=== PATIENT | male | born 1965 | race Caucasian/White ===

== ENCOUNTER → 2016-09-22 | Outpatient (CLI) | payer BC ==
[~2016-09-22] MED LIST: ALBUAER2 INH; ATR25 PO; FLNIN/ NAE; INSDGI SC; IPRASOL4 INH; NVLGI/PEN SC; OMEP20CA9 PO; ONDA-63 PO; PRLSR20 PO; ROPI0.5T PO; VNTHFA/IN INH; ZNTT/150 PO
--- NOTE | 2016-09-22 11:12 | DIAGNOSTIC IMAGING REPORT ---
ULTRASOUND OF THE THYROID GLAND CLINICAL HISTORY: Thyroid nodule. COMPARISON STUDY: Chest CT dated 03/25/2012. TECHNIQUE: Real-time, grayscale, and color flow sonography of the thyroid gland is performed utilizing a high-frequency linear transducer. Images are reviewed in the transverse and longitudinal planes. FINDINGS: Right lobe: The right lobe of the thyroid gland is normal in size and homogeneous in echotexture, measuring 5.0 x 1.9 x 1.8 cm. Left lobe: The left lobe of the thyroid gland is normal in size and homogeneous in echotexture, measuring 4.5 x 1.8 x 2.0 cm. Isthmus: The thyroid isthmus is normal in appearance and measures 0.4 cm in AP diameter. IMPRESSION: Unremarkable sonographic assessment of the thyroid gland. No thyroid nodule is identified. Electronically signed by: Jude Manley M.D. 09/22/2016 11:11 AM Dictated Date/Time: 09/22/2016 11:09 AM
[2016-09-22 13:01] LABS: THYROID STIMULATING HORMONE 1.48 uIu/ml (0.300-4.500)
== END | disposition home or self-care (01) ==
LOC: C.ULTR 10:25
PROVIDERS: ATTEND Internal Medicine Endocrinology, Diabetes & Metabolism
DX: E04.1 Nontoxic single thyroid nodule (principal); M79.1 Myalgia

== ENCOUNTER → 2016-10-17 | Outpatient (CLI) | payer BC ==
--- NOTE | 2016-10-18 01:00 | PAP/PSG TECHNICIAN REPORT ---
[facility] Belt Back Operator Polysomnogram Report Study name: None Report date: 10/18/2016 Study date: 10/17/2016 Referring Physician: Eric Stevenson M.D. Name: TEO MORENO Interpreting Physician: Leigh Stevenson M.D. Date of : 1965 Belt Back Operator: JER Guan. Sex: Male Age: 50 StudyType: PSG Weight: 272 lbs Height: 50 years, Height 6' 0" : BMI: 36.89 Medications: Prilosec 20mg, Mirapex, Lyrica 150mg, Spiriva 18mcg inhalation caps, Ventolin HFA 108mcg/act, Nicotine gum, Ativan 0.5mg, Lantus 100 unit/ml, Ranitidine HCl 300mg, Ursodiol 300mg Patient History Study started on room air with ETCO2 monitoring in room #6. 50 yr old male here tonight for a possible split psg if AHI>10. He has multiple medical problems (liver disease, HTN, diabetes and lung problems). He was diagnosed with EMIL and nocturnal hypoxemia years ago, and has been on cpap and oxygen. He is intolerant to cpap and has difficulty with wearing the mask. He is currently not using cpap or oxygen. He is having EDS and problems falling asleep. Parameters Monitored NPSG: E1-M2, E2-M1, Fp1-M2, Fp2-M1, F3-M2, F4-M2, F4-M1, C3-M2, C4-M2, C4-M1, O1-M2, O2-M2, O2-M1, T3-M2, T4-M1, P3-M2, P4-M1, CHIN1, CHIN2, HR, EKG, Legs, PFLOW, SNOR, FLOW, CFLOW, Tidal Volume, THOR, ABDO, SpO2, PLTH, CPRESS, ETCO2 Wave, ETCO2, pH Sleep Architecture Sleep Stages Time at Lights Off 9:50:43 PM STAGES Time (min.) TST (%) Time at Lights On 12:31:43 AM Wake 155.5 -- Total Recording Time (TRT) 161.00 min. N1 5.5 100 Total Sleep Period (TSP) 6.0 min. N2 0.0 0 Total Sleep Time (TST) 5.5min. N3 0.0 0 Awake Time 155.5 min. REM 0.0 0 Wake after Sleep Onset 75.5 min. Sleep Efficiency (SE) 3 % Sleep Onset Latency (HE) 80.0 min. Number of Stage 1 Shifts None Awakenings 2 Stage Changes 4 Number of REM periods N/A REM 0.0 0 REM Latency NONE min. NREM 5.5 100 Body Position Analysis Supine Right Left Side Prone Vertical Total Sleep Time (min.) 14.2 5.5 0.0 5.50 0.0 0.0 Total Sleep Time (%) 0% 100% 0% 100 0% N/A% Total Sleep Time REM (min.) 0.0 0.0 0.0 None 0.0 0.0 Total Sleep Time NREM (min.) 0.0 5.5 0.0 None 0.0 0.0 Intermittent Wake (min.) 14.2 87.4 53.9 None 0.0 0.0 Total Sleep Period (%) 0% None None None None None Arousals Myoclonus (PLM) * Events Count Index Events Count Index Spontaneous 2 22 Events Awake (PLMW) 161 62.1 Respiratory 0 0.0 Events Asleep w/ Arousal (PLMA) 9 98.2 PLM 9 98 Events Asleep w/o Arousal (PLMS) 3 32.7 Snoring 0 0 Total Asleep 12 130.9 Total 11 120 Total 173 64 Respiratory Analysis * CA OA MA CH H RERA Total Count 0 0 0 0 0 0 0 Index 0.0 0.0 0.0 0 0.0 0 0.0 Mean Duration 0.0 0.0 0.0 0.00 0.0 0.0 0.0 Longest Duration 0.0 0.0 0.0 0.00 0.0 0.0 0.0 Respiratory Event Summary Total Supine ~Supine Right Left Prone REM NREM Apneas Count 0 N/A 0 0 N/A N/A N/A 0 Index 0.0 N/A 0 0.0 N/A N/A N/A 0 Hypopneas (4% Desat) Count 0 N/A 0 0 N/A N/A N/A 0 Index 0.0 N/A 0 0.0 N/A N/A N/A 0.0 Apneas & All Hypopneas Count 0 N/A 0 0 N/A N/A N/A 0 Index 0.0 N/A 0 0 N/A N/A N/A 0.0 Respiratory Events (Vamp Creaser+All Hyp+RERA) Count 0 N/A 0 0 N/A N/A N/A 0 Index 0.0 N/A 0 0.0 N/A N/A N/A 0.0 Respiratory Related Arousal Count 0 N/A 0 0 N/A N/A N/A 0 Index 0.0 N/A 0 0 N/A N/A N/A 0 Snoring Analysis Supine Right Left Prone REM NREM Total Snore duration 0.6 min Snores count N/A 13 N/A N/A N/A 13 13 Snore mean duration 2.7 Sec Snores index N/A 142 N/A N/A N/A 141.8 141.8 TST with snoring (%) 10.7% SpO2 Analysis Total REM NREM Awake <50% 0.0 min. 0.0 min. 0.0 min. 0.0 min. 51 - 60% 0.0 min. 0.0 min. 0.0 min. 0.0 min. 61 - 70% 0.0 min. 0.0 min. 0.0 min. 0.0 min. 71 - 80% 0.0 min. 0.0 min. 0.0 min. 0.0 min. 81 - 90% 0.4 min. 0.0 min. 0.0 min. 0.4 min. 91 - 100% 134.8 min. 0.0 min. 5.5 min. 129.3 min. Average 95 0 96 95 Minimum SpO2 82 N/A 94 82 Desaturation Event Index 5.6 0.0 0.0 5.8 # Desat. Events below 89% N/A N/A N/A N/A Time(%) with Saturation below 89% 0.1 0.0 0.0 0.1 Time(min.) with Saturation below 89% 0.2 0.0 0.0 0.2 Heart Rate Analysis End Tidal CO2 Analysis Min (bpm) Max (bpm) Average (bpm) TSP (mins) % of TSP Awake 64 214 80 Above 55 mmHg 0.0 0.0 NREM 71 92 80 50-55 mmHg 0.0 0.0 REM N/A N/A N/A 45-50 mmHg 0.0 0.0 Overall 71 92 80 40-45 mmHg 0.0 0.0 35-40 mmHg 0.9 16.6 30-35 mmHg 4.5 81.0 Average ETCO2 0.0 Supplemental O2 Values Minimum O2 level: None Value Start Time End Time Belt Back Operator Comments Mr. Moreno laid in the right, left and supine positions. No cardiac arrhythmia noted. His legs seemed to move the entire time he was in bed. No bruxism noted. Snoring was not noted and scored as a 0 on a scale of 1 through 5. (0=no snoring, 5=snoring loud enough to be heard through a closed door or down the rios way) He used the restroom once during the night. His total sleep time was only 5and1/2 minutes. He became frustrated and ended the study early and left the sleep lab at 12:25am. The final report will be interpreted and signed by a sleep physician. The completed physician report will then be placed in the patient medical record Therapy (cm H2O) 0 TIB (min.) 161.0 TST (min.) 5.5 Sleep Onset (min.) 80.0 REM Onset From Sleep (min.) NONE Sleep Efficiency % 3 Wakefulness (%) 97 Wakefulness (min.) 155.5 NREM 1 (%) 100 NREM 1 (min.) 5.5 NREM 2 (%) 0 NREM 2 (min.) 0.0 NREM 3 (%) 0 NREM 3 (min.) 0.0 REM (%) 0 REM (min.) 0.0 # Arousals 11 Arousal Index 120 # Snore 13 Snore Index 141.8 AHI 0.0 AHI Supine N/A AHI Non-Supine 0 NREM AHI 0.0 REM AHI N/A RDI 0.0 # Obstructive Apnea 0 # Central Apnea 0 # Mixed Apnea 0 # Hypopneas 0 RERAs 0 Total Respiratory Events 0 Time Below SpO2 89% (min.) 0.0 Mean NREM SpO2 (%) 96 Mean REM SpO2 (%) N/A Mean Sleep SpO2 (%) 96 Min NREM SpO2 (%) 94 Min REM SpO2 (%) N/A Position Supine (min.) 14.2 Position Non-supine (min.) 5.5 LM Index Sleep 130.9 LM Index NREM 130.9 LM Index REM N/A Mean Heart Rate (bpm) 80 Min Heart Rate (bpm) 71
--- NOTE | 2016-10-23 17:11 | POLYSOMNOGRAPH REPORT ---
REFERRING PERSON: Dr. Jose Stevenson. BSS SOLUTION ARCHITECT: Parul Cantu. Mr. Moreno is a 50-year-old male with multiple medical problems including liver disease, hypertension, diabetes who was diagnosed with obstructive sleep apnea with nocturnal hypoxemia, years ago. He came intolerant to CPAP and was discontinued. He is having excessive daytime sleepiness. He returns to the sleep lab to see if he can qualify for equipment, once again. Following the technical and digital specifications of the [place] [employer] (AASM) a standard diagnostic polysomnogram was performed monitoring EEG, EOG, EMG (chin and leg deviations), oxygen saturation, body position, digital video, respiratory effort and airflow. The sleep Stage and event scoring was based on the AASM Manual for the Scoring of Sleep and Associated Events 2007 edition. Apneas are defined as a drop in the peak thermal sensor excursion by >90% of baseline for at least 10 seconds. Hypopneas were scored using the 4% oxygen desaturation rule (4A-[employer]) and a decrease in the nasal pressure excursions by >30% of baseline for at least 10 seconds. Respiratory effort-related arousal (RERA's) is defined as a sequence of breaths lasting at least 10 seconds characterized by increasing respiratory effort or flattening of the nasal pressure waveform leading to an arousal from sleep when the sequence of breaths does not meet criteria for an apnea or hypopnea. Apnea Hypopnea index (AHI) is defined as the number of apneas and hypopneas occurring in an hour of sleep. Respiratory disturbance index (RDI) is defined as the number of apneas, hypopneas, and RERA's occurring in an hour of sleep. Mr. Moreno struggled on this polysomnogram. He was observed from 9:50 p.m. to 12:31 a.m. Total recording time was 161 minutes. Total sleep time was only 5.5 minutes. Only 5.5 minutes of N1 sleep was recorded on this study. There were no respiratory events during that time. There were 12 periodic limb movements during that time. Thirteen snoring events were recorded. Mean saturation was 95%. This patient became frustrated and wanted to discontinue therapy and this patient requested this study end at 2:25 a.m. He left the sleep lab shortly thereafter. IMPRESSION AND PLAN: Nondiagnostic polysomnogram. Only 5.5 minutes of total sleep time was recorded during 161 minutes of observation. This test will need to be repeated.
== END | disposition home or self-care (01) ==
LOC: C.NEUR 21:00
PROVIDERS: ATTEND Surgery
DX: G47.33 Obstructive sleep apnea (adult) (pediatric) (principal)

== ENCOUNTER → 2016-10-25 | Day surgery (SDC) | payer BC ==
[~2016-10-25] VITALS: Ht 185.4 cm; Wt 125.0 kg
[~2016-10-25] MED LIST changes: +LIDOCAINE HCL 2% 2 ML VIAL (20MG/ML) ONE; +MIDAZOLAM HCL 1 MG/ML 2ML VIAL ONE; +ONDANSETRON INJ 2 MG/ML 2 ML VIAL IV PRN; +SUCCINYLCHOLINE CHLORIDE 20 MG/ML 10 ML VIAL IV ONE
[2016-10-25 09:46] VITALS: Ht 185.4 cm; Wt 125.0 kg
--- NOTE | 2016-10-25 09:54 | Endo History and Physical ---
History & Physical Date of Service: Oct 25, 2016. Chief Complaint: Abnormal CT Referring Physician: Dr. Berg History of Present Illness Patient referred for a colonosocpy to screening for colon cancer after being found to have an abnormal CT of the abdomen. Past Medical History Diabetes, Neurological Disorder, Arthritis, Fractures, Asthma, Gastrointestinal Disorder, Anxiety, Reflux, Sleep Apnea, COPD, Liver Disease, Other, Depression Past Surgical History Hx Cardiac Surgery: No Hx Internal Defibrillator: No Hx Pacemaker: No Hx Abdominal Surgery: Yes (UMBILICAL HERNIA REPAIR, [place]) Hx Post-Op Nausea and Vomiting: No Hx Cancer Surgery: No Hx Thoracic Surgery: No Hx Orthopedic: Yes (CERVICAL NECK FUSION X 2, LEFT SHOULDER REPAIR, LEFT WRIST REPAIR) Hx Urinary Tract Surgery: No Social History Smoking Status: Current Every Day Smoker Hx Substance Use: No Hx Alcohol Use: No Allergies Coded Allergies: Penicillins (Verified Allergy, Severe, ANAPHYLAXIS, 10/25/16) reports an iv dose of penicillin in ER when he was 21 yrs old. Had to stay in hospital for 2 days. Morphine (Verified Allergy, Intermediate, Severe itching/mouth rash, ) * PT MUST BE PRETREATED WITH BENADRYL Adhesives (Verified Allergy, Unknown, rips skin, 10/25/16) Meperidine (Verified Allergy, Unknown, pruritis/rash, 10/25/16) is able to tolerate IF PRETREATED WITH BENADRYL Current Medications Reported Home Medications Medications Dose Route/Sig Max Daily Dose Days Date Category Novolog Flexpen (Insulin Aspart) 100 Units/Ml Inj 15 QD 10/25/16 Reported Lantus (Insulin Glargine) 100 Unit/Ml Inj 0 SC SUPPER 10/25/16 Reported Lantus (Insulin Glargine) 100 Unit/Ml Inj 0 SC BEFORE LUNCH 10/25/16 Reported Lantus (Insulin Glargine) 100 Unit/Ml Inj 0 SC AM PRN 10/25/16 Reported Ondansetron HCl (Ondansetron) 8 Mg Tab 8 Mg PO Q8 PRN 08/19/16 Reported Zantac (Ranitidine HCl) 150 Mg Tab 300 Mg PO QPM 05/26/16 Reported Prilosec (Omeprazole) 20 Mg Cap 20 Mg PO QPM PRN 05/26/16 Reported Ventolin (Albuterol) Inh 2 Puffs INH QID PRN 5 11/25/15 Reported Prilosec (Omeprazole) 20 Mg Cap 40 Mg PO QPM 06/11/15 Reported Vital Signs Weight (Kilograms): 125 Height (Feet): 6 Height (Inches): 1 Physical Exam General Appearance: no apparent distress Respiratory/Chest: Auscultation: deminished air movement Cardiovascular: Heart Auscultation: RRR Abdomen: Inspection & Palpation: soft, distended Assessment and Plan patient for colonsocopy today due to an abnormal CT of the colon. We have discussed the risks to include bleeding, infection, perforation, pain, and missed polyps.
[2016-10-25 10:07] VITALS: TEMP 37
--- NOTE | 2016-10-25 11:16 | GI REPORT ---
Procedure Date: 10/25/2016 10:57 AM Procedure: Colonoscopy Indications: Abnormal CT of the GI tract Medicines: Monitored Anesthesia Care Complications: No immediate complications. Estimated blood loss: Minimal. Estimated Blood Loss: Estimated blood loss was minimal. Procedure: Pre-Anesthesia Assessment: - Prior to the procedure, a History and Physical was performed, and patient medications, allergies and sensitivities were reviewed. The patient's tolerance of previous anesthesia was reviewed. - The risks and benefits of the procedure and the sedation options and risks were discussed with the patient. All questions were answered and informed consent was obtained. - Patient identification and proposed procedure were verified prior to the procedure by the physician, the nurse and the echo vascular technologist. The procedure was verified in the procedure room. - Pre-procedure physical examination revealed no contraindications to sedation. - ASA Grade Assessment: III - A patient with severe systemic disease. - After reviewing the risks and benefits, the patient was deemed in satisfactory condition to undergo the procedure. - The anesthesia plan was to use monitored anesthesia care (MAC). - Immediately prior to administration of medications, the patient was re-assessed for adequacy to receive sedatives. - The heart rate, respiratory rate, oxygen saturations, blood pressure, adequacy of pulmonary ventilation, and response to care were monitored throughout the procedure. - The physical status of the patient was re-assessed after the procedure. After I obtained informed consent, the scope was passed under direct vision. Throughout the procedure, the patient's blood pressure, pulse, and oxygen saturations were monitored continuously. The scope was introduced through the anus and advanced to the terminal ileum. The colonoscopy was performed without difficulty. The patient tolerated the procedure well. The quality of the bowel preparation was adequate to identify polyps 6 mm and larger in size. Findings: The perianal and digital rectal examinations were normal. Pertinent negatives include normal sphincter tone. The terminal ileum appeared normal. A few small-mouthed diverticula were found in the sigmoid colon. Internal hemorrhoids were found during retroflexion. The hemorrhoids were mild. The exam was otherwise without abnormality. Impression: - The examined portion of the ileum was normal. - Mild diverticulosis in the sigmoid colon. - Internal hemorrhoids. - The examination was otherwise normal. - No specimens collected. Recommendation: - Discharge patient to home (ambulatory). - Advance diet as tolerated today. - Repeat colonoscopy in 3 years because the bowel preparation was suboptimal. Marten Ricketts, D.Good Ricketts DO 10/25/2016 11:15:31 AM This report has been signed electronically. Note Initiated On: 10/25/2016 10:57 AM I attest to the content of the Intraoperative Record and orders documented therein, exceptions below
--- NOTE | 2016-10-25 11:19 | Discharge Instructions ---
Endoscopy Patient Instructions Date / Procedure(s) Performed Oct 25, 2016. Colonoscopy Allergy Information Coded Allergies: Penicillins (Verified Allergy, Severe, ANAPHYLAXIS, 10/25/16) reports an iv dose of penicillin in ER when he was 21 yrs old. Had to stay in hospital for 2 days. Morphine (Verified Allergy, Intermediate, Severe itching/mouth rash, ) * PT MUST BE PRETREATED WITH BENADRYL Adhesives (Verified Allergy, Unknown, rips skin, 10/25/16) Meperidine (Verified Allergy, Unknown, pruritis/rash, 10/25/16) is able to tolerate IF PRETREATED WITH BENADRYL Discharge Date / Findings Oct 25, 2016. Hemorrhoids Diverticulosis of the colon Medication Instructions Stopped Medication(s): INSULIN STOP MORNING DOSE Restart Stopped Medication(s): Reported Home Medications Medications Dose Route/Sig Max Daily Dose Days Date Category Novolog Flexpen (Insulin Aspart) 100 Units/Ml Inj 15 QD 10/25/16 Reported Lantus (Insulin Glargine) 100 Unit/Ml Inj 0 SC SUPPER 10/25/16 Reported Lantus (Insulin Glargine) 100 Unit/Ml Inj 0 SC BEFORE LUNCH 10/25/16 Reported Lantus (Insulin Glargine) 100 Unit/Ml Inj 0 SC AM PRN 10/25/16 Reported Ondansetron HCl (Ondansetron) 8 Mg Tab 8 Mg PO Q8 PRN 08/19/16 Reported Zantac (Ranitidine HCl) 150 Mg Tab 300 Mg PO QPM 05/26/16 Reported Prilosec (Omeprazole) 20 Mg Cap 20 Mg PO QPM PRN 05/26/16 Reported Ventolin (Albuterol) Inh 2 Puffs INH QID PRN 5 11/25/15 Reported Prilosec (Omeprazole) 20 Mg Cap 40 Mg PO QPM 06/11/15 Reported Provider Instructions Activity Restrictions - No exercising or heavy lifting for 24 hours. - Do not drink alcohol the day of the procedure. - Do not drive a car or operate machinery until the day after the procedure. - Do not make any important decisions or sign important papers in 24 hours after the procedure. Following Day: - Return to full activity which may include returning to work/school. Diet Start your diet with liquids and light foods (jello, soup, juice, toast). Then eat your usual diet if not nauseated. Treatment For Common After Affects For mild abdominal pain, bloating, or excessive gas: - Rest - Eat lightly - Lie on right side Follow-Up Information Repeat colonoscopy in 3 years due to a suboptimal bowel preparation Anesthesia Information What You Should Know You have had a procedure that required some medicine to reduce anxiety and discomfort. This treatment is called moderate sedation. After receiving the treatment, you may be sleepy, but you will be able to breathe on your own. The effects of the treatment may last for several hours. Follow these instructions along with Activity/Diet recommendations noted above: * Do NOT do anything where dizziness or clumsiness would be dangerous. * Rest quietly at home today, then you can be up and about tomorrow. * Have a responsible person stay with you the rest of today. * You may have had an I.V. today. If so, you may take the dressing off later today. Recommendations Call your doctor if: * Trouble breathing * Continuous vomiting for more than 24 hours * Temperature above 101 degrees * Severe abdominal pain or bloating * Pain not relieved by pain medicine ordered * There is increased drainage or redness from any incision * A large amount of rectal bleeding greater than 2-3 tablespoons. (If you had a polyp/s removed or have hemorrhoids, a small amount of blood - from the rectum is to be expected.) * You have any unanswered questions or concerns. IN THE EVENT OF A SERIOUS EMERGENCY, GO TO THE NEAREST EMERGENCY ROOM Your discharge instructions were prepared by provider Ben Ricketts. Patient Instructions Signature Page Dion Moreno Patient (or Guardian) Signature/Date: I have read and understand the instructions given to me by my caregivers. Caregiver/RN/Doctor Signature/Date: The above-named patient and/or guardian has received patient instructions on this date. + Original Patient Signature Page (only) stays with chart. Please make copy for patient.
[2016-10-25 11:46] VITALS: BP 131/79; PULSE 77; O2SAT 97
--- NOTE | 2016-10-25 15:31 | Anesthesiology Progress Note ---
Anesthesia Post Op Note Date & Time Oct 25, 2016 at 15:31 Vital Signs Pain Intensity: 0 Vital Signs Past 12 Hours Date Time Temp Pulse Resp B/P Pulse Ox O2 Delivery O2 Flow Rate FiO2 10/25/16 11:46 77 20 131/79 97 Room Air 10/25/16 11:31 84 20 114/70 94 Room Air 10/25/16 11:16 87 20 108/63 94 Room Air 10/25/16 10:07 37.0 76 20 124/74 98 Room Air Notes Mental Status: alert / awake / arousable Nausea / Vomiting: adequately controlled Pain: adequately controlled Airway Patency, RR, SpO2: stable & adequate BP & HR: stable & adequate Hydration State: stable & adequate Anesthetic Complications: no major complications apparent
== END | disposition home or self-care (01) ==
LOC: C.GI 09:17
PROVIDERS: ATTEND Internal Medicine Gastroenterology
DX: R93.3 Abnormal findings on diagnostic imaging of other parts of digestive tract (principal); K57.30 Diverticulosis of large intestine without perforation or abscess without bleeding; K64.8 Other hemorrhoids; E11.9 Type 2 diabetes mellitus without complications; J44.9 Chronic obstructive pulmonary disease, unspecified; Z88.0 Allergy status to penicillin; Z88.5 Allergy status to narcotic agent

== ENCOUNTER 2016-12-08 10:52 | Emergency (ER) | payer BC ==
[~2016-12-08] VITALS: Ht 182.9 cm; Wt 120.0 kg
[~2016-12-08 10:52] MED LIST changes: -ATR25 PO; -FLNIN/ NAE; -IPRASOL4 INH; -LIDOCAINE HCL 2% 2 ML VIAL (20MG/ML) ONE; -MIDAZOLAM HCL 1 MG/ML 2ML VIAL ONE; -ONDANSETRON INJ 2 MG/ML 2 ML VIAL IV PRN; -PRLSR20 PO; -ROPI0.5T PO; -SUCCINYLCHOLINE CHLORIDE 20 MG/ML 10 ML VIAL IV ONE; -VNTHFA/IN INH
[2016-12-08 10:58] VITALS: TEMP 36.4; Ht 182.9 cm; Wt 120.0 kg
[2016-12-08] MEDS ORDERED: PRLSR20 PO (11:54)
[2016-12-08] MEDS ORDERED: NVLGI/PEN SC ×2 (11:54)
[2016-12-08] MEDS ORDERED: ZNTT/150 PO (11:54)
--- NOTE | 2016-12-08 12:31 | DIAGNOSTIC IMAGING REPORT ---
RIGHT FEMUR 2 VIEWS ROUTINE CLINICAL HISTORY: Right thigh trauma. COMPARISON: CT of the abdomen and pelvis June 11, 2015. FINDINGS: No acute fracture of the right femur is identified. There is no right knee joint effusion. There is spurring of the patella at the insertion of the quadriceps. There is mild arthritis of the right hip. IMPRESSION: No acute fracture of the right femur. Electronically signed by: Angel Garrett M.D. 12/08/2016 12:30 PM Dictated Date/Time: 12/08/2016 12:28 PM
[2016-12-08 13:14] VITALS: BP 138/84; PULSE 92; O2SAT 98
--- NOTE | 2016-12-08 15:58 | EMERGENCY ROOM VISIT NOTE ---
History Report prepared by Prateek: William Velasquez Under the Supervision of: Dr. Quang Santamaria M.D. First contact with patient: 11:19 Chief Complaint: LEG PAIN,LEG INJURY Stated Complaint: RIGHT THIGH- PLEASE CHECK FOR COMPRESSION FX History of Present Illness The patient is a 50 year old male who presents to the Emergency Room with complaints of worsening right leg pain for the past two days. The patient states that he was putting in a fence post, and the post was let go by someone helping him, and it hit the patient in the right thigh. The patient states that it hit him, and he was flung into a tree three feet away, though he did not fall down. The patient states that the pain is exacerbated with walking and bending his knee. He states that he did not put ice on it afterwards. Pt denies LOC, headache, visual changes, neck pain, chest pain, breathing difficulties, nausea, vomiting, abdominal pain, back pain, numbness, weakness, open wounds, active bleeding, or other complaints. Source of History: patient Onset: two days ago Position: leg (right) Timing: worsening Modifying Factors (Worsening): other (walking and bending the knee) Review of Systems See HPI for pertinent positives & negatives. A total of 6 systems reviewed and were otherwise negative. Past Medical & Surgical Medical Problems: (1) Cervical disc disease (2) COPD (chronic obstructive pulmonary disease) (3) Diabetes mellitus, type II (4) Dyslipidemia (5) Fatty liver (6) GERD (gastroesophageal reflux disease) (7) RLS (restless legs syndrome) (8) Sarcoidosis Surgical Problems: (1) Status post cervical spinal fusion (2) Status post cholecystectomy (3) Status post endoscopic US with Bx (4) Status post liver biopsy (5) Status post repair nasal septum (6) Status post thoracic spine fusion Family History FH: diabetes mellitus MOTHER FH: heart disease MOTHER (? endocarditis) Social History Smoking Status: Current Every Day Smoker Alcohol Use: occasionally Marital Status: Housing Status: lives with family Occupation Status: disabled Current/Historical Medications Scheduled Insulin Aspart (Novolog Flexpen), 15 UNITS SC QAM Insulin Aspart (Novolog Flexpen), 18 UNITS SC DAILY Insulin Aspart (Novolog Flexpen), 22 UNITS SC QPM Insulin Glargine (Lantus), 55 UNITS SC QAM Omeprazole (Prilosec), 20 MG PO TID Ranitidine (Zantac), 150 MG PO BID Allergies Coded Allergies: Penicillins (Verified Allergy, Severe, ANAPHYLAXIS, 10/25/16) reports an iv dose of penicillin in ER when he was 21 yrs old. Had to stay in hospital for 2 days. Morphine (Verified Allergy, Intermediate, Severe itching/mouth rash, ) * PT MUST BE PRETREATED WITH BENADRYL Adhesives (Verified Allergy, Unknown, rips skin, 10/25/16) Meperidine (Verified Allergy, Unknown, pruritis/rash, 10/25/16) is able to tolerate IF PRETREATED WITH BENADRYL Physical Exam Vital Signs Date Time Temp Pulse Resp B/P Pulse Ox O2 Delivery O2 Flow Rate FiO2 12/08/16 13:14 92 20 138/84 98 12/08/16 12:18 98 14 121/78 98 Room Air 12/08/16 10:58 36.4 91 16 136/84 97 Room Air Physical Exam GENERAL: Awake, alert, well-appearing, in no distress HENT: Normocephalic, atraumatic. Oropharynx unremarkable. EYES: Normal conjunctiva. Sclera non-icteric. NECK: Supple. No nuchal rigidity. FROM. No JVD. RESPIRATORY: Clear to auscultation. CARDIAC: Regular rate, normal rhythm. Extremities warm and well perfused. Pulses equal. ABDOMEN: Soft, non-distended. No tenderness to palpation. No rebound or guarding. No masses. MUSCULOSKELETAL: Chest examination reveals no tenderness. No joint edema. LOWER EXTREMITIES: Left thigh is soft. Bruise on the anterior aspect. Calves are equal size bilaterally and non-tender. No edema. NEURO: Normal sensorium. No sensory or motor deficits noted. SKIN: No rash or jaundice noted. Medical Decision & Procedures ER Provider Diagnostic Interpretation: X-ray: Per my interpretation, radiologist review. RIGHT FEMUR 2 VIEWS ROUTINE CLINICAL HISTORY: Right thigh trauma. COMPARISON: CT of the abdomen and pelvis June 11, 2015. FINDINGS: No acute fracture of the right femur is identified. There is no right knee joint effusion. There is spurring of the patella at the insertion of the quadriceps. There is mild arthritis of the right hip. IMPRESSION: No acute fracture of the right femur. Electronically signed by: Angel Garrett M.D. 12/08/2016 12:30 PM Dictated Date/Time: 12/08/2016 12:28 PM ED Course 1119: The patient was evaluated in room C7. A complete history and physical exam was performed. 1245: I reevaluated the patient. Discussed results and discharge instructions: He verbalized understanding and agreement. The patient is ready for discharge. Medical Decision Triage Nursing notes reviewed. The patient's presentation and history were concerning for leg pain. Etiologies such as soft tissue injury, fracture, dislocation, neurovascular compromise, compartment syndrome, as well as others were entertained. Patient is doing very well. He had suffered a direct hit to the right thigh 2 days ago. He is having pain but he can ambulate. He is using a cane for stability. The patient underwent x-ray imaging as he was concerned about a fracture. There is nothing present on x-ray. His leg is soft. There is a small area of ecchymosis. No significant hematoma. Nothing to suggest compartment syndrome. No neurologic compromise. It appears that he has just suffered a significant contusion. Additional testing was deemed necessary. I discussed conservative management with the patient and he was in agreement and felt very comfortable. By the evaluation outlined above other emergent etiologies such as those listed in the differential, as well as others, were deemed relatively unlikely. The patient was informed about the findings as listed above. All questions were answered and he was pleased with the treatment. Return instructions were outlined and the patient was discharged in stable condition. The patient was referred to his PCP or orthopedic for follow-up next week for a recheck of the current condition. The chart was completed utilizing [employer] Speech voice recognition software. Grammatical errors, random word insertions, pronoun errors, and incomplete sentences are an occasional consequence of this system due to software limitations, ambient noise, and hardware issues. Any formal questions or concerns about the content, text, or information contained within the body of this dictation should be directly addressed to the physician for clarification. [place] Drug Monitoring Program Search Results: patient reviewed within database, see additional documentation Drug Monitoring Findings: The patient has multiple prescriptions done last year, however nothing recently. Impression Primary Impression: Contusion of right leg Scribe Attestation The scribe's documentation has been prepared under my direction and personally reviewed by me in its entirety. I confirm that the note above accurately reflects all work, treatment, procedures, and medical decision making performed by me. Departure Information Dispostion Home / Self-Care Referrals Neha Burgos D.O. (PCP) Forms HOME CARE DOCUMENTATION FORM, IMPORTANT VISIT INFORMATION Patient Instructions My [facility] Additional Instructions Ibuprofen(Motrin, Advil) may be used for fever or pain. Use 600mg every six hours as needed. Take with food. Avoid using more than 2400mg in a 24 hour period. Do not use 2400mg per day for more than three consecutive days without physician direction. Prolonged inappropriate use can lead to stomach upset or ulcers. (AND/OR) Acetaminophen(Tylenol) may be used for fever or pain. Use 1000mg every six hours as needed. Avoid using more than 4000mg in a 24 hour period. Warm compresses for 20 minutes at a time four times daily for 2-3 days. Use the cane as instructed. Rest and elevate your injury. Return to the ER immediately for any numbness, tingling, severe pain, extreme swelling in the extremity or as needed. Call [facility], [phone], next week to arrange follow up for your injury if symptoms persist. Follow-up with your primary care physician in 3 days for a recheck of your current condition.
[2017-03-26] MEDS ORDERED: IPRASOL4 INH (08:45)
[2017-03-26] MEDS ORDERED: VNTHFA/IN INH (08:45)
[2017-06-06] MEDS ORDERED: CLIN300C2 PO (07:34)
== END 2016-12-08 13:16 | disposition home or self-care (01) ==
LOC: C.EDB 10:54 → C.EDC 13:16
DX: S80.11XA Contusion of right lower leg, initial encounter (principal); W22.8XXA Striking against or struck by other objects, initial encounter; M50.90 Cervical disc disorder, unspecified, unspecified cervical region; J44.9 Chronic obstructive pulmonary disease, unspecified; E11.9 Type 2 diabetes mellitus without complications; E78.5 Hyperlipidemia, unspecified; K76.0 Fatty (change of) liver, not elsewhere classified; K21.9 Gastro-esophageal reflux disease without esophagitis; G25.81 Restless legs syndrome; D86.9 Sarcoidosis, unspecified; Z83.3 Family history of diabetes mellitus; Z82.49 Family history of ischemic heart disease and other diseases of the circulatory system; F17.210 Nicotine dependence, cigarettes, uncomplicated; Z79.4 Long term (current) use of insulin; Z79.899 Other long term (current) drug therapy

== ENCOUNTER → 2017-03-28 | Day surgery (SDC) | payer BC ==
[2017-03-26 08:47] VITALS: Ht 185.4 cm; Wt 125.0 kg
[~2017-03-28] VITALS: Ht 185.4 cm; Wt 125.0 kg
[~2017-03-28] MED LIST changes: -ALBUAER2 INH; +CLIN300C2 PO; +IPRASOL4 INH; +LIDOCAINE HCL 2% 2 ML VIAL (20MG/ML) ONE; +MIDAZOLAM HCL 1 MG/ML 2ML VIAL ONE; -OMEP20CA9 PO; -ONDA-63 PO; +ONDANSETRON INJ 2 MG/ML 2 ML VIAL IV PRN; +PRLSR20 PO; +PROPOFOL IV EMULSION 10 MG/ML 20 ML VIAL IV ONE; +SODIUM CHLORIDE 0.9% 500ML 500 ML IV ONE; +VNTHFA/IN INH
[2017-03-28 08:49] VITALS: TEMP 36.5
--- NOTE | 2017-03-28 08:56 | Endo History and Physical ---
History & Physical Date of Service: Mar 28, 2017. Chief Complaint: Cirrhosis of liver Referring Physician: Dr. Neha Burgos History of Present Illness Patient with a history of portal hypertension presenting for screening upper endoscopy today. He does have a history of grade 1 to grade 2 esophageal varices and is due for surveillance. Past Medical History Diabetes, Neurological Disorder, Arthritis, Fractures, Asthma, Gastrointestinal Disorder, Anxiety, Reflux, Sleep Apnea, COPD, Liver Disease, Other, Depression Past Surgical History Hx Cardiac Surgery: Yes (HEART CATH, NO STENTS) Hx Internal Defibrillator: No Hx Pacemaker: No Hx Abdominal Surgery: Yes (HERNIA REPAIR, [facility]ER[place]) Hx of Implantable Prosthesis: No Hx Post-Op Nausea and Vomiting: No Hx Cancer Surgery: No Hx Thoracic Surgery: No Hx Orthopedic: Yes (THORACIC BACK SURGERY, CERVICAL FUSIONS X3 (LIMITED LT,RT, UP)) Hx Urinary Tract Surgery: No Family History None Social History Smoking Status: Current Every Day Smoker Hx Substance Use: No Hx Alcohol Use: No Allergies Coded Allergies: Penicillins (Verified Allergy, Severe, ANAPHYLAXIS, 03/26/17) reports an iv dose of penicillin in ER when he was 21 yrs old. Had to stay in hospital for 2 days. Morphine (Verified Allergy, Intermediate, Severe itching/mouth rash, ) * PT MUST BE PRETREATED WITH BENADRYL Adhesives (Verified Allergy, Unknown, rips skin, 03/26/17) Meperidine (Verified Allergy, Unknown, pruritis/rash, 03/26/17) is able to tolerate IF PRETREATED WITH BENADRYL Current Medications Reported Home Medications Medications Dose Route/Sig Max Daily Dose Days Date Category Dose Instructions Duoneb (Ipratropium-Albuterol) 3 Ml Nebu 1 Treatment INH Q4H PRN 03/26/17 Reported Ventolin Hfa (Albuterol) 200 Puffs/85198 Mcg Aers 2-4 Puffs INH Q6H PRN 03/26/17 Reported Zantac (Ranitidine HCl) 150 Mg Tab 150 Mg PO BID 12/08/16 Reported Prilosec (Omeprazole) 20 Mg Capcr 20 Mg PO TID 12/08/16 Reported Novolog Flexpen (Insulin Aspart) 100 Units/Ml Inj 27 Units SC QPM 12/08/16 Reported Novolog Flexpen (Insulin Aspart) 100 Units/Ml Inj 20 Units SC LUNCH 12/08/16 Reported Novolog Flexpen (Insulin Aspart) 100 Units/Ml Inj 20 Units SC QAM 10/25/16 Reported BREAKFAST. Lantus (Insulin Glargine) 100 Unit/Ml Inj 57 Units SC QAM 10/25/16 Reported Vital Signs Weight (Kilograms): 125 Height (Feet): 6 Height (Inches): 1 Date Time Temp Pulse Resp B/P (MAP) Pulse Ox O2 Delivery O2 Flow Rate FiO2 03/28/17 08:49 36.5 70 20 111/74 (86) 98 Room Air Physical Exam General Appearance: no apparent distress Respiratory/Chest: Auscultation: breath sounds normal Cardiovascular: Heart Auscultation: RRR Abdomen: Inspection & Palpation: soft Assessment and Plan EGD for surveillance of esophageal varices. We have discussed the risks and benefits to include bleeding, infection, perforation pain and peritonitis
--- NOTE | 2017-03-28 09:16 | GI REPORT ---
Procedure Date: 03/28/2017 8:57 AM Procedure: Upper GI endoscopy Indications: Follow-up of esophageal varices Medicines: Monitored Anesthesia Care Complications: No immediate complications. Estimated blood loss: Minimal. Estimated Blood Loss: Estimated blood loss was minimal. Procedure: Pre-Anesthesia Assessment: - Prior to the procedure, a History and Physical was performed, and patient medications, allergies and sensitivities were reviewed. The patient's tolerance of previous anesthesia was reviewed. - The risks and benefits of the procedure and the sedation options and risks were discussed with the patient. All questions were answered and informed consent was obtained. - Patient identification and proposed procedure were verified prior to the procedure by the physician, the nurse and the cylindrical mixer. The procedure was verified in the procedure room. - Pre-procedure physical examination revealed no contraindications to sedation. - ASA Grade Assessment: III - A patient with severe systemic disease. - After reviewing the risks and benefits, the patient was deemed in satisfactory condition to undergo the procedure. - The anesthesia plan was to use monitored anesthesia care (MAC). - Immediately prior to administration of medications, the patient was re-assessed for adequacy to receive sedatives. - The heart rate, respiratory rate, oxygen saturations, blood pressure, adequacy of pulmonary ventilation, and response to care were monitored throughout the procedure. - The physical status of the patient was re-assessed after the procedure. After obtaining informed consent, the endoscope was passed under direct vision. Throughout the procedure, the patient's blood pressure, pulse, and oxygen saturations were monitored continuously. The scope was introduced through the mouth, and advanced to the third part of duodenum. The upper GI endoscopy was accomplished without difficulty. The patient tolerated the procedure well. Findings: Four columns of non-bleeding grade III varices were found in the middle third of the esophagus and in the lower third of the esophagus, 30 to 40 cm from the incisors. They were 5 mm in largest diameter. No stigmata of recent bleeding were evident and no red nasir signs were present. Moderate portal hypertensive gastropathy was found in the entire examined stomach. Biopsies were taken with a cold forceps for histology. Estimated blood loss was minimal. The examined duodenum was normal. Impression: - Non-bleeding grade III esophageal varices. - Portal hypertensive gastropathy. Biopsied. - Normal examined duodenum. Recommendation: - Discharge patient to home (ambulatory). - Advance diet as tolerated today. - Repeat the upper endoscopy in 1 year for surveillance. - Return to GI office as previously scheduled. - Consider a beta narendra with dosage titrated by the heart rate. Ben Ricketts D.O. Ben Ricketts, DO 03/28/2017 9:16:19 AM This report has been signed electronically. Note Initiated On: 03/28/2017 8:57 AM I attest to the content of the Intraoperative Record and orders documented therein, exceptions below
--- NOTE | 2017-03-28 09:18 | Discharge Instructions ---
Endoscopy Patient Instructions Date / Procedure(s) Performed Mar 28, 2017. EGD Allergy Information Coded Allergies: Penicillins (Verified Allergy, Severe, ANAPHYLAXIS, 03/26/17) reports an iv dose of penicillin in ER when he was 21 yrs old. Had to stay in hospital for 2 days. Morphine (Verified Allergy, Intermediate, Severe itching/mouth rash, ) * PT MUST BE PRETREATED WITH BENADRYL Adhesives (Verified Allergy, Unknown, rips skin, 03/26/17) Meperidine (Verified Allergy, Unknown, pruritis/rash, 03/26/17) is able to tolerate IF PRETREATED WITH BENADRYL Discharge Date / Findings Mar 28, 2017. Portal hypertensive gastropathy Grade 3 esophageal varices Medication Instructions Stopped Medication(s): Patient was told not to take any insulin today. Reported Home Medications Medications Dose Route/Sig Max Daily Dose Days Date Category Dose Instructions Duoneb (Ipratropium-Albuterol) 3 Ml Nebu 1 Treatment INH Q4H PRN 03/26/17 Reported Ventolin Hfa (Albuterol) 200 Puffs/29408 Mcg Aers 2-4 Puffs INH Q6H PRN 03/26/17 Reported Zantac (Ranitidine HCl) 150 Mg Tab 150 Mg PO BID 12/08/16 Reported Prilosec (Omeprazole) 20 Mg Capcr 20 Mg PO TID 12/08/16 Reported Novolog Flexpen (Insulin Aspart) 100 Units/Ml Inj 27 Units SC QPM 12/08/16 Reported Novolog Flexpen (Insulin Aspart) 100 Units/Ml Inj 20 Units SC LUNCH 12/08/16 Reported Novolog Flexpen (Insulin Aspart) 100 Units/Ml Inj 20 Units SC QAM 10/25/16 Reported BREAKFAST. Lantus (Insulin Glargine) 100 Unit/Ml Inj 57 Units SC QAM 10/25/16 Reported Provider Instructions Activity Restrictions - No exercising or heavy lifting for 24 hours. - Do not drink alcohol the day of the procedure. - Do not drive a car or operate machinery until the day after the procedure. - Do not make any important decisions or sign important papers in 24 hours after the procedure. Following Day: - Return to full activity which may include returning to work/school. Diet Start your diet with liquids and light foods (jello, soup, juice, toast). Then eat your usual diet if not nauseated. Treatment For Common After Affects For mild abdominal pain, bloating, or excessive gas: - Rest - Eat lightly - Lie on right side Follow-Up Information Follow-up with Dr. Neha Burgos as scheduled Dr. Berg will determine if a nonselective beta narendra should be started for your esophageal varices Anesthesia Information What You Should Know You have had a procedure that required some medicine to reduce anxiety and discomfort. This treatment is called moderate sedation. After receiving the treatment, you may be sleepy, but you will be able to breathe on your own. The effects of the treatment may last for several hours. Follow these instructions along with Activity/Diet recommendations noted above: * Do NOT do anything where dizziness or clumsiness would be dangerous. * Rest quietly at home today, then you can be up and about tomorrow. * Have a responsible person stay with you the rest of today. * You may have had an I.V. today. If so, you may take the dressing off later today. Recommendations Call your doctor if: * Trouble breathing * Continuous vomiting for more than 24 hours * Temperature above 101 degrees * Severe abdominal pain or bloating * Pain not relieved by pain medicine ordered * There is increased drainage or redness from any incision * A large amount of rectal bleeding greater than 2-3 tablespoons. (If you had a polyp/s removed or have hemorrhoids, a small amount of blood - from the rectum is to be expected.) * You have any unanswered questions or concerns. IN THE EVENT OF A SERIOUS EMERGENCY, GO TO THE NEAREST EMERGENCY ROOM Your discharge instructions were prepared by provider Ben Ricketts. Patient Instructions Signature Page Dion Moreno Patient (or Guardian) Signature/Date: I have read and understand the instructions given to me by my caregivers. Caregiver/RN/Doctor Signature/Date: The above-named patient and/or guardian has received patient instructions on this date. + Original Patient Signature Page (only) stays with chart. Please make copy for patient.
[2017-03-28 09:47] VITALS: BP 123/73; PULSE 76; O2SAT 98
--- NOTE | 2017-03-28 09:56 | Anesthesiology Progress Note ---
Anesthesia Post Op Note Date & Time Mar 28, 2017 at 09:56 Vital Signs Pain Intensity: 0 Vital Signs Past 12 Hours Date Time Temp Pulse Resp B/P (MAP) Pulse Ox O2 Delivery O2 Flow Rate FiO2 03/28/17 09:47 76 20 123/73 (90) 98 Room Air 03/28/17 09:34 76 20 114/74 (87) 97 Room Air 03/28/17 09:20 73 20 111/68 (82) 97 Room Air 03/28/17 08:49 36.5 70 20 111/74 (86) 98 Room Air Notes Mental Status: alert / awake / arousable, participated in evaluation Pt Amnestic to Procedure: Yes Nausea / Vomiting: adequately controlled Pain: adequately controlled Airway Patency, RR, SpO2: stable & adequate BP & HR: stable & adequate Hydration State: stable & adequate Anesthetic Complications: no major complications apparent
== END | disposition home or self-care (01) ==
LOC: C.GI 08:32
PROVIDERS: ATTEND Internal Medicine Gastroenterology
DX: K74.60 Unspecified cirrhosis of liver (principal); I85.00 Esophageal varices without bleeding; K31.89 Other diseases of stomach and duodenum; Z90.49 Acquired absence of other specified parts of digestive tract; F17.200 Nicotine dependence, unspecified, uncomplicated; J45.909 Unspecified asthma, uncomplicated; G47.33 Obstructive sleep apnea (adult) (pediatric); K21.9 Gastro-esophageal reflux disease without esophagitis; R16.1 Splenomegaly, not elsewhere classified; M19.90 Unspecified osteoarthritis, unspecified site; E11.9 Type 2 diabetes mellitus without complications; Z79.84 Long term (current) use of oral hypoglycemic drugs; E66.9 Obesity, unspecified

== ENCOUNTER → 2017-05-22 | Day surgery (SDC) | payer BC ==
[2017-05-16 07:37] VITALS: Ht 185.4 cm; Wt 127.7 kg
[~2017-05-22] VITALS: Ht 185.4 cm; Wt 127.7 kg
[~2017-05-22] MED LIST changes: +FENTANYL CITRATE INJ 50 MCG/1 ML 2 ML VIAL ONE; +KETAMINE HCL INJ 50 MG/ML 10 ML VIAL ONE; -MIDAZOLAM HCL 1 MG/ML 2ML VIAL ONE; -ONDANSETRON INJ 2 MG/ML 2 ML VIAL IV PRN; +ONDANSETRON INJ 2 MG/ML 2 ML VIAL ONE; -SODIUM CHLORIDE 0.9% 500ML 500 ML IV ONE
--- NOTE | 2017-05-22 10:11 | Endo History and Physical ---
History & Physical Date of Service: May 22, 2017. Chief Complaint: Varices Referring Physician: Neha Burgos History of Present Illness Elective banding of varices Past Medical History Diabetes, Neurological Disorder, Arthritis, Fractures, Asthma, Gastrointestinal Disorder, Anxiety, Reflux, Sleep Apnea, COPD, Liver Disease, Other, Depression Past Surgical History Hx Cardiac Surgery: Yes (HEART CATH, NO STENTS) Hx Internal Defibrillator: No Hx Pacemaker: No Hx Abdominal Surgery: Yes (HERNIA REPAIR, [place]) Hx Post-Op Nausea and Vomiting: No Hx Cancer Surgery: No Hx Thoracic Surgery: No Hx Orthopedic: Yes (THORACIC BACK SURGERY, CERVICAL FUSIONS X3 (LIMITED LT,RT, UP)) Hx Urinary Tract Surgery: No Family History None Social History Smoking Status: Current Every Day Smoker Hx Substance Use: No Hx Alcohol Use: No Allergies Coded Allergies: Penicillins (Verified Allergy, Severe, ANAPHYLAXIS, 05/16/17) reports an iv dose of penicillin in ER when he was 21 yrs old. Had to stay in hospital for 2 days. Morphine (Verified Allergy, Intermediate, Severe itching/mouth rash, ) * PT MUST BE PRETREATED WITH BENADRYL Adhesives (Verified Allergy, Unknown, rips skin, 05/16/17) Meperidine (Verified Allergy, Unknown, pruritis/rash, 05/16/17) is able to tolerate IF PRETREATED WITH BENADRYL Current Medications Reported Home Medications Medications Dose Route/Sig Max Daily Dose Days Date Category Dose Instructions Duoneb (Ipratropium-Albuterol) 3 Ml Nebu 1 Treatment INH Q4H PRN 03/26/17 Reported Ventolin Hfa (Albuterol) 200 Puffs/93076 Mcg Aers 2-4 Puffs INH Q6H PRN 03/26/17 Reported Zantac (Ranitidine HCl) 150 Mg Tab 150 Mg PO BID 12/08/16 Reported Prilosec (Omeprazole) 20 Mg Capcr 20 Mg PO TID 12/08/16 Reported Novolog Flexpen (Insulin Aspart) 100 Units/Ml Inj 27 Units SC QPM 12/08/16 Reported Novolog Flexpen (Insulin Aspart) 100 Units/Ml Inj 20 Units SC LUNCH 12/08/16 Reported Novolog Flexpen (Insulin Aspart) 100 Units/Ml Inj 20 Units SC QAM 10/25/16 Reported BREAKFAST. Lantus (Insulin Glargine) 100 Unit/Ml Inj 60 Units SC QAM 10/25/16 Reported Vital Signs Weight (Kilograms): 127.73 Height (Feet): 6 Height (Inches): 1 Date Time Temp Pulse Resp B/P (MAP) Pulse Ox O2 Delivery O2 Flow Rate FiO2 05/22/17 08:40 36.9 79 18 124/75 (91) 98 Room Air Physical Exam General Appearance: no apparent distress Respiratory/Chest: Auscultation: breath sounds normal Cardiovascular: Heart Auscultation: RRR Abdomen: Inspection & Palpation: soft Assessment and Plan EGD for banding of elective varices
--- NOTE | 2017-05-22 11:05 | GI REPORT ---
Procedure Date: 05/22/2017 10:24 AM Procedure: Upper GI endoscopy Indications: For therapy of esophageal varices Medicines: See the Anesthesia note for documentation of the administered medications Complications: No immediate complications. Estimated Blood Loss: Estimated blood loss: none. Procedure: Pre-Anesthesia Assessment: - ASA Grade Assessment: III - A patient with severe systemic disease. After obtaining informed consent, the endoscope was passed under direct vision. Throughout the procedure, the patient's blood pressure, pulse, and oxygen saturations were monitored continuously. The Scope was introduced through the mouth, and advanced to the second part of duodenum. The upper GI endoscopy was accomplished without difficulty. The patient tolerated the procedure well. Findings: Four columns of grade II varices were found in the lower third of the esophagus,. No stigmata of recent bleeding were evident and no red nasir signs were present. Three bands were successfully placed with incomplete eradication of varices. The GE junction was at 40 cm, and was irregular. There was moderate portal HTN gastropathy throughout the entire stomach. 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 No gastric varices were seen. The duodenum was normal. Impression: - Non-bleeding grade II esophageal varices. 3 bands placed, but varices not completely eradicated. Recommendation: - Discharge patient to home. Liquids only today, then adv diet as tolerated. Repeat procedure in 3 weeks. Mandy Berg M.D. Mandy Berg MD 05/22/2017 11:04:48 AM This report has been signed electronically. Note Initiated On: 05/22/2017 10:24 AM I attest to the content of the Intraoperative Record and orders documented therein, exceptions below
--- NOTE | 2017-05-22 11:05 | Discharge Instructions ---
Endoscopy Patient Instructions Date / Procedure(s) Performed May 22, 2017. EGD Allergy Information Coded Allergies: Penicillins (Verified Allergy, Severe, ANAPHYLAXIS, 05/16/17) reports an iv dose of penicillin in ER when he was 21 yrs old. Had to stay in hospital for 2 days. Morphine (Verified Allergy, Intermediate, Severe itching/mouth rash, ) * PT MUST BE PRETREATED WITH BENADRYL Adhesives (Verified Allergy, Unknown, rips skin, 05/16/17) Meperidine (Verified Allergy, Unknown, pruritis/rash, 05/16/17) is able to tolerate IF PRETREATED WITH BENADRYL Discharge Date / Findings May 22, 2017. esophageal varices, banded Provider Instructions Activity Restrictions - No exercising or heavy lifting for 24 hours. - Do not drink alcohol the day of the procedure. - Do not drive a car or operate machinery until the day after the procedure. - Do not make any important decisions or sign important papers in 24 hours after the procedure. Following Day: - Return to full activity which may include returning to work/school. Diet Start your diet with liquids and light foods (jello, soup, juice, toast). Remain on liquids only today. Tomorrow, eat softer textured foods, and then advance your diet as tolerated. Treatment For Common After Affects For mild abdominal pain, bloating, or excessive gas: - Rest - Eat lightly - Lie on right side Follow-Up Information Follow-up with Neha Burgos as scheduled Anesthesia Information What You Should Know You have had a procedure that required some medicine to reduce anxiety and discomfort. This treatment is called moderate sedation. After receiving the treatment, you may be sleepy, but you will be able to breathe on your own. The effects of the treatment may last for several hours. Follow these instructions along with Activity/Diet recommendations noted above: * Do NOT do anything where dizziness or clumsiness would be dangerous. * Rest quietly at home today, then you can be up and about tomorrow. * Have a responsible person stay with you the rest of today. * You may have had an I.V. today. If so, you may take the dressing off later today. Recommendations Call your doctor if: * Trouble breathing * Continuous vomiting for more than 24 hours * Temperature above 101 degrees * Severe abdominal pain or bloating * Pain not relieved by pain medicine ordered * There is increased drainage or redness from any incision * A large amount of rectal bleeding greater than 2-3 tablespoons. (If you had a polyp/s removed or have hemorrhoids, a small amount of blood - from the rectum is to be expected.) * You have any unanswered questions or concerns. IN THE EVENT OF A SERIOUS EMERGENCY, GO TO THE NEAREST EMERGENCY ROOM Your discharge instructions were prepared by provider Mandy Villa. Patient Instructions Signature Page Dion Moreno Patient (or Guardian) Signature/Date: I have read and understand the instructions given to me by my caregivers. Caregiver/RN/Doctor Signature/Date: The above-named patient and/or guardian has received patient instructions on this date. + Original Patient Signature Page (only) stays with chart. Please make copy for patient.
[2017-05-22 11:33] VITALS: BP 128/69; PULSE 75; O2SAT 99
== END | disposition home or self-care (01) ==
LOC: C.GI 08:13
PROVIDERS: ATTEND Internal Medicine Gastroenterology
DX: I85.00 Esophageal varices without bleeding (principal); E11.9 Type 2 diabetes mellitus without complications; M19.90 Unspecified osteoarthritis, unspecified site; F41.9 Anxiety disorder, unspecified; K21.9 Gastro-esophageal reflux disease without esophagitis; J44.9 Chronic obstructive pulmonary disease, unspecified; G47.33 Obstructive sleep apnea (adult) (pediatric); K76.9 Liver disease, unspecified; Z87.81 Personal history of (healed) traumatic fracture; Z90.49 Acquired absence of other specified parts of digestive tract; Z98.1 Arthrodesis status; F17.200 Nicotine dependence, unspecified, uncomplicated; Z79.4 Long term (current) use of insulin

== ENCOUNTER → 2017-06-13 | Day surgery (SDC) | payer BC ==
[2017-06-06 07:35] VITALS: Ht 185.4 cm; Wt 127.3 kg
[~2017-06-13] VITALS: Ht 185.4 cm; Wt 127.3 kg
[~2017-06-13] MED LIST changes: -KETAMINE HCL INJ 50 MG/ML 10 ML VIAL ONE; +MIDAZOLAM HCL 1 MG/ML 2ML VIAL ONE; -ONDANSETRON INJ 2 MG/ML 2 ML VIAL ONE; +SODIUM CHLORIDE 0.9% 500ML 500 ML IV ONE
--- NOTE | 2017-06-13 09:17 | Endo History and Physical ---
History & Physical Date of Service: Jun 13, 2017. Chief Complaint: Varices banding Referring Physician: Dr. Neha Burgos History of Present Illness 51 yo with clinical cirrhosis complicated by large non-bleeding varices, presenting for variceal evaluation/eradication Past Medical History Diabetes, Neurological Disorder, Arthritis, Fractures, Asthma, Gastrointestinal Disorder, Anxiety, Reflux, Sleep Apnea, COPD, Liver Disease, Other, Depression Past Surgical History Hx Cardiac Surgery: Yes (HEART CATH, NO STENTS) Hx Internal Defibrillator: No Hx Pacemaker: No Hx Abdominal Surgery: Yes (HERNIA REPAIR, [facility]) Hx of Implantable Prosthesis: No Hx Post-Op Nausea and Vomiting: No Hx Cancer Surgery: No Hx Thoracic Surgery: No Hx Orthopedic: Yes (THORACIC BACK SURGERY, CERVICAL FUSIONS X3 (LIMITED LT,RT, UP)) Hx Urinary Tract Surgery: No Family History None Social History Smoking Status: Current Every Day Smoker Hx Substance Use: No Hx Alcohol Use: No Allergies Coded Allergies: Penicillins (Verified Allergy, Severe, ANAPHYLAXIS, 06/06/17) reports an iv dose of penicillin in ER when he was 21 yrs old. Had to stay in hospital for 2 days. Morphine (Verified Allergy, Intermediate, Severe itching/mouth rash, 06/06) * PT MUST BE PRETREATED WITH BENADRYL Adhesives (Verified Allergy, Unknown, rips skin, 06/06/17) Meperidine (Verified Allergy, Unknown, pruritis/rash, 06/06/17) is able to tolerate IF PRETREATED WITH BENADRYL Current Medications Reported Home Medications Medications Dose Route/Sig Max Daily Dose Days Date Category Dose Instructions Cleocin (Clindamycin Hcl) 300 Mg Cap 300 Mg PO BID 10 06/06/17 Reported Duoneb (Ipratropium-Albuterol) 3 Ml Nebu 1 Treatment INH Q4H PRN 03/26/17 Reported Ventolin Hfa (Albuterol) 200 Puffs/76943 Mcg Aers 2-4 Puffs INH Q6H PRN 03/26/17 Reported Zantac (Ranitidine HCl) 150 Mg Tab 150 Mg PO BID 12/08/16 Reported Prilosec (Omeprazole) 20 Mg Capcr 20 Mg PO TID 12/08/16 Reported Novolog Flexpen (Insulin Aspart) 100 Units/Ml Inj 27 Units SC QPM 12/08/16 Reported Novolog Flexpen (Insulin Aspart) 100 Units/Ml Inj 20 Units SC LUNCH 12/08/16 Reported Novolog Flexpen (Insulin Aspart) 100 Units/Ml Inj 20 Units SC QAM 10/25/16 Reported BREAKFAST. Lantus (Insulin Glargine) 100 Unit/Ml Inj 60 Units SC QAM 10/25/16 Reported Vital Signs Weight (Kilograms): 127.27 Height (Feet): 6 Height (Inches): 1 Date Time Temp Pulse Resp B/P (MAP) Pulse Ox O2 Delivery O2 Flow Rate FiO2 06/13/17 08:03 36.1 74 18 122/74 (90) 98 Room Air Physical Exam General Appearance: WD/WN, no apparent distress Respiratory/Chest: Respiratory effort: no dyspnea Auscultation: breath sounds normal, CTA except as noted, no wheezing Cardiovascular: Apical Impulse: not displaced Heart Auscultation: RRR, normal S1, normal S2 Abdomen: Bowel Sounds: normal Inspection & Palpation: soft, non-distended Assessment and Plan 51 yo presenting for variceal evaluation, possible eradication
--- NOTE | 2017-06-13 09:45 | GI REPORT ---
Procedure Date: 06/13/2017 9:21 AM Procedure: Upper GI endoscopy Indications: 2nd degree variceal eradication without history bleeding Medicines: General Anesthesia Complications: No immediate complications. Estimated blood loss: None. Estimated Blood Loss: Estimated blood loss: none. Procedure: Pre-Anesthesia Assessment: - Pre-Anesthesia Assessment: - Prior to the procedure, a History and Physical was performed, and patient medications, allergies and sensitivities were reviewed. The patient's tolerance of previous anesthesia was reviewed. Please see [facility] for complete details. - The risks and benefits of the procedure and the sedation options and risks were discussed with the patient. All questions were answered and informed consent was obtained. - Patient identification and proposed procedure were verified prior to the procedure by the physician and the nurse. The procedure was verified in the pre-procedure area in the procedure room. After obtaining informed consent, the endoscope was passed carefully and meticuously under direct vision and only advanced when the lumen was clearly identified, C02 insuflation was utilized throughout the entirity of the procedure. Throughout the procedure, the patient's blood pressure, pulse, and oxygen saturations were monitored continuously. After obtaining informed consent, the endoscope was passed under direct vision. Throughout the procedure, the patient's blood pressure, pulse, and oxygen saturations were monitored continuously. The Scope was introduced through the mouth, and advanced to the second part of duodenum. The upper GI endoscopy was accomplished without difficulty. The patient tolerated the procedure well. Findings: Grade I varices were found in the lower third of the esophagus. Portal hypertensive gastropathy was found in the entire examined stomach. The examined duodenum was normal. Impression: - Grade I esophageal varices. - Portal hypertensive gastropathy. - Normal examined duodenum. - No specimens collected. Recommendation: - Discharge patient to home (with escort). - Initiate non-selective beta narendra for titrated goal pulse of 55-65 BPM - Follow up with Dr. Otis Lewis MD 06/13/2017 9:45:19 AM This report has been signed electronically. Note Initiated On: 06/13/2017 9:21 AM I attest to the content of the Intraoperative Record and orders documented therein, exceptions below
[2017-06-13 10:02] VITALS: BP 118/72; PULSE 80; O2SAT 96
--- NOTE | 2017-06-13 10:11 | Anesthesiology Progress Note ---
Anesthesia Post Op Note Date & Time Jun 13, 2017 at 10:10 Vital Signs Pain Intensity: 0 Vital Signs Past 12 Hours Date Time Temp Pulse Resp B/P (MAP) Pulse Ox O2 Delivery O2 Flow Rate FiO2 06/13/17 10:02 80 18 118/72 (87) 96 Room Air 06/13/17 09:50 80 18 116/68 (84) 96 Room Air 06/13/17 09:40 77 18 98/47 (64) 95 Room Air 06/13/17 08:03 36.1 74 18 122/74 (90) 98 Room Air Notes Mental Status: alert / awake / arousable, participated in evaluation Pt Amnestic to Procedure: Yes Nausea / Vomiting: adequately controlled Pain: adequately controlled Airway Patency, RR, SpO2: stable & adequate BP & HR: stable & adequate Hydration State: stable & adequate Anesthetic Complications: no major complications apparent
--- NOTE | 2017-06-13 10:46 | Discharge Instructions ---
Endoscopy Patient Instructions Date / Procedure(s) Performed Jun 13, 2017. EGD Allergy Information Coded Allergies: Penicillins (Verified Allergy, Severe, ANAPHYLAXIS, 06/06/17) reports an iv dose of penicillin in ER when he was 21 yrs old. Had to stay in hospital for 2 days. Morphine (Verified Allergy, Intermediate, Severe itching/mouth rash, 06/06) * PT MUST BE PRETREATED WITH BENADRYL Adhesives (Verified Allergy, Unknown, rips skin, 06/06/17) Meperidine (Verified Allergy, Unknown, pruritis/rash, 06/06/17) is able to tolerate IF PRETREATED WITH BENADRYL Discharge Date / Findings Jun 13, 2017. Impression: - Grade I esophageal varices. - Portal hypertensive gastropathy. - Normal examined duodenum. - No specimens collected. Recommendation: - Discharge patient to home (with escort). - Initiate non-selective beta narendra for titrated goal pulse of 55-65 BPM - Follow up with Dr. Berg Medication Instructions Stopped Medication(s): Patient was told to not take his am insulin. Patient's BSG was 107 at 0620 this am. Provider Instructions Activity Restrictions - No exercising or heavy lifting for 24 hours. - Do not drink alcohol the day of the procedure. - Do not drive a car or operate machinery until the day after the procedure. - Do not make any important decisions or sign important papers in 24 hours after the procedure. Following Day: - Return to full activity which may include returning to work/school. Diet Start your diet with liquids and light foods (jello, soup, juice, toast). Then eat your usual diet if not nauseated. Treatment For Common After Affects For mild abdominal pain, bloating, or excessive gas: - Rest - Eat lightly - Lie on right side Follow-Up Information Follow-up with Dr. Neha Burgos as scheduled Anesthesia Information What You Should Know You have had a procedure that required some medicine to reduce anxiety and discomfort. This treatment is called moderate sedation. After receiving the treatment, you may be sleepy, but you will be able to breathe on your own. The effects of the treatment may last for several hours. Follow these instructions along with Activity/Diet recommendations noted above: * Do NOT do anything where dizziness or clumsiness would be dangerous. * Rest quietly at home today, then you can be up and about tomorrow. * Have a responsible person stay with you the rest of today. * You may have had an I.V. today. If so, you may take the dressing off later today. Recommendations Call your doctor if: * Trouble breathing * Continuous vomiting for more than 24 hours * Temperature above 101 degrees * Severe abdominal pain or bloating * Pain not relieved by pain medicine ordered * There is increased drainage or redness from any incision * A large amount of rectal bleeding greater than 2-3 tablespoons. (If you had a polyp/s removed or have hemorrhoids, a small amount of blood - from the rectum is to be expected.) * You have any unanswered questions or concerns. IN THE EVENT OF A SERIOUS EMERGENCY, GO TO THE NEAREST EMERGENCY ROOM Your discharge instructions were prepared by provider Anthony Lewis. Patient Instructions Signature Page Dion Moreno Patient (or Guardian) Signature/Date: I have read and understand the instructions given to me by my caregivers. Caregiver/RN/Doctor Signature/Date: The above-named patient and/or guardian has received patient instructions on this date. + Original Patient Signature Page (only) stays with chart. Please make copy for patient.
== END | disposition home or self-care (01) ==
LOC: C.GI 07:36
PROVIDERS: ATTEND Internal Medicine
DX: K76.6 Portal hypertension (principal); K31.89 Other diseases of stomach and duodenum; I85.10 Secondary esophageal varices without bleeding; E11.9 Type 2 diabetes mellitus without complications; K21.9 Gastro-esophageal reflux disease without esophagitis; G47.30 Sleep apnea, unspecified; J44.9 Chronic obstructive pulmonary disease, unspecified; F41.9 Anxiety disorder, unspecified; F32.9 Major depressive disorder, single episode, unspecified; F17.200 Nicotine dependence, unspecified, uncomplicated; Z79.4 Long term (current) use of insulin; Z79.899 Other long term (current) drug therapy

== ENCOUNTER → 2017-12-24 | Outpatient (CLI) | payer BC, OTHER ==
[~2017-12-24] MED LIST changes: -FENTANYL CITRATE INJ 50 MCG/1 ML 2 ML VIAL ONE; -LIDOCAINE HCL 2% 2 ML VIAL (20MG/ML) ONE; -MIDAZOLAM HCL 1 MG/ML 2ML VIAL ONE; -PROPOFOL IV EMULSION 10 MG/ML 20 ML VIAL IV ONE; +RANI150T85 PO; -SODIUM CHLORIDE 0.9% 500ML 500 ML IV ONE; -ZNTT/150 PO
--- NOTE | 2017-12-24 12:17 | DIAGNOSTIC IMAGING REPORT ---
MODIFIED BARIUM SWALLOW CLINICAL HISTORY: DYSPHAGIA COMPARISON STUDY: Modified barium swallow November 08, 2015. Fluoroscopy time: 1.6 minutes. FINDINGS: Incidental note is made of postoperative findings within the cervical spine. No tracheal aspiration is identified with thin liquids, nectar thick liquids, pudding or crackers with paste. Swallowing mechanism was intact. IMPRESSION: 1. No tracheal aspiration. Intact swallowing mechanism. 2. Full recommendations by speech pathology to follow. Electronically signed by: Angel Garrett M.D. 12/24/2017 12:16 PM Dictated Date/Time: 12/24/2017 12:14 PM
--- NOTE | 2017-12-24 16:01 | SWALLOWING EVALUATION ---
REFERRING SPEECH PATHOLOGIST: n/a HISTORY: This 51 year-old man was referred for a VFSS at [facility] in order to address c/o solid food dysphagia. 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 The patient added to his history by repoting having "liver disease" and, separately, he said he has been to an ENT and there were no findings. He had a VFSS in October 2015 that identified the osteophyte that was revised. No aspiration during that study. Currently the patient's diet level is regular. PROCEDURE: The patient was seen in the Radiology Department of [facility] for the VFSS. Cursory examination of the oral cavity revealed adequate dentition. Movement of the articulators was WNL. The patient was seated on a stool and was viewed in both the Anterior-Posterior (A-P) and Lateral planes. Volitional phonation exercises completed in the A-P plane revealed bilateral vocal fold movement and vocal intensity within functional limits. In the lateral plane, the patient was given the following boluses: 1 tsp. thin liquid barium x 2, single swallow thin liquid barium self-presented from a cup, sequential swallows of thin liquid barium self-presented from a straw, 1 tsp. nectar-thick liquid barium, single swallow nectar-thick liquid barium self-presented from a cup, 1 tsp. barium pudding, and 1 club cracker with barium pudding. The patient was then repositioned into the A-P plane and given 1 tsp. barium pudding. RESULTS: Oral Stage: No interlabial bolus loss. Able to hold thin liquid bolus between tongue and palate. Mastication and bolus transfer were timely and complete. Collection of cracker bolus left at velum and tongue base after initial swallow. Cleared with a second swallow. Initiation of the pharyngeal swallow occurred when the bolus head was at the posterior angle of the ramus. The patient struggled with oral bolus clearance of the cracker, but no other oral-stage dysphagia. Pharyngeal Stage: No bolus between soft palate and pharyngeal wall. Laryngeal elevation, anterior hyoid excursion, epiglottic inversion, and laryngeal vestibular closure were complete. Pharyngeal stripping wave was diminished. Pharyngeal contraction was complete. Distention and duration of PES opening was complete. There was collection of contrast between tongue base and pharyngeal wall. Hypopharyngeal retention of the cracker bolus was spread between tongue base and velum and the patient had to swallow twice with increased effort in order to clear the bolus. There was no obvious cause for the bolus to stick in the pharynx. No penetration or aspiration during this study. There was mild-moderate pharyngeal dysphagia with solid foods, but no apparent stricture, obstruction, or weakness to account for it. Esophageal Stage: A pudding bolus transited the esophagus without impedance. SUMMARY/RECOMMENDATIONS: This patient presents with mild-moderate oral-pharyngeal dysphagia. The following is recommended: 1. SLIPPERY diet: choose foods that are moist, loose, slippery; avoid foods that are doughy, dry, thick, pasty; use condiments and healthy oils to make foods slippery 2. Compensatory Strategies: alternate solids and liquids during meals; avoid icy cold beverages at meals (use room temperature liquids or warmer); follow reflux precautions 3. IF the complaints persist and/or worsen, the patient could try outpatient HELIOTHERAPIST treatment for dysphagia management. Maybe tongue base strengthening could help him with bolus clearance. A summary of the results and recommendations was discussed with the patient immediately following the study. He verbalized understanding. I am unsure why the patient has such difficulty with transfer and swallow of solids. Thank you for referral of this patient. Please contact me at if any additional information is needed.
== END | disposition home or self-care (01) ==
LOC: C.RAD 10:53
PROVIDERS: ATTEND Family Medicine
DX: R13.12 Dysphagia, oropharyngeal phase (principal)

== ENCOUNTER → 2018-03-27 | Outpatient (CLI) | payer BC, OTHER ==
[~2018-03-27] MED LIST changes: +IPRA-64 INH; -IPRASOL4 INH
[2018-03-27 10:55] LABS: HEMOGLOBIN A1C 5.9 % (4.5-5.6)
== END | disposition home or self-care (01) ==
LOC: C.LAB1850 09:14
PROVIDERS: ATTEND Internal Medicine Endocrinology, Diabetes & Metabolism
DX: E11.9 Type 2 diabetes mellitus without complications (principal); Z79.4 Long term (current) use of insulin; E55.9 Vitamin D deficiency, unspecified

== ENCOUNTER 2019-09-07 08:58 | Inpatient (IN) ==
[2019-09-07 09:43] LABS: Albumin Level 2.9 gm/dl (3.4-5.0); Calcium 8.6 mg/dl (8.5-10.1); Creatinine Clr Calc Pharmacy 132.3 ml/min; Est GFR (African American) 104.9; Est GFR (Non-African American) 90.5; Magnesium 1.8 mg/dl (1.8-2.4); Potassium 3.9 mmol/L (3.5-5.1)
--- NOTE | 2019-09-07 09:44 | Emergency Department Note ---
History of Present Illness General Chief complaint: Abdominal Pain Stated complaint: ABDOMINAL PAIN, VERY TENDER TO TOUCH Time Seen by Provider: 09/07/19 09:06 History of Present Illness Maximum Pain Intensity: 10 This is a 53-year-old male that presents to the emergency department via private vehicle with complaints of "abdominal pain, very tender to touch". The patient states that he has liver disease, enlarged spleen as well as enlarged liver. He states that over the past few weeks he has had increase of abdominal size secondary to suspected ascites. He states that he follows locally with Dr. Berg of [facility]. He states that yesterday around 9 PM he had an onset of abdominal pain that is diffuse and is persistent. He also notes some redness to the right anterior abdomen. He states that his previous abdominal scars are now bulging. He rates her overall discomfort as a 10/10. No alleviating factors. He also notes about a 20 pound weight gain in the past few weeks. There is associated chills, shortness of breath and nausea. He denies any fevers, chest pain or vomiting. No recent trauma or injury. He is never had paracentesis. Home Medications Home Medications Medication Instructions Recorded Confirmed Type Xifaxan 550 mg PO BID 06/20/18 09/07/19 History omeprazole 20 mg PO DIRECTED 06/20/18 09/07/19 History sub-q insulin device, 40 unit 09/26/18 07/21/19 History famotidine 20 mg PO BID 07/21/19 09/07/19 History mirtazapine [Remeron] 15 mg PO HS 07/21/19 09/07/19 History FreeStyle Adair 14 Day Sensor #7 ea NS 09/05/19 09/05/19 Rx Glucagon Emergency Kit (human) 1 1 mg SQ Q20M PRN #1 ea NS 09/05/19 09/07/19 Rx mg solution for injection flash glucose scanning reader #1 ea 09/05/19 09/05/19 History insulin aspart U-100 100 unit/mL See Rx Instructions .ROUTE 09/05/19 09/07/19 History subcutaneous solution .COMPLEX ml mupirocin 2 % topical ointment 1 appln TOP TID PRN 09/05/19 09/07/19 History silver sulfadiazine 1 % topical 1 appln TOP DAILY PRN 09/05/19 09/07/19 History cream sub-q insulin device, 30 unit #30 ea 09/05/19 09/05/19 History triamcinolone acetonide 0.1 % 1 appln TOP BID PRN 09/05/19 09/07/19 History topical cream ondansetron 8 mg PO Q8H PRN 09/07/19 09/07/19 History tamsulosin 0.4 mg PO HS 09/07/19 09/07/19 History Allergies Allergy/AdvReac Type Severity Reaction Status Date / Time Penicillins Allergy Severe ANAPHYLAXIS Verified 09/07/19 09:36 morphine Allergy Intermediate Severe Verified 09/07/19 09:36 itching/mouth rash aripiprazole Allergy Mild "feeling Verified 09/07/19 09:36 irritable" lithium Allergy Mild Anxiety Verified 09/07/19 09:36 pregabalin Allergy Mild Anxiety Verified 09/07/19 09:36 quetiapine Allergy Mild Drowsy Verified 09/07/19 09:36 adhesive Allergy Unknown rips skin Verified 09/07/19 09:36 meperidine Allergy Unknown pruritis/ra Verified 09/07/19 09:36 adhesive remover wipes Allergy Mild "rips skin" Uncoded 09/07/19 09:36 gold Allergy Mild Blister Uncoded 09/07/19 09:36 Past Med/Surg History Medical History Anxiety Asthma inhaler/nebulizer prn Cardiac murmur as a child Chronic back pain Degenerative disc disease Diabetes mellitus, type 2 Esophageal varices hx of banding GERD (gastroesophageal reflux disease) Hearing deficit 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 steatohepatitis) stage 3 Osteoarthritis Sarcoidosis Smoker Spinal stenosis Thrombocytopenia Surgical History Amputation of great toe, right, traumatic Amputation of second toe, right, traumatic History of anesthesia reaction sometimes has difficulty waking up History of cardiac cath 2007 @ [facility], no stents History of colonoscopy History of endoscopic sinus surgery History of esophagogastroduodenoscopy (EGD) History of repair of left rotator cuff History of thoracic spinal fusion t10-t12 History of tooth extraction wisdom teeth History of umbilical hernia repair x3 Status post cervical spinal fusion x3 screws, plates in place--normal ROM C3-C7 Status post cholecystectomy (Inactive) Status post right foot surgery complete amputation of great toe and 2nd toe Family History Mother Diabetes Coronary heart disease Father Heart disease Sister Cancer bladder Other No family history of adverse response to anesthesia Social History Preferred Language: Dominican Communication Ability: Effective Production Assistant Required: No Beliefs That Will Affect Care: None Current Living Situation: Spouse Other Information That Helps Us Care for You: No Feels Safe at Home: Yes Safety Concerns: Feels Safe At This Time Smoking Status: Current some day smoker Tobacco Type: cigarettes ; Cigarettes Per Day: 1 pack a month ; Do You Dip or Chew Tobacco: No ; Second Hand Exposure: No ; Tobacco Cessation Education Requested by Patient: No Hx Alcohol Use: No Hx Substance Use: No Review of Systems A total of 10 systems reviewed and were otherwise negative Physical Exam Vital Signs Vital Signs - 24 hr 09/07/19 09:00 09/07/19 09:32 09/07/19 09:35 Temperature 37.8 C H Temperature Source Oral Pulse Rate 103 H 94 H 93 H Pulse Rate [Apical] Pulse Rate from SpO2 Sensor 94 H Pulse Rhythm Regular Pulse Rhythm [Apical] Respiratory Rate 20 20 24 Respiratory Effort / Characteristics Non-Labored Respiratory Depth Normal Respiratory Pattern Regular Blood Pressure 139/80 134/93 Blood Pressure [Right Radial Artery] Blood Pressure Mean 99 115 Blood Pressure Mean [Right Radial Artery] Blood Pressure Position Sitting Pulse Oximetry 99 98 99 Oxygen Delivery Method Room Air Room Air Sepsis Recent Fever Within 48 Hours No Sepsis New/Unexplained Change in Mental Status No Sepsis Action Taken by Nursing No Action Required 09/07/19 09:45 09/07/19 10:01 09/07/19 10:15 Temperature Temperature Source Pulse Rate 95 H 94 H 92 H Pulse Rate [Apical] Pulse Rate from SpO2 Sensor 95 H 95 H 92 H Pulse Rhythm Pulse Rhythm [Apical] Respiratory Rate 16 24 20 Respiratory Effort / Characteristics Respiratory Depth Respiratory Pattern Blood Pressure 133/85 156/77 H 148/86 H Blood Pressure [Right Radial Artery] Blood Pressure Mean 100 97 99 Blood Pressure Mean [Right Radial Artery] Blood Pressure Position Pulse Oximetry 98 100 98 Oxygen Delivery Method Sepsis Recent Fever Within 48 Hours Sepsis New/Unexplained Change in Mental Status Sepsis Action Taken by Nursing 09/07/19 10:30 09/07/19 10:45 09/07/19 11:12 Temperature Temperature Source Pulse Rate 90 Pulse Rate [Apical] 92 H 93 H Pulse Rate from SpO2 Sensor 91 H Pulse Rhythm Pulse Rhythm [Apical] Regular Regular Respiratory Rate 24 21 22 Respiratory Effort / Characteristics Spontaneous Spontaneous Respiratory Depth Respiratory Pattern Regular Regular Blood Pressure 137/105 H Blood Pressure [Right Radial Artery] 140/83 138/87 Blood Pressure Mean 113 Blood Pressure Mean [Right Radial Artery] 102 104 Blood Pressure Position Pulse Oximetry 99 99 99 Oxygen Delivery Method Room Air Room Air Sepsis Recent Fever Within 48 Hours Sepsis New/Unexplained Change in Mental Status Sepsis Action Taken by Nursing VITAL SIGNS - Vital signs and nursing notes were reviewed. Borderline febrile, tachycardic on presentation. GENERAL -53-year-old male appearing his stated age who is in no acute distress. Communicates well with provider and answers questions appropriately. SKIN -the abdomen is distended, and there is distention of abdominal scars. There is also some erythema developing overlying the right mid abdomen. No evidence of recent surgical procedure. HEAD - NC/AT. EYES - PERRL with EOMI bilaterally. Sclera anicteric. EARS - No deformities of external structures noted on gross examination bilaterally. NOSE - Midline and without cyanosis. No epistaxis or purulent drainage noted. MOUTH/OROPHARYNX - Without perioral cyanosis. LUNGS - Chest wall symmetric without accessory muscle use, intercostals retractions, or central cyanosis. Normal vesicular breath sounds CTA B/L. No wheezes, rales, or rhonchi appreciated. CARDIAC - RRR with S1/S2. No murmur, rubs, or gallops appreciated. ABDOMEN - Abdominal contour enlarged with small fluid wave. BS normoactive all four quadrants. There is evidence for moderate ascites noted, and diffuse tenderness. EXTREMITIES - No clubbing or peripheral cyanosis. There is lower extremity edema noted. NEUROLOGIC - Cranial nerves II through XII grossly intact. Sensory intact to light touch throughout. PSYCH - A&Ox3 and cooperates fully with examiner. Pt is very pleasant and interacts well with examiner. Course Administered Medications Famotidine (Pepcid) 20 mg PO BID [facility] Stop: 10/07/19 20:59 Last Admin: 09/07/19 20:52 Dose: 20 mg Documented by: [id number] Aztreonam 2,000 mg/ Dextrose 110 mls @ 100 mls/hr IV Q8H [facility]; Protocol Stop: 09/17/19 19:59 Last Infusion: 09/07/19 20:48 Dose: 0 mls/hr Documented by: [id number] Admin: 09/07/19 19:40 Dose: 100 mls/hr Documented by: [id number] Vancomycin HCl 1,750 mg/ (Sodium Chloride) 535 mls @ 200 mls/hr IV Q10H [facility] Stop: 09/17/19 21:59 Last Admin: 09/07/19 21:20 Dose: 200 mls/hr Documented by: [id number] Insulin Aspart (Novolog Flexpen) 0 units SC ACHS [facility] Stop: 10/07/19 16:29 Last Admin: 09/07/19 21:26 Dose: Not Given Documented by: [id number] Cosigned by: [id number] Admin: 09/07/19 18:06 Dose: 1 units Documented by: [id number] Cosigned by: [id number] Insulin Glargine (Lantus Solostar Pen) 0 - 12 units SC BID [facility]; Protocol Stop: 10/07/19 20:59 Last Admin: 09/07/19 21:26 Dose: Not Given Documented by: [id number] Cosigned by: [id number] Ioversol (Optiray 320 100ml) 93 ml IV ONCE PRN PRN Reason: Interaction Checking Stop: 09/11/19 10:36 Last Admin: 09/07/19 10:38 Dose: 93 ml Documented by: [id number] Mirtazapine (Remeron) 15 mg PO HS [facility] Stop: 10/07/19 20:59 Last Admin: 09/07/19 20:52 Dose: Not Given Documented by: [id number] Rifaximin (Xifaxan) 550 mg PO BID [facility] Stop: 10/07/19 20:59 Last Admin: 09/07/19 20:52 Dose: 550 mg Documented by: [id number] Tamsulosin HCl (Flomax) 0.4 mg PO HS [facility] Stop: 10/07/19 20:59 Last Admin: 09/07/19 20:52 Dose: 0.4 mg Documented by: [id number] Discontinued Medications Diphenhydramine HCl (Benadryl) 25 mg IV NOW ONE Stop: 09/07/19 18:06 Last Admin: 01/12/20 18:26 Dose: 25 mg Documented by: [id number] Hydromorphone HCl (Dilaudid) 0.5 mg IV NOW ONE Stop: 09/07/19 18:06 Last Admin: 09/07/19 18:44 Dose: 0.5 mg Documented by: [id number] Aztreonam 2,000 mg/ Dextrose 120 mls @ 100 mls/hr IV NOW STA; Protocol Stop: 09/07/19 11:37 Last Infusion: 09/07/19 12:23 Dose: 0 mls/hr Documented by: [id number] Admin: 09/07/19 11:10 Dose: 100 mls/hr Documented by: [id number] Vancomycin HCl 2,750 mg/ (Sodium Chloride) 555 mls @ 200 mls/hr IV NOW ONE Stop: 09/07/19 13:12 Last Infusion: 09/07/19 15:47 Dose: 0 mls/hr Documented by: [id number] Admin: 09/07/19 12:18 Dose: 200 mls/hr Documented by: [id number] Lidocaine/Epinephrine (Buffered Xylocaine/Epinephrine 1%) Confirm Administered Dose 20 ml .ROUTE .STK-MED ONE Stop: 09/07/19 12:32 Last Admin: 09/07/19 12:50 Dose: 20 ml Documented by: [id number] Medical Decision Making Laboratory Data Result diagrams: 09/07/19 09:19 09/07/19 09:19 Lab Results 09/07/19 09/07/19 09/07/19 Range/Units 09:19 09:19 09:19 WBC 2.53 L (4.8-10.8) K/uL RBC 4.06 L (4.7-6.1) M/uL Hgb 12.0 L (14.0-18.0) g/dL Hct 36.4 L (42-52) % MCV 89.7 (80-100) fL MCH 29.6 (25-34) pg MCHC 33.0 (32-36) g/dL RDW Std Deviation 56.9 H (36.4-46.3) fL RDW Coeff of Kelly 17.4 H (11.5-14.5) % Plt Count 39 L (130-400) K/uL MPV 9.1 (7.4-10.4) fL Immature Gran % (Auto) 0.0 % Neut % (Auto) 75.9 % Lymph % (Auto) 12.6 % Craven % (Auto) 9.9 % Eos % (Auto) 1.2 % Baso % (Auto) 0.4 % Immature Gran # (Auto) 0.00 (0.00-0.02) K/uL Neut # (Auto) 1.92 (1.4-6.5) K/uL Lymph # (Auto) 0.32 L (1.2-3.4) K/uL Craven # (Auto) 0.25 (0.11-0.59) K/uL Eos # (Auto) 0.03 (0-0.5) K/uL Baso # (Auto) 0.01 (0-0.2) K/uL Ovalocytes 1+ Echinocytes 1+ PT 13.2 H (9.0-12.0) Seconds INR 1.3 H (0.9-1.1) APTT 29.9 (21.0-31.0) Seconds PTT Ratio 1.1 Sodium 138 (136-145) mmol/L Potassium 3.9 (3.5-5.1) mmol/L Chloride 108 H (98-107) mmol/L Carbon Dioxide 25 (21-32) mmol/L Anion Gap 5.0 (3-11) BUN 9 (7-18) mg/dl Creatinine 0.96 (0.6-1.4) mg/dl Est Cr Clr Drug Dosing 132.3 ml/min Est GFR ( Amer) 104.9 Est GFR (Non-Af Amer) 90.5 BUN/Creatinine Ratio 9.0 L (10-20) Glucose 137 H (70-99) mg/dl Lactate (0.4-2.0) mmol/L Calcium 8.6 (8.5-10.1) mg/dl Magnesium 1.8 (1.8-2.4) mg/dl Total Bilirubin 2.6 H (0.2-1) mg/dl AST 40 H (15-37) U/L ALT 30 (12-78) U/L Alkaline Phosphatase 115 (45-117) U/L Total Protein 6.8 (6.4-8.2) gm/dl Albumin 2.9 L (3.4-5.0) gm/dl Globulin 3.9 (2.5-4.0) gm/dl Albumin/Globulin Ratio 0.8 L (0.9-2) Influenza Type A (PCR) (Neg) Influenza Type B (PCR) (Neg) 09/07/19 09/07/19 Range/Units 09:33 09:52 WBC (4.8-10.8) K/uL RBC (4.7-6.1) M/uL Hgb (14.0-18.0) g/dL Hct (42-52) % MCV (80-100) fL MCH (25-34) pg MCHC (32-36) g/dL RDW Std Deviation (36.4-46.3) fL RDW Coeff of Kelly (11.5-14.5) % Plt Count (130-400) K/uL MPV (7.4-10.4) fL Immature Gran % (Auto) % Neut % (Auto) % Lymph % (Auto) % Craven % (Auto) % Eos % (Auto) % Baso % (Auto) % Immature Gran # (Auto) (0.00-0.02) K/uL Neut # (Auto) (1.4-6.5) K/uL Lymph # (Auto) (1.2-3.4) K/uL Craven # (Auto) (0.11-0.59) K/uL Eos # (Auto) (0-0.5) K/uL Baso # (Auto) (0-0.2) K/uL Ovalocytes Echinocytes PT (9.0-12.0) Seconds INR (0.9-1.1) APTT (21.0-31.0) Seconds PTT Ratio Sodium (136-145) mmol/L Potassium (3.5-5.1) mmol/L Chloride (98-107) mmol/L Carbon Dioxide (21-32) mmol/L Anion Gap (3-11) BUN (7-18) mg/dl Creatinine (0.6-1.4) mg/dl Est Cr Clr Drug Dosing ml/min Est GFR ( Amer) Est GFR (Non-Af Amer) BUN/Creatinine Ratio (10-20) Glucose (70-99) mg/dl Lactate 1.3 (0.4-2.0) mmol/L Calcium (8.5-10.1) mg/dl Magnesium (1.8-2.4) mg/dl Total Bilirubin (0.2-1) mg/dl AST (15-37) U/L ALT (12-78) U/L Alkaline Phosphatase (45-117) U/L Total Protein (6.4-8.2) gm/dl Albumin (3.4-5.0) gm/dl Globulin (2.5-4.0) gm/dl Albumin/Globulin Ratio (0.9-2) Influenza Type A (PCR) Neg for Influ A (Neg) Influenza Type B (PCR) Neg for Influ B (Neg) Imaging Data Radiologist's Impression: CT abd pelvis IV con only CLINICAL HISTORY: Abdominal pain, abdominal distention, fever. COMPARISON STUDY: September 26, 2018 TECHNIQUE: The patient was scanned in a dynamic helical fashion during intravenous administration of 93 cc of Optiray 320 A dose lowering technique was utilized adhering to the principles of ALARA. CT DOSE: 2051.20 mGy.cm FINDINGS: Lower chest: There are enlarged lymph nodes within the right cardiophrenic angle and anterior to the heart. Liver: The liver has a cirrhotic morphology. The portal vein appears patent. Gallbladder: Surgically absent Spleen: Enlarged measuring 26 cm. Pancreas: Unremarkable. Adrenal glands: Unremarkable. Kidneys: There is symmetric renal cortical enhancement. The kidneys are normal in size without hydronephrosis. Bowel: There are no transition zones indicate bowel obstruction. There is no acute diverticulitis. There is mild right colonic wall thickening, finding which may be secondary to underlying hepatocellular disease. There is no evidence of acute appendicitis Peritoneum: There is a [id number] volume of ascites. There is no free intraperitoneal air. There are postsurgical changes of a prior anterior abdominal wall hernia mesh repair Vasculature: There is no evidence of abdominal aortic aneurysm. There are multiple varices consistent with portal hypertension. Adenopathy: There is persistent upper abdominal lymphadenopathy. Pelvic viscera: The bladder, and pelvic viscera are unremarkable. Skeletal structures: Postsurgical changes are present within the lumbar spine. No destructive lesions are evident. IMPRESSION: 1. Evidence of hepatic cirrhosis with secondary changes of portal hypertension with varices and splenomegaly. Since the prior study, the patient has developed mild to moderate ascites 2. Persistent upper abdominal paraesophageal and pericardial lymphadenopathy 3. No evidence of bowel obstruction. No evidence of free air 4. No evidence of acute diverticulitis. No evidence of acute appendicitis. ACT 112: Negative or not required by law. Electronically signed by: Pablo Gutiérrez M.D. 09/07/2019 11:13 AM XR chest 1V portable CLINICAL HISTORY: fever COMPARISON STUDY: 09/26/2018 FINDINGS: The heart remains mildly enlarged. There are postsurgical changes wi thin the cervical spine. There is improving mild central pulmonary vascular congestion. There is no focal pulmonary consolidation. There are no large pleural effusions.[ IMPRESSION: Cardiomegaly with improving mild central pulmonary vascular congestion. No evidence of focal pulmonary consolidation ACT 112: Negative or not required by law. Electronically signed by: Pablo Gutiérrez M.D. 09/07/2019 10:07 AM MDM Narrative Patient was seen and evaluated as above in room a 9. Review was performed of nursing notes and vital signs. After obtaining a thorough history and physical examination the above work up was performed. The patient presents to us today with abdominal pain. He clearly has ascites on exam. He appears to be in pain. He declined pain medication. Initial concern is for that of possible SBP. There is also some possible cellulitis developing on the right side of the abdomen. The sepsis order set was started given the patient's presentation and borderline fever and mild tachycardia and presentation here today. There is decreased white blood cell count of 2.53 with hemoglobin at 12. Patient's INR is 1.3. Sodium 138. Creatinine 0.96. T bili 2.6. Urinalysis reveals positive nitrites but no evidence of infection. Influenza testing negative. Chest x- ray without acute process. CT scan was obtained of the abdomen pelvis given the presentation and there is evidence of hepatic cirrhosis as well as secondary ch anges of portal hypertension with varices and splenomegaly. He has developed mild to moderate ascites since the previous CT scan which was performed September 26, 2018. I would note that the patient did recently have a CT scan performed at another facility this past . It was felt that it was warranted to obtain another one today given his abrupt onset of pain since yesterday. Patient was empirically treated with aztreonam and vancomycin for possible SBP among other infectious etiology possibilities. Paracentesis was attempted by Dr. Flores after consent was obtained. No fluid was able to be obtained. Patient will be admitted for further evaluation and management by the [facility]. I spoke with Dr. Sharma regarding the case. Please refer to further documentation regarding the patient's stay. Lactic 1.3 and blood cultures are pending. Case was discussed with the attending physician. I attest that I have personally reviewed the patient medication list. GCS: 15 Meld score 13. In the evaluation and treatment of this patient, the following differential diagnoses were considered: ASC, ID, Pneumonia, liver failure, SBP, GERD, Cholecystitis, Ascending Cholangitis, Cholydocholithiasis, Bowel Obstruction, PE, Amongst Others. Impression & Plan Abdominal pain, Ascites, Serum total bilirubin elevated, Erythema of abdominal wall Discharge Plan Visit Data *Final* Discharge Date/Time: 09/07/19 13:33 Chief Complaint: Abdominal Pain Stated Complaint: ABDOMINAL PAIN, VERY TENDER TO TOUCH ED Provider: Casey Cesar ED Midlevel Provider: Abel Latham Discharge Problem: Abdominal pain, Ascites, Serum total bilirubin elevated, Erythema of abdominal wall Patient Disposition: Admitted As Inpatient Discharge Instructions Interventions: ED Discharge Assessment Last Done: 09/07/19 13:33
[2019-09-07 09:46] LABS: Albumin Globulin Ratio 0.8 (0.9-2); Bilirubin,Total 2.6 mg/dl (0.2-1); Globulin 3.9 gm/dl (2.5-4.0); Total Protein 6.8 gm/dl (6.4-8.2)
[2019-09-07 09:49] LABS: INR 1.3 (0.9-1.1); Partial Thromboplastin Ratio 1.1; Partial Thromboplastin Time 29.9 Seconds (21.0-31.0); Prothrombin Time 13.2 Seconds (9.0-12.0)
--- NOTE | 2019-09-07 10:08 | XRay Report ---
XR chest 1V portable CLINICAL HISTORY: fever COMPARISON STUDY: 09/26/2018 FINDINGS: The heart remains mildly enlarged. There are postsurgical changes within the cervical spine . There is improving mild central pulmonary vascular congestion. There is no focal pulmonary consolid ation. There are no large pleural effusions.[ IMPRESSION: Cardiomegaly with improving mild central pulmonary vascular congestion. No evidence of fo juanita pulmonary consolidation ACT 112: Negative or not required by law. Electronically signed by: Pablo Gutiérrez M.D. 09/07/2019 10:07 AM
[2019-09-07 10:10] LABS: Influenza A virus by PCR Neg for Influ A (Neg); Influenza B virus by PCR Neg for Influ B (Neg)
[2019-09-07 10:17] LABS: Hematocrit (blood only) 36.4 % (42-52); Mean Corpuscular Hemoglobin 29.6 pg (25-34); Mean Corpuscular Volume 89.7 fL (80-100); Mean Platelet Volume 9.1 fL (7.4-10.4); Platelet Count 39 K/uL (130-400); RDW Coefficient of Variation 17.4 % (11.5-14.5); RDW Standard Deviation 56.9 fL (36.4-46.3); Red Blood Count 4.06 M/uL (4.7-6.1); White Blood Count 2.53 K/uL (4.8-10.8)
[2019-09-07 10:18] LABS: Basophils # (auto) 0.01 K/uL (0-0.2); Basophils % (auto) 0.4 %; Echinocytes 1+; Eosinophils # (auto) 0.03 K/uL (0-0.5); Eosinophils % (auto) 1.2 %; Lymphocytes # (auto) 0.32 K/uL (1.2-3.4); Lymphocytes % (auto) 12.6 %; Monocytes # (auto) 0.25 K/uL (0.11-0.59); Monocytes % (auto) 9.9 %; Neutrophils # (auto) 1.92 K/uL (1.4-6.5); Neutrophils % (auto) 75.9 %; Ovalocytes 1+
[2019-09-07] MEDS ORDERED: VANCOMYCIN CONSULT ACTIVE PRN (10:26)
[2019-09-07] MEDS ORDERED: VANCOMYCIN HCL 2,750 MG in SODIUM CHLORIDE 0.9% 500 ML IV ONE (10:26)
[2019-09-07] MEDS ORDERED: AZTREONAM 2,000 MG in DEXTROSE 5% 100 ML IV STA (10:26)
[2019-09-07] MEDS ORDERED: IOVERSOL 100ml IV PRN (10:37)
--- NOTE | 2019-09-07 11:14 | CT Scan Report ---
CT abd pelvis IV con only CLINICAL HISTORY: Abdominal pain, abdominal distention, fever. COMPARISON STUDY: September 26, 2018 TECHNIQUE: The patient was scanned in a dynamic helical fashion during intravenous administration of 93 cc of Optiray 320 A dose lowering technique was utilized adhering to the principles of ALARA. CT DOSE: 2051.20 mGy.cm FINDINGS: Lower chest: There are enlarged lymph nodes within the right cardiophrenic angle and anterior to the heart. Liver: The liver has a cirrhotic morphology. The portal vein appears patent. Gallbladder: Surgically absent Spleen: Enlarged measuring 26 cm. Pancreas: Unremarkable. Adrenal glands: Unremarkable. Kidneys: There is symmetric renal cortical enhancement. The kidneys are normal in size without hydron ephrosis. Bowel: There are no transition zones indicate bowel obstruction. There is no acute diverticulitis. Th ere is mild right colonic wall thickening, finding which may be secondary to underlying hepatocellula r disease. There is no evidence of acute appendicitis Peritoneum: There is a [id number] volume of ascites. There is no free intraperitoneal air. The re are postsurgical changes of a prior anterior abdominal wall hernia mesh repair Vasculature: There is no evidence of abdominal aortic aneurysm. There are multiple varices consistent with portal hypertension. Adenopathy: There is persistent upper abdominal lymphadenopathy. Pelvic viscera: The bladder, and pelvic viscera are unremarkable. Skeletal structures: Postsurgical changes are present within the lumbar spine. No destructive lesions are evident. IMPRESSION: 1. Evidence of hepatic cirrhosis with secondary changes of portal hypertension with varices and splen omegaly. Since the prior study, the patient has developed mild to moderate ascites 2. Persistent upper abdominal paraesophageal and pericardial lymphadenopathy 3. No evidence of bowel obstruction. No evidence of free air 4. No evidence of acute diverticulitis. No evidence of acute appendicitis. ACT 112: Negative or not required by law. Electronically signed by: Pablo Gutiérrez M.D. 09/07/2019 11:13 AM
[2019-09-07] MEDS ORDERED: LIDO/EPINEPHRINE/SOD BICARB 20 ML VIAL ONE (12:31)
--- NOTE | 2019-09-07 12:43 | History & Physical Report ---
Date of Service September 07, 2019 Assessment & Plan (1) Abdominal pain: Severe abdominal pain associated with low-grade fever. Erythema of right anterior abdomen consistent with cellulitis, no associated vesicles. Must be concerned about possibility of spontaneous bacterial peritonitis in li ght of ascites. Ultrasound-guided paracentesis was attempted by ED staff without success. Meets criteria for sepsis per current CMS criteria (tachycardia, tachypnea), although leukopenia is chronic. Hemodynamically stable. Serum lactate 1.5. Blood cultures obtained. Allergic to penicillin (reported anaphylaxis). Patient received intravenous vancomycin and aztreonam in the ED which will be continued pending culture results. 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 No encephalopathy. Management per GI. (3) GERD (gastroesophageal reflux disease): Continue H2 narendra and PPI. (4) Sarcoidosis: Quiescent. No recent utilization of glucocorticoids. (5) COPD (chronic obstructive pulmonary disease): Pulmonary status stable. (6) Diabetes mellitus, type II: Well-controlled with V-GO pump. Random blood sugar 137. Check Hgb A1C. Blood sugars may fluctuate due to acute illness. Lantus/NovoLog per protocol. (7) Leukopenia: White count 2530 with ANC of 1920. Chronic leukopenia due to underlying hepatic disease. (8) Thrombocytopenia: Platelet count 39,000. Chronic thrombocytopenia secondary to cirrhosis with portal hypertension. (9) DVT prophylaxis: No anticoagulants due to thrombocytopenia. SCDs. Ambulate. (10) Discharge planning issues: Anticipated discharge to home. Family Medicine follow-up with Dr. Neha Burgos. GI follow-up with Dr. Berg. History of Present Illness Chief Complaint: abdominal pain Primary Care Provider: Neha Burgos DO 53-year-old male followed by Dr. Neha Burgos for Family Medicine and Dr. Berg for GI. History of cirrhosis of the liver secondary to nonalcoholic steatohepatitis with associated portal hypertension, esophageal varices, and recent onset of ascites. Never a heavy drinker; no alcoholic beverages for several years. Patient reports that testing for viral hepatitis negative in the past. Developed a rash on the right side of the abdomen about 2 days ago. Last night he developed worsening abdominal pain, mostly right-sided, but somewhat diffuse. Pain is severe, worsened by movement and certain positions. Did not take any analgesics at home because of (1) difficulty with different analgesics in the past and (2) instructions not to use NSAID's or acetaminophen due to cirrhosis. Subjective fever with chills and sweats. Nausea, but no emesis. Chronic diarrhea unchanged; no melena or hematochezia. Has noticed increasing abdominal girth and worsening edema over the last 2 weeks. Allergies Allergy/AdvReac Type Severity Reaction Status Date / Time Penicillins Allergy Severe ANAPHYLAXIS Verified 09/07/19 09:36 morphine Allergy Intermediate Severe Verified 09/07/19 09:36 itching/mouth rash aripiprazole Allergy Mild "feeling Verified 09/07/19 09:36 irritable" lithium Allergy Mild Anxiety Verified 09/07/19 09:36 pregabalin Allergy Mild Anxiety Verified 09/07/19 09:36 quetiapine Allergy Mild Drowsy Verified 09/07/19 09:36 adhesive Allergy Unknown rips skin Verified 09/07/19 09:36 meperidine Allergy Unknown pruritis/ra Verified 09/07/19 09:36 sh adhesive remover wipes Allergy Mild "rips skin" Uncoded 09/07/19 09:36 gold Allergy Mild Blister Uncoded 09/07/19 09:36 Home Medications Home Medications Medication Instructions Recorded Confirmed Type Xifaxan 550 mg PO BID 06/20/18 09/07/19 History omeprazole 20 mg PO DIRECTED 06/20/18 09/07/19 History sub-q insulin device, 40 unit 09/26/18 07/21/19 History famotidine 20 mg PO BID 07/21/19 09/07/19 History mirtazapine [Remeron] 15 mg PO HS 07/21/19 09/07/19 History FreeStyle Adair 14 Day Sensor #7 ea FERNANDO 09/05/19 09/05/19 Rx Glucagon Emergency Kit (human) 1 1 mg SQ Q20M PRN #1 ea NS 09/05/19 09/07/19 Rx mg solution for injection flash glucose scanning reader #1 ea 09/05/19 09/05/19 History insulin aspart U-100 100 unit/mL See Rx Instructions .ROUTE 09/05/19 09/07/19 History subcutaneous solution .COMPLEX ml mupirocin 2 % topical ointment 1 appln TOP TID PRN 09/05/19 09/07/19 History silver sulfadiazine 1 % topical 1 appln TOP DAILY PRN 09/05/19 09/07/19 History cream sub-q insulin device, 30 unit #30 ea 09/05/19 09/05/19 History triamcinolone acetonide 0.1 % 1 appln TOP BID PRN 09/05/19 09/07/19 History topical cream ondansetron 8 mg PO Q8H PRN 09/07/19 09/07/19 History tamsulosin 0.4 mg PO HS 09/07/19 09/07/19 History Past Med/Surg History Medical History (Updated 09/07/19 @ 15:49 by Quang Sharma MD) Anxiety Asthma inhaler/nebulizer prn Cardiac murmur as a child Chronic back pain Degenerative disc disease Diabetes mellitus, type 2 Esophageal varices hx of banding GERD (gastroesophageal reflux disease) Hearing deficit 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 steatohepatitis) stage 3 Osteoarthritis Sarcoidosis Smoker Spinal stenosis Thrombocytopenia Surgical History (Updated 09/07/19 @ 15:35 by Quang Sharma MD) Amputation of great toe, right, traumatic Amputation of second toe, right, traumatic History of anesthesia reaction sometimes has difficulty waking up History of cardiac cath 2007 @ [facility], no stents History of colonoscopy History of endoscopic sinus surgery History of esophagogastroduodenoscopy (EGD) History of repair of left rotator cuff History of thoracic spinal fusion t10-t12 History of tooth extraction wisdom teeth History of umbilical hernia repair x3 Status post cervical spinal fusion x3 screws, plates in place--normal ROM C3-C7 Status post cholecystectomy (Inactive) Status post right foot surgery complete amputation of great toe and 2nd toe Family History (Updated 09/07/19 @ 15:36 by Quang Sharma MD) Mother Diabetes Coronary heart disease Father Heart disease Sister Cancer bladder Other No family history of adverse response to anesthesia Social History Preferred Language: Croatian Communication Ability: Effective 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 Beliefs That Will Affect Care: None Current Living Situation: Spouse Other Information That Helps Us Care for You: No Feels Safe at Home: Yes Safety Concerns: Feels Safe At This Time Smoking Status: Current some day smoker Tobacco Type: cigarettes ; Cigarettes Per Day: 1 pack a month ; Do You Dip or Chew Tobacco: No ; Second Hand Exposure: No ; Tobacco Cessation Education Requested by Patient: No Hx Alcohol Use: No Hx Substance Use: No Review of Systems Constitutional: as per Subjective / HPI and + weight gain Eyes: no diplopia and no worsening vision Ear, Nose, Mouth, Throat: no nasal congestion, no sinus pain/pressure and no sore throat Respiratory: + dyspnea (chronic dyspnea on exertion); no cough Cardiovascular: + edema; no chest pain and no palpitations Gastrointestinal: as per Subjective / HPI Genitourinary: no dysuria and no hematuria Musculoskeletal: + back pain, + neck pain and + joint pain Integumentary: as per Subjective / HPI Neurologic: no headache(s) diabetic neuropathy Endocrine: no polydipsia and no polyuria blood sugars well controlled with V-GO pump Hematologic / Lymphatic: + lymphadenopathy (chronic, unchanged, secondary to sarcoidosis); no easy bleeding and no easy bruising Physical Exam Constitutional: WD/WN, vitals as above no acute distress (but abdominal discomfort with movement / repositioning) Eyes: PERRL, conjunctivae normal, anicteric sclerae ENMT: external ear and nose normal, oropharynx normal Mouth: + dentition abnormality (dentition fair, partial plate) Neck: trachea midline, no thyromegaly Respiratory: normal respiratory effort, lungs clear to auscultation Cardiovascular: Rate/Rhythm: regular rate Heart Sounds: + murmur (II/ sys murmur LSB); no gallop and no cardiac rub Vessels: no JVD Extremities: normal capillary refill and + edema (2+ pretibial); no calf tenderness Gastrointestinal (Abdomen): Inspection/Auscultation: + abdomen distended and normal bowel sounds Percussion/Palpation: + abdomen tender (diffuse tender ness, greatest on right side) and abdomen soft Musculoskeletal: Head/Neck/Chest: neck supple Extremities: strength 5/5 throughout; no cyanosis and no clubbing Skin: + rash (erythematous rash right anterior abdomen, no vesicles) Neurologic: PERRL, EOMI no facial palsy no dysarthria or aphasia no asterixis Psychiatric: Orientation: alert and oriented x 3 Affect: euthymic affect Lymphatic: no cervical lymphadenopathy Results & Data Vital Signs (Past 12 Hours) Vital Signs Temp Pulse Pulse Resp BP BP Pulse Ox 09/07/19 12:22 96 H 20 171/93 H 97 09/07/19 11:12 93 H 22 138/87 99 09/07/19 10:45 90 21 137/105 H 99 09/07/19 10:30 92 H 24 140/83 99 09/07/19 10:15 92 H 20 148/86 H 98 09/07/19 10:01 94 H 24 156/77 H 100 09/07/19 09:45 95 H 16 133/85 98 09/07/19 09:35 93 H 24 99 09/07/19 09:32 94 H 20 134/93 98 09/07/19 09:00 37.8 C H 103 H 20 139/80 99 Laboratory Results Laboratory Results - last 24 hr 09/07/19 09/07/19 09/07/19 09:19 09:19 09:19 WBC 2.53 L RBC 4.06 L Hgb 12.0 L Hct 36.4 L MCV 89.7 MCH 29.6 MCHC 33.0 RDW Std Deviation 56.9 H RDW Coeff of Kelly 17.4 H Plt Count 39 L MPV 9.1 Immature Gran % (Auto) 0.0 Neut % (Auto) 75.9 Lymph % (Auto) 12.6 [place] % (Auto) 9.9 Eos % (Auto) 1.2 Baso % (Auto) 0.4 Immature Gran # (Auto) 0.00 Neut # (Auto) 1.92 Lymph # (Auto) 0.32 L [place] # (Auto) 0.25 Eos # (Auto) 0.03 Baso # (Auto) 0.01 Ovalocytes 1+ Echinocytes 1+ PT 13.2 H INR 1.3 H APTT 29.9 PTT Ratio 1.1 Sodium 138 Potassium 3.9 Chloride 108 H Carbon Dioxide 25 Anion Gap 5.0 BUN 9 Creatinine 0.96 Est Cr Clr Drug Dosing 132.3 Est GFR ( Amer) 104.9 Est GFR (Non-Af Amer) 90.5 BUN/Creatinine Ratio 9.0 L Glucose 137 H POC Glucose Lactate Calcium 8.6 Magnesium 1.8 Total Bilirubin 2.6 H AST 40 H ALT 30 Alkaline Phosphatase 115 Total Protein 6.8 Albumin 2.9 L Globulin 3.9 Albumin/Globulin Ratio 0.8 L Urine Color Urine Appearance Urine pH Ur Specific [place] Urine Protein Urine Glucose (UA) Urine Ketones Urine Blood Urine Nitrite Urine Bilirubin Urine Urobilinogen Ur Leukocyte Esterase Urine WBC (Auto) Urine RBC (Auto) U Hyaline Cast (Auto) U Epithel Cells (Auto) Urine Bacteria (Auto) Influenza Type A (PCR) Influenza Type B (PCR) 09/07/19 09/07/19 09/07/19 09:33 09:52 12:55 WBC RBC Hgb Hct MCV MCH MCHC RDW Std Deviation RDW Coeff of Kelly Plt Count MPV Immature Gran % (Auto) Neut % (Auto) Lymph % (Auto) [place] % (Auto) Eos % (Auto) Baso % (Auto) Immature Gran # (Auto) Neut # (Auto) Lymph # (Auto) [place] # (Auto) Eos # (Auto) Baso # (Auto) Ovalocytes Echinocytes PT INR APTT PTT Ratio Sodium Potassium Chloride Carbon Dioxide Anion Gap BUN Creatinine Est Cr Clr Drug Dosing Est GFR ( Amer) Est GFR (Non-Af Amer) BUN/Creatinine Ratio Glucose POC Glucose Lactate 1.3 Calcium Magnesium Total Bilirubin AST ALT Alkaline Phosphatase Total Protein Albumin Globulin Albumin/Globulin Ratio Urine Color [place] Urine Appearance Clear Urine pH 6.0 Ur Specific [place] 1.041 H Urine Protein Negative Urine Glucose (UA) Negative Urine Ketones Negative Urine Blood Negative Urine Nitrite Positive A Urine Bilirubin Negative Urine Urobilinogen Negative Ur Leukocyte Esterase Negative Urine WBC (Auto) 0 Urine RBC (Auto) 0-4 U Hyaline Cast (Auto) 0 U Epithel Cells (Auto) 0-5 Urine Bacteria (Auto) Negative Influenza Type A (PCR) Neg for Influ A Influenza Type B (PCR) Neg for Influ B 09/07/19 14:35 WBC RBC Hgb Hct MCV MCH MCHC RDW Std Deviation RDW Coeff of Kelly Plt Count MPV Immature Gran % (Auto) Neut % (Auto) Lymph % (Auto) [place] % (Auto) Eos % (Auto) Baso % (Auto) Immature Gran # (Auto) Neut # (Auto) Lymph # (Auto) [place] # (Auto) Eos # (Auto) Baso # (Auto) Ovalocytes Echinocytes PT INR APTT PTT Ratio Sodium Potassium Chloride Carbon Dioxide Anion Gap BUN Creatinine Est Cr Clr Drug Dosing Est GFR ( Amer) Est GFR (Non-Af Amer) BUN/Creatinine Ratio Glucose POC Glucose 111 H Lactate Calcium Magnesium Total Bilirubin AST ALT Alkaline Phosphatase Total Protein Albumin Globulin Albumin/Globulin Ratio Urine Color Urine Appearance Urine pH Ur Specific [place] Urine Protein Urine Glucose (UA) Urine Ketones Urine Blood Urine Nitrite Urine Bilirubin Urine Urobilinogen Ur Leukocyte Esterase Urine WBC (Auto) Urine RBC (Auto) U Hyaline Cast (Auto) U Epithel Cells (Auto) Urine Bacteria (Auto) Influenza Type A (PCR) Influenza Type B (PCR) Diagnostic Findings PORTABLE CHEST X-RAY FINDINGS: The heart remains mildly enlarged. There are postsurgical changes within the cervical spine. There is improving mild central pulmonary vascular congestion. There is no focal pulmonary consolidation. There are no large pleural effusions.[ IMPRESSION: Cardiomegaly with improving mild central pulmonary vascular congestion. No evidence of focal pulmonary consolidation ACT 112: Negative or not required by law. Electronically signed by: Pablo Gutiérrez M.D. 09/07/2019 10:[address] ABD & PELVIS FINDINGS: Lower chest: There are enlarged lymph nodes within the right cardiophrenic angle and anterior to the heart. Liver: The liver has a cirrhotic morphology. The portal vein appears patent. Gallbladder: Surgically absent Spleen: Enlarged measuring 26 cm. Pancreas: Unremarkable. Adrenal glands: Unremarkable. Kidneys: There is symmetric renal cortical enhancement. The kidneys are normal i n size without hydronephrosis. Bowel: There are no transition zones indicate bowel obstruction. There is no acute diverticulitis. There is mild right colonic wall thickening, finding which may be secondary to underlying hepatocellular disease. There is no evidence of acute appendicitis Peritoneum: There is a ohddj-vo-upiottss volume of ascites. There is no free intraperitoneal air. There are postsurgical changes of a prior anterior abdominal wall hernia mesh repair Vasculature: There is no evidence of abdominal aortic aneurysm. There are multiple varices consistent with portal hypertension. Adenopathy: There is persistent upper abdominal lymphadenopathy. Pelvic viscera: The bladder, and pelvic viscera are unremarkable. Skeletal structures: Postsurgical changes are present within the lumbar spine. No destructive lesions are evident. IMPRESSION: 1. Evidence of hepatic cirrhosis with secondary changes of portal hypertension with varices and splenomegaly. Since the prior study, the patient has developed mild to moderate ascites 2. Persistent upper abdominal paraesophageal and pericardial lymphadenopathy 3. No evidence of bowel obstruction. No evidence of free air 4. No evidence of acute diverticulitis. No evidence of acute appendicitis. ACT 112: Negative or not required by law. Electronically signed by: Pablo Gutiérrez M.D. 09/07/2019 11:13 AM ECG Additional Comments: EKG performed at [address] at 102 / min, no acute changes. Code Status & VTE Plan VTE Prophylaxis Plan VTE Prophylaxis will be ordered: Yes
[2019-09-07 13:13] LABS: Appearance Urine Clear (Clear); Bacteria Urine Automated Negative (Negative); Blood Urine Negative (Negative); Cast Urine Automated 0 /lpf (0-5); Color Urine Orange; Epithelial Cell Urine Auto 0-5 /lpf (0-5); Glucose Urine UA Negative (Negative); Ketones Urine Negative (Negative); Leukocyte Esterase Urine Negative (Negative); Nitrite Urine Positive (Negative); Protein Urine Negative (Negative); RBC Urine Automated 0-4 /hpf (0-4); Specific Gravity Urine 1.041 (1.000-1.030); Urobilinogen Urine Negative (Negative); WBC Urine Automated 0 /hpf (0-5)
[2019-09-07 13:19] LABS: Bilirubin Urine Negative (Negative); Ictotest Urine Negative (Negative)
[2019-09-07] MEDS ORDERED: ONDANSETRON 8MG OD TAB PO PRN (14:10)
--- NOTE | 2019-09-07 14:13 | Gastrointestinal Consultation ---
Date of Consultation September 07, 2019 Assessment & Plan (1) Abdominal pain: likely 2/2 cellulitis and/or possible SBP. febrile on admission. 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: decompensated with ascites and varices MELD-Na is 13 Recs: 1.agree with antibiotics to cover for cellulitis and possible SBP 2.needs diagnostic and therapeutic paracentesis this admission 3.no evidence of GI blood loss at this time 4.supportive care, rest as per primary team 5.continue rifaximin for HE PPx Thank you for allowing me to participate in the care of this patient History of Present Illness Reason for Consultation: abdominal pain, MEJIA cirrhosis History of Present Illness 53 yo male with hx multiple hernia surgeries, MEJIA cirrhosis here with abdominal pains and increased distention. He notes 2 days ago he developed significant right lower quadrant abdominal pains with chills and sweats at home, noticed a rash in his RLQ yesterday and proceeded to come to the ER. He has never had this problem before. He also notes increased swelling in his abdomen. Denies hematochezia, hematemesis, melena, n/v. He is having multiple bowel movements daily and is on rifaximin for HE ppx. 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 Cdiff testing this week for his diarrhea was negative. Currently not on any diuretics for his ascites as he says this is a relatively new development. Patient follows with Dr. Berg as an outpatient. Labs reviewed, notable for mild anemia and severe thrombocytopenia, CT shows mild-moderate ascites, portal HTN. Allergies Allergy/AdvReac Type Severity Reaction Status Date / Time Penicillins Allergy Severe ANAPHYLAXIS Verified 09/07/19 09:36 morphine Allergy Intermediate Severe Verified 09/07/19 09:36 itching/mouth rash aripiprazole Allergy Mild "feeling Verified 09/07/19 09:36 irritable" lithium Allergy Mild Anxiety Verified 09/07/19 09:36 pregabalin Allergy Mild Anxiety Verified 09/07/19 09:36 quetiapine Allergy Mild Drowsy Verified 09/07/19 09:36 adhesive Allergy Unknown rips skin Verified 09/07/19 09:36 meperidine Allergy Unknown pruritis/ra Verified 09/07/19 09:36 sh adhesive remover wipes Allergy Mild "rips skin" Uncoded 09/07/19 09:36 gold Allergy Mild Blister Uncoded 09/07/19 09:36 Home Medications Home Medications Medication Instructions Recorded Confirmed Type Xifaxan 550 mg PO BID 06/20/18 09/07/19 History omeprazole 20 mg PO DIRECTED 06/20/18 09/07/19 History sub-q insulin device, 40 unit 09/26/18 07/21/19 History famotidine 20 mg PO BID 07/21/19 09/07/19 History mirtazapine [Remeron] 15 mg PO HS 07/21/19 09/07/19 History FreeStyle Adair 14 Day Sensor #7 ea NS 09/05/19 09/05/19 Rx Glucagon Emergency Kit (human) 1 1 mg SQ Q20M PRN #1 ea NS 09/05/19 09/07/19 Rx mg solution for injection flash glucose scanning reader #1 ea 09/05/19 09/05/19 History insulin aspart U-100 100 unit/mL See Rx Instructions .ROUTE 09/05/19 09/07/19 History subcutaneous solution .COMPLEX ml mupirocin 2 % topical ointment 1 appln TOP TID PRN 09/05/19 09/07/19 History silver sulfadiazine 1 % topical 1 appln TOP DAILY PRN 09/05/19 09/07/19 History cream sub-q insulin device, 30 unit #30 ea 09/05/19 09/05/19 History triamcinolone acetonide 0.1 % 1 appln TOP BID PRN 09/05/19 09/07/19 History topical cream ondansetron 8 mg PO Q8H PRN 09/07/19 09/07/19 History tamsulosin 0.4 mg PO HS 09/07/19 09/07/19 History Patient History Medical History Anxiety Asthma inhaler/nebulizer prn Cardiac murmur as a child Chronic back pain Degenerative disc disease Diabetes mellitus, type 2 Esophageal varices hx of banding GERD (gastroesophageal reflux disease) Hearing deficit 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 steatohepatitis) stage 3 Osteoarthritis Sarcoidosis Smoker Spinal stenosis Thrombocytopenia Surgical History Amputation of great toe, right, traumatic Amputation of second toe, right, traumatic History of anesthesia reaction sometimes has difficulty waking up History of cardiac cath 2008 @ [facility], no stents History of cholecystectomy History of colonoscopy History of endoscopic sinus surgery History of esophagogastroduodenoscopy (EGD) History of repair of left rotator cuff History of thoracic spinal fusion t10-t12 History of tooth extraction wisdom teeth History of umbilical hernia repair x3 Status post cervical spinal fusion x3 screws, plates in place--normal ROM C3-C7 Status post right foot surgery complete amputation of great toe and 2nd toe Family History Mother Family history of diabetes mellitus Other No family history of adverse response to anesthesia Social History Preferred Language: Sinhala Communication Ability: Effective 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 Beliefs That Will Affect Care: None Current Living Situation: Spouse Feels Safe at Home: Yes Smoking Status: Light tobacco smoker Tobacco Type: cigarettes and smokeless tobacco ; Cigarettes Per Day: 1-4 YUMIKO DAILY ; Second Hand Exposure: No ; Hx Alcohol Use: No Hx Substance Use: No Review of Systems Constitutional: no fever, no chills and no weight loss Eyes: as per Subjective / HPI Ear, Nose, Mouth, Throat: as per Subjective / HPI Respiratory: no dyspnea and no dyspnea on exertion Cardiovascular: no chest pain and no palpitations Gastrointestinal: as per Subjective / HPI Musculoskeletal: no joint pain and no swelling Integumentary: no rash and no lesions Neurologic: no numbness and no paresthesia Psychiatric: no depression and no anxiety Endocrine: no fatigue Hematologic / Lymphatic: no easy bleeding and no easy bruising Physical Exam Constitutional: WD/WN, vitals as above Eyes: EOM intact bilaterally Neck: normal visual inspection Respiratory: normal respiratory effort, lungs clear to auscultation Cardiovascular: RRR, no murmur, no edema Gastrointestinal (Abdomen): Inspection/Auscultation: abdomen normal to inspection; abdomen not distended Percussion/Palpation: abdomen soft; abdomen nontender and no hepatosplenomegaly Musculoskeletal: Extremities: no cyanosis Gait: normal gait Skin: no rashes, warm and dry Neurologic: moves all extremities Psychiatric: A+Ox3, euthymic affect Results & Data Vital Signs (Past 12 Hours) Vital Signs Temp Pulse Pulse Resp BP BP Pulse Ox 01/12/20 13:33 93 H 22 133/83 99 09/07/19 12:22 96 H 20 171/93 H 97 09/07/19 11:12 93 H 22 138/87 99 09/07/19 10:45 90 21 137/105 H 99 09/07/19 10:30 92 H 24 140/83 99 09/07/19 10:15 92 H 20 148/86 H 98 09/07/19 10:01 94 H 24 156/77 H 100 09/07/19 09:45 95 H 16 133/85 98 09/07/19 09:35 93 H 24 99 09/07/19 09:32 94 H 20 134/93 98 09/07/19 09:00 37.8 C H 103 H 20 139/80 99 PG Care Time/CCT Total # of Minutes Spent Total Time Spent with Patient: Total time spent is greater than 50% in coordination of care (as documented) at patient's floor/unit and/or counseling patient:
--- NOTE | 2019-09-07 14:46 | Emergency Department Note ---
Entered by Su Rojo acting as a scribe for Procedures Paracentesis Time Out Performed: Yes Indication: possible spontaneous bacterial peritonitis Procedure: diagnostic paracentesis Location: RLQ Local Anesthetic: lidocaine 1% and with epi Amount of anesthesia used (mL): 8 Bedside Ultrasound Used: yes, Ascites confirmed and location marked (each inferior epigastric artery also marked) Preparation: sterile prep and drape Amount of fluid obtained (mL): 0 Patient Tolerated Procedure: no complications Additional Comments: Was unable to withdraw fluid after going to a depth that appeared to be approximately 4 cm which would have been consistent with the ultrasound. Given the dry tap will defer to the inpatient team at this time. Midline was not in amenable site as the patient does have prior mesh and likely adhesions. Left lower quadrant did not have a large pocket. The scribe's documentation has been prepared under my direction and personally reviewed by me in its entirety. I confirm that the note above accurately reflects all work, treatment, procedures, and medical decision making performed by me.
--- NOTE | 2019-09-07 15:39 | Pharmacy Report ---
Pharmacy Abx Initial Consult - Date of Service September 07, 2019 - Pharmacy Dosing Scope Date of Consult: 09/07/19 Consultation requested by: Dr. Sharma Pharmacy is consulted to initiate Vancomycin IV dosing therapy, order appropriate labs and adjust drug dose/frequency. - Subjective The patient is a 53 year old M admitted on 09/07/19 11:32. - Objective Height: 6 ft 1 in Weight: 140.614 kg Vital Signs (Past 12hrs): Vital Signs Temp Pulse Pulse Pulse Resp BP BP 09/07/19 14:11 37 C 98 H 16 124/69 09/07/19 13:33 93 H 22 133/83 09/07/19 12:22 96 H 20 171/93 H 09/07/19 11:12 93 H 22 138/87 09/07/19 10:45 90 21 137/105 H 09/07/19 10:30 92 H 24 140/83 09/07/19 10:15 92 H 20 148/86 H 09/07/19 10:01 94 H 24 156/77 H 09/07/19 09:45 95 H 16 133/85 09/07/19 09:35 93 H 24 09/07/19 09:32 94 H 20 134/93 09/07/19 09:00 37.8 C H 103 H 20 139/80 Pulse Ox 09/07/19 14:11 98 09/07/19 13:33 99 09/07/19 12:22 97 09/07/19 11:12 99 09/07/19 10:45 99 09/07/19 10:30 99 09/07/19 10:15 98 09/07/19 10:01 100 09/07/19 09:45 98 09/07/19 09:35 99 09/07/19 09:32 98 09/07/19 09:00 99 Lab Results (24hrs): Laboratory Tests (24 Hours) 09/07/19 09/07/19 09:19 09:19 WBC 2.53 L Neut # (Auto) 1.92 Creatinine 0.96 Est Cr Clr Drug Dosing 132.3 Micro Results: 09/07/19 09:52 Aerobic Blood Culture - Pending Blood Anaerobic Blood Culture - Pending 09/07/19 09:19 Aerobic Blood Culture - Pending Blood Anaerobic Blood Culture - Pending - Risk Factors for Resistance * None appreciated at this time. - Assessment & Plan Assessment 53 year old M with history of T2DM and MEJIA cirrhosis presents to the ED with worsening abdominal pain x2 days. Patient experienced fever and chills at home, as well as a rash on RLQ prior to coming to the ER. Paracentesis was attempted in the ED but no fluid was removed. Patient febrile on admission (Tmax 37.8). Hx of thrombocytopenia, WBC 2.5. Influenza screen negative. Blood cx x2 pending. Plan Vancomycin for treatment of possible spontaneous bacterial peritonitis or abdominal wall cellulitis Vancomycin IV * Estimated PK Parameters: Vd 0.7 L/kg, Hans 0.11 hr-1, t1/2 6 hr * Note that due to high BMI estimated kinetics may overestimate clearance and half-life. * Loading dose: 2750 mg (19.5 mg/kg) * Maintenance dose: 1750 mg IV (12.4 mg/kg) every 10 hours * Goal trough level : 10 to 15 mcg/mL * Trough/Random level ordered for 09/08/19 before 3rd maintenance dose to assess for drug accumulation. * A less than traditional dose and/or extended dosing interval has/have been selected due to likelihood of drug accumulation in obese patient. Pharmacy will continue to follow and will adjust dose/frequency as necessary. Thank you.
[2019-09-07] MEDS ORDERED: DiphenhydrAMINE HCL 50 MG/ML VIAL IV ONE (18:05)
[2019-09-07] MEDS ORDERED: HYDROmorphone INJ 0.5 MG/0.5 ML SYR IV ONE (18:05)
[2019-09-07] MEDS: INSULIN ASPART 100 UNITS/ML 3 ML PEN SC SCH ×2 (18:06→21:26)
[2019-09-07] MEDS: AZTREONAM 2,000 MG in DEXTROSE 5% 100 ML IV SCH (19:40)
[2019-09-07] MEDS: RIFAXIMIN 550 MG TABLET PO SCH (20:52)
[2019-09-07] MEDS: MIRTAZAPINE TAB 15 MG TAB PO SCH (20:52)
[2019-09-07] MEDS: FAMOTIDINE 20 MG TAB PO SCH (20:52)
[2019-09-07] MEDS: TAMSULOSIN HCL 0.4 MG CAP PO SCH (20:52)
[2019-09-07] MEDS: VANCOMYCIN HCL 1,750 MG in SODIUM CHLORIDE 0.9% 500 ML IV SCH (21:20)
[2019-09-07] MEDS: INSULIN GLARGINE SOLOSTAR 100 UNITS/ML 3 ML PEN SC SCH (21:26)
--- NOTE | 2019-09-07 22:01 | Electrocardiogram Report ---
Test Reason : Blood Pressure : / mmHG Vent. Rate : 102 BPM Atrial Rate : 102 BPM P-R Int : 154 ms QRS Dur : 086 ms QT Int : 368 ms P-R-T Axes : 059 -06 046 degrees QTc Int : 479 ms Sinus tachycardia Low voltage QRS Borderline ECG When compared with ECG of 29-MAR-2015 09:49, No significant change was found Confirmed by Gerry Kilgore ([id number]) on 09/07/2019 10:01:13 PM Referred By: REFERRED SELF Confirmed By:Gerry Kilgore
[2019-09-08] MEDS ORDERED: DiphenhydrAMINE HCL 50 MG/ML VIAL IV STA (01:20)
[2019-09-08] MEDS ORDERED: HYDROmorphone INJ 0.5 MG/0.5 ML SYR IV STA (01:20)
[2019-09-08] MEDS: AZTREONAM 2,000 MG in DEXTROSE 5% 100 ML IV SCH ×2 (04:59→11:47)
[2019-09-08 06:23] LABS: Hematocrit (blood only) 31.7 % (42-52); Hemoglobin 10.6 g/dL (14.0-18.0); Mean Corpuscular Hemoglobin 30.3 pg (25-34); Mean Corpuscular Hgb Conc 33.4 g/dL (32-36); Mean Corpuscular Volume 90.6 fL (80-100); RDW Coefficient of Variation 17.5 % (11.5-14.5); RDW Standard Deviation 57.7 fL (36.4-46.3); White Blood Count 2.09 K/uL (4.8-10.8)
[2019-09-08 06:25] LABS: Mean Platelet Volume 9.4 fL (7.4-10.4); Platelet Count 40 K/uL (130-400)
[2019-09-08 06:34] LABS: Estimated Average Glucose 103 mg/dl; Hemoglobin A1C 5.2 % (4.5-5.6)
[2019-09-08 06:52] LABS: ALC (manual) 0.22 K/uL (1.2-3.4); ANC (manual) 1.67 K/uL (1.4-6.5); Basophils # (manual) 0.02 K/uL (0-0.2); Basophils % (manual) 0.9 %; Eosinophils # (manual) 0.09 K/uL (0-0.5); Eosinophils % (manual) 4.3 %; Lymphocytes # (manual) 0.22 K/uL (1.2-3.4); Lymphocytes % (manual) 10.4 %; Monocytes # (manual) 0.09 K/uL (0.11-0.59); Monocytes % (manual) 4.3 %; Neutrophils # (manual) 1.67 K/uL (1.4-6.5); Neutrophils % (manual) 80.1 %
[2019-09-08 06:59] LABS: Albumin Level 2.5 gm/dl (3.4-5.0); BUN Creatinine Ratio 10.4 (10-20); Bilirubin Direct 0.8 mg/dl (0-0.2); Calcium 7.9 mg/dl (8.5-10.1); Creatinine Clr Calc Pharmacy 129.9 ml/min; Est GFR (African American) 102.3; Est GFR (Non-African American) 88.3; Potassium 3.8 mmol/L (3.5-5.1)
[2019-09-08 07:01] LABS: Albumin Globulin Ratio 0.7 (0.9-2); Bilirubin,Total 2.3 mg/dl (0.2-1); Globulin 3.4 gm/dl (2.5-4.0); Total Protein 5.9 gm/dl (6.4-8.2)
[2019-09-08] MEDS: INSULIN ASPART 100 UNITS/ML 3 ML PEN SC SCH ×4 (08:58→22:07)
[2019-09-08] MEDS: INSULIN GLARGINE SOLOSTAR 100 UNITS/ML 3 ML PEN SC SCH ×2 (08:59→22:06)
[2019-09-08] MEDS: VANCOMYCIN HCL 1,750 MG in SODIUM CHLORIDE 0.9% 500 ML IV SCH (09:00)
[2019-09-08] MEDS: FAMOTIDINE 20 MG TAB PO SCH ×2 (09:04→21:44)
[2019-09-08] MEDS: RIFAXIMIN 550 MG TABLET PO SCH ×2 (09:04→21:44)
--- NOTE | 2019-09-08 13:23 | Gastroenterology Progress Note ---
Date of Service September 08, 2019 Assessment & Plan (1) Ascites: - Need to establish cause for new-onset ascites (? infection, PVT, CHF, advanced liver disease etc). He is currently not encephalopathic; no s/s GIB - Check hepatic duplex to r/o PVT - Await BC; check UC - Trend labs including CBC, LFTs, BMP - Continue empiric ABX - Consider echocardiogram in the setting of cardiomegaly with pulmonary vascular congestion on CXR along with leg edema - Paracentesis attempted by the ER was unsuccessful; will need a paracentesis in the work-up of new-onset ascites; will review appropriate timing of this as he has possible abd wall cellulitis - Though he states abd distention and leg edema are improved, may need to consider low-dose diuretic regimen pending the above work-up - Continue Xifaxan - Low Na diet - Avoid Tylenol > 2 gm daily - Strict ETOH avoidance - F/u with (GI) Dr. 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 cellulitis vs SBP in the setting of new-onset ascites x a few weeks. Pt had a rash on his RLQ that started late lat week. Since admission he was started on ABX; he notes his abd pain, leg edema, and abd distention are much improved, though his notes his rash on his RLQ has enlarged. Pt feeling much better this AM; tolerated eggs for breakfast. Paracentesis was attempted in the ER without success. BC pending; UC not done. Unclear etiology of his new-onset ascites at this time. Pt notes he doesn't follow a low-sodium diet but is compliant with Xifaxan. No ETOH in several years; no Tylenol. Review of Systems Constitutional: no fever, no chills and no anorexia Eyes: no icterus Respiratory: no cough and no dyspnea Cardiovascular: no chest pain and no dyspnea at rest Gastrointestinal: as per Subjective / HPI Genitourinary: no difficulty urinating and no hematuria Integumentary: no jaundice Neurologic: no unsteadiness, no falls and no syncope Hematologic / Lymphatic: no easy bleeding and no easy bruising Physical Exam Constitutional: WD/WN, vitals as above Eyes: PERRL, conjunctivae normal, anicteric sclerae Respiratory: normal respiratory effort, lungs clear to auscultation Cardiovascular: Rate/Rhythm: regular rate and regular rhythm Mild bilateral lower leg edema Gastrointestinal (Abdomen): Inspection/Auscultation: normal bowel sounds and + abdominal surgical scar; caput medusae absent Percussion/Palpation: abdomen soft; abdomen nontender and no guarding RLQ/right flank with macular erythema, no increased warmth; nontender, no ulcers, papules, herpetic lesions; mild-moderate ascites present Skin: no rashes, warm and dry no jaundice Neurologic: no focal motor deficits Speech / Cognition: + abnormal speech no asterixis Results & Data Vital Signs (Past 12 Hours) Vital Signs Temp Pulse Resp BP Pulse Ox 09/08/19 11:31 36.9 C 82 19 118/70 96 09/08/19 07:40 36.6 C 84 20 116/70 96 Laboratory Results 09/08/19 09/08/19 09/08/19 Range/Units 12:15 08:11 05:40 WBC (4.8-10.8) K/uL RBC (4.7-6.1) M/uL Hgb (14.0-18.0) g/dL Hct (42-52) % MCV (80-100) fL MCH (25-34) pg MCHC (32-36) g/dL RDW Std Deviation (36.4-46.3) fL RDW Coeff of Kelly (11.5-14.5) % Plt Count (130-400) K/uL MPV (7.4-10.4) fL Neutrophils % (Manual) % Lymphocytes % (Manual) % Monocytes % (Manual) % Eosinophils % (Manual) % Basophils % (Manual) % Neutrophils # (Manual) (1.4-6.5) K/uL Total Absolute Neuts (1.4-6.5) K/uL Lymphocytes # (Manual) (1.2-3.4) K/uL Total Abs Lymphocytes (1.2-3.4) K/uL Monocytes # (Manual) (0.11-0.59) K/uL Eosinophils # (Manual) (0-0.5) K/uL Basophils # (Manual) (0-0.2) K/uL Sodium (136-145) mmol/L Potassium (3.5-5.1) mmol/L Chloride (98-107) mmol/L Carbon Dioxide (21-32) mmol/L Anion Gap (3-11) BUN (7-18) mg/dl Creatinine (0.6-1.4) mg/dl Est Cr Clr Drug Dosing ml/min Est GFR ( Amer) Est GFR (Non-Af Amer) BUN/Creatinine Ratio (10-20) Glucose (70-99) mg/dl POC Glucose 122 H 121 H (70-99) Estimat Average Glucose 103 mg/dl Hemoglobin A1c 5.2 (4.5-5.6) % Calcium (8.5-10.1) mg/dl Total Bilirubin (0.2-1) mg/dl Direct Bilirubin (0-0.2) mg/dl AST (15-37) U/L ALT (12-78) U/L Alkaline Phosphatase (45-117) U/L Total Protein (6.4-8.2) gm/dl Albumin (3.4-5.0) gm/dl Globulin (2.5-4.0) gm/dl Albumin/Globulin Ratio (0.9-2) Nasal Screen MRSA (PCR) (Negative) 09/08/19 09/08/19 09/07/19 Range/Units 05:40 05:40 Unknown WBC 2.09 L (4.8-10.8) K/uL RBC 3.50 L (4.7-6.1) M/uL Hgb 10.6 L (14.0-18.0) g/dL Hct 31.7 L (42-52) % MCV 90.6 (80-100) fL MCH 30.3 (25-34) pg MCHC 33.4 (32-36) g/dL RDW Std Deviation 57.7 H (36.4-46.3) fL RDW Coeff of Kelly 17.5 H (11.5-14.5) % Plt Count 40 L (130-400) K/uL MPV 9.4 (7.4-10.4) fL Neutrophils % (Manual) 80.1 % Lymphocytes % (Manual) 10.4 % Monocytes % (Manual) 4.3 % Eosinophils % (Manual) 4.3 % Basophils % (Manual) 0.9 % Neutrophils # (Manual) 1.67 (1.4-6.5) K/uL Total Absolute Neuts 1.67 (1.4-6.5) K/uL Lymphocytes # (Manual) 0.22 L (1.2-3.4) K/uL Total Abs Lymphocytes 0.22 L (1.2-3.4) K/uL Monocytes # (Manual) 0.09 L (0.11-0.59) K/uL Eosinophils # (Manual) 0.09 (0-0.5) K/uL Basophils # (Manual) 0.02 (0-0.2) K/uL Sodium 138 (136-145) mmol/L Potassium 3.8 (3.5-5.1) mmol/L Chloride 108 H (98-107) mmol/L Carbon Dioxide 25 (21-32) mmol/L Anion Gap 5.0 (3-11) BUN 10 (7-18) mg/dl Creatinine 0.98 (0.6-1.4) mg/dl Est Cr Clr Drug Dosing 129.9 ml/min Est GFR ( Amer) 102.3 Est GFR (Non-Af Amer) 88.3 BUN/Creatinine Ratio 10.4 (10-20) Glucose 117 H (70-99) mg/dl POC Glucose (70-99) Estimat Average Glucose mg/dl Hemoglobin A1c (4.5-5.6) % Calcium 7.9 L (8.5-10.1) mg/dl Total Bilirubin 2.3 H (0.2-1) mg/dl Direct Bilirubin 0.8 H (0-0.2) mg/dl AST 32 (15-37) U/L ALT 25 (12-78) U/L Alkaline Phosphatase 98 (45-117) U/L Total Protein 5.9 L (6.4-8.2) gm/dl Albumin 2.5 L (3.4-5.0) gm/dl Globulin 3.4 (2.5-4.0) gm/dl Albumin/Globulin Ratio 0.7 L (0.9-2) Nasal Screen MRSA (PCR) Negative (Negative) 09/07/19 09/07/19 09/07/19 Range/Units 20:28 16:59 14:35 WBC (4.8-10.8) K/uL RBC (4.7-6.1) M/uL Hgb (14.0-18.0) g/dL Hct (42-52) % MCV (80-100) fL MCH (25-34) pg MCHC (32-36) g/dL RDW Std Deviation (36.4-46.3) fL RDW Coeff of Kelly (11.5-14.5) % Plt Count (130-400) K/uL MPV (7.4-10.4) fL Neutrophils % (Manual) % Lymphocytes % (Manual) % Monocytes % (Manual) % Eosinophils % (Manual) % Basophils % (Manual) % Neutrophils # (Manual) (1.4-6.5) K/uL Total Absolute Neuts (1.4-6.5) K/uL Lymphocytes # (Manual) (1.2-3.4) K/uL Total Abs Lymphocytes (1.2-3.4) K/uL Monocytes # (Manual) (0.11-0.59) K/uL Eosinophils # (Manual) (0-0.5) K/uL Basophils # (Manual) (0-0.2) K/uL Sodium (136-145) mmol/L Potassium (3.5-5.1) mmol/L Chloride (98-107) mmol/L Carbon Dioxide (21-32) mmol/L Anion Gap (3-11) BUN (7-18) mg/dl Creatinine (0.6-1.4) mg/dl Est Cr Clr Drug Dosing ml/min Est GFR ( Amer) Est GFR (Non-Af Amer) BUN/Creatinine Ratio (10-20) Glucose (70-99) mg/dl POC Glucose 127 H 131 H 111 H (70-99) Estimat Average Glucose mg/dl Hemoglobin A1c (4.5-5.6) % Calcium (8.5-10.1) mg/dl Total Bilirubin (0.2-1) mg/dl Direct Bilirubin (0-0.2) mg/dl AST (15-37) U/L ALT (12-78) U/L Alkaline Phosphatase (45-117) U/L Total Protein (6.4-8.2) gm/dl Albumin (3.4-5.0) gm/dl Globulin (2.5-4.0) gm/dl Albumin/Globulin Ratio (0.9-2) Nasal Screen MRSA (PCR) (Negative) (1) Ascites Ascites type: other type Qualified Code(s): R18.8 - Other ascites
--- NOTE | 2019-09-08 14:12 | Hospitalist Progress Note ---
Date of Service September 08, 2019 Assessment & Plan (1) Abdominal pain: -Severe abdominal pain associated with low-grade fever (Meets criteria for sepsis per current CMS criteria (tachycardia, tachypnea), although leukopenia is chronic.) -Erythema of right anterior abdomen consistent with cellulitis, no associated vesicles. -admission CT abdomen 09/07/2019: Evidence of hepatic cirrhosis with secondary changes of portal hypertension with varices and splenomegaly. Since the prior study, the patient has developed mild to moderate ascites. Persistent upper abdominal paraesophageal and pericardial lymphadenopathy -09/07/2019 Ultrasound-guided paracentesis was attempted by ED staff without kline ccess. -patient was empirically started on vancomycin and aztreonam in the ED which was continued (patient had reported anaphylaxis to penicillins) -as of 09/08/2019, blood cultures have no growth to date -a repeat paracentesis is recommended but patient already at on 09/08/2019 as he was not non per oral on admission. further more it is hard say what the yield of the ascites fluid would be in regards to work up if there was spontaneous bacterial peritonitis. patient agreeable to for abdominal ultrasound to re- assess volume of ascites. 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 of note, patient has had normal outpatient echocardiogram in 2018 and 2017 - Continue Xifaxan - Low Na diet - Avoid Tylenol > 2 gm daily - Strict ETOH avoidance (3) GERD (gastroesophageal reflux disease): Continue H2 narendra and PPI. (4) Sarcoidosis: -Quiescent; No recent utilization of glucocorticoids. (5) COPD (chronic obstructive pulmonary disease): -Pulmonary status stable. (6) Diabetes mellitus, type II: Type 2 diabetes mellitus with intermediate manager current use of insulin -Well-controlled with V-GO pump. -Hgb A1C 5.2 -Lantus/NovoLog per protocol while inpatient (7) Leukopenia: -White count 2530 with ANC of 1920. -Chronic leukopenia (8) Thrombocytopenia: -Chronic thrombocytopenia secondary to cirrhosis with portal hypertension. (9) DVT prophylaxis: No anticoagulants due to thrombocytopenia. SCDs. Ambulate. (10) Discharge planning issues: monitor in hospital for now Subjective patient has dressing over right lower quadrant from paracentesis attempt on admission. patient on IV antibiotics. afebrile. patient eating food. patient feeling less abdominal discomfort today and abdominal skin does not have erythema. continues to be on room air. no shortness of breath. no vomiting. no headache. no dizziness. Review of Systems Review of Systems: All systems reviewed & are unremarkable except as noted in HPI & below Physical Exam Constitutional: comfortable Eyes: PERRL, conjunctivae normal, anicteric sclerae EOM intact bilaterally ENMT: external ear and nose normal, oropharynx normal Neck: trachea midline, no thyromegaly normal visual inspection Respiratory: normal respiratory effort, lungs clear to auscultation Cardiovascular: Rate/Rhythm: regular rate and regular rhythm Gastrointestinal (Abdomen): soft, nontender. fluid wave could not be appreciated on exam. patient has dressing over right lower quadrant from paracentesis attempt on admission Musculoskeletal: Head/Neck/Chest: normocephalic and head atraumatic Neurologic: PERRL, EOMI, accommodation nl, no face palsy, no dysarthria Psychiatric: A+Ox3, euthymic affect Results & Data Vital Signs (Past 12 Hours) Vital Signs Temp Pulse Resp BP Pulse Ox 09/08/19 11:31 36.9 C 82 19 118/70 96 09/08/19 07:40 36.6 C 84 20 116/70 96 (1) Abdominal pain Abdominal location: generalized Qualified Code(s): R10.84 - Generalized abdominal pain
--- NOTE | 2019-09-08 15:40 | Ultrasound Report ---
US abdomen ltd ascites CLINICAL HISTORY: Ascites COMPARISON STUDY: CT scan dated 09/07/2019 FINDINGS: A four-quadrant screening study was performed. There is low volume ascites, the majority of which is at the level of the liver. Only trace fluid is visualized within the pelvis. The spleen is enlarged.. IMPRESSION: Low volume ascites. ACT 112: Negative or not required by law. Electronically signed by: Pablo Gutiérrez M.D. 09/08/2019 3:39 PM
--- NOTE | 2019-09-08 15:42 | Ultrasound Report ---
US duplex portal hepatic veins CLINICAL HISTORY: new-onset ascites COMPARISON STUDY: No previous studies for comparison. FINDINGS: A duplex ultrasound study was performed. The portal veins are patent with normal directiona l flow. The hepatic veins are patent. The portal splenic confluence is patent. IMPRESSION: No evidence of portal or hepatic vein thrombus. Normal directional flow. ACT 112: Negative or not required by law. Electronically signed by: Pablo Gutiérrez M.D. 09/08/2019 3:40 PM
[2019-09-08] MEDS ORDERED: VANCOMYCIN TROUGH ONE (17:30)
[2019-09-08] MEDS: cephALEXin 500 MG CAP PO SCH (21:43)
[2019-09-08] MEDS: MIRTAZAPINE TAB 15 MG TAB PO SCH (21:44)
[2019-09-08] MEDS: TAMSULOSIN HCL 0.4 MG CAP PO SCH (21:44)
[2019-09-09] MEDS: cephALEXin 500 MG CAP PO SCH ×2 (07:32→13:23)
[2019-09-09] MEDS: RIFAXIMIN 550 MG TABLET PO SCH (07:32)
[2019-09-09] MEDS: FAMOTIDINE 20 MG TAB PO SCH (07:32)
[2019-09-09 07:36] LABS: Hematocrit (blood only) 31.8 % (42-52); Hemoglobin 10.6 g/dL (14.0-18.0); Mean Corpuscular Hgb Conc 33.3 g/dL (32-36); Mean Corpuscular Volume 90.1 fL (80-100); RDW Coefficient of Variation 17.3 % (11.5-14.5); RDW Standard Deviation 56.8 fL (36.4-46.3); Red Blood Count 3.53 M/uL (4.7-6.1); White Blood Count 1.59 K/uL (4.8-10.8)
[2019-09-09 07:57] LABS: Mean Platelet Volume 9.4 fL (7.4-10.4); Platelet Count 41 K/uL (130-400)
[2019-09-09 08:04] LABS: Albumin Level 2.5 gm/dl (3.4-5.0); BUN Creatinine Ratio 15.5 (10-20); Calcium 8.3 mg/dl (8.5-10.1); Creatinine Clr Calc Pharmacy 153.4 ml/min; Est GFR (African American) 117.3; Est GFR (Non-African American) 101.2; Potassium 4.1 mmol/L (3.5-5.1)
[2019-09-09] MEDS: INSULIN GLARGINE SOLOSTAR 100 UNITS/ML 3 ML PEN SC SCH (08:10)
[2019-09-09 08:17] LABS: Albumin Globulin Ratio 0.8 (0.9-2); Bilirubin,Total 1.6 mg/dl (0.2-1); Globulin 3.3 gm/dl (2.5-4.0); Total Protein 5.8 gm/dl (6.4-8.2)
[2019-09-09] MEDS: INSULIN ASPART 100 UNITS/ML 3 ML PEN SC SCH ×2 (08:38→13:22)
[2019-09-09 09:13] LABS: Eosinophils # (auto) 0.03 K/uL (0-0.5); Eosinophils % (auto) 1.9 %; Lymphocytes # (auto) 0.32 K/uL (1.2-3.4); Lymphocytes % (auto) 20.1 %; Monocytes # (auto) 0.21 K/uL (0.11-0.59); Monocytes % (auto) 13.2 %; Neutrophils # (auto) 1.03 K/uL (1.4-6.5); Neutrophils % (auto) 64.8 %; RBC Morphology Unremarkable
--- NOTE | 2019-09-09 11:09 | Gastroenterology Progress Note ---
Date of Service September 09, 2019 Assessment & Plan (1) Ascites: - Unclear cause for low-volume ascites (? infection, though small amt of ascites makes SBP less likely, CHF, advanced liver disease etc). He is currently not encephalopathic; no s/s GIB - No PVT on hepatic duplex - Await BC, UC - Trend labs including CBC, LFTs, BMP - Continue empiric ABX; improved appearance of abd wall erythema - Await echocardiogram result to r/o CHF - Paracentesis attempted by the ER was unsuccessful; with low-volume ascites would not re-attempt tap presently - Would not start low-dose diuretic regimen at this time - Continue Xifaxan - Low Na diet - Avoid Tylenol > 2 gm daily - Strict ETOH avoidance - F/u with (GI) Dr. 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 US ABD yesterday revealed low volume ascites. Hepatic duplex showing patent portal veins; negative for PVT. Today he reports abd discomfort and redness is improved with ABX. He is feeling better; no acute complaints today BC still pending. Echo done yesterday and is pending. Rohini n/v/d, melena, hematochezia, hematemesis, fever. Bowels are moving regularly; loose. Review of Systems Constitutional: no fever and no chills Eyes: no icterus Respiratory: no cough and no wheezing Cardiovascular: no chest pain and no dyspnea Gastrointestinal: as per Subjective / HPI Integumentary: as per Subjective / HPI no jaundice Physical Exam Constitutional: WD/WN, vitals as above Eyes: PERRL, conjunctivae normal, anicteric sclerae Respiratory: normal respiratory effort, lungs clear to auscultation Cardiovascular: Rate/Rhythm: regular rate and regular rhythm Gastrointestinal (Abdomen): Inspection/Auscultation: normal bowel sounds and + abdominal surgical scar; caput medusae absent Percussion/Palpation: abdomen soft; abdomen nontender and no guarding Receding erythema RLQ/right flank; no warmth, lesions Skin: no rashes, warm and dry no jaundice Neurologic: no focal motor deficits Results & Data Vital Signs (Past 12 Hours) Vital Signs Temp Pulse Resp BP Pulse Ox 09/09/19 06:58 37 C 86 19 112/72 97 09/08/19 23:25 37.1 C 83 15 122/76 96 Laboratory Results 09/09/19 09/09/19 09/09/19 Range/Units 08:03 07:04 07:04 WBC 1.59 L (4.8-10.8) K/uL RBC 3.53 L (4.7-6.1) M/uL Hgb 10.6 L (14.0-18.0) g/dL Hct 31.8 L (42-52) % MCV 90.1 (80-100) fL MCH 30.0 (25-34) pg MCHC 33.3 (32-36) g/dL RDW Std Deviation 56.8 H (36.4-46.3) fL RDW Coeff of Kelly 17.3 H (11.5-14.5) % Plt Count 41 L (130-400) K/uL MPV 9.4 (7.4-10.4) fL Immature Gran % (Auto) 0.0 % Neut % (Auto) 64.8 % Lymph % (Auto) 20.1 % [place] % (Auto) 13.2 % Eos % (Auto) 1.9 % Baso % (Auto) 0.0 % Immature Gran # (Auto) 0.00 (0.00-0.02) K/uL Neut # (Auto) 1.03 L (1.4-6.5) K/uL Lymph # (Auto) 0.32 L (1.2-3.4) K/uL [place] # (Auto) 0.21 (0.11-0.59) K/uL Eos # (Auto) 0.03 (0-0.5) K/uL Baso # (Auto) 0.00 (0-0.2) K/uL RBC Morphology Unremarkable Sodium 140 (136-145) mmol/L Potassium 4.1 (3.5-5.1) mmol/L Chloride 110 H (98-107) mmol/L Carbon Dioxide 25 (21-32) mmol/L Anion Gap 6.0 (3-11) BUN 13 (7-18) mg/dl Creatinine 0.83 (0.6-1.4) mg/dl Est Cr Clr Drug Dosing 153.4 ml/min Est GFR ( Amer) 117.3 Est GFR (Non-Af Amer) 101.2 BUN/Creatinine Ratio 15.5 (10-20) Glucose 120 H (70-99) mg/dl POC Glucose 124 H (70-99) mg/dl Calcium 8.3 L (8.5-10.1) mg/dl Total Bilirubin 1.6 H (0.2-1) mg/dl AST 32 (15-37) U/L ALT 23 (12-78) U/L Alkaline Phosphatase 94 (45-117) U/L Total Protein 5.8 L (6.4-8.2) gm/dl Albumin 2.5 L (3.4-5.0) gm/dl Globulin 3.3 (2.5-4.0) gm/dl Albumin/Globulin Ratio 0.8 L (0.9-2) Vancomycin Trough (See Comment) mcg/ml 09/08/19 09/08/19 09/08/19 Range/Units 21:08 17:43 17:33 WBC (4.8-10.8) K/uL RBC (4.7-6.1) M/uL Hgb (14.0-18.0) g/dL Hct (42-52) % MCV (80-100) fL MCH (25-34) pg MCHC (32-36) g/dL RDW Std Deviation (36.4-46.3) fL RDW Coeff of Kelly (11.5-14.5) % Plt Count (130-400) K/uL MPV (7.4-10.4) fL Immature Gran % (Auto) % Neut % (Auto) % Lymph % (Auto) % [place] % (Auto) % Eos % (Auto) % Baso % (Auto) % Immature Gran # (Auto) (0.00-0.02) K/uL Neut # (Auto) (1.4-6.5) K/uL Lymph # (Auto) (1.2-3.4) K/uL [place] # (Auto) (0.11-0.59) K/uL Eos # (Auto) (0-0.5) K/uL Baso # (Auto) (0-0.2) K/uL RBC Morphology Sodium (136-145) mmol/L Potassium (3.5-5.1) mmol/L Chloride (98-107) mmol/L Carbon Dioxide (21-32) mmol/L Anion Gap (3-11) BUN (7-18) mg/dl Creatinine (0.6-1.4) mg/dl Est Cr Clr Drug Dosing ml/min Est GFR ( Amer) Est GFR (Non-Af Amer) BUN/Creatinine Ratio (10-20) Glucose (70-99) mg/dl POC Glucose 128 H 142 H (70-99) mg/dl Calcium (8.5-10.1) mg/dl Total Bilirubin (0.2-1) mg/dl AST (15-37) U/L ALT (12-78) U/L Alkaline Phosphatase (45-117) U/L Total Protein (6.4-8.2) gm/dl Albumin (3.4-5.0) gm/dl Globulin (2.5-4.0) gm/dl Albumin/Globulin Ratio (0.9-2) Vancomycin Trough 14.6 (See Comment) mcg/ml 09/08/19 Range/Units 12:15 WBC (4.8-10.8) K/uL RBC (4.7-6.1) M/uL Hgb (14.0-18.0) g/dL Hct (42-52) % MCV (80-100) fL MCH (25-34) pg MCHC (32-36) g/dL RDW Std Deviation (36.4-46.3) fL RDW Coeff of Kelly (11.5-14.5) % Plt Count (130-400) K/uL MPV (7.4-10.4) fL Immature Gran % (Auto) % Neut % (Auto) % Lymph % (Auto) % [place] % (Auto) % Eos % (Auto) % Baso % (Auto) % Immature Gran # (Auto) (0.00-0.02) K/uL Neut # (Auto) (1.4-6.5) K/uL Lymph # (Auto) (1.2-3.4) K/uL [place] # (Auto) (0.11-0.59) K/uL Eos # (Auto) (0-0.5) K/uL Baso # (Auto) (0-0.2) K/uL RBC Morphology Sodium (136-145) mmol/L Potassium (3.5-5.1) mmol/L Chloride (98-107) mmol/L Carbon Dioxide (21-32) mmol/L Anion Gap (3-11) BUN (7-18) mg/dl Creatinine (0.6-1.4) mg/dl Est Cr Clr Drug Dosing ml/min Est GFR ( Amer) Est GFR (Non-Af Amer) BUN/Creatinine Ratio (10-20) Glucose (70-99) mg/dl POC Glucose 122 H (70-99) mg/dl Calcium (8.5-10.1) mg/dl Total Bilirubin (0.2-1) mg/dl AST (15-37) U/L ALT (12-78) U/L Alkaline Phosphatase (45-117) U/L Total Protein (6.4-8.2) gm/dl Albumin (3.4-5.0) gm/dl Globulin (2.5-4.0) gm/dl Albumin/Globulin Ratio (0.9-2) Vancomycin Trough (See Comment) mcg/ml (1) Ascites Ascites type: other type Qualified Code(s): R18.8 - Other ascites
--- NOTE | 2019-09-09 14:56 | Hospitalist Progress Note ---
Date of Service September 09, 2019 Assessment & Plan (1) Abdominal pain: Abdominal pain, fever from cellulitis (spontaneous bacterial peritonitis is rule out) -Severe abdominal pain associated with low-grade fever (Meets criteria for sepsis per current CMS criteria (tachycardia, tachypnea), although leukopenia is chronic.) -Erythema of right anterior abdomen consistent with cellulitis, no associated vesicles. -admission CT abdomen 09/07/2019: Evidence of hepatic cirrhosis with secondary changes of portal hypertension with varices and splenomegaly. Since the prior study, the patient has developed mild to moderate ascites. Persistent upper abdominal paraesophageal and pericardial lymphadenopathy -09/07/2019 Ultrasound-guided paracentesis was attempted by ED staff without success. -patient was empirically started on vancomycin and aztreonam in the ED which was continued (patient had reported anaphylaxis to penicillins) -as of 09/09/2019, blood cultures have no growth to date -Abdominal ultrasound There is low volume ascites, the majority of which is at the level of the liver. Only trace fluid is visualized within the pelvis. The spleen is enlarged US duplex portal hepatic veins: No evidence of portal or hepatic vein thrombus. Normal directional flow. -Echocardiogram: 60 to 65 % -Given these results of only small amount of ascites and normal echocardiogram, ascites is likely from liver process such as Cirrhosis. stopped IV antibiotics on 09/08/2019 as Spontaneous bacterial peritonitis (SBP) from an infected ascites is unlikely and basically rule out given lack of ascites fluid. -given some redness of the right lower abdominal skin, may be possible that patient has cellulitis rather than spontaneous bacterial peritonitis. Patient reports anaphylactic reaction to penicillin over 20 years. he reports being able to take Cephalexin in the past without allergic reactions. will give Cephalexin 500 mg QID orally for cellulitis. -07/10/2020: no fevers while on cephalexin and no drug allergic reactions discharge medication of Cephalexin 500 mg 4 times a day for 10 more days sent electronically to [facility] pharmacy [address] [place] [address] Follow up appointments 09/16/2019 10:30 AM Provider DO [facility] 10/01/2019 3:00 PM Provider Mandy Berg MD Department Gastroenterology, [facility] 11/07/2019 8:30 AM Provider DO [facility] 11/19/2019 11:00 AM Provider Mandy Berg MD Department Gastroenterology, 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 (4) Sarcoidosis: -Quiescent; No recent utilization of glucocorticoids. (5) COPD (chronic obstructive pulmonary disease): -Pulmonary status stable. (6) Diabetes mellitus, type II: Type 2 diabetes mellitus with usp current use of insulin -Well-controlled with V-GO pump. -Hgb A1C 5.2 -Lantus/NovoLog per protocol while inpatient; patient may resume home dose medications on discharge (7) Leukopenia: -White count 2530 with ANC of 1920. -Chronic leukopenia (8) Thrombocytopenia: -Chronic thrombocytopenia secondary to cirrhosis with portal hypertension. 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 abdomen erythema persists but appears less red. no nausea. no vomiting. no chest pain. no shortness of breath. no palpitations. no dizziness. no lightheadedness. discharge instructions discussed at length Review of Systems Review of Systems: All systems reviewed & are unremarkable except as noted in HPI & below Physical Exam Constitutional: comfortable Eyes: PERRL, conjunctivae normal, anicteric sclerae EOM intact bilaterally ENMT: external ear and nose normal, oropharynx normal Neck: trachea midline, no thyromegaly normal visual inspection Respiratory: normal respiratory effort, lungs clear to auscultation Cardiovascular: Rate/Rhythm: regular rate and regular rhythm Gastrointestinal (Abdomen): Percussion/Palpation: + abdomen tender (erythema from middle of abdomen to left side) Musculoskeletal: Head/Neck/Chest: normocephalic and head atraumatic Neurologic: PERRL, EOMI, accommodation nl, no face palsy, no dysarthria Psychiatric: A+Ox3, euthymic affect Results & Data Vital Signs (Past 12 Hours) Vital Signs Temp Pulse Pulse Resp BP BP Pulse Ox 09/09/19 14:49 37 C 82 86 19 112/72 124/69 97 09/09/19 06:58 37 C 86 19 112/72 97 (1) Abdominal pain Abdominal location: generalized Qualified Code(s): R10.84 - Generalized abdominal pain
--- NOTE | 2019-09-09 15:04 | Discharge Summary ---
Date of Service September 09, 2019 Admission HPI Per Admitting Provider 53-year-old male followed by Dr. Neha Burgos for Family Medicine and Dr. Berg for GI. History of cirrhosis of the liver secondary to nonalcoholic steatohepatitis with associated portal hypertension, esophageal varices, and recent onset of ascites. Never a heavy drinker; no alcoholic beverages for several years. Patient reports that testing for viral hepatitis negative in the past. Developed a rash on the right side of the abdomen about 2 days ago. Last night he developed worsening abdominal pain, mostly right-sided, but somewhat diffuse. Pain is severe, worsened by movement and certain positions. Did not take any analgesics at home because of (1) difficulty with different analgesics in the past and (2) instructions not to use NSAID's or acetaminophen due to cirrhosis. Subjective fever with chills and sweats. Nausea, but no emesis. Chronic diarrhea unchanged; no melena or hematochezia. Has noticed increasing abdominal girth and worsening edema over the last 2 weeks. Admission Exam Per Admitting Provider WD/WN, vitals as above no acute distress (but abdominal discomfort with movement / repositioning) Eyes: PERRL, conjunctivae normal, anicteric sclerae ENMT: external ear and nose normal, oropharynx normal Mouth: + dentition abnormality (dentition fair, partial plate) Neck: trachea midline, no thyromegaly Respiratory: normal respiratory effort, lungs clear to auscultation Cardiovascular: Rate/Rhythm: regular rate Heart Sounds: + murmur (II/ sys murmur LSB); no gallop and no cardiac rub Vessels: no JVD Extremities: normal capillary refill and + edema (2+ pretibial); no calf tenderness Gastrointestinal (Abdomen): Inspection/Auscultation: + abdomen distended and normal bowel sounds Percussion/Palpation: + abdomen tender (diffuse tenderness, greatest on right side) and abdomen soft Musculoskeletal: Head/Neck/Chest: neck supple Extremities: strength 5/5 throughout; no cyanosis and no clubbing Skin: + rash (erythematous rash right anterior abdomen, no vesicles) Neurologic: PERRL, EOMI no facial palsy no dysarthria or aphasia no asterixis Psychiatric: Orientation: alert and oriented x 3 Affect: euthymic affect Lymphatic: no cervical lymphadenopathy Principal Diagnosis Abdominal pain, fever from cellulitis (spontaneous bacterial peritonitis is rule out), 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, Thrombocytopenia, Type 2 diabetes mellitus with long winder tender current use of insulin Discharge Exam Constitutional comfortable Eyes PERRL, conjunctivae normal, anicteric sclerae EOM intact bilaterally ENMT external ear and nose normal, oropharynx normal Neck trachea midline, no thyromegaly normal visual inspection Respiratory normal respiratory effort, lungs clear to auscultation Cardiovascular Rate/Rhythm: regular rate and regular rhythm Gastrointestinal (Abdomen) Percussion/Palpation: + abdomen tender (erythema from middle of abdomen to left side) Musculoskeletal Head/Neck/Chest: normocephalic and head atraumatic Neurologic PERRL, EOMI, accommodation nl, no face palsy, no dysarthria Psychiatric A+Ox3, euthymic affect Discharge Data Allergies Allergy/AdvReac Type Severity Reaction Status Date / Time Penicillins Allergy Severe ANAPHYLAXIS Verified 09/07/19 09:36 morphine Allergy Intermediate Severe Verified 09/07/19 09:36 itching/mouth rash aripiprazole Allergy Mild "feeling Verified 09/07/19 09:36 irritable" lithium Allergy Mild Anxiety Verified 09/07/19 09:36 pregabalin Allergy Mild Anxiety Verified 09/07/19 09:36 quetiapine Allergy Mild Drowsy Verified 09/07/19 09:36 adhesive Allergy Unknown rips skin Verified 09/07/19 09:36 meperidine Allergy Unknown pruritis/ra Verified 09/07/19 09:36 adhesive remover wipes Allergy Mild "rips skin" Uncoded 09/07/19 09:36 gold Allergy Mild Blister Uncoded 09/07/19 09:36 Consultations 09/07/19 11:29 ED Decision to Admit Stat 09/07/19 14:10 Consult Gastroenterology Routine Ordered Studies 09/07/19 09:13 CT abd pelvis IV con only Stat 09/08/19 12:13 US duplex portal hepatic veins Urgent 09/08/19 12:30 US abdomen ltd ascites Routine Hospital Course (1) Abdominal pain: Abdominal pain, fever from cellulitis (spontaneous bacterial peritonitis is rule out) -Severe abdominal pain associated with low-grade fever (Meets criteria for sepsis per current CMS criteria (tachycardia, tachypnea), although leukopenia is chronic.) -Erythema of right anterior abdomen consistent with cellulitis, no associated vesicles. -admission CT abdomen 09/07/2019: Evidence of hepatic cirrhosis with secondary changes of portal hypertension with varices and splenomegaly. Since the prior study, the patient has developed mild to moderate ascites. Persistent upper abdominal paraesophageal and pericardial lymphadenopathy -09/07/2019 Ultrasound-guided paracentesis was attempted by ED staff without success. -patient was empirically started on vancomycin and aztreonam in the ED which was continued (patient had reported anaphylaxis to penicillins) -as of 09/09/2019, blood cultures have no growth to date -Abdominal ultrasound There is low volume ascites, the majority of which is at the level of the liver. Only trace fluid is visualized within the pelvis. The spleen is enlarged US duplex portal hepatic veins: No evidence of portal or hepatic vein thrombus. Normal directional flow. -Echocardiogram: 60 to 65 % -Given these results of only small amount of ascites and normal echocardiogram, ascites is likely from liver process such as Cirrhosis. stopped IV antibiotics on 09/08/2019 as Spontaneous bacterial peritonitis (SBP) from an infected ascites is unlikely and basically rule out given lack of ascites fluid. -given some redness of the right lower abdominal skin, may be possible that patient has cellulitis rather than spontaneous bacterial peritonitis. Patient reports anaphylactic reaction to penicillin over 20 years. he reports being able to take Cephalexin in the past without allergic reactions. will give Cephalexin 500 mg QID orally for cellulitis. -07/10/2020: no fevers while on cephalexin and no drug allergic reactions discharge medication of Cephalexin 500 mg 4 times a day for 10 more days sent electronically to [facility] pharmacy [address] [place] [address] Follow up appointments 09/16/2019 10:30 AM Provider Neha Burgos DO Department Family 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 (4) Sarcoidosis: -Quiescent; No recent utilization of glucocorticoids. (5) COPD (chronic obstructive pulmonary disease): -Pulmonary status stable. (6) Diabetes mellitus, type II: Type 2 diabetes mellitus with usp current use of insulin -Well-controlled with V-GO pump. -Hgb A1C 5.2 -Lantus/NovoLog per protocol while inpatient; patient may resume home dose medications on discharge (7) Leukopenia: -White count 2530 with ANC of 1920. -Chronic leukopenia (8) Thrombocytopenia: -Chronic thrombocytopenia secondary to cirrhosis with portal hypertension. 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, Thrombocytopenia, Type 2 diabetes mellitus with usp current use of insulin Total Time Total Time Spent Total Time Spent (In Minutes): 40 minutes Total Time Includes: Examination of the Patient, Discharge Planning, Medication Reconciliation and Communication With Other Providers Discharge Plan Discharge Items Patient Disposition: Home - Self-Care Reason For Visit: FEVER, CIRRHOSIS Discharge Diagnosis: Abdominal pain, fever from cellulitis (spontaneous bacterial peritonitis is rule out), 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, Thrombocytopenia, Type 2 diabetes mellitus with long winder tender current use of insulin Condition on Discharge: Good Activity: Per Instructions section Non-emergency contact: Primary Care Provider and Program Management Intern Call non-emergency contact if: you have any medication questions Follow-up/Referrals: Neha Burgos DO [Primary Care Provider] - Diet: Carb Consistent or DM2, Heart Healthy and Low Sodium (2gm) Addtl Attending Provider Instructions: - Low sodium diet - Avoid Tylenol of more than 2 gm daily - Strict alcohol avoidance discharge medication of Cephalexin 500 mg 4 times a day for 10 more days sent electronically to [facility] pharmacy [address] [place] [id number] Follow up appointments 09/16/2019 10:30 AM Provider Neha Burgos DO Department Family Practice [facility] 10/01/2019 3:00 PM Provider Mandy Berg MD Department Gastroenterology, [facility] 11/07/2019 8:30 AM Provider Neha Burgos DO Department Family Practice [facility] 11/19/2019 11:00 AM Provider Mandy Berg MD Department Gastroenterology, [facility] Pending Studies at Discharge: No Stand-Alone Forms: Call Back Authorization, My [facility], Smoking Cessation Medications and DC Order Prescriptions: New cephalexin 500 mg Capsule 500 mg PO QID 10 Days Qty: 40 RF: 0 Continued (DME) FreeStyle Adair 14 Day [place] Misc See Rx Instructions .ROUTE .MEDSUPPLY Qty: 1 RF: 0 mupirocin 2 % ointment 1 appln TOP TID PRN (Reason: Rash) RF: 0 Glucagon Emergency Kit (human) 1 mg recon soln 1 mg SQ Q20M PRN (Reason: hypoglycemia) Qty: 1 RF: 1 (DME) FreeStyle Adair 14 Day Sensor Kit See Rx Instructions .ROUTE .MEDSUPPLY Qty: 7 RF: 3 (DME) V-GO 30 Device See Rx Instructions .ROUTE .MEDSUPPLY Qty: 30 RF: 0 Xifaxan 550 mg Tablet 550 mg PO BID RF: 0 omeprazole 20 mg Capsule,Delayed Release(Dr/Ec) 20 mg PO DIRECTED RF: 0 Novolog U-100 Insulin aspart 100 unit/mL solution See Rx Instructions .ROUTE .COMPLEX RF: 0 (DME) sub-q insulin device, 40 unit device RF: 0 famotidine 20 mg Tablet 20 mg PO BID RF: 0 mirtazapine [Remeron] 15 mg Tablet 15 mg PO HS RF: 0 ondansetron 8 mg tablet,disintegrating 8 mg PO Q8H PRN (Reason: Nausea) RF: 0 tamsulosin 0.4 mg capsule 0.4 mg PO HS RF: 0 Discontinued silver sulfadiazine 1 % cream 1 appln TOP DAILY PRN (Reason: Rash) RF: 0 triamcinolone acetonide 0.1 % cream 1 appln TOP BID PRN (Reason: Rash) RF: 0 Discharge Orders: Discharge Order (Routine); Ordered 09/09/19 Ordered By: Last Rodriguez Admission Data Admit Date/Time: 09/07/19 11:32 Attending Provider: Last Rodriguez Admit Provider: Coppes,Quang C. Primary Care Provider: Neha Burgos Other Providers: Clinton Gaming ; Quang Sharma ; [facility]
== END 2019-09-09 15:25 | disposition home health service (06) | DRG 872 ==
LOC: ED 08:58 → SUATTDRO 11:32 → 3W 11:32

== ENCOUNTER 2020-08-15 05:51 | Inpatient (IN) ==
[2020-08-15 06:21] LABS: Hematocrit (blood only) 31.4 % (42-52); Hemoglobin 10.8 g/dL (14.0-18.0); Mean Corpuscular Hemoglobin 30.6 pg (25-34); Mean Corpuscular Hgb Conc 34.4 g/dL (32-36); RDW Coefficient of Variation 18.7 % (11.5-14.5); RDW Standard Deviation 59.9 fL (36.4-46.3); Red Blood Count 3.53 M/uL (4.7-6.1); White Blood Count 5.72 K/uL (4.8-10.8)
[2020-08-15 06:31] LABS: INR 1.4 (0.9-1.1); Partial Thromboplastin Time 29.2 Seconds (21.0-31.0)
[2020-08-15 06:45] LABS: Basophils # (auto) 0.01 K/uL (0-0.2); Basophils % (auto) 0.2 %; Eosinophils # (auto) 0.02 K/uL (0-0.5); Eosinophils % (auto) 0.3 %; Immature Granulocytes # (auto) 0.02 K/uL (0.00-0.02); Immature Granulocytes % (auto) 0.3 %; Lymphocytes # (auto) 0.29 K/uL (1.2-3.4); Lymphocytes % (auto) 5.1 %; Monocytes # (auto) 0.84 K/uL (0.11-0.59); Monocytes % (auto) 14.7 %; Neutrophils # (auto) 4.54 K/uL (1.4-6.5); Neutrophils % (auto) 79.4 %; Platelet Count 59 K/uL (130-400); Platelet Estimate Decreased (Normal)
[2020-08-15 07:01] LABS: Alanine Aminotransferase 82 U/L (12-78); Albumin Globulin Ratio 0.8 (0.9-2); Alkaline Phosphatase 235 U/L (45-117); Aspartate Aminotransferase 158 U/L (15-37); BUN Creatinine Ratio 19.8 (10-20); Blood Urea Nitrogen 33 mg/dl (7-18); Calcium 8.6 mg/dl (8.5-10.1); Carbon Dioxide 25 mmol/L (21-32); Chloride 92 mmol/L (98-107); Creatinine Clr Calc Pharmacy 73.3 ml/min; Est GFR (African American) 53.7; Est GFR (Non-African American) 46.4; Globulin 3.7 gm/dl (2.5-4.0); Glucose 176 mg/dl (70-99); Magnesium 2.2 mg/dl (1.8-2.4); Potassium 5.6 mmol/L (3.5-5.1); Sodium 126 mmol/L (136-145); Total Protein 6.7 gm/dl (6.4-8.2); Troponin I < 0.015 ng/ml (0-0.045)
[2020-08-15] MEDS ORDERED: SODIUM CHLORIDE 0.9% 1000ML 500 ML IV ONE (07:04)
--- NOTE | 2020-08-15 07:54 | CT Scan Report ---
CT head/brain wo con CLINICAL HISTORY: 54 years-old Male with AMS. Acutely altered mental status TECHNIQUE: Multiple axial CT images of the head were obtained without contrast. A dose lowering tech nique was utilized adhering to the principles of ALARA. CT DOSE: 1228.53 mGy.cm COMPARISON: Head CT 06/06/2020 FINDINGS: Motion degraded exam. The study was then repeated which was also motion degraded. No acute intracrani al hemorrhage, midline shift, intracranial mass, hydrocephalus, territorial ischemia or abnormal extr a-axial collection. The calvarium is intact. The paranasal sinuses, mastoid air cells, and middle ear cavities are clear . IMPRESSION: Motion degraded exam without acute intracranial abnormality identified. ACT 112: Negative or not required by law. The above report was generated using voice recognition software. It may contain grammatical, syntax o r spelling errors. Electronically signed by: Jerad Cardenas M.D. 08/15/2020 7:53 AM
--- NOTE | 2020-08-15 08:14 | XRay Report ---
XR chest 1V portable HISTORY: 54 years-old Male SEPSIS acute sepsis COMPARISON: Chest radiograph 06/09/2020 TECHNIQUE: Portable AP view of the chest FINDINGS: Cardiomegaly with hypoinflation and bronchovascular crowding. No pneumothorax. Equivocal pulmonary va scular congestion. No large pleural effusion. Mild bibasilar densities favoring atelectasis. Degenera tive changes of the shoulders and spine. Cervical spinal fusion hardware. Surgical clips of the left axilla. IMPRESSION: 1. Cardiomegaly with hypoinflation and equivocal pulmonary vascular congestion. 2. Mild bibasilar densities suggest atelectasis. ACT 112: Negative or not required by law. The above report was generated using voice recognition software. It may contain grammatical, syntax o r spelling errors. Electronically signed by: Jerad Cardenas M.D. 08/15/2020 8:13 AM
[2020-08-15] MEDS ORDERED: LACTULOSE 200 GM, WATER, STERILE IRRIG 700 ML, BARCODE IDENTIFIER 1 EA PR STA (08:56)
[2020-08-15] MEDS ORDERED: LACTULOSE SYRUP 30 GM/45 ML UDP PO STA (09:35)
[2020-08-15 10:34] LABS: Appearance Urine Clear (Clear); Bacteria Urine Automated Negative (Negative); Blood Urine Negative (Negative); Color Urine Dark Yellow; Epithelial Cell Urine Auto 0-5 /lpf (0-5); Glucose Urine UA Negative (Negative); Ketones Urine Negative (Negative); Leukocyte Esterase Urine Trace (Negative); Nitrite Urine Positive (Negative); Protein Urine Negative (Negative); RBC Urine Automated 0-4 /hpf (0-4); Specific Gravity Urine 1.015 (1.000-1.030); Urobilinogen Urine Negative (Negative); WBC Urine Automated 0 /hpf (0-5)
[2020-08-15 10:49] LABS: Bilirubin Urine 1+ (Negative)
[2020-08-15 11:01] LABS: Ictotest Urine Positive (Negative)
--- NOTE | 2020-08-15 13:13 | Electrocardiogram Report ---
Test Reason : Blood Pressure : / mmHG Vent. Rate : 107 BPM Atrial Rate : 107 BPM P-R Int : 164 ms QRS Dur : 094 ms QT Int : 360 ms P-R-T Axes : 048 -01 037 degrees QTc Int : 480 ms Sinus tachycardia Otherwise normal ECG When compared with ECG of 03-JUN-2020 21:26, No significant change was found Confirmed by Rodolfo Scott ([id number]) on 08/15/2020 1:12:45 PM Referred By: REFERRED SELF Confirmed By:Gene Scott
[2020-08-15] MEDS ORDERED: GLUCOSE 40% GEL 15 GM TUBE PO PRN (14:45)
[2020-08-15] MEDS ORDERED: GLUCOSE 10 TABS/TUBE PO PRN (14:45)
[2020-08-15] MEDS ORDERED: GLUCAGON FOR INJ 1 MG VIAL SQ PRN (14:45)
[2020-08-15] MEDS ORDERED: CARBOHYDRATES FOR HYPOGLYCEMIA PO PRN (14:45)
[2020-08-15] MEDS ORDERED: DEXTROSE 50% 50 ML SYRINGE IV PRN (14:45)
--- NOTE | 2020-08-15 15:19 | XRay Report ---
XR chest 1V portable HISTORY: 54 years-old Male r/o pneumonia acute shortness of breath COMPARISON: Chest radiograph of same day at 6:24 AM, chest radiograph 06/09/2000 TECHNIQUE: Portable AP view of the chest FINDINGS: Cardiac silhouette is enlarged. No pneumothorax or large pleural effusion. Pulmonary vascular congest ion mild reticular opacities. No lobar airspace consolidation. Mild left lung base opacities suggesti ve of atelectasis. Degenerative changes of the shoulders and spine. Lumbar and cervical spinal fusion hardware. Surgical clips in the left axilla. IMPRESSION: Cardiomegaly with reticular opacities suggestive of pulmonary edema versus interstitial p neumonitis. ACT 112: Negative or not required by law. The above report was generated using voice recognition software. It may contain grammatical, syntax o r spelling errors. Electronically signed by: Jerad Cardenas M.D. 08/15/2020 3:17 PM
[2020-08-15] MEDS ORDERED: AZTREONAM CONSULT ACTIVE PRN (15:20)
[2020-08-15] MEDS: LACTULOSE 200 GM, WATER, STERILE IRRIG 700 ML, BARCODE IDENTIFIER 1 EA PR SCH ×2 (15:20→20:42)
--- NOTE | 2020-08-15 15:24 | Emergency Department Note ---
History of Present Illness General Chief complaint: Fever Stated complaint: FEVER Source: family ( at the bedside), RN notes reviewed and old records reviewed Mode of arrival: EMS Limitations: altered mental status and clinical acuity History of Present Illness Provider complaint: Low-grade fever, sleepy This patient is a 54-year-old male who presents emergency department with complaints of somnolence and a low-grade fever per his . He has advanced liver disease, liver cancer and is on hospice per his . Over the course of the last several days, he has been treated with Zyprexa and methadone per the hospice nurse. He became agitated early this morning at approximately 3 AM he did receive a dose of Ativan by his . His has not been able to wake him up sufficiently this morning. She became highly concerned later this morning and called the ambulance. Apparently the patient was switched from oxycodone to methadone by hospice thinking that he would benefit from less frequent dosing. Patient was also given Zyprexa once this week for agitation but the describes twitching movements and was told to stop this medication. She states last week he was able to walk and interact. He went to the doctor's office with her. She denies any known Covid exposures and states that she is "weird about that." She states that they stay home as much as possible and keep him isolated to avoid Covid infections. Patient did have 6 L of peritoneal fluid drained by radiology [address] Berg is arranging for a Pleurx catheter to be placed for at home/hospice ascites drainage. Home Medications Medication Instructions Recorded Confirmed Type Xifaxan 550 mg PO BID 06/20/18 08/15/20 History FreeStyle Adair 14 Day Sensor #7 ea NS 09/05/19 11/04/19 Rx flash glucose scanning reader #1 ea 09/05/19 11/04/19 History insulin aspart U-100 100 unit/mL See Rx Instructions .ROUTE 09/05/19 08/15/20 History subcutaneous solution .COMPLEX ml mupirocin 2 % topical ointment 1 appln TOP TID PRN 09/05/19 08/15/20 History ondansetron 8 mg PO Q8H PRN 09/07/19 08/15/20 History V-GO 20 #90 kit NS 01/21/20 Rx cimetidine [Tagamet HB] 300 mg PO HS 03/24/20 08/15/20 History spironolactone [Aldactone] 200 mg PO QAM 03/24/20 08/15/20 History ciprofloxacin HCl 500 mg PO DAILY 08/15/20 08/15/20 History furosemide See Rx Instructions .ROUTE .COMPLEX 08/15/20 08/15/20 History gabapentin 300 mg PO BID 08/15/20 08/15/20 History lorazepam 0.5 mg PO TID PRN 08/15/20 08/15/20 History methadone 5 mg PO DAILY 08/15/20 08/15/20 History nystatin 1 applic TOPICAL DAILY PRN 08/15/20 08/15/20 History omeprazole 40 mg PO BID 08/15/20 08/15/20 History oxycodone 5 mg PO Q6H PRN 08/15/20 08/15/20 History prochlorperazine maleate 10 mg PO Q6H PRN 08/15/20 08/15/20 History silver sulfadiazine 1 applic TOPICAL DAILY PRN 08/15/20 08/15/20 History triamcinolone acetonide 1 applic TOPICAL DAILY PRN 08/15/20 08/15/20 History vitamin E 400 unit PO DAILY 08/15/20 08/15/20 History Allergies Allergy/AdvReac Type Severity Reaction Status Date / Time Penicillins Allergy Severe ANAPHYLAXIS Verified 08/15/20 06:11 morphine Allergy Intermediate Severe Verified 08/15/20 06:11 itching/mouth rash adhesive Allergy Mild rips Verified 08/15/20 06:11 skin/bruise skin aripiprazole Allergy Mild "feeling Verified 08/15/20 06:11 irritable" lithium Allergy Mild Anxiety Verified 08/15/20 06:11 meperidine Allergy Mild pruritis/ra Verified 08/15/20 06:11 sh pregabalin Allergy Mild Anxiety Verified 08/15/20 06:11 quetiapine Allergy Mild Drowsy Verified 08/15/20 06:11 Gold Salts AdvReac Mild Blister Verified 08/15/20 06:11 Past Med/Surg History Medical History (Updated 08/16/20 @ 13:03 by Kristen Vasquez MD) Anxiety Asthma inhaler/nebulizer prn Cardiac murmur as a child Chronic back pain Degenerative disc disease Diabetes mellitus, type 2 Diabetic peripheral neuropathy Esophageal varices hx of banding GERD (gastroesophageal reflux disease) Hearing deficit Hepatocellular carcinoma 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 steatohepatitis) stage 3 Loss of protective sensation of skin of foot Osteoarthritis Prolonged QT interval Sarcoidosis Smoker Spinal stenosis Thrombocytopenia Surgical History History of anesthesia reaction sometimes has difficulty waking up---last EGD took him an hour to wake up History of cardiac cath 2008 @ [facility], no stents History of colonoscopy History of endoscopic sinus surgery History of esophagogastroduodenoscopy (EGD) History of repair of left rotator cuff History of thoracic spinal fusion t10-t12 History of tooth extraction wisdom teeth History of umbilical hernia repair x3 Status post cervical spinal fusion x3 screws, plates in place--normal ROM C3-C7 Status post cholecystectomy Status post right foot surgery complete amputation of great toe and 2nd toe Family History Mother Diabetes Coronary heart disease Father Heart disease Sister Cancer bladder Other No family history of adverse response to anesthesia Social History Smoking Status: Former smoker Cigarettes Per Day: 2; Second Hand Exposure: No; Do You Dip or Chew Tobacco: Yes; Hx Alcohol Use: No Hx Substance Use: No Preferred Language: Palestinian Communication Ability: Impaired [employer] Required: No Beliefs That Will Affect Care: None marital status: Current Living Situation: Spouse Feels Safe at Home: Yes Review of Systems Unobtainable due to cognitive status (Marked encephalopathy) Physical Exam Vital Signs Vital Signs - 24 hr 08/15/20 05:42 08/15/20 05:56 08/15/20 05:59 Temperature 37 C Temperature Source Rectal Pulse Rate 116 H 106 H Pulse Rate [Left Finger] Pulse Rate from SpO2 Sensor 109 H 108 H Respiratory Rate 24 17 15 Respiratory Effort / Characteristics Spontaneous Blood Pressure 127/72 127/72 Blood Pressure [Right Arm] Blood Pressure Mean 90 75 Blood Pressure Mean [Right Arm] Blood Pressure Position Lying Pulse Oximetry 97 96 95 Oxygen Delivery Method Room Air Room Air Sepsis Recent Fever Within 48 Hours Yes Sepsis New/Unexplained Change in Mental Status Yes Sepsis Action Taken by Nursing Physician Notified 08/15/20 06:00 08/15/20 06:15 08/15/20 06:29 Temperature Temperature Source Pulse Rate 109 H 109 H Pulse Rate [Left Finger] Pulse Rate from SpO2 Sensor 109 H 109 H Respiratory Rate 19 25 H 24 Respiratory Effort / Characteristics Spontaneous Blood Pressure Blood Pressure [Right Arm] Blood Pressure Mean Blood Pressure Mean [Right Arm] Blood Pressure Position Pulse Oximetry 95 97 97 Oxygen Delivery Method Room Air Sepsis Recent Fever Within 48 Hours Sepsis New/Unexplained Change in Mental Status Sepsis Action Taken by Nursing 08/15/20 06:30 08/15/20 07:42 08/15/20 07:47 Temperature 36.8 C Temperature Source Rectal Pulse Rate 110 H Pulse Rate [Left Finger] 106 H Pulse Rate from SpO2 Sensor 111 H Respiratory Rate 20 18 Respiratory Effort / Characteristics Spontaneous Blood Pressure Blood Pressure [Right Arm] 129/70 Blood Pressure Mean Blood Pressure Mean [Right Arm] 89 Blood Pressure Position Pulse Oximetry 97 97 Oxygen Delivery Method Room Air Room Air Sepsis Recent Fever Within 48 Hours Sepsis New/Unexplained Change in Mental Status Sepsis Action Taken by Nursing 08/15/20 08:51 08/15/20 10:19 Temperature Temperature Source Pulse Rate Pulse Rate [Left Finger] 123 H 112 H Pulse Rate from SpO2 Sensor Respiratory Rate 18 32 H Respiratory Effort / Characteristics Blood Pressure Blood Pressure [Right Arm] 106/55 L 124/73 Blood Pressure Mean Blood Pressure Mean [Right Arm] 72 90 Blood Pressure Position Pulse Oximetry 97 96 Oxygen Delivery Method Room Air Room Air Sepsis Recent Fever Within 48 Hours Sepsis New/Unexplained Change in Mental Status Sepsis Action Taken by Nursing Vital signs reviewed. General: Chronically ill-appearing 54-year-old male, somnolent, groans to his name otherwise nonverbal. HEENT: Minimal scleral icterus, PERRLA, neck supple. Dry mucous membranes Cardiovascular: Regular rate and rhythm, no extra sounds. Pulmonary: Clear to auscultation bilaterally, normal work of breathing. Abdomen: Soft, marked abdominal distention/ascites, nontender, positive bowel sounds. Small bandage from recent paracentesis on the right dependent side of the abdomen Musculoskeletal: Atraumatic, 1-2+ peripheral edema. Partially amputated right great toe. Neurologic: Patient somnolent, groans to name. Unable to follow commands. Does respond to painful stimuli. Skin: Warm, dry, no rash jaundiced appearing Course Administered Medications Lactulose 200 gm/ Sterile Water 700 ml/ BARCODE IDENTIFIER 1 ea 0 gm LA Q8 GENA Stop: 09/14/20 15:29 Last Admin: 08/16/20 07:05 Dose: Not Given Documented by: [id number] Admin: 08/15/20 20:42 Dose: Not Given Documented by: [id number] Admin: 08/15/20 15:20 Dose: Not Given Documented by: [id number] Gabapentin (Gabapentin 300 Mg Cap) 300 mg PO BID GENA Stop: 09/15/20 08:59 Last Admin: 08/16/20 09:24 Dose: 300 mg Documented by: [id number] Daptomycin 600 mg/ Syringe 12 mls @ 6 mls/min IV Q24H GENA; Protocol Stop: 08/17/20 15:59 Last Admin: 08/15/20 15:58 Dose: 6 mls/min Documented by: [id number] Cefepime HCl 2,000 mg/ Syringe 20 mls @ 5 mls/min IV Q8H GENA; Protocol Stop: 08/25/20 19:59 Last Admin: 08/16/20 11:18 Dose: 5 mls/min Documented by: [id number] Admin: 08/16/20 04:10 Dose: 5 mls/min Documented by: [id number] Admin: 08/15/20 20:56 Dose: 5 mls/min Documented by: [id number] Acetaminophen (Ofirmev) 65 mls @ 200 mls/hr IV Q8H PRN; Protocol PRN Reason: pain/fever Stop: 08/18/20 19:44 Last Infusion: 08/15/20 23:16 Dose: 0 mls/hr Documented by: [id number] Admin: 08/15/20 22:00 Dose: 200 mls/hr Documented by: [id number] Insulin Aspart (Insulin Aspart 100 Units/Ml 3 Ml Pen) 0 units SC Q6 GENA; Protocol Stop: 09/15/20 07:59 Last Admin: 08/16/20 11:40 Dose: 9 units Documented by: [id number] Cosigned by: [id number] Admin: 08/16/20 08:25 Dose: 5 units Documented by: [id number] Cosigned by: [id number] Insulin Glargine (Insulin Glargine Solostar 100 Units/Ml 3 Ml Pen) 20 units SC HS [facility] Stop: 09/14/20 19:59 Last Admin: 08/15/20 21:09 Dose: 20 units Documented by: [id number] Cosigned by: [id number] Lactulose (Lactulose Syrup 30 Gm/45 Ml Udp) 30 gm PO TID GENA Stop: 09/15/20 08:59 Last Admin: 08/16/20 13:31 Dose: 30 gm Documented by: [id number] Admin: 08/16/20 08:29 Dose: 30 gm Documented by: [id number] Miscellaneous (Unit Dose Compound) 1 ea LA Q8 GENA Stop: 09/14/20 21:59 Last Admin: 08/16/20 13:32 Dose: Not Given Documented by: [id number] Admin: 08/16/20 07:06 Dose: Not Given Documented by: [id number] Admin: 08/15/20 23:16 Dose: Not Given Documented by: [id number] Oxycodone HCl (Oxycodone Hcl Ir 5 Mg Tab (Immediate Release)) 5 mg PO Q6H PRN PRN Reason: Pain Stop: 08/30/20 08:35 Last Admin: 08/16/20 13:38 Dose: 5 mg Documented by: [id number] Pantoprazole Sodium (Pantoprazole 40 Mg Tab) 40 mg PO BID GENA Stop: 09/15/20 08:59 Last Admin: 08/16/20 08:25 Dose: 40 mg Documented by: [id number] Rifaximin (Rifaximin 550 Mg Tablet) 550 mg PO BID GENA Stop: 09/15/20 08:59 Last Admin: 08/16/20 08:25 Dose: 550 mg Documented by: [id number] Discontinued Medications Lactulose 200 gm/ Sterile Water 700 ml/ BARCODE IDENTIFIER 1 ea 0 gm LA Q8H STA Stop: 08/15/20 08:57 Last Admin: 08/15/20 09:39 Dose: 200 gm Documented by: [id number] Sodium Chloride (Nss 1000ml) 500 mls @ 999 mls/hr IV .Q31M ONE Stop: 08/15/20 07:34 Last Infusion: 08/15/20 08:05 Dose: 0 mls/hr Documented by: [id number] Admin: 08/15/20 07:40 Dose: 999 mls/hr Documented by: [id number] Pantoprazole Sodium 40 mg/ (Syringe) 10 mls @ 5 mls/min IV BID GENA Stop: 09/14/20 15:29 Last Admin: 08/15/20 20:57 Dose: 5 mls/min Documented by: [id number] Admin: 08/15/20 15:55 Dose: 5 mls/min Documented by: [id number] Metronidazole (Flagyl) 500 mg in 100 mls @ 100 mls/hr IV Q6H GENA; Protocol Stop: 08/25/20 15:59 Last Infusion: 08/16/20 10:34 Dose: 0 mls/hr Documented by: [id number] Admin: 08/16/20 09:24 Dose: 100 mls/hr Documented by: [id number] Infusion: 08/16/20 05:33 Dose: 0 mls/hr Documented by: [id number] Admin: 08/16/20 04:10 Dose: 100 mls/hr Documented by: [id number] Infusion: 08/16/20 01:26 Dose: 0 mls/hr Documented by: [id number] Admin: 08/15/20 23:24 Dose: 100 mls/hr Documented by: [id number] Infusion: 08/15/20 17:13 Dose: 0 mls/hr Documented by: [id number] Admin: 08/15/20 16:00 Dose: 100 mls/hr Documented by: [id number] Aztreonam 2,000 mg/ Dextrose 110 mls @ 110 mls/hr IV Q8H GENA; Protocol Stop: 08/25/20 16:59 Last Infusion: 08/15/20 18:24 Dose: 0 mls/hr Documented by: [id number] Admin: 08/15/20 17:13 Dose: 110 mls/hr Documented by: [id number] Albumin Human (Albumin 25%) 12.5 gm in 50 mls @ 50 mls/hr IV Q1H GENA Stop: 08/15/20 21:59 Last Infusion: 08/16/20 01:27 Dose: 0 mls/hr Documented by: [id number] Admin: 08/15/20 21:47 Dose: 50 mls/hr Documented by: [id number] Infusion: 08/15/20 21:47 Dose: 50 mls/hr Documented by: [id number] Admin: 08/15/20 20:55 Dose: 50 mls/hr Documented by: [id number] Lactulose (Lactulose Syrup 30 Gm/45 Ml Udp) 60 gm PO NOW STA Stop: 08/15/20 09:36 Last Admin: 08/15/20 10:19 Dose: 60 gm Documented by: [id number] Miscellaneous (Remove Insulin Pump) 1 ea N/A ONE ONE Stop: 08/15/20 20:01 Last Admin: 08/15/20 20:42 Dose: 1 ea Documented by: [id number] Medical Decision Making Differential Diagnosis Encephalopathy, infection, hypoglycemia, electrolyte abnormalities, overdose, toxicologic, cardiac sources, intracerebral event, neurologic, trauma, as well as other pathologies. Medical Records Attestation: I reviewed the patient's medical records. Home Medications Current Medication List: was personally reviewed by me Laboratory Data Attestation: I reviewed the patient's lab results. Result diagrams: 08/16/20 06:38 08/16/20 06:38 Lab Results 08/15/20 08/15/20 08/15/20 Range/Units 06:12 06:12 06:12 WBC 5.72 (4.8-10.8) K/uL RBC 3.53 L (4.7-6.1) M/uL Hgb 10.8 L (14.0-18.0) g/dL Hct 31.4 L (42-52) % MCV 89.0 (80-100) fL MCH 30.6 (25-34) pg MCHC 34.4 (32-36) g/dL RDW Std Deviation 59.9 H (36.4-46.3) fL RDW Coeff of Kelly 18.7 H (11.5-14.5) % Plt Count 59 L (130-400) K/uL MPV 10.0 (7.4-10.4) fL Immature Gran % (Auto) 0.3 % Neut % (Auto) 79.4 % Lymph % (Auto) 5.1 % Mcnairy % (Auto) 14.7 % Eos % (Auto) 0.3 % Baso % (Auto) 0.2 % Neut # (Auto) 4.54 (1.4-6.5) K/uL Lymph # (Auto) 0.29 L (1.2-3.4) K/uL Mcnairy # (Auto) 0.84 H (0.11-0.59) K/uL Eos # (Auto) 0.02 (0-0.5) K/uL Baso # (Auto) 0.01 (0-0.2) K/uL Immature Gran # (Auto) 0.02 (0.00-0.02) K/uL Platelet Estimate Decreased L (Normal) PT 15.0 H (9.0-12.0) Seconds INR 1.4 H (0.9-1.1) APTT 29.2 (21.0-31.0) Seconds PTT Ratio 1.0 Sodium 126 L (136-145) mmol/L Potassium 5.6 H (3.5-5.1) mmol/L Chloride 92 L (98-107) mmol/L Carbon Dioxide 25 (21-32) mmol/L Anion Gap 9.0 (3-11) BUN 33 H (7-18) mg/dl Creatinine 1.66 H (0.6-1.4) mg/dl Est Cr Clr Drug Dosing 73.3 ml/min Est GFR ( Amer) 53.7 Est GFR (Non-Af Amer) 46.4 BUN/Creatinine Ratio 19.8 (10-20) Glucose 176 H (70-99) mg/dl Lactate (0.4-2.0) mmol/L Calcium 8.6 (8.5-10.1) mg/dl Magnesium 2.2 (1.8-2.4) mg/dl Total Bilirubin 5.0 H (0.2-1) mg/dl AST 158 H (15-37) U/L ALT 82 H (12-78) U/L Alkaline Phosphatase 235 H (45-117) U/L Ammonia (11-32) umol/L Troponin I < 0.015 (0-0.045) ng/ml Total Protein 6.7 (6.4-8.2) gm/dl Albumin 3.0 L (3.4-5.0) gm/dl Globulin 3.7 (2.5-4.0) gm/dl Albumin/Globulin Ratio 0.8 L (0.9-2) Procalcitonin (0-0.5) ng/ml Urine Color Urine Appearance (Clear) Urine pH (4.5-7.5) Ur Specific [place] (1.000-1.030) Urine Protein (Negative) Urine Glucose (UA) (Negative) Urine Ketones (Negative) Urine Blood (Negative) Urine Nitrite (Negative) Urine Bilirubin (Negative) Urine Urobilinogen (Negative) Ur Leukocyte Esterase (Negative) Urine WBC (Auto) (0-5) /hpf Urine RBC (Auto) (0-4) /hpf U Hyaline Cast (Auto) (0-5) /lpf U Epithel Cells (Auto) (0-5) /lpf Urine Bacteria (Auto) (Negative) COVID-19 Eval Order SARS-CoV-2, RNA, NAAT (NEGATIVE) 08/15/20 08/15/20 08/15/20 Range/Units 06:12 06:12 06:50 WBC (4.8-10.8) K/uL RBC (4.7-6.1) M/uL Hgb (14.0-18.0) g/dL Hct (42-52) % MCV (80-100) fL MCH (25-34) pg MCHC (32-36) g/dL RDW Std Deviation (36.4-46.3) fL RDW Coeff of Kelly (11.5-14.5) % Plt Count (130-400) K/uL MPV (7.4-10.4) fL Immature Gran % (Auto) % Neut % (Auto) % Lymph % (Auto) % [place]nairy % (Auto) % Eos % (Auto) % Baso % (Auto) % Neut # (Auto) (1.4-6.5) K/uL Lymph # (Auto) (1.2-3.4) K/uL Mcnairy # (Auto) (0.11-0.59) K/uL Eos # (Auto) (0-0.5) K/uL Baso # (Auto) (0-0.2) K/uL Immature Gran # (Auto) (0.00-0.02) K/uL Platelet Estimate (Normal) PT (9.0-12.0) Seconds INR (0.9-1.1) APTT (21.0-31.0) Seconds PTT Ratio Sodium (136-145) mmol/L Potassium (3.5-5.1) mmol/L Chloride (98-107) mmol/L Carbon Dioxide (21-32) mmol/L Anion Gap (3-11) BUN (7-18) mg/dl Creatinine (0.6-1.4) mg/dl Est Cr Clr Drug Dosing ml/min Est GFR ( Amer) Est GFR (Non-Af Amer) BUN/Creatinine Ratio (10-20) Glucose (70-99) mg/dl Lactate 3.0 H* (0.4-2.0) mmol/L Calcium (8.5-10.1) mg/dl Magnesium (1.8-2.4) mg/dl Total Bilirubin (0.2-1) mg/dl AST (15-37) U/L ALT (12-78) U/L Alkaline Phosphatase (45-117) U/L Ammonia (11-32) umol/L Troponin I (0-0.045) ng/ml Total Protein (6.4-8.2) gm/dl Albumin (3.4-5.0) gm/dl Globulin (2.5-4.0) gm/dl Albumin/Globulin Ratio (0.9-2) Procalcitonin 0.71 H (0-0.5) ng/ml Urine Color Urine Appearance (Clear) Urine pH (4.5-7.5) Ur Specific [place] (1.000-1.030) Urine Protein (Negative) Urine Glucose (UA) (Negative) Urine Ketones (Negative) Urine Blood (Negative) Urine Nitrite (Negative) Urine Bilirubin (Negative) Urine Urobilinogen (Negative) Ur Leukocyte Esterase (Negative) Urine WBC (Auto) (0-5) /hpf Urine RBC (Auto) (0-4) /hpf U Hyaline Cast (Auto) (0-5) /lpf U Epithel Cells (Auto) (0-5) /lpf Urine Bacteria (Auto) (Negative) COVID-19 Eval Order [facility] SARS-CoV-2, RNA, NAAT (NEGATIVE) 08/15/20 08/15/20 08/15/20 Range/Units 06:50 07:24 08:10 WBC (4.8-10.8) K/uL RBC (4.7-6.1) M/uL Hgb (14.0-18.0) g/dL Hct (42-52) % MCV (80-100) fL MCH (25-34) pg MCHC (32-36) g/dL RDW Std Deviation (36.4-46.3) fL RDW Coeff of Kelly (11.5-14.5) % Plt Count (130-400) K/uL MPV (7.4-10.4) fL Immature Gran % (Auto) % Neut % (Auto) % Lymph % (Auto) % [place]nairy % (Auto) % Eos % (Auto) % Baso % (Auto) % Neut # (Auto) (1.4-6.5) K/uL Lymph # (Auto) (1.2-3.4) K/uL [place] # (Auto) (0.11-0.59) K/uL Eos # (Auto) (0-0.5) K/uL Baso # (Auto) (0-0.2) K/uL Immature Gran # (Auto) (0.00-0.02) K/uL Platelet Estimate (Normal) PT (9.0-12.0) Seconds INR (0.9-1.1) APTT (21.0-31.0) Seconds PTT Ratio Sodium (136-145) mmol/L Potassium (3.5-5.1) mmol/L Chloride (98-107) mmol/L Carbon Dioxide (21-32) mmol/L Anion Gap (3-11) BUN (7-18) mg/dl Creatinine (0.6-1.4) mg/dl Est Cr Clr Drug Dosing ml/min Est GFR ( Amer) Est GFR (Non-Af Amer) BUN/Creatinine Ratio (10-20) Glucose (70-99) mg/dl Lactate 3.6 H* (0.4-2.0) mmol/L Calcium (8.5-10.1) mg/dl Magnesium (1.8-2.4) mg/dl Total Bilirubin (0.2-1) mg/dl AST (15-37) U/L ALT (12-78) U/L Alkaline Phosphatase (45-117) U/L Ammonia 147.0 H (11-32) umol/L Troponin I (0-0.045) ng/ml Total Protein (6.4-8.2) gm/dl Albumin (3.4-5.0) gm/dl Globulin (2.5-4.0) gm/dl Albumin/Globulin Ratio (0.9-2) Procalcitonin (0-0.5) ng/ml Urine Color Urine Appearance (Clear) Urine pH (4.5-7.5) Ur Specific [place] (1.000-1.030) Urine Protein (Negative) Urine Glucose (UA) (Negative) Urine Ketones (Negative) Urine Blood (Negative) Urine Nitrite (Negative) Urine Bilirubin (Negative) Urine Urobilinogen (Negative) Ur Leukocyte Esterase (Negative) Urine WBC (Auto) (0-5) /hpf Urine RBC (Auto) (0-4) /hpf U Hyaline Cast (Auto) (0-5) /lpf U Epithel Cells (Auto) (0-5) /lpf Urine Bacteria (Auto) (Negative) COVID-19 Eval Order SARS-CoV-2, RNA, NAAT NEGATIVE (NEGATIVE) 08/15/20 Range/Units 10:00 WBC (4.8-10.8) K/uL RBC (4.7-6.1) M/uL Hgb (14.0-18.0) g/dL Hct (42-52) % MCV (80-100) fL MCH (25-34) pg MCHC (32-36) g/dL RDW Std Deviation (36.4-46.3) fL RDW Coeff of Kelly (11.5-14.5) % Plt Count (130-400) K/uL MPV (7.4-10.4) fL Immature Gran % (Auto) % Neut % (Auto) % Lymph % (Auto) % [place] % (Auto) % Eos % (Auto) % Baso % (Auto) % Neut # (Auto) (1.4-6.5) K/uL Lymph # (Auto) (1.2-3.4) K/uL [place] # (Auto) (0.11-0.59) K/uL Eos # (Auto) (0-0.5) K/uL Baso # (Auto) (0-0.2) K/uL Immature Gran # (Auto) (0.00-0.02) K/uL Platelet Estimate (Normal) PT (9.0-12.0) Seconds INR (0.9-1.1) APTT (21.0-31.0) Seconds PTT Ratio Sodium (136-145) mmol/L Potassium (3.5-5.1) mmol/L Chloride (98-107) mmol/L Carbon Dioxide (21-32) mmol/L Anion Gap (3-11) BUN (7-18) mg/dl Creatinine (0.6-1.4) mg/dl Est Cr Clr Drug Dosing ml/min Est GFR ( Amer) Est GFR (Non-Af Amer) BUN/Creatinine Ratio (10-20) Glucose (70-99) mg/dl Lactate (0.4-2.0) mmol/L Calcium (8.5-10.1) mg/dl Magnesium (1.8-2.4) mg/dl Total Bilirubin (0.2-1) mg/dl AST (15-37) U/L ALT (12-78) U/L Alkaline Phosphatase (45-117) U/L Ammonia (11-32) umol/L Troponin I (0-0.045) ng/ml Total Protein (6.4-8.2) gm/dl Albumin (3.4-5.0) gm/dl Globulin (2.5-4.0) gm/dl Albumin/Globulin Ratio (0.9-2) Procalcitonin (0-0.5) ng/ml Urine Color Dark Yellow Urine Appearance Clear (Clear) Urine pH 5.0 (4.5-7.5) Ur Specific [place] 1.015 (1.000-1.030) Urine Protein Negative (Negative) Urine Glucose (UA) Negative (Negative) Urine Ketones Negative (Negative) Urine Blood Negative (Negative) Urine Nitrite Positive A (Negative) Urine Bilirubin 1+ H (Negative) Urine Urobilinogen Negative (Negative) Ur Leukocyte Esterase Trace H (Negative) Urine WBC (Auto) 0 (0-5) /hpf Urine RBC (Auto) 0-4 (0-4) /hpf U Hyaline Cast (Auto) 1-5 (0-5) /lpf U Epithel Cells (Auto) 0-5 (0-5) /lpf Urine Bacteria (Auto) Negative (Negative) COVID-19 Eval Order SARS-CoV-2, RNA, NAAT (NEGATIVE) Imaging Data Radiologist's Impression: XR chest 1V portable HISTORY: 54 years-old Male SEPSIS acute sepsis COMPARISON: Chest radiograph 06/09/2020 TECHNIQUE: Portable AP view of the chest FINDINGS: Cardiomegaly with hypoinflation and bronchovascular crowding. No pneumothorax. Equivocal pulmonary vascular congestion. No large pleural effusion. Mild bibasilar densities favoring atelectasis. Degenerative changes of the shoulders and spine. Cervical spinal fusion hardware. Surgical clips of the left axilla. IMPRESSION: 1. Cardiomegaly with hypoinflation and equivocal pulmonary vascular congestion. 2. Mild bibasilar densities suggest atelectasis. ACT 112: Negative or not required by law. The above report was generated using voice recognition software. It may contain grammatical, syntax or spelling errors. Electronically signed by: Jerad Cardenas M.D. 08/15/2020 8:13 AM Dictated: 08/15/20810Transcribed: 08/15/20810 CT head/brain wo con CLINICAL HISTORY: 54 years-old Male with AMS. Acutely altered mental status TECHNIQUE: Multiple axial CT images of the head were obtained without contrast. A dose lowering technique was utilized adhering to the principles of ALARA. CT DOSE: 1228.53 mGy.cm COMPARISON: Head CT 06/06/2020 FINDINGS: Motion degraded exam. The study was then repeated which was also motion de graded. No acute intracranial hemorrhage, midline shift, intracranial mass, hydrocephalus, territorial ischemia or abnormal extra-axial collection. The calvarium is intact. The paranasal sinuses, mastoid air cells, and middle ear cavities are clear. IMPRESSION: Motion degraded exam without acute intracranial abnormality identified. ACT 112: Negative or not required by law. The above report was generated using voice recognition software. It may contain grammatical, syntax or spelling errors. Electronically signed by: Jerad Cardenas M.D. 08/15/2020 7:53 AM Dictated: 08/15/20745Transcribed: 08/15/20745 ECG Data Attestation: I personally reviewed and interpreted this ECG as follows: Indication: + altered mental status Rate (beats per minute): 107 Rhythm: + sinus tachycardia ECG Intervals/blocks: + Prolonged QT ECG [place]: + Normal ECG ST segments: + Nonspecific ST abnormalities ECG Findings: no PACs and no PVCs Blood Pressure Blood Pressure Findings: Normal blood pressure Blood Pressure Disposition: did not require urgent referral MDM Narrative This patient was evaluated and appeared to be altered, somnolent but barely arousable. IV access was obtained and laboratory work was drawn. An order for cardiac monitoring was placed and the patient is noted to be in a sinus tachycardia at 106 bpm. The patient is chronically ill-appearing and jaundiced. He does appeared to be encephalopathic. A small bolus of normal saline solution was initiated because of the tachycardia. Patient's laboratory work reveals an ammonia of 147. WBC is within normal limits. Lactate is three-point with a creatinine of 1.66. INR is 1.4. Head CT was performed and reveals no evidence of acute intracranial abnormality. Chest x-ray is consistent with mild fluid overload and cardiomegaly with hypoinflation. I did speak with the patient's heel seat laster, Dr. Berg. He states the patient normally has some quality of life, is interactive and able to ambulate. Initially a lactulose enema was ordered given the patient's altered mentation. Patient did not do well with the enema according to nursing staff. A small NG tube was attempted however the patient did not tolerate this procedure well. Eventually the patient was able to tolerate 60 g of p.o. lactulose by mouth. The case was discussed with the hospitalist service who will evaluate the patient for admission and further management. 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
[2020-08-15 15:42] LABS: Allen Test Pos (Pos); Base Excess ABG -0.2 mEq/L (-9-1.8); HCO3 ABG 22 mmol/L (19-24); Oxygen Saturation ABG 97.8 % (90-95); PCO2 ABG 28 mmHg (35-46); PO2 ABG 92 mmHg (80-95)
[2020-08-15 15:44] LABS: pH ABG 7.51 (7.35-7.45)
[2020-08-15] MEDS: PANTOprazole 40 MG in SYRINGE 0 ML IV SCH ×2 (15:55→20:57)
[2020-08-15] MEDS: DAPTOmycin 600 MG in SYRINGE 0 ML IV SCH (15:58)
[2020-08-15] MEDS: metroNIDAZOLE 500 MG/100 ML BAG IV SCH ×2 (16:00→23:24)
[2020-08-15 16:50] LABS: BUN Creatinine Ratio 21.1 (10-20); Calcium 8.6 mg/dl (8.5-10.1); Creatinine Clr Calc Pharmacy 75.6 ml/min; Est GFR (African American) 55.8; Est GFR (Non-African American) 48.1; Potassium 4.9 mmol/L (3.5-5.1)
[2020-08-15] MEDS ORDERED: AZTREONAM 2,000 MG in DEXTROSE 5% 100 ML IV SCH (17:00)
--- NOTE | 2020-08-15 18:59 | History & Physical Report ---
Date of Service August 15, 2020 Assessment & Plan (1) Encephalopathy: 54-year-old male with history of liver cirrhosis, thrombocytopenia, esophageal varices, ascites Hepatocellular carcinoma, diabetes type 2, on insulin pump, hypertension, asthma, obstructive sleep apnea, chronic pain syndrome, depression Presenting with altered mental status which started earlier this morning. Multifactorial encephalopathy, secondary to: CT head negative for acute process ABG: No respiratory acidosis Polypharmacy We will stop methadone and Zyprexa Hold off on usual oxycodone, baclofen, gabapentin, Ativan Hepatic encephalopathy Ammonia level 146 Lactulose enema ordered Goal is 2-5 bowel movements per day Resume rifaximin when mental status improves Possible SBP On daily ciprofloxacin for SBP prophylaxis Will need thoracentesis For now, will start daptomycin, aztreonam, Flagyl Lactic acid improving Liver cirrhosis with recurrent ascites, thrombocytopenia, esophageal varices Will likely need paracentesis Discussed with call center assistant Dr. Berg, recommend placement of Pleurx catheter General surgery consulted LFTs elevated, monitor Monitor platelet level Protonix IV twice daily Acute renal failure, hyponatremia, in the setting of liver cirrhosis Possible underlying hepatorenal syndrome Hold diuretics for now We will consult nephrology service Diabetes type 2 On insulin pump Pharmacy glycemic control consulted Hypertension Blood pressure on the lower side Monitor Asthma Respiratory status stable Chest x-ray showing possible pulmonary edema Covid Rios ID test negative Obstructive sleep apnea Will verify with regarding BiPAP ABG no respiratory acidosis DVT prophylaxis Anticoagulation contraindicated secondary to thrombocytopenia, history of esophageal varices SCDs contraindicated secondary to bilateral lower extremity edema CODE STATUS DNR per patient's Disposition Patient lives with his at home, hospice services started last Sunday Dissipate discharge to home with continued hospice services upon discharge Plan of care discussed with patient's Megan in detail and at length All questions were answered She is understanding, agreeable, comfortable with plan of care Admission and Anticipated Discharge Date Admission Date: August 15, 2020 History of Present Illness 54-year-old male with history of liver cirrhosis, thrombocytopenia, esophageal varices, ascites, Recently diagnosed hepatocellular carcinoma, diabetes type 2 on insulin pump, hypertension, asthma, obstructive sleep apnea, chronic pain syndrome, depression Presenting with altered mental status at home starting early this morning. History obtained from patient's Megan, was present at the bedside. Patient was admitted to [facility] last May 2020 for possible SBP. He was then diagnosed to have hepatocellular carcinoma and later on had a trial of chemotherapy but did not tolerate secondary to side effects. Hospice care services started last Sunday as per . Patient had paracentesis done last draining 6 L of fluid. Overall, patient was doing fine recently-tolerating diet well, ambulatory, does have generalized pain which is chronic. Last Sunday, hospice care service recommended patient to be started on Zyprexa and methadone for further pain control. He apparently was noted to be very lethargic after receiving the first dose of Zyprexa and methadone. Yesterday the patient was doing fine during the daytime, but after receiving methadone and Zyprexa at night he started to become lethargic again. Earlier this morning the patient was restless and was given Ativan. Since then patient was noted to be lethargic and was then brought to the ER for evaluation. CT head: No acute process Ammonia level 146 Bilirubin and AST/ALT elevated Hospitalist consulted for admission. On exam the patient was seen sleeping, very lethargic but not in distress. Patient was saturating well on room air. He is arousable with verbal and tactile stimuli, opens his eyes, answers to his name but otherwise confused, drifts back to sleep. No signs of acute respiratory distress, or pain. No other signs or symptoms per patient's . Primary Care Provider: Neha Burgos DO Allergies Allergy/AdvReac Type Severity Reaction Status Date / Time Penicillins Allergy Severe ANAPHYLAXIS Verified 08/15/20 06:11 morphine Allergy Intermediate Severe Verified 08/15/20 06:11 itching/mouth rash adhesive Allergy Mild rips Verified 08/15/20 06:11 skin/bruise skin aripiprazole Allergy Mild "feeling Verified 08/15/20 06:11 irritable" lithium Allergy Mild Anxiety Verified 08/15/20 06:11 meperidine Allergy Mild pruritis/ra Verified 08/15/20 06:11 sh pregabalin Allergy Mild Anxiety Verified 08/15/20 06:11 quetiapine Allergy Mild Drowsy Verified 08/15/20 06:11 Gold Salts AdvReac Mild Blister Verified 08/15/20 06:11 Home Medications Medication Instructions Recorded Confirmed Type Xifaxan 550 mg PO BID 06/20/18 08/15/20 History [employer] [place] 14 Day Sensor #7 ea NS 09/05/19 11/04/19 Rx flash glucose scanning reader #1 ea 09/05/19 11/04/19 History insulin aspart U-100 100 unit/mL See Rx Instructions .ROUTE 09/05/19 08/15/20 History subcutaneous solution .COMPLEX ml mupirocin 2 % topical ointment 1 appln TOP TID PRN 09/05/19 08/15/20 History ondansetron 8 mg PO Q8H PRN 09/07/19 08/15/20 History V-GO 20 #90 kit NS 01/21/20 Rx cimetidine [Tagamet HB] 300 mg PO HS 03/24/20 08/15/20 History spironolactone [Aldactone] 200 mg PO QAM 03/24/20 08/15/20 History ciprofloxacin HCl 500 mg PO DAILY 08/15/20 08/15/20 History furosemide See Rx Instructions .ROUTE .COMPLEX 08/15/20 08/15/20 History gabapentin 300 mg PO BID 08/15/20 08/15/20 History lorazepam 0.5 mg PO TID PRN 08/15/20 08/15/20 History methadone 5 mg PO DAILY 08/15/20 08/15/20 History nystatin 1 applic TOPICAL DAILY PRN 08/15/20 08/15/20 History omeprazole 40 mg PO BID 08/15/20 08/15/20 History oxycodone 5 mg PO Q6H PRN 08/15/20 08/15/20 History prochlorperazine maleate 10 mg PO Q6H PRN 08/15/20 08/15/20 History silver sulfadiazine 1 applic TOPICAL DAILY PRN 08/15/20 08/15/20 History triamcinolone acetonide 1 applic TOPICAL DAILY PRN 08/15/20 08/15/20 History vitamin E 400 unit PO DAILY 08/15/20 08/15/20 History Past Med/Surg History Medical History (Updated 08/15/20 @ 18:55 by Sulaiman Trevizo MD) Anxiety Asthma inhaler/nebulizer prn Cardiac murmur as a child Chronic back pain Degenerative disc disease Diabetes mellitus, type 2 Diabetic peripheral neuropathy Esophageal varices hx of banding GERD (gastroesophageal reflux disease) Hearing deficit 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 steatohepatitis) stage 3 Loss of protective sensation of skin of foot Osteoarthritis Prolonged QT interval Sarcoidosis Smoker Spinal stenosis Thrombocytopenia Surgical History History of anesthesia reaction sometimes has difficulty waking up---last EGD took him an hour to wake up History of cardiac cath 2007 @ [facility], no stents History of colonoscopy History of endoscopic sinus surgery History of esophagogastroduodenoscopy (EGD) History of repair of left rotator cuff History of thoracic spinal fusion t10-t12 History of tooth extraction wisdom teeth History of umbilical hernia repair x3 Status post cervical spinal fusion x3 screws, plates in place--normal ROM C3-C7 Status post cholecystectomy Status post right foot surgery complete amputation of great toe and 2nd toe Family History Mother Diabetes Coronary heart disease Father Heart disease Sister Cancer bladder Other No family history of adverse response to anesthesia Social History Smoking Status: Former smoker Cigarettes Per Day: 2; Second Hand Exposure: No; Do You Dip or Chew Tobacco: Yes; Hx Alcohol Use: No Hx Substance Use: No Preferred Language: Guamanian Communication Ability: Effective Process Worker Required: No Beliefs That Will Affect Care: None marital status: Current Living Situation: Spouse Feels Safe at Home: Yes Assistive Devices: Cane Review of Systems Review of Systems: All systems reviewed & are unremarkable except as noted in Subjective and Unobtainable due to cognitive status Physical Exam Physical Exam: General- oriented x 1, not in distress, breathing with no effort or accessory muscle use Head- atraumatic Eyes- PERRL, EOMI, positive icterus ENT-dry oral mucosa Neck- supple, no JVD, no adenopathy, no thyromegaly; carotids +2/2, no bruits appreciated Lungs- clear to auscultation bilaterally, no rales/wheezes Heart- normal rate, regular rhythm; no murmur, no gallop, no rub appreciated Abdomen- normal bowel sounds, mildly distended, soft, nontender, no masses or hepatosplenomegaly Extremities-mild pretibial edema, no calf tenderness; peripheral pulses intact Neuro-lethargic; no other gross focal neurologic deficits Skin- warm & dry Results & Data Results & Data ([facility]) Vital Signs (Past 12 Hours) Vital Signs Temp Pulse Pulse Resp BP Pulse Ox Pulse Ox 08/15/20 16:05 37.1 C 110 H 24 134/76 97 08/15/20 16:00 112 H 08/15/20 15:00 37.5 C 110 H 16 112/70 100 08/15/20 14:45 97 08/15/20 13:27 113 H 20 127/86 97 08/15/20 11:50 109 H 16 153/87 H 94 08/15/20 10:19 112 H 32 H 124/73 96 08/15/20 08:51 123 H 18 106/55 L 97 08/15/20 07:47 36.8 C 08/15/20 07:42 106 H 18 129/70 97 Laboratory Results Laboratory Results - last 24 hr 08/15/20 08/15/20 08/15/20 06:12 06:12 06:12 WBC 5.72 RBC 3.53 L Hgb 10.8 L Hct 31.4 L MCV 89.0 MCH 30.6 MCHC 34.4 RDW Std Deviation 59.9 H RDW Coeff of Kelly 18.7 H Plt Count 59 L MPV 10.0 Immature Gran % (Auto) 0.3 Neut % (Auto) 79.4 Lymph % (Auto) 5.1 [place] % (Auto) 14.7 Eos % (Auto) 0.3 Baso % (Auto) 0.2 Neut # (Auto) 4.54 Lymph # (Auto) 0.29 L [place] # (Auto) 0.84 H Eos # (Auto) 0.02 Baso # (Auto) 0.01 Immature Gran # (Auto) 0.02 Platelet Estimate Decreased L PT 15.0 H INR 1.4 H APTT 29.2 PTT Ratio 1.0 ABG pH ABG pCO2 ABG pO2 ABG HCO3 ABG O2 Saturation ABG Base Excess Jeff Test Barometric Pressure Oxygen Given Sodium 126 L Potassium 5.6 H Chloride 92 L Carbon Dioxide 25 Anion Gap 9.0 BUN 33 H Creatinine 1.66 H Est Cr Clr Drug Dosing 73.3 Est GFR ( Amer) 53.7 Est GFR (Non-Af Amer) 46.4 BUN/Creatinine Ratio 19.8 Glucose 176 H POC Glucose Lactate Calcium 8.6 Magnesium 2.2 Total Bilirubin 5.0 H AST 158 H ALT 82 H Alkaline Phosphatase 235 H Ammonia Troponin I < 0.015 Total Protein 6.7 Albumin 3.0 L Globulin 3.7 Albumin/Globulin Ratio 0.8 L Procalcitonin Urine Color Urine Appearance Urine pH Ur Specific [place] Urine Protein Urine Glucose (UA) Urine Ketones Urine Blood Urine Nitrite Urine Bilirubin Urine Urobilinogen Ur Leukocyte Esterase Urine WBC (Auto) Urine RBC (Auto) U Hyaline Cast (Auto) U Epithel Cells (Auto) Urine Bacteria (Auto) COVID-19 Eval Order SARS-CoV-2, RNA, NAAT 08/15/20 08/15/20 08/15/20 06:12 06:12 06:50 WBC RBC Hgb Hct MCV MCH MCHC RDW Std Deviation RDW Coeff of Kelly Plt Count MPV Immature Gran % (Auto) Neut % (Auto) Lymph % (Auto) [place] % (Auto) Eos % (Auto) Baso % (Auto) Neut # (Auto) Lymph # (Auto) [place] # (Auto) Eos # (Auto) Baso # (Auto) Immature Gran # (Auto) Platelet Estimate PT INR APTT PTT Ratio ABG pH ABG pCO2 ABG pO2 ABG HCO3 ABG O2 Saturation ABG Base Excess Jeff Test Barometric Pressure Oxygen Given Sodium Potassium Chloride Carbon Dioxide Anion Gap BUN Creatinine Est Cr Clr Drug Dosing Est GFR ( Amer) Est GFR (Non-Af Amer) BUN/Creatinine Ratio Glucose POC Glucose Lactate 3.0 H* Calcium Magnesium Total Bilirubin AST ALT Alkaline Phosphatase Ammonia Troponin I Total Protein Albumin Globulin Albumin/Globulin Ratio Procalcitonin 0.71 H Urine Color Urine Appearance Urine pH Ur Specific [place] Urine Protein Urine Glucose (UA) Urine Ketones Urine Blood Urine Nitrite Urine Bilirubin Urine Urobilinogen Ur Leukocyte Esterase Urine WBC (Auto) Urine RBC (Auto) U Hyaline Cast (Auto) U Epithel Cells (Auto) Urine Bacteria (Auto) COVID-19 Eval [facility] SARS-CoV-2, RNA, NAAT 08/15/20 08/15/20 08/15/20 06:50 07:24 08:10 WBC RBC Hgb Hct MCV MCH MCHC RDW Std Deviation RDW Coeff of Kelly Plt Count MPV Immature Gran % (Auto) Neut % (Auto) Lymph % (Auto) [place] % (Auto) Eos % (Auto) Baso % (Auto) Neut # (Auto) Lymph # (Auto) [place] # (Auto) Eos # (Auto) Baso # (Auto) Immature Gran # (Auto) Platelet Estimate PT INR APTT PTT Ratio ABG pH ABG pCO2 ABG pO2 ABG HCO3 ABG O2 Saturation ABG Base Excess Jeff Test Barometric Pressure Oxygen Given Sodium Potassium Chloride Carbon Dioxide Anion Gap BUN Creatinine Est Cr Clr Drug Dosing Est GFR ( Amer) Est GFR (Non-Af Amer) BUN/Creatinine Ratio Glucose POC Glucose Lactate 3.6 H* Calcium Magnesium Total Bilirubin AST ALT Alkaline Phosphatase Ammonia 147.0 H Troponin I Total Protein Albumin Globulin Albumin/Globulin Ratio Procalcitonin Urine Color Urine Appearance Urine pH Ur Specific [place] Urine Protein Urine Glucose (UA) Urine Ketones Urine Blood Urine Nitrite Urine Bilirubin Urine Urobilinogen Ur Leukocyte Esterase Urine WBC (Auto) Urine RBC (Auto) U Hyaline Cast (Auto) U Epithel Cells (Auto) Urine Bacteria (Auto) COVID-19 Eval Order SARS-CoV-2, RNA, NAAT NEGATIVE 08/15/20 08/15/20 08/15/20 10:00 14:33 15:16 WBC RBC Hgb Hct MCV MCH MCHC RDW Std Deviation RDW Coeff of Kelly Plt Count MPV Immature Gran % (Auto) Neut % (Auto) Lymph % (Auto) [place] % (Auto) Eos % (Auto) Baso % (Auto) Neut # (Auto) Lymph # (Auto) [place] # (Auto) Eos # (Auto) Baso # (Auto) Immature Gran # (Auto) Platelet Estimate PT INR APTT PTT Ratio ABG pH ABG pCO2 ABG pO2 ABG HCO3 ABG O2 Saturation ABG Base Excess Jeff Test Barometric Pressure Oxygen Given Sodium 129 L Potassium 4.9 Chloride 96 L Carbon Dioxide 26 Anion Gap 7.0 BUN 34 H Creatinine 1.61 H Est Cr Clr Drug Dosing 75.6 Est GFR ( Amer) 55.8 Est GFR (Non-Af Amer) 48.1 BUN/Creatinine Ratio 21.1 H Glucose 181 H POC Glucose 196 H Lactate Calcium 8.6 Magnesium Total Bilirubin AST ALT Alkaline Phosphatase Ammonia Troponin I Total Protein Albumin Globulin Albumin/Globulin Ratio Procalcitonin Urine Color Dark Yellow Urine Appearance Clear Urine pH 5.0 Ur Specific [place] 1.015 Urine Protein Negative Urine Glucose (UA) Negative Urine Ketones Negative Urine Blood Negative Urine Nitrite Positive A Urine Bilirubin 1+ H Urine Urobilinogen Negative Ur Leukocyte Esterase Trace H Urine WBC (Auto) 0 Urine RBC (Auto) 0-4 U Hyaline Cast (Auto) 1-5 U Epithel Cells (Auto) 0-5 Urine Bacteria (Auto) Negative COVID-19 Eval Order SARS-CoV-2, RNA, NAAT 08/15/20 08/15/20 15:16 15:16 WBC RBC Hgb Hct MCV MCH MCHC RDW Std Deviation RDW Coeff of Kelly Plt Count MPV Immature Gran % (Auto) Neut % (Auto) Lymph % (Auto) [place] % (Auto) Eos % (Auto) Baso % (Auto) Neut # (Auto) Lymph # (Auto) [place] # (Auto) Eos # (Auto) Baso # (Auto) Immature Gran # (Auto) Platelet Estimate PT INR APTT PTT Ratio ABG pH 7.51 H* ABG pCO2 28 L ABG pO2 92 ABG HCO3 22 ABG O2 Saturation 97.8 H ABG Base Excess -0.2 Jeff Test Pos Barometric Pressure 733.1 Oxygen Given Room Air Sodium Potassium Chloride Carbon Dioxide Anion Gap BUN Creatinine Est Cr Clr Drug Dosing Est GFR ( Amer) Est GFR (Non-Af Amer) BUN/Creatinine Ratio Glucose POC Glucose Lactate 2.4 H* Calcium Magnesium Total Bilirubin AST ALT Alkaline Phosphatase Ammonia Troponin I Total Protein Albumin Globulin Albumin/Globulin Ratio Procalcitonin Urine Color Urine Appearance Urine pH Ur Specific [place] Urine Protein Urine Glucose (UA) Urine Ketones Urine Blood Urine Nitrite Urine Bilirubin Urine Urobilinogen Ur Leukocyte Esterase Urine WBC (Auto) Urine RBC (Auto) U Hyaline Cast (Auto) U Epithel Cells (Auto) Urine Bacteria (Auto) COVID-19 Eval Order SARS-CoV-2, RNA, NAAT Code Status & VTE Plan Code Status DNR per patient's VTE Prophylaxis Plan VTE Prophylaxis will be ordered: Yes
[2020-08-15] MEDS ORDERED: PHARMACY GLYCEMIC MGMT CONSULT PRN (19:04)
[2020-08-15] MEDS ORDERED: CEFEPIME CONSULT ACTIVE PRN (19:13)
--- NOTE | 2020-08-15 19:37 | Pharmacy Report ---
Pharmacy Glycemic Short Note 2 - Date of Service August 15, 2020 - Glycemic Short BSG Results (Last 24 hours): 08/15/20 08/15/20 08/15/20 06:12 14:33 15:16 Glucose 176 H 181 H POC Glucose 196 H OUTPATIENT ANTIDIABETIC REGIMEN: * V-Go insulin pump * Basal = 20 units/day * Bolus = 8-14 units with meals * A1c <6% per history * However, this result is likely somewhat unreliable secondary to cirrhosis, hepatocelluar carcinoma, and thrombocytopenia ASSESSMENT: * 54yo T2DM male known to pharmacy from previous admission in May with glycemic consult * Pt is maintained on insulin pump as an outpatient with adequate control per BSGs last admission while on his insulin pump * Pt is obtunded - tried to call patient's room but he was not able to speak. has left for the evening. Discussed case with RN. Pt's insulin pump is out of insulin. Additionally, based on patient's state he will not be able to manipulate/dose his pump. Will remove his insulin pump and start SQ basal bolus per pharmacy consult * Will start with dosing c/w outpatient dosing. Pt is NPO but his outpatient regimen is weighted towards prandial insulin so continuing his basal dose while NPO shouldn't result in hypo. * Will titrate based on BSG trends. PLAN FOR INPATIENT GLYCEMIC CONTROL: * Hold outpatient V-Go pump * Basal insulin * Lantus 20 units SQ Q24hrs given at HS * Bolus insulin * NovoLog per scale ACHS or Q6hrs while NPO * Goal Range: Low 110 mg/dL - High 140 mg/dL * Correction Factor: 15 mg/dL/unit * Nutritional / Prandial insulin per carb ratio of 1 unit per 6 grams CHO consumed
[2020-08-15] MEDS ORDERED: ACETAMINOPHEN 65 ML IV PRN (19:45)
[2020-08-15] MEDS ORDERED: [UNRECOGNIZED DRUG - REMARK] ONE (20:00)
[2020-08-15] MEDS: ALBUMIN 25% 12.5 GM/50 ML VIAL IV SCH ×2 (20:55→21:47)
[2020-08-15] MEDS: CEFEPIME 2,000 MG in SYRINGE 0 ML IV SCH (20:56)
[2020-08-15] MEDS ORDERED: INSULIN ASPART 100 UNITS/ML 3 ML PEN SC SCH (21:00)
[2020-08-15] MEDS: INSULIN GLARGINE SOLOSTAR 100 UNITS/ML 3 ML PEN SC SCH (21:09)
[2020-08-15] MEDS: UNIT DOSE COMPOUND PR SCH (23:16)
[2020-08-16] MEDS: metroNIDAZOLE 500 MG/100 ML BAG IV SCH ×3 (04:10→17:36)
[2020-08-16] MEDS: CEFEPIME 2,000 MG in SYRINGE 0 ML IV SCH ×3 (04:10→20:58)
[2020-08-16 06:59] LABS: Hematocrit (blood only) 29.2 % (42-52); Hemoglobin 9.8 g/dL (14.0-18.0); Mean Corpuscular Hemoglobin 30.3 pg (25-34); Mean Corpuscular Hgb Conc 33.6 g/dL (32-36); Mean Corpuscular Volume 90.4 fL (80-100); RDW Coefficient of Variation 19.3 % (11.5-14.5); RDW Standard Deviation 62.8 fL (36.4-46.3); Red Blood Count 3.23 M/uL (4.7-6.1); White Blood Count 5.25 K/uL (4.8-10.8)
[2020-08-16 07:01] LABS: Mean Platelet Volume 8.8 fL (7.4-10.4); Platelet Count 50 K/uL (130-400)
[2020-08-16] MEDS: LACTULOSE 200 GM, WATER, STERILE IRRIG 700 ML, BARCODE IDENTIFIER 1 EA PR SCH (07:05)
[2020-08-16] MEDS: UNIT DOSE COMPOUND PR SCH ×3 (07:06→21:04)
[2020-08-16 07:07] LABS: INR 1.7 (0.9-1.1); Prothrombin Time 17.1 Seconds (9.0-12.0)
[2020-08-16 07:18] LABS: Eosinophils # (auto) 0.04 K/uL (0-0.5); Eosinophils % (auto) 0.8 %; Immature Granulocytes # (auto) 0.04 K/uL (0.00-0.02); Immature Granulocytes % (auto) 0.8 %; Lymphocytes # (auto) 0.57 K/uL (1.2-3.4); Lymphocytes % (auto) 10.9 %; Monocytes # (auto) 0.89 K/uL (0.11-0.59); Neutrophils # (auto) 3.71 K/uL (1.4-6.5); Neutrophils % (auto) 70.5 %
[2020-08-16 07:31] LABS: Albumin Level 2.6 gm/dl (3.4-5.0); BUN Creatinine Ratio 24.5 (10-20); Bilirubin Direct 2.7 mg/dl (0-0.2); Bilirubin,Total 5.1 mg/dl (0.2-1); Calcium 8.7 mg/dl (8.5-10.1); Creatinine Clr Calc Pharmacy 75.4 ml/min; Est GFR (Non-African American) 49.2; Potassium 4.6 mmol/L (3.5-5.1)
[2020-08-16] MEDS: rifAXIMin 550 MG TABLET PO SCH ×2 (08:25→21:00)
[2020-08-16] MEDS: INSULIN ASPART 100 UNITS/ML 3 ML PEN SC SCH ×4 (08:25→21:03)
[2020-08-16] MEDS: PANTOprazole 40 MG TAB PO SCH ×2 (08:25→21:01)
[2020-08-16] MEDS: LACTULOSE SYRUP 30 GM/45 ML UDP PO SCH ×3 (08:29→21:01)
[2020-08-16] MEDS ORDERED: oxyCODONE HCL IR 5 MG TAB (IMMEDIATE RELEASE) PO PRN (08:36)
--- NOTE | 2020-08-16 08:37 | Gastrointestinal Consultation ---
Date of Consultation August 16, 2020 Assessment & Plan (1) Encephalopathy: This is a 54 y/o male with underlying cirrhosis with ascites, varices, HE, SBP, now with HCC, admitted with encephalopathy, along with CHRISTOPH, now bacteremia with + blood cultures, MELD 26 (was 19). - Etiology of encephalopathy may have been in the setting of recent meds for pain, but also underlying liver disease, HCC, as well as what appears to be bacteremia. - He appears improved with regard to his cognition and more back to baseline today - Continue lactulose BID-TID; aim for 3-4 loose BMs daily - Rifaximin should be restarted when feasible - Will arrange paracentesis today as pt feels his abd is more distended - Please send fluid for cell count and culture - Appreciate nephrology eval and mgmt of CHRISTOPH, hyponatremia; for now diuretics are being held and albumin was given overnight; would restart diuretics when feasible - Will defer mgmt of bacteremia to primary team - On DC would continue SPB prophylaxis with Cipro as renal fxn allows - Maintain low Na diet - No ETOH - Daily weights - Follow-up as an outpt with GI, heme/onc. It appears PleurX catheter (for peritoneal drainage) being arranged for the pt Thank you for allowing us to participate in the care of this patient. Please call with any acute changes, questions or concerns. Please see addendum below with additional recommendation from my supervising physician. Supervising Physician Co-Signing Physician Notes I saw and evaluated the patient. We are consulted for evaluation of hepatic encephalopathy which appears to be gone after the patient was started on methadone and Zyprexa. The patient notes that he is starting to feel much improved after the medications were removed yesterday. He does note having abdominal fullness and wonders if he may have a paracentesis. Physical examination Scleral icterus noted, mild abdominal distention noted Impression: Patient with a history of cirrhosis now with ascites and recent admission for hepatic encephalopathy likely related to use of methadone and Zyprexa. Would recommend against using these medications for this patient in the future. With regard to his ascites we would recommend a therapeutic parace ntesis between 5 and 6 L and use of albumin to help prevent hepatorenal syndrome. Recommendations Discontinue use of methadone and Zyprexa Paracentesis per internal medicine service Please call with any questions or concerns, GI to sign off History of Present Illness Reason for Consultation: hepatic encephalopathy Requesting Physician: Dr. Trevizo Attending Physician: Sulaiman Trevizo MD History of Present Illness This is a 54 y/o male with PMhx T2DM on insulin pump, HTN, asthma, depression, NAFLD cirrhosis with ascites, HE, G2 varices, h/o SBP, recently dx'd with stage IV HCC with invasion into portal vein (seen by IR, not candidate for embolization, seen by onc and had one rx of Opdivo), recently started on methadone and Zyprexa for pain control, and admitted yesterday with encephalopathy, lethargy. On arrival CT head with no acute process, CXR with cardiomegaly with reticular opacities suggestive of pulmonary edema versus interstitial pneumonitis. Labs notable for CHRISTOPH, Na 126, k 5.6, elevated Tbili, transaminases, INR trending up slightly to 1.7, HGB 10.8, plt 50k, BC = alpha strep not S.pne/enterococcus, ammonia 146. Overnight pt has had improvement in his mental status and is now AAO x 3. He's had some improvement in his labs with creatinine slightly improved to 1.58, Na 132 and K has normalized. Currently afebrile. He states he's had some increased abd distention/girth since his last tap on 08/10 (6 L removed). Diuretics are being held with his CHRISTOPH. Lactulose is being given and he had some loose brown BMs overnight. He's on daptomycin, cefepime, Flagyl; and he got 2 bags of albumin overnight. Currently denies abd pain, fever, melena, hematochezia, hematemesis, CP, SOB. MELD is 26. EGD in March showed G2 varices s/p banding and apparent eradication; recommended repeat in 6 mos. Cscopy In April showed rectal varices, portal colopathy Allergies Allergy/AdvReac Type Severity Reaction Status Date / Time Penicillins Allergy Severe ANAPHYLAXIS Verified 08/15/20 06:11 morphine Allergy Intermediate Severe Verified 08/15/20 06:11 itching/mouth rash adhesive Allergy Mild rips Verified 08/15/20 06:11 skin/bruise skin aripiprazole Allergy Mild "feeling Verified 08/15/20 06:11 irritable" lithium Allergy Mild Anxiety Verified 08/15/20 06:11 meperidine Allergy Mild pruritis/ra Verified 08/15/20 06:11 sh pregabalin Allergy Mild Anxiety Verified 08/15/20 06:11 quetiapine Allergy Mild Drowsy Verified 08/15/20 06:11 Gold Salts AdvReac Mild Blister Verified 08/15/20 06:11 Home Medications Medication Instructions Recorded Confirmed Type Xifaxan 550 mg PO BID 06/20/18 08/15/20 History FreeStyle Adair 14 Day Sensor #7 ea NS 09/05/19 11/04/19 Rx flash glucose scanning reader #1 ea 09/05/19 11/04/19 History insulin aspart U-100 100 unit/mL See Rx Instructions .ROUTE 09/05/19 08/15/20 History subcutaneous solution .COMPLEX ml mupirocin 2 % topical ointment 1 appln TOP TID PRN 09/05/19 08/15/20 History ondansetron 8 mg PO Q8H PRN 09/07/19 08/15/20 History V-GO 20 #90 kit NS 01/21/20 Rx cimetidine [Tagamet HB] 300 mg PO HS 03/24/20 08/15/20 History spironolactone [Aldactone] 200 mg PO QAM 03/24/20 08/15/20 History ciprofloxacin HCl 500 mg PO DAILY 08/15/20 08/15/20 History furosemide See Rx Instructions .ROUTE .COMPLEX 08/15/20 08/15/20 History gabapentin 300 mg PO BID 08/15/20 08/15/20 History lorazepam 0.5 mg PO TID PRN 08/15/20 08/15/20 History methadone 5 mg PO DAILY 08/15/20 08/15/20 History nystatin 1 applic TOPICAL DAILY PRN 08/15/20 08/15/20 History omeprazole 40 mg PO BID 08/15/20 08/15/20 History oxycodone 5 mg PO Q6H PRN 08/15/20 08/15/20 History prochlorperazine maleate 10 mg PO Q6H PRN 08/15/20 08/15/20 History silver sulfadiazine 1 applic TOPICAL DAILY PRN 08/15/20 08/15/20 History triamcinolone acetonide 1 applic TOPICAL DAILY PRN 08/15/20 08/15/20 History vitamin E 400 unit PO DAILY 08/15/20 08/15/20 History Patient History Medical History (Updated 08/16/20 @ 13:03 by Kristen Vasquez MD) Anxiety Asthma inhaler/nebulizer prn Cardiac murmur as a child Chronic back pain Degenerative disc disease Diabetes mellitus, type 2 Diabetic peripheral neuropathy Esophageal varices hx of banding GERD (gastroesophageal reflux disease) Hearing deficit Hepatocellular carcinoma 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 steatohepatitis) stage 3 Loss of protective sensation of skin of foot Osteoarthritis Prolonged QT interval Sarcoidosis Smoker Spinal stenosis Thrombocytopenia Surgical History History of anesthesia reaction sometimes has difficulty waking up---last EGD took him an hour to wake up History of cardiac cath 2007 @ [facility], no stents History of colonoscopy History of endoscopic sinus surgery History of esophagogastroduodenoscopy (EGD) History of repair of left rotator cuff History of thoracic spinal fusion t10-t12 History of tooth extraction wisdom teeth History of umbilical hernia repair x3 Status post cervical spinal fusion x3 screws, plates in place--normal ROM C3-C7 Status post cholecystectomy Status post right foot surgery complete amputation of great toe and 2nd toe Family History Mother Diabetes Coronary heart disease Father Heart disease Sister Cancer bladder Other No family history of adverse response to anesthesia Social History Smoking Status: Former smoker Cigarettes Per Day: 2; Second Hand Exposure: No; Do You Dip or Chew Tobacco: Yes; Hx Alcohol Use: No Hx Substance Use: No Preferred Language: Romanian Communication Ability: Impaired Acupuncturist Required: No Beliefs That Will Affect Care: None marital status: Current Living Situation: Spouse Feels Safe at Home: Yes Review of Systems Constitutional: no fever and no chills Respiratory: no cough and no dyspnea Cardiovascular: no chest pain and no edema Gastrointestinal: as per Subjective / HPI Integumentary: no lesions and no yellowing of the skin Neurologic: AAO x 3 Psychiatric: as per Subjective / HPI Physical Exam Constitutional: WD/WN, vitals as above no acute distress Eyes: PERRL, conjunctivae normal, anicteric sclerae Respiratory: normal respiratory effort, lungs clear to auscultation Cardiovascular: RRR, no murmur, no edema Gastrointestinal (Abdomen): Inspection/Auscultation: normal bowel sounds Percussion/Palpation: abdomen soft; abdomen nontender and abdomen not rigid mild-moderate ascites, nontense Skin: no rashes, warm and dry Neurologic: no asterixis Psychiatric: A+Ox3, euthymic affect Results & Data ([facility]) Vital Signs (Past 12 Hours) Vital Signs Temp Pulse Resp BP Pulse Ox 08/16/20 06:53 37.6 C H 108 H 16 115/70 94 08/16/20 05:34 37.8 C H 110 H 18 121/72 94 08/15/20 23:28 39.3 C H 116 H 18 111/66 94 Laboratory Results 08/16/20 08/16/20 08/16/20 Range/Units 11:04 08:10 06:38 WBC (4.8-10.8) K/uL RBC (4.7-6.1) M/uL Hgb (14.0-18.0) g/dL Hct (42-52) % MCV (80-100) fL MCH (25-34) pg MCHC (32-36) g/dL RDW Std Deviation (36.4-46.3) fL RDW Coeff of Kelly (11.5-14.5) % Plt Count (130-400) K/uL MPV (7.4-10.4) fL Immature Gran % (Auto) % Neut % (Auto) % Lymph % (Auto) % [place] % (Auto) % Eos % (Auto) % Baso % (Auto) % Neut # (Auto) (1.4-6.5) K/uL Lymph # (Auto) (1.2-3.4) K/uL [place] # (Auto) (0.11-0.59) K/uL Eos # (Auto) (0-0.5) K/uL Baso # (Auto) (0-0.2) K/uL Immature Gran # (Auto) (0.00-0.02) K/uL PT (9.0-12.0) Seconds INR (0.9-1.1) ABG pH (7.35-7.45) ABG pCO2 (35-46) mmHg ABG pO2 (80-95) mmHg ABG HCO3 (19-24) mmol/L ABG O2 Saturation (90-95) % ABG Base Excess (-9-1.8) mEq/L Jeff Test (Pos) Barometric Pressure mm/Hg Oxygen Given Sodium 132 L (136-145) mmol/L Potassium 4.6 (3.5-5.1) mmol/L Chloride 99 (98-107) mmol/L Carbon Dioxide 24 (21-32) mmol/L Anion Gap 9.0 (3-11) BUN 39 H (7-18) mg/dl Creatinine 1.58 H (0.6-1.4) mg/dl Est Cr Clr Drug Dosing 75.4 ml/min Est GFR ( Amer) 57.0 Est GFR (Non-Af Amer) 49.2 BUN/Creatinine Ratio 24.5 H (10-20) Glucose 152 H (70-99) mg/dl POC Glucose 189 H 158 H (70-99) mg/dl Lactate (0.4-2.0) mmol/L Calcium 8.7 (8.5-10.1) mg/dl Total Bilirubin 5.1 H (0.2-1) mg/dl Direct Bilirubin 2.7 H (0-0.2) mg/dl AST 123 H (15-37) U/L ALT 68 (12-78) U/L Alkaline Phosphatase 185 H (45-117) U/L Total Protein 6.0 L (6.4-8.2) gm/dl Albumin 2.6 L (3.4-5.0) gm/dl 08/16/20 08/16/20 08/15/20 Range/Units 06:38 06:38 20:37 WBC 5.25 (4.8-10.8) K/uL RBC 3.23 L (4.7-6.1) M/uL Hgb 9.8 L (14.0-18.0) g/dL Hct 29.2 L (42-52) % MCV 90.4 (80-100) fL MCH 30.3 (25-34) pg MCHC 33.6 (32-36) g/dL RDW Std Deviation 62.8 H (36.4-46.3) fL RDW Coeff of Kelly 19.3 H (11.5-14.5) % Plt Count 50 L (130-400) K/uL MPV 8.8 (7.4-10.4) fL Immature Gran % (Auto) 0.8 % Neut % (Auto) 70.5 % Lymph % (Auto) 10.9 % [place] % (Auto) 17.0 % Eos % (Auto) 0.8 % Baso % (Auto) 0.0 % Neut # (Auto) 3.71 (1.4-6.5) K/uL Lymph # (Auto) 0.57 L (1.2-3.4) K/uL [place] # (Auto) 0.89 H (0.11-0.59) K/uL Eos # (Auto) 0.04 (0-0.5) K/uL Baso # (Auto) 0.00 (0-0.2) K/uL Immature Gran # (Auto) 0.04 H (0.00-0.02) K/uL PT 17.1 H (9.0-12.0) Seconds INR 1.7 H (0.9-1.1) ABG pH (7.35-7.45) ABG pCO2 (35-46) mmHg ABG pO2 (80-95) mmHg ABG HCO3 (19-24) mmol/L ABG O2 Saturation (90-95) % ABG Base Excess (-9-1.8) mEq/L Jeff Test (Pos) Barometric Pressure mm/Hg Oxygen Given Sodium (136-145) mmol/L Potassium (3.5-5.1) mmol/L Chloride (98-107) mmol/L Carbon Dioxide (21-32) mmol/L Anion Gap (3-11) BUN (7-18) mg/dl Creatinine (0.6-1.4) mg/dl Est Cr Clr Drug Dosing ml/min Est GFR ( Amer) Est GFR (Non-Af Amer) BUN/Creatinine Ratio (10-20) Glucose (70-99) mg/dl POC Glucose 165 H (70-99) mg/dl Lactate (0.4-2.0) mmol/L Calcium (8.5-10.1) mg/dl Total Bilirubin (0.2-1) mg/dl Direct Bilirubin (0-0.2) mg/dl AST (15-37) U/L ALT (12-78) U/L Alkaline Phosphatase (45-117) U/L Total Protein (6.4-8.2) gm/dl Albumin (3.4-5.0) gm/dl 08/15/20 08/15/20 08/15/20 Range/Units 15:16 15:16 15:16 WBC (4.8-10.8) K/uL RBC (4.7-6.1) M/uL Hgb (14.0-18.0) g/dL Hct (42-52) % MCV (80-100) fL MCH (25-34) pg MCHC (32-36) g/dL RDW Std Deviation (36.4-46.3) fL RDW Coeff of Kelly (11.5-14.5) % Plt Count (130-400) K/uL MPV (7.4-10.4) fL Immature Gran % (Auto) % Neut % (Auto) % Lymph % (Auto) % [place] % (Auto) % Eos % (Auto) % Baso % (Auto) % Neut # (Auto) (1.4-6.5) K/uL Lymph # (Auto) (1.2-3.4) K/uL [place] # (Auto) (0.11-0.59) K/uL Eos # (Auto) (0-0.5) K/uL Baso # (Auto) (0-0.2) K/uL Immature Gran # (Auto) (0.00-0.02) K/uL PT (9.0-12.0) Seconds INR (0.9-1.1) ABG pH 7.51 H* (7.35-7.45) ABG pCO2 28 L (35-46) mmHg ABG pO2 92 (80-95) mmHg ABG HCO3 22 (19-24) mmol/L ABG O2 Saturation 97.8 H (90-95) % ABG Base Excess -0.2 (-9-1.8) mEq/L Jeff Test Pos (Pos) Barometric Pressure 733.1 mm/Hg Oxygen Given Room Air Sodium 129 L (136-145) mmol/L Potassium 4.9 (3.5-5.1) mmol/L Chloride 96 L (98-107) mmol/L Carbon Dioxide 26 (21-32) mmol/L Anion Gap 7.0 (3-11) BUN 34 H (7-18) mg/dl Creatinine 1.61 H (0.6-1.4) mg/dl Est Cr Clr Drug Dosing 75.6 ml/min Est GFR ( Amer) 55.8 Est GFR (Non-Af Amer) 48.1 BUN/Creatinine Ratio 21.1 H (10-20) Glucose 181 H (70-99) mg/dl POC Glucose (70-99) mg/dl Lactate 2.4 H* (0.4-2.0) mmol/L Calcium 8.6 (8.5-10.1) mg/dl Total Bilirubin (0.2-1) mg/dl Direct Bilirubin (0-0.2) mg/dl AST (15-37) U/L ALT (12-78) U/L Alkaline Phosphatase (45-117) U/L Total Protein (6.4-8.2) gm/dl Albumin (3.4-5.0) gm/dl 12/20 Range/Units 14:33 WBC (4.8-10.8) K/uL RBC (4.7-6.1) M/uL Hgb (14.0-18.0) g/dL Hct (42-52) % MCV (80-100) fL MCH (25-34) pg MCHC (32-36) g/dL RDW Std Deviation (36.4-46.3) fL RDW Coeff of Kelly (11.5-14.5) % Plt Count (130-400) K/uL MPV (7.4-10.4) fL Immature Gran % (Auto) % Neut % (Auto) % Lymph % (Auto) % [place] % (Auto) % Eos % (Auto) % Baso % (Auto) % Neut # (Auto) (1.4-6.5) K/uL Lymph # (Auto) (1.2-3.4) K/uL [place] # (Auto) (0.11-0.59) K/uL Eos # (Auto) (0-0.5) K/uL Baso # (Auto) (0-0.2) K/uL Immature Gran # (Auto) (0.00-0.02) K/uL PT (9.0-12.0) Seconds INR (0.9-1.1) ABG pH (7.35-7.45) ABG pCO2 (35-46) mmHg ABG pO2 (80-95) mmHg ABG HCO3 (19-24) mmol/L ABG O2 Saturation (90-95) % ABG Base Excess (-9-1.8) mEq/L Jeff Test (Pos) Barometric Pressure mm/Hg Oxygen Given Sodium (136-145) mmol/L Potassium (3.5-5.1) mmol/L Chloride (98-107) mmol/L Carbon Dioxide (21-32) mmol/L Anion Gap (3-11) BUN (7-18) mg/dl Creatinine (0.6-1.4) mg/dl Est Cr Clr Drug Dosing ml/min Est GFR ( Amer) Est GFR (Non-Af Amer) BUN/Creatinine Ratio (10-20) Glucose (70-99) mg/dl POC Glucose 196 H (70-99) mg/dl Lactate (0.4-2.0) mmol/L Calcium (8.5-10.1) mg/dl Total Bilirubin (0.2-1) mg/dl Direct Bilirubin (0-0.2) mg/dl AST (15-37) U/L ALT (12-78) U/L Alkaline Phosphatase (45-117) U/L Total Protein (6.4-8.2) gm/dl Albumin (3.4-5.0) gm/dl Diagnostic Findings CXR: IMPRESSION: Cardiomegaly with reticular opacities suggestive of pulmonary edema versus interstitial pneumonitis. CT head: IMPRESSION: Motion degraded exam without acute intracranial abnormality identified.
[2020-08-16] MEDS: GABAPENTIN 300 MG CAP PO SCH ×2 (09:24→21:01)
--- NOTE | 2020-08-16 09:34 | Nephrology Consultation ---
Date of Consultation August 16, 2020 Assessment & Plan (1) CHRISTOPH (acute kidney injury): progressive renal failure since May; creatinine 1.3 in June, 1.6 in July as OP. at 1.6 basically since admission; not oliguric and non inflamed urine sediment; DDx includes prerenal versus ATN in the setting of sepsis versus emerging CKD in the setting of obligate diuretics. GN or insterst itial nephritis always possible but lower on differential here. Could consider obstruction but if voiding appropriately (and he appears to be) this is less likely. not a dialysis candidate should need arise but not at a place w/ renal function where [employer] DOCK [employer]PER[employer] needs to be discussed -daily bmp -hold diuretics as tolerated -use albumin if for fluid resuscitation but for now would observe not resuscitate given CXR findings, VS, comorbidities unless clinical needs dictate resuscitation D/W Dr Trevizo. Present on Admission?: Yes (2) Bacteremia due to other bacteria: cont broad spectrum abtx and f/u pending cxs Present on Admission?: Yes (3) Hepatocellular carcinoma: hopice pt; paracentesis dependent Present on Admission?: Yes (4) Encephalopathy: likely multifactorial from sepsis, pain meds, HE >given CXR findings, could consider C19 testing Present on Admission?: Yes (5) Chronic hyponatremia: suspect from volume depletion in the setting of sepsis, altered MS/ presume decreased po w/ more lethargy/pain meds/ aggressive OP diuretics; however possible vol OL on CXR though he is not hypoxic. 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; doubt this explains his encephalopathy, since changes are relatively mild and gradual; correcting at acceptable rate>goal for today is 132, so on target -hold diuretics for today unless worsening respiratory status > in which case would give IV lasix 10-20 mg IV -no further albumin -given improvement do not believe he needs further work up such as serum osms, urine osms, rd urine sodium; however if sodium downtrends significantly would need these Present on Admission?: Yes History of Present Illness Reason for Consultation: CHRISTOPH, hyponatremia Attending Physician: Sulaiman Trevizo MD History of Present Illness 54 y/o M whom I'm asked to see for CHRISTOPH and hyponatremia after he was admitted last evening w/ metabolic encephalopathy due likely to liver disease versus medications. DUE TO COVID MITIGATION EFFORTS, I AM NOT SEEING PATIENTS IN PERSON TODAY; THIS IS CHART REVIEW ONLY AND WILL BE D/W HOSPITALIST ONCE COMPLETE. PMH includes liver cirrhosis c/b thrombocytopenia, esophageal varices, para centesis-dependent ascites and recent dx of hepatocellular CA. He is a hospice patient as of 08/09 after he did not tolerate CTX for liver CA. PMH also remarkable for DM2 on insulin pump, HTN, asthma, depression, chronic pain. He had had a 6L paracentesis on 08/12; he was on 08/13 or 08/14 started on zyprexa and methadone by hospice for better pain control and had decreased MS after first dose of these, w/ another diminished MS after further dosing w/ these meds yesterday. Admission work up remarkable for elevated ammonia at 146, unremarkable head CT; very lethargic and minimally interactive pt on RA per admission H&P. His presenting serum sodium was 126, up to 132 this am; presenting sCreat 1.7 and down to 1.6 this am. His blood cultures have come back 11/28 positive for alpha Strep not enterococcus or pneumoniae. He is on daptomycin, cefepime, flagyl currently; he had 2 bags of albumin overnight. His renal function has been worsenign since May when HCC diagnosed. His creatinien in June was consistently 1.3; up to 1.6 on several checks as OP in June, with sodium gradually trending down from normal values in early June to 126 on 08/13. Allergies Allergy/AdvReac Type Severity Reaction Status Date / Time Penicillins Allergy Severe ANAPHYLAXIS Verified 08/15/20 06:11 morphine Allergy Intermediate Severe Verified 08/15/20 06:11 itching/mouth rash adhesive Allergy Mild rips Verified 08/15/20 06:11 skin/bruise skin aripiprazole Allergy Mild "feeling Verified 08/15/20 06:11 irritable" lithium Allergy Mild Anxiety Verified 08/15/20 06:11 meperidine Allergy Mild pruritis/ra Verified 08/15/20 06:11 sh pregabalin Allergy Mild Anxiety Verified 08/15/20 06:11 quetiapine Allergy Mild Drowsy Verified 08/15/20 06:11 Gold Salts AdvReac Mild Blister Verified 08/15/20 06:11 Home Medications Medication Instructions Recorded Confirmed Type Xifaxan 550 mg PO BID 06/20/18 08/15/20 History FreeStyle Adair 14 Day Sensor #7 ea NS 09/05/19 11/04/19 Rx flash glucose scanning reader #1 ea 09/05/19 11/04/19 History insulin aspart U-100 100 unit/mL See Rx Instructions .ROUTE 09/05/19 08/15/20 History subcutaneous solution .COMPLEX ml mupirocin 2 % topical ointment 1 appln TOP TID PRN 09/05/19 08/15/20 History ondansetron 8 mg PO Q8H PRN 09/07/19 08/15/20 History V-GO 20 #90 kit NS 01/21/20 Rx cimetidine [Tagamet HB] 300 mg PO HS 03/24/20 08/15/20 History spironolactone [Aldactone] 200 mg PO QAM 03/24/20 08/15/20 History ciprofloxacin HCl 500 mg PO DAILY 08/15/20 08/15/20 History furosemide See Rx Instructions .ROUTE .COMPLEX 08/15/20 08/15/20 History gabapentin 300 mg PO BID 08/15/20 08/15/20 History lorazepam 0.5 mg PO TID PRN 08/15/20 08/15/20 History methadone 5 mg PO DAILY 08/15/20 08/15/20 History nystatin 1 applic TOPICAL DAILY PRN 08/15/20 08/15/20 History omeprazole 40 mg PO BID 08/15/20 08/15/20 History oxycodone 5 mg PO Q6H PRN 08/15/20 08/15/20 History prochlorperazine maleate 10 mg PO Q6H PRN 08/15/20 08/15/20 History silver sulfadiazine 1 applic TOPICAL DAILY PRN 08/15/20 08/15/20 History triamcinolone acetonide 1 applic TOPICAL DAILY PRN 08/15/20 08/15/20 History vitamin E 400 unit PO DAILY 08/15/20 08/15/20 History Patient History Medical History (Updated 08/16/20 @ 13:03 by Kristen Vasquez MD) Anxiety Asthma inhaler/nebulizer prn Cardiac murmur as a child Chronic back pain Degenerative disc disease Diabetes mellitus, type 2 Diabetic peripheral neuropathy Esophageal varices hx of banding GERD (gastroesophageal reflux disease) Hearing deficit Hepatocellular carcinoma 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 steatohepatitis) stage 3 Loss of protective sensation of skin of foot Osteoarthritis Prolonged QT interval Sarcoidosis Smoker Spinal stenosis Thrombocytopenia Surgical History History of anesthesia reaction sometimes has difficulty waking up---last EGD took him an hour to wake up History of cardiac cath 2007 @ [facility], no stents History of colonoscopy History of endoscopic sinus surgery History of esophagogastroduodenoscopy (EGD) History of repair of left rotator cuff History of thoracic spinal fusion t10-t12 History of tooth extraction wisdom teeth History of umbilical hernia repair x3 Status post cervical spinal fusion x3 screws, plates in place--normal ROM C3-C7 Status post cholecystectomy Status post right foot surgery complete amputation of great toe and 2nd toe Family History Mother Diabetes Coronary heart disease Father Heart disease Sister Cancer bladder Other No family history of adverse response to anesthesia Social History Smoking Status: Former smoker Cigarettes Per Day: 2; Second Hand Exposure: No; Do You Dip or Chew Tobacco: Yes; Hx Alcohol Use: No Hx Substance Use: No Preferred Language: Azeri Communication Ability: Effective Manager Event Required: No Beliefs That Will Affect Care: None marital status: Current Living Situation: Spouse Feels Safe at Home: Yes Review of Systems Review of Systems: Other (chart review) Physical Exam Physical Exam: PE deferred d/t chart review Results & Data ([facility]) Vital Signs (Past 12 Hours) Vital Signs Temp Pulse Resp BP Pulse Ox 08/16/20 06:53 37.6 C H 108 H 16 115/70 94 08/16/20 05:34 37.8 C H 110 H 18 121/72 94 08/15/20 23:28 39.3 C H 116 H 18 111/66 94 Laboratory Results 08/16/20 06:38 08/16/20 06:38 blood cxs 4/4 as above urine 1015 +nitrites, 1+ bili, trace LE; no bacteria Diagnostic Findings cxr IMPRESSION: Cardiomegaly with reticular opacities suggestive of pulmonary edema versus interstitial pneumonitis. Head CT no acute IC process though +motion artefact CT abd/pelvis w/ con May 2020 Lung bases: The heart is normal in size and without pericardial effusion. The lung bases are clear. A small hiatal hernia is noted. There are esophageal varices. Liver: The contrast-enhanced liver is structures in morphology and markedly heterogeneous in attenuation. There is nodularity of the hepatic surface contour as well as hypertrophy of the left lobe and caudate. There is no intrahepatic biliary ductal dilatation. The hepatic veins and portal veins are patent. There are numerous omental collaterals as well as upper abdominal varices. Caput medusae are noted in the ventral abdominal wall. Gallbladder: Surgically absent noting clips in the gallbladder fossa. Spleen: The spleen is markedly enlarged measuring 26.1 cm in length. Pancreas: Moderately atrophic and grossly unremarkable. Adrenal glands: Unremarkable. Kidneys: The contrast enhanced kidneys demonstrate cortical atrophy and are without hydronephrosis. The kidneys enhance symmetrically. Abdominal vasculature: The abdominal aorta is normal in course and caliber. Bowel: Wall thickening is suggested throughout the colon. No bowel obstruction is identified. The appendix is normal as imaged. Peritoneum: There is a moderate volume of abdominopelvic ascites. No i ntraperitoneal free air is seen. There is evidence of previous ventral hernia repair. Numerous nodules are seen throughout the peritoneum and at the base of the mediastinum. A nodule in the right cardiophrenic region on image #39 measures 2.5 cm. Nodularity along the anterior heart border on image #55 measures up to 3.7 cm. Numerous subcentimeter nodules are present in the upper mesentery. A freight representative 1.4 cm nodule is seen centrally on image #195. Lymphadenopathy: Numerous mesenteric lymph nodes versus nodules are discussed above. There is no pelvic sidewall or inguinal adenopathy.. Pelvic viscera: The prostate gland is diminutive and heterogeneous. The bladder wall appears thickened and trabeculated suggesting chronic outlet obstruction. Skeletal structures: The skeletal structures are osteopenic. Mild lumbosacral spondylosis is observed. There has been laminectomy and posterior fusion at T11- T12. No lytic or blastic lesions are seen. IMPRESSION: 1. There is diffuse colonic wall thickening. Correlate clinically for evidence of a nonspecific colitis. 2. The liver is cirrhotic in morphology and markedly heterogeneous in attenuation. This significantly degrades assessment for underlying hepatic mass lesion. Correlation with serum AFP levels is recommended. 3. There is marked splenomegaly, a moderate volume of abdominopelvic ascites, esophageal varices, caput medusae, as well as omental collaterals/varices. These findings indicate portal hypertension. 4. There is diffuse mesenteric nodularity versus lymphadenopathy. Metastatic disease or a lymphoproliferative disorder is not excluded. 5. Additional findings as above.
--- NOTE | 2020-08-16 12:58 | Surgery Consultation ---
Date of Consultation August 16, 2020 Assessment & Plan (1) Encephalopathy: (2) Ascites: 54-year-old male with history of liver cirrhosis, thrombocytopenia, esophageal varices, ascites, Recently diagnosed hepatocellular carcinoma, diabetes type 2 on insulin pump, hypertension, asthma, obstructive sleep apnea, chronic pain syndrome, depression Presenting with altered mental status at home starting early this morning. plan, base on significant comorbidities ,platelet 50,000, INR 1.7, recommend to transfer to higher level care for consult interventional radiologist to place drainage ascites catheter, D/W hospitalist,sign off today, please call with questions, thanks, Present on Admission?: Yes History of Present Illness Attending Physician: Sulaiman Trevizo MD CC: pt is lethargic History of Present Illness 54-year-old male with history of liver cirrhosis, thrombocytopenia, esophageal varices, ascites, Recently diagnosed hepatocellular carcinoma, diabetes type 2 on insulin pump, hypertension, asthma, obstructive sleep apnea, chronic pain syndrome, depression Presenting with altered mental status at home starting early this morning. History obtained from patient's Megan, was present at the bedside. Patient was admitted to [facility] last May 2020 for possible SBP. He was then diagnosed to have hepatocellular carcinoma and later on had a trial of chemotherapy but did not tolerate secondary to side effects. Hospice care services started last Sunday as per . Patient had paracentesis done last draining 6 L of fluid. Overall, patient was doing fine recently-tolerating diet well, ambulatory, does have generalized pain which is chronic. Last Sunday, hospice care service recommended patient to be started on Zyprexa and methadone for further pain control. He apparently was noted to be very lethargic after receiving the first dose of Zyprexa and methadone. Yesterday the patient was doing fine during the daytime, but after receiving methadone and Zyprexa at night he started to become lethargic again. Earlier this morning the patient was restless and was given Ativan. Since then patient was noted to be lethargic and was then brought to the ER for evaluation. I ( Kristen Vasquez MD ) got a call for consult possible catheter placement for drainage ascites, I reviewed pt's H/P, labs, with pt, pt denies abdominal pain, last remove ascites on 08/12/2020, CT head: No acute process Ammonia level 146 Bilirubin and AST/ALT elevated Hospitalist consulted for admission. On exam the patient was seen sleeping, very lethargic but not in distress. Patient was saturating well on room air. He is arousable with verbal and tactile stimuli, opens his eyes, answers to his name but otherwise confused, drifts back to sleep. No signs of acute respiratory distress, or pain. No other signs or symptoms per patient's . Primary Care Provider: Neha Burgos DO Allergies Allergy/AdvReac Type Severity Reaction Status Date / Time Penicillins Allergy Severe ANAPHYLAXIS Verified 08/15/20 06:11 morphine Allergy Intermediate Severe Verified 08/15/20 06:11 itching/mouth rash adhesive Allergy Mild rips Verified 08/15/20 06:11 skin/bruise skin aripiprazole Allergy Mild "feeling Verified 08/15/20 06:11 irritable" lithium Allergy Mild Anxiety Verified 08/15/20 06:11 meperidine Allergy Mild pruritis/ra Verified 08/15/20 06:11 sh pregabalin Allergy Mild Anxiety Verified 08/15/20 06:11 quetiapine Allergy Mild Drowsy Verified 08/15/20 06:11 Gold Salts AdvReac Mild Blister Verified 08/15/20 06:11 Home Medications Medication Instructions Recorded Confirmed Type Xifaxan 550 mg PO BID 06/20/18 08/15/20 History FreeStyle Adair 14 Day Sensor #7 ea NS 09/05/19 11/04/19 Rx flash glucose scanning reader #1 ea 09/05/19 11/04/19 History insulin aspart U-100 100 unit/mL See Rx Instructions .ROUTE 09/05/19 08/15/20 History subcutaneous solution .COMPLEX ml mupirocin 2 % topical ointment 1 appln TOP TID PRN 09/05/19 08/15/20 History ondansetron 8 mg PO Q8H PRN 09/07/19 08/15/20 History V-GO 20 #90 kit NS 01/21/20 Rx cimetidine [Tagamet HB] 300 mg PO HS 03/24/20 08/15/20 History spironolactone [Aldactone] 200 mg PO QAM 03/24/20 08/15/20 History ciprofloxacin HCl 500 mg PO DAILY 08/15/20 08/15/20 History furosemide See Rx Instructions .ROUTE .COMPLEX 08/15/20 08/15/20 History gabapentin 300 mg PO BID 08/15/20 08/15/20 History lorazepam 0.5 mg PO TID PRN 08/15/20 08/15/20 History methadone 5 mg PO DAILY 08/15/20 08/15/20 History nystatin 1 applic TOPICAL DAILY PRN 08/15/20 08/15/20 History omeprazole 40 mg PO BID 08/15/20 08/15/20 History oxycodone 5 mg PO Q6H PRN 08/15/20 08/15/20 History prochlorperazine maleate 10 mg PO Q6H PRN 08/15/20 08/15/20 History silver sulfadiazine 1 applic TOPICAL DAILY PRN 08/15/20 08/15/20 History triamcinolone acetonide 1 applic TOPICAL DAILY PRN 08/15/20 08/15/20 History vitamin E 400 unit PO DAILY 08/15/20 08/15/20 History Past Med/Surg History Medical History (Updated 08/15/20 @ 18:55 by Sulaiman Trevizo MD) Anxiety Asthma inhaler/nebulizer prn Cardiac murmur as a child Chronic back pain Degenerative disc disease Diabetes mellitus, type 2 Diabetic peripheral neuropathy Esophageal varices hx of banding GERD (gastroesophageal reflux disease) Hearing deficit 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 steatohepatitis) stage 3 Loss of protective sensation of skin of foot Osteoarthritis Prolonged QT interval Sarcoidosis Smoker Spinal stenosis Thrombocytopenia Surgical History History of anesthesia reaction sometimes has difficulty waking up---last EGD took him an hour to wake up History of cardiac cath 2008 @ [facility], no stents History of colonoscopy History of endoscopic sinus surgery History of esophagogastroduodenoscopy (EGD) History of repair of left rotator cuff History of thoracic spinal fusion t10-t12 History of tooth extraction wisdom teeth History of umbilical hernia repair x3 Status post cervical spinal fusion x3 screws, plates in place--normal ROM C3-C7 Status post cholecystectomy Status post right foot surgery complete amputation of great toe and 2nd toe Family History Mother Diabetes Coronary heart disease Father Heart disease Sister Cancer bladder Other No family history of adverse response to anesthesia Social History Smoking Status: Former smoker Cigarettes Per Day: 2; Second Hand Exposure: No; Do You Dip or Chew Tobacco: Yes; Hx Alcohol Use: No Hx Substance Use: No Preferred Language: Mosotho Communication Ability: Effective Talent Consultant Required: No Beliefs That Will Affect Care: None marital status: Current Living Situation: Spouse Feels Safe at Home: Yes Assistive Devices: Cane Review of Systems Review of Systems: All systems reviewed & are unremarkable except as noted in Subjective and Unobtainable due to cognitive status Allergies Allergy/AdvReac Type Severity Reaction Status Date / Time Penicillins Allergy Severe ANAPHYLAXIS Verified 08/15/20 06:11 morphine Allergy Intermediate Severe Verified 08/15/20 06:11 itching/mouth rash adhesive Allergy Mild rips Verified 08/15/20 06:11 skin/bruise skin aripiprazole Allergy Mild "feeling Verified 08/15/20 06:11 irritable" lithium Allergy Mild Anxiety Verified 08/15/20 06:11 meperidine Allergy Mild pruritis/ra Verified 08/15/20 06:11 sh pregabalin Allergy Mild Anxiety Verified 08/15/20 06:11 quetiapine Allergy Mild Drowsy Verified 08/15/20 06:11 Gold Salts AdvReac Mild Blister Verified 08/15/20 06:11 Home Medications Medication Instructions Recorded Confirmed Type Xifaxan 550 mg PO BID 06/20/18 08/15/20 History FreeStyle Adair 14 Day Sensor #7 ea NS 09/05/19 11/04/19 Rx flash glucose scanning reader #1 ea 09/05/19 11/04/19 History insulin aspart U-100 100 unit/mL See Rx Instructions .ROUTE 09/05/19 08/15/20 History subcutaneous solution .COMPLEX ml mupirocin 2 % topical ointment 1 appln TOP TID PRN 09/05/19 08/15/20 History ondansetron 8 mg PO Q8H PRN 09/07/19 08/15/20 History V-GO 20 #90 kit NS 01/21/20 Rx cimetidine [Tagamet HB] 300 mg PO HS 03/24/20 08/15/20 History spironolactone [Aldactone] 200 mg PO QAM 03/24/20 08/15/20 History ciprofloxacin HCl 500 mg PO DAILY 08/15/20 08/15/20 History furosemide See Rx Instructions .ROUTE .COMPLEX 08/15/20 08/15/20 History gabapentin 300 mg PO BID 08/15/20 08/15/20 History lorazepam 0.5 mg PO TID PRN 08/15/20 08/15/20 History methadone 5 mg PO DAILY 08/15/20 08/15/20 History nystatin 1 applic TOPICAL DAILY PRN 08/15/20 08/15/20 History omeprazole 40 mg PO BID 08/15/20 08/15/20 History oxycodone 5 mg PO Q6H PRN 08/15/20 08/15/20 History prochlorperazine maleate 10 mg PO Q6H PRN 08/15/20 08/15/20 History silver sulfadiazine 1 applic TOPICAL DAILY PRN 08/15/20 08/15/20 History triamcinolone acetonide 1 applic TOPICAL DAILY PRN 08/15/20 08/15/20 History vitamin E 400 unit PO DAILY 08/15/20 08/15/20 History Patient History Medical History (Updated 08/16/20 @ 13:03 by Kristen Vasquez MD) Anxiety Asthma inhaler/nebulizer prn Cardiac murmur as a child Chronic back pain Degenerative disc disease Diabetes mellitus, type 2 Diabetic peripheral neuropathy Esophageal varices hx of banding GERD (gastroesophageal reflux disease) Hearing deficit Hepatocellular carcinoma 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 steatohepatitis) stage 3 Loss of protective sensation of skin of foot Osteoarthritis Prolonged QT interval Sarcoidosis Smoker Spinal stenosis Thrombocytopenia Surgical History History of anesthesia reaction sometimes has difficulty waking up---last EGD took him an hour to wake up History of cardiac cath 2007 @ [facility], no stents History of colonoscopy History of endoscopic sinus surgery History of esophagogastroduodenoscopy (EGD) History of repair of left rotator cuff History of thoracic spinal fusion t10-t12 History of tooth extraction wisdom teeth History of umbilical hernia repair x3 Status post cervical spinal fusion x3 screws, plates in place--normal ROM C3-C7 Status post cholecystectomy Status post right foot surgery complete amputation of great toe and 2nd toe Family History Mother Diabetes Coronary heart disease Father Heart disease Sister Cancer bladder Other No family history of adverse response to anesthesia Social History Smoking Status: Former smoker Cigarettes Per Day: 2; Second Hand Exposure: No; Do You Dip or Chew Tobacco: Yes; Hx Alcohol Use: No Hx Substance Use: No Preferred Language: Mosotho Communication Ability: Impaired Talent Consultant Required: No Beliefs That Will Affect Care: None marital status: Current Living Situation: Spouse Feels Safe at Home: Yes Physical Exam Constitutional: WD/WN, vitals as above well developed and + ill appearing Eyes: PERRL, conjunctivae normal, anicteric sclerae ENMT: external ear and nose normal, oropharynx normal Neck: trachea midline, no thyromegaly Respiratory: normal respiratory effort, lungs clear to auscultation normal respiratory effort Cardiovascular: RRR, no murmur, no edema Gastrointestinal (Abdomen): normal bowel sounds, soft, nontender, no hepatosplenomegaly Percussion/Palpation: abdomen soft distend with ascites +, no tenderness, BS + Musculoskeletal: no cyanosis or clubbing, extremities motor strength 5/5 Skin: no rashes, warm and dry Neurologic: awake Psychiatric: Orientation: oriented x 3 Results & Data ([facility]) Vital Signs (Past 12 Hours) Vital Signs Temp Pulse Resp BP Pulse Ox 08/16/20 11:24 36.8 C 102 H 14 116/72 97 08/16/20 06:53 37.6 C H 108 H 16 115/70 94 08/16/20 05:34 37.8 C H 110 H 18 121/72 94 Laboratory Results Abnormal lab results 08/15/20 08/15/20 08/15/20 Range/Units 14:33 15:16 15:16 RBC (4.7-6.1) M/uL Hgb (14.0-18.0) g/dL Hct (42-52) % RDW Std Deviation (36.4-46.3) fL RDW Coeff of Kelly (11.5-14.5) % Plt Count (130-400) K/uL Lymph # (Auto) (1.2-3.4) K/uL [place] # (Auto) (0.11-0.59) K/uL Immature Gran # (Auto) (0.00-0.02) K/uL PT (9.0-12.0) Seconds INR (0.9-1.1) ABG pH 7.51 H* (7.35-7.45) ABG pCO2 28 L (35-46) mmHg ABG O2 Saturation 97.8 H (90-95) % Sodium 129 L (136-145) mmol/L Chloride 96 L (98-107) mmol/L BUN 34 H (7-18) mg/dl Creatinine 1.61 H (0.6-1.4) mg/dl BUN/Creatinine Ratio 21.1 H (10-20) Glucose 181 H (70-99) mg/dl POC Glucose 196 H (70-99) mg/dl Lactate (0.4-2.0) mmol/L Total Bilirubin (0.2-1) mg/dl Direct Bilirubin (0-0.2) mg/dl AST (15-37) U/L Alkaline Phosphatase (45-117) U/L Total Protein (6.4-8.2) gm/dl Albumin (3.4-5.0) gm/dl 08/15/20 08/15/20 08/16/20 Range/Units 15:16 20:37 06:38 RBC 3.23 L (4.7-6.1) M/uL Hgb 9.8 L (14.0-18.0) g/dL Hct 29.2 L (42-52) % RDW Std Deviation 62.8 H (36.4-46.3) fL RDW Coeff of Kelly 19.3 H (11.5-14.5) % Plt Count 50 L (130-400) K/uL Lymph # (Auto) 0.57 L (1.2-3.4) K/uL [place] # (Auto) 0.89 H (0.11-0.59) K/uL Immature Gran # (Auto) 0.04 H (0.00-0.02) K/uL PT (9.0-12.0) Seconds INR (0.9-1.1) ABG pH (7.35-7.45) ABG pCO2 (35-46) mmHg ABG O2 Saturation (90-95) % Sodium (136-145) mmol/L Chloride (98-107) mmol/L BUN (7-18) mg/dl Creatinine (0.6-1.4) mg/dl BUN/Creatinine Ratio (10-20) Glucose (70-99) mg/dl POC Glucose 165 H (70-99) mg/dl Lactate 2.4 H* (0.4-2.0) mmol/L Total Bilirubin (0.2-1) mg/dl Direct Bilirubin (0-0.2) mg/dl AST (15-37) U/L Alkaline Phosphatase (45-117) U/L Total Protein (6.4-8.2) gm/dl Albumin (3.4-5.0) gm/dl 08/16/20 08/16/20 08/16/20 Range/Units 06:38 06:38 08:10 RBC (4.7-6.1) M/uL Hgb (14.0-18.0) g/dL Hct (42-52) % RDW Std Deviation (36.4-46.3) fL RDW Coeff of Kelly (11.5-14.5) % Plt Count (130-400) K/uL Lymph # (Auto) (1.2-3.4) K/uL [place] # (Auto) (0.11-0.59) K/uL Immature Gran # (Auto) (0.00-0.02) K/uL PT 17.1 H (9.0-12.0) Seconds INR 1.7 H (0.9-1.1) ABG pH (7.35-7.45) ABG pCO2 (35-46) mmHg ABG O2 Saturation (90-95) % Sodium 132 L (136-145) mmol/L Chloride (98-107) mmol/L BUN 39 H (7-18) mg/dl Creatinine 1.58 H (0.6-1.4) mg/dl BUN/Creatinine Ratio 24.5 H (10-20) Glucose 152 H (70-99) mg/dl POC Glucose 158 H (70-99) mg/dl Lactate (0.4-2.0) mmol/L Total Bilirubin 5.1 H (0.2-1) mg/dl Direct Bilirubin 2.7 H (0-0.2) mg/dl AST 123 H (15-37) U/L Alkaline Phosphatase 185 H (45-117) U/L Total Protein 6.0 L (6.4-8.2) gm/dl Albumin 2.6 L (3.4-5.0) gm/dl 08/16/20 Range/Units 11:04 RBC (4.7-6.1) M/uL Hgb (14.0-18.0) g/dL Hct (42-52) % RDW Std Deviation (36.4-46.3) fL RDW Coeff of Kelly (11.5-14.5) % Plt Count (130-400) K/uL Lymph # (Auto) (1.2-3.4) K/uL [place] # (Auto) (0.11-0.59) K/uL Immature Gran # (Auto) (0.00-0.02) K/uL PT (9.0-12.0) Seconds INR (0.9-1.1) ABG pH (7.35-7.45) ABG pCO2 (35-46) mmHg ABG O2 Saturation (90-95) % Sodium (136-145) mmol/L Chloride (98-107) mmol/L BUN (7-18) mg/dl Creatinine (0.6-1.4) mg/dl BUN/Creatinine Ratio (10-20) Glucose (70-99) mg/dl POC Glucose 189 H (70-99) mg/dl Lactate (0.4-2.0) mmol/L Total Bilirubin (0.2-1) mg/dl Direct Bilirubin (0-0.2) mg/dl AST (15-37) U/L Alkaline Phosphatase (45-117) U/L Total Protein (6.4-8.2) gm/dl Albumin (3.4-5.0) gm/dl Diagnostic Findings ULTRASOUND GUIDED DIAGNOSTIC AND THERAPEUTIC PARACENTESIS CLINICAL HISTORY: ascites COMPARISON STUDY: Ultrasound guided paracentesis June 04, 2020. PROCEDURE: The risks, benefits, and alternatives to the procedure were discussed with the patient including the risk of bleeding, infection and injury to adjacent structures. The patient agreed to the procedure and informed written consent was obtained. Following real-time ultrasound localization, the skin of the right lower quadrant was prepped and draped. Following local anesthesia with Xylocaine, the sheath paracentesis needle was inserted and approximately 6 liters of straw-colored fluid was removed by vacuum suction. The patient tolerated the procedure well and no immediate complications were evident. IMPRESSION: Ultrasound-guided paracentesis with removal of 6 liters of ascites. 1 L of ascites was sent to the laboratory for analysis as ordered.
[2020-08-16] MEDS ORDERED: LORazepam 0.5 MG TAB PO PRN (14:36)
--- NOTE | 2020-08-16 14:57 | Ultrasound Report ---
ULTRASOUND GUIDED DIAGNOSTIC AND THERAPEUTIC PARACENTESIS CLINICAL HISTORY: ascites COMPARISON STUDY: Ultrasound guided paracentesis August 12, 2020. PROCEDURE: The risks, benefits, and alternatives to the procedure were discussed with the patient inc luding the risk of bleeding, infection and injury to adjacent structures. The patient agreed to the procedure and informed written consent was obtained. Following real-time ultrasound localization, the skin of the left lower quadrant was prepped and draped. Following local anesthesia with Xylocaine, t he sheath paracentesis needle was inserted and approximately 4 liters of straw-colored fluid was [place] savi by vacuum suction. The patient tolerated the procedure well and no immediate complications were evident. IMPRESSION: Ultrasound-guided paracentesis with removal of 4 liters of ascites. 1 L of ascites was s ent to the laboratory for analysis as ordered. ACT 112: Negative or not required by law. Electronically signed by: Angel Garrett M.D. 08/16/2020 2:55 PM
[2020-08-16 15:26] LABS: Total Protein Peritoneal Fluid 0.5 g/dl
[2020-08-16] MEDS: DAPTOmycin 600 MG in SYRINGE 0 ML IV SCH (16:30)
[2020-08-16 16:40] LABS: Appearance Peritoneal Fluid HAZY; Basophils, Fluid 0 %; Color Peritoneal Fluid PALE YELLOW; Eosinophils, Fluid 0 %; Lymphocytes, Fluid 59 %; Mono,Macrophage,Mesothelial 28 %; Neutrophils, Fluid 13 %; RBC Peritoneal Fluid (A) 3000 /uL; WBC Peritoneal Fluid (A) 259 /ul (0-300)
[2020-08-16] MEDS ORDERED: Nursing to Pharmacy Communication SCH (16:45)
--- NOTE | 2020-08-16 17:07 | Hospitalist Progress Note ---
Date of Service August 16, 2020 Assessment & Plan (1) Encephalopathy: 54-year-old male with history of liver cirrhosis, thrombocytopenia, esophageal varices, ascites Hepatocellular carcinoma, diabetes type 2, on insulin pump, hypertension, asthma, obstructive sleep apnea, chronic pain syndrome, depression Presenting with altered mental status which started earlier this morning. Multifactorial encephalopathy, secondary to: CT head negative for acute process ABG: No respiratory acidosis Appears to be have resolved today Management of etiologies noted below Polypharmacy stop methadone and Zyprexa Resume usual oxycodone, gabapentin and Ativan Hold off on baclofen today Hepatic encephalopathy Ammonia level 146 Lactulose enema ordered Multiple bowel movements yesterday, and several this morning Usual p.o. lactulose, rifaximin resumed Possible SBP On daily ciprofloxacin for SBP prophylaxis Status post paracentesis today draining 4 L, WBC 259 Currently on daptomycin, aztreonam, Flagyl Lactic acid improving Possible alpha strep bacteremia With a fever of 39.3 last night Blood cultures 08/14/2020: Positive for alpha strep bacteremia x2 bottles Repeat blood culture 08/15/2020: Pending Echocardiogram ordered: Pending ID consulted Awaiting recommendations Liver cirrhosis with recurrent ascites, thrombocytopenia, esophageal varices Status post paracentesis draining 4 L Discussed with weight recorder, will give albumin 25% 12.5 g once today Discussed with parts department supervisor Dr. Berg, recommend placement of Pleurx catheter General surgery consulted: Recommending Pleurx catheter to be placed by interventional radiologist as an outpatient INR 1.7, no bleeding, monitor LFTs elevated, monitor-elevated but appears to be stable Monitor platelet level-50 K today, no signs of bleeding Protonix IV twice daily Acute renal failure, hyponatremia, in the setting of liver cirrhosis Possible underlying hepatorenal syndrome Nephrology service consulted INR remains at 1.5 Hold off on Lasix and Aldactone today Diabetes type 2 On insulin pump Pharmacy glycemic control consulted Hypertension Blood pressure on the lower side Monitor Asthma Respiratory status stable Chest x-ray showing possible pulmonary edema Covid Rios ID test negative Obstructive sleep apnea ABG no respiratory acidosis Not use BiPAP at home per DVT prophylaxis Anticoagulation contraindicated secondary to thrombocytopenia, history of esophageal varices SCDs contraindicated secondary to bilateral lower extremity edema CODE STATUS DNR per patient's Disposition Patient lives with his at home, hospice services started last Sunday Anticipate discharge to home with continued hospice services upon discharge Plan of care discussed with patient and patient's Meagn in detail and at length All questions were answered They are understanding, agreeable, comfortable with plan of care Patient very tearful, expressing desire to go home today Explained that work-up and treatment are not yet completed at this point And that I would like him to have proper treatment including antibiotics for his underlying infection, so that he will remain comfortable and will be treated properly at home, preventing any readmission Discussed with patient extensively at length Also discussed with patient's over the phone Patient and understand, agreeable, comfortable with the plan of Admission and Anticipated Discharge Date Admission Date: August 15, 2020 Subjective Follow-up for follow-up for encephalopathy, etc. Seen resting in bedside chair, oriented x3, awake and alert, answers all questions appropriately States he feels fine overall Denies fevers or chills, abdominal pain, nausea vomiting, headache, dizziness, chest pain, shortness of breath, problems with urination or bowel movement Tolerated diet well Had at least 3-4 loose bowel movements today No other symptoms Review of Systems Review of Systems: All systems reviewed & are unremarkable except as noted in Subjective Physical Exam Physical Exam: General- oriented x 3, not in distress, speaks in sentences with no effort or accessory muscle use Eyes- anicteric Neck- no JVD Lungs- clear breath sounds bilaterally, no rales/wheezes Heart- normal rate, regular rhythm; no murmurs Abdomen- normal bowel sounds, mildly distended, soft, nontender Extremities- no pretibial edema, no calf tenderness Neuro- alert, oriented x 3; no gross focal neurologic deficits Skin- warm & dry Results & Data Results & Data ([facility]) Vital Signs (Past 12 Hours) Vital Signs Temp Pulse Resp BP Pulse Ox 08/16/20 15:56 36.6 C 101 H 19 111/71 99 08/16/20 14:49 102 H 16 120/75 99 08/16/20 11:24 36.8 C 102 H 14 116/72 97 08/16/20 06:53 37.6 C H 108 H 16 115/70 94 08/16/20 05:34 37.8 C H 110 H 18 121/72 94 Laboratory Results Laboratory Results - last 24 hr 08/15/20 08/16/20 08/16/20 20:37 06:38 06:38 WBC 5.25 RBC 3.23 L Hgb 9.8 L Hct 29.2 L MCV 90.4 MCH 30.3 MCHC 33.6 RDW Std Deviation 62.8 H RDW Coeff of Kelly 19.3 H Plt Count 50 L MPV 8.8 Immature Gran % (Auto) 0.8 Neut % (Auto) 70.5 Lymph % (Auto) 10.9 [place] % (Auto) 17.0 Eos % (Auto) 0.8 Baso % (Auto) 0.0 Neut # (Auto) 3.71 Lymph # (Auto) 0.57 L [place] # (Auto) 0.89 H Eos # (Auto) 0.04 Baso # (Auto) 0.00 Immature Gran # (Auto) 0.04 H PT 17.1 H INR 1.7 H Sodium Potassium Chloride Carbon Dioxide Anion Gap BUN Creatinine Est Cr Clr Drug Dosing Est GFR ( Amer) Est GFR (Non-Af Amer) BUN/Creatinine Ratio Glucose POC Glucose 165 H Calcium Total Bilirubin Direct Bilirubin AST ALT Alkaline Phosphatase Total Protein Albumin Fluid Neutrophils % Fluid Lymphocytes % Fluid Eosinophils % Fluid Basophils % Fluid Meso/Macro/[place] % Peritoneal Color Peritoneal Appearance Peritoneal WBC Peritoneal RBC Peritoneal Other Cells Peritoneal Tot Protein 08/16/20 08/16/20 08/16/20 06:38 08:10 11:04 WBC RBC Hgb Hct MCV MCH MCHC RDW Std Deviation RDW Coeff of Kelly Plt Count MPV Immature Gran % (Auto) Neut % (Auto) Lymph % (Auto) [place] % (Auto) Eos % (Auto) Baso % (Auto) Neut # (Auto) Lymph # (Auto) [place] # (Auto) Eos # (Auto) Baso # (Auto) Immature Gran # (Auto) PT INR Sodium 132 L Potassium 4.6 Chloride 99 Carbon Dioxide 24 Anion Gap 9.0 BUN 39 H Creatinine 1.58 H Est Cr Clr Drug Dosing 75.4 Est GFR ( Amer) 57.0 Est GFR (Non-Af Amer) 49.2 BUN/Creatinine Ratio 24.5 H Glucose 152 H POC Glucose 158 H 189 H Calcium 8.7 Total Bilirubin 5.1 H Direct Bilirubin 2.7 H AST 123 H ALT 68 Alkaline Phosphatase 185 H Total Protein 6.0 L Albumin 2.6 L Fluid Neutrophils % Fluid Lymphocytes % Fluid Eosinophils % Fluid Basophils % Fluid [place]/Macro/[place] % Peritoneal Color Peritoneal Appearance Peritoneal WBC Peritoneal RBC Peritoneal Other Cells Peritoneal Tot Protein 12/21/20 12/21/20 16:39 Unknown WBC RBC Hgb Hct MCV MCH MCHC RDW Std Deviation RDW Coeff of Kelly Plt Count MPV Immature Gran % (Auto) Neut % (Auto) Lymph % (Auto) [place] % (Auto) Eos % (Auto) Baso % (Auto) Neut # (Auto) Lymph # (Auto) [place] # (Auto) Eos # (Auto) Baso # (Auto) Immature Gran # (Auto) PT INR Sodium Potassium Chloride Carbon Dioxide Anion Gap BUN Creatinine Est Cr Clr Drug Dosing Est GFR ( Amer) Est GFR (Non-Af Amer) BUN/Creatinine Ratio Glucose POC Glucose 182 H Calcium Total Bilirubin Direct Bilirubin AST ALT Alkaline Phosphatase Total Protein Albumin Fluid Neutrophils % 13 Fluid Lymphocytes % 59 Fluid Eosinophils % 0 Fluid Basophils % 0 Fluid Meso/Macro/[place] % 28 Peritoneal Color PALE YELLOW Peritoneal Appearance HAZY Peritoneal WBC 259 Peritoneal RBC 3000 Peritoneal Other Cells 0.0 Peritoneal Tot Protein 0.5
[2020-08-16] MEDS ORDERED: ALBUMIN 25% 12.5 GM/50 ML VIAL IV ONE (18:00)
[2020-08-16] MEDS ORDERED: INSULIN ASPART 100 UNITS/ML 3 ML PEN SC SCH (19:45)
[2020-08-16] MEDS: INSULIN GLARGINE SOLOSTAR 100 UNITS/ML 3 ML PEN SC SCH (21:02)
[2020-08-17] MEDS: metroNIDAZOLE 500 MG/100 ML BAG IV SCH ×2 (01:41→08:54)
[2020-08-17] MEDS: CEFEPIME 2,000 MG in SYRINGE 0 ML IV SCH (04:57)
[2020-08-17] MEDS: UNIT DOSE COMPOUND PR SCH ×2 (04:58→14:36)
[2020-08-17 06:59] LABS: Hematocrit (blood only) 29.7 % (42-52); Mean Corpuscular Hemoglobin 30.2 pg (25-34); Mean Corpuscular Hgb Conc 33.7 g/dL (32-36); Mean Corpuscular Volume 89.7 fL (80-100); RDW Coefficient of Variation 18.7 % (11.5-14.5); RDW Standard Deviation 61.2 fL (36.4-46.3); Red Blood Count 3.31 M/uL (4.7-6.1); White Blood Count 3.31 K/uL (4.8-10.8)
[2020-08-17 07:07] LABS: Mean Platelet Volume 8.5 fL (7.4-10.4); Platelet Count 45 K/uL (130-400)
[2020-08-17 07:18] LABS: INR 1.6 (0.9-1.1)
[2020-08-17 07:26] LABS: Basophils # (auto) 0.01 K/uL (0-0.2); Basophils % (auto) 0.3 %; Echinocytes 1+; Eosinophils # (auto) 0.07 K/uL (0-0.5); Eosinophils % (auto) 2.1 %; Immature Granulocytes # (auto) 0.05 K/uL (0.00-0.02); Immature Granulocytes % (auto) 1.5 %; Lymphocytes # (auto) 0.59 K/uL (1.2-3.4); Lymphocytes % (auto) 17.8 %; Monocytes # (auto) 0.51 K/uL (0.11-0.59); Monocytes % (auto) 15.4 %; Neutrophils # (auto) 2.08 K/uL (1.4-6.5); Neutrophils % (auto) 62.9 %
[2020-08-17 07:34] LABS: Albumin Level 2.7 gm/dl (3.4-5.0); BUN Creatinine Ratio 29.8 (10-20); Bilirubin Direct 2.4 mg/dl (0-0.2); Calcium 8.6 mg/dl (8.5-10.1); Creatinine Clr Calc Pharmacy 90.8 ml/min; Est GFR (African American) 72.2; Est GFR (Non-African American) 62.3; Potassium 4.2 mmol/L (3.5-5.1)
[2020-08-17 07:44] LABS: Bilirubin,Total 4.3 mg/dl (0.2-1); Total Protein 6.2 gm/dl (6.4-8.2)
[2020-08-17] MEDS: INSULIN ASPART 100 UNITS/ML 3 ML PEN SC SCH ×2 (07:56→12:19)
[2020-08-17] MEDS: LACTULOSE SYRUP 30 GM/45 ML UDP PO SCH ×2 (08:53→14:36)
[2020-08-17] MEDS: GABAPENTIN 300 MG CAP PO SCH (08:54)
[2020-08-17] MEDS: rifAXIMin 550 MG TABLET PO SCH (08:54)
[2020-08-17] MEDS: PANTOprazole 40 MG TAB PO SCH (08:54)
[2020-08-17] MEDS ORDERED: cefTRIAXone SODIUM 2,000 MG in DEXTROSE 5% 50 ML IV SCH (13:00)
--- NOTE | 2020-08-17 13:49 | Hospitalist Progress Note ---
Date of Service August 17, 2020 Assessment & Plan (1) Encephalopathy: 54-year-old male with history of liver cirrhosis, thrombocytopenia, esophageal varices, ascites Hepatocellular carcinoma, diabetes type 2, on insulin pump, hypertension, asthma, obstructive sleep apnea, chronic pain syndrome, depression Presenting with altered mental status which started earlier this morning. Multifactorial encephalopathy, secondary to: CT head negative for acute process ABG: No respiratory acidosis Resolved Management of etiologies noted below Polypharmacy stopped methadone and Zyprexa Resume usual oxycodone, gabapentin and Ativan Hepatic encephalopathy Ammonia level 146 Lactulose enema ordered Multiple bowel movements since admission continue Usual p.o. lactulose, rifaximin Alpha strep bacteremia With a fever of 39.3 last night Blood cultures 08/15/2020: Positive for alpha strep bacteremia x2 bottles Repeat blood culture 08/16/2020: Pending Transthoracic echocardiogram ordered: no mention of vegetation [facility] ID consulted: recommend IV Ceftriaxone x 2 more weeks from 08/16/20 Blood culture from 08/16/2020 is positive, may need further work-up for source of infection Weekly CBCs and CMP while on IV antibiotics per PCP Possible SBP On daily ciprofloxacin for SBP prophylaxis Status post paracentesis draining 4 L, WBC 259 given daptomycin + Flagyl fever resolved Lactic acid improving will be discharged on Ceftriaxone 2g IV x 2 weeks Liver cirrhosis with recurrent ascites, thrombocytopenia, esophageal varices Status post paracentesis draining 4 L Discussed with protective signal operator, given albumin 25% 12.5 g after transfusion Discussed with pipe out worker Dr. Berg, recommend placement of Pleurx catheter General surgery consulted: Recommending Pleurx catheter to be placed by interventional radiologist as an outpatient INR 1.7, no bleeding LFTs elevated, monitor-elevated but appears to be stable Monitor platelet level- 45K today, no signs of bleeding Protonix IV twice daily given Acute renal failure, hyponatremia, in the setting of liver cirrhosis Possible underlying hepatorenal syndrome Nephrology service consulted INR remains at 1.6 held Lasix and Aldactone while admitted resume on discharge Diabetes type 2 On insulin pump Pharmacy glycemic control consulted Hypertension Blood pressure improved Asthma Respiratory status stable Chest x-ray showing possible pulmonary edema Covid Rios ID test negative Obstructive sleep apnea ABG no respiratory acidosis Not use BiPAP at home per DVT prophylaxis Anticoagulation contraindicated secondary to thrombocytopenia, history of esophageal varices SCDs contraindicated secondary to bilateral lower extremity edema CODE STATUS DNR per patient's Disposition Patient lives with his at home, hospice services started last Sunday Anticipate discharge to home with continued hospice services upon discharge Plan of care discussed with patient and patient's Megan in detail and at length All questions were answered They are understanding, agreeable, comfortable with plan of care Admission and Anticipated Discharge Date Admission Date: August 15, 2020 Subjective Follow-up for encephalopathy, etc. Seen in ambulating the hallways, comfortable Did not seen resting in bed, comfortable, no distress, in good spirits, oriented x3, awake and alert States he feels much better today overall No abdominal pain, nausea vomiting, positive loose BMs this morning Denies fevers or chills, headache, dizziness, palpitations, chest pain No bleeding, no leg pain No other symptoms States that he is ready and patient is repeating being discharged to go home today and be with his family Review of Systems Review of Systems: All systems reviewed & are unremarkable except as noted in Subjective Physical Exam Physical Exam: General- oriented x 3, not in distress, speaks in sentences with no effort or accessory muscle use Eyes- (+) icterus Neck- no JVD Lungs- clear breath sounds bilaterally, no rales/wheezes Heart- normal rate, regular rhythm; no murmurs Abdomen- normal bowel sounds, nondistended, soft, nontender Extremities- trace pretibial edema, no calf tenderness Neuro- alert, oriented x 3; no gross focal neurologic deficits Skin- warm & dry Results & Data Results & Data ([facility]) Vital Signs (Past 12 Hours) Vital Signs Temp Pulse Pulse Resp BP Pulse Ox 08/17/20 12:36 37.0 C 98 H 20 124/63 95 08/17/20 08:32 36.8 C 96 H 18 129/72 99 08/17/20 07:00 89 08/17/20 03:21 36.6 C 96 H 18 134/79 99 Laboratory Results Laboratory Results - last 24 hr 08/16/20 08/16/20 08/16/20 16:39 20:18 Unknown WBC RBC Hgb Hct MCV MCH MCHC RDW Std Deviation RDW Coeff of Kelly Plt Count MPV Immature Gran % (Auto) Neut % (Auto) Lymph % (Auto) [place] % (Auto) Eos % (Auto) Baso % (Auto) Neut # (Auto) Lymph # (Auto) [place] # (Auto) Eos # (Auto) Baso # (Auto) Immature Gran # (Auto) Echinocytes PT INR Sodium Potassium Chloride Carbon Dioxide Anion Gap BUN Creatinine Est Cr Clr Drug Dosing Est GFR ( Amer) Est GFR (Non-Af Amer) BUN/Creatinine Ratio Glucose POC Glucose 182 H 205 H Calcium Total Bilirubin Direct Bilirubin AST ALT Alkaline Phosphatase Total Protein Albumin Fluid Neutrophils % 13 Fluid Lymphocytes % 59 Fluid Eosinophils % 0 Fluid Basophils % 0 Fluid Meso/Macro/[place] % 28 Peritoneal Color PALE YELLOW Peritoneal Appearance HAZY Peritoneal WBC 259 Peritoneal RBC 3000 Peritoneal Other Cells 0.0 Peritoneal Tot Protein 0.5 08/17/20 08/17/20 08/17/20 06:28 06:28 06:28 WBC 3.31 L RBC 3.31 L Hgb 10.0 L Hct 29.7 L MCV 89.7 MCH 30.2 MCHC 33.7 RDW Std Deviation 61.2 H RDW Coeff of Kelly 18.7 H Plt Count 45 L MPV 8.5 Immature Gran % (Auto) 1.5 Neut % (Auto) 62.9 Lymph % (Auto) 17.8 [place] % (Auto) 15.4 Eos % (Auto) 2.1 Baso % (Auto) 0.3 Neut # (Auto) 2.08 Lymph # (Auto) 0.59 L [place] # (Auto) 0.51 Eos # (Auto) 0.07 Baso # (Auto) 0.01 Immature Gran # (Auto) 0.05 H Echinocytes 1+ PT 16.0 H INR 1.6 H Sodium 130 L Potassium 4.2 Chloride 97 L Carbon Dioxide 25 Anion Gap 8.0 BUN 39 H Creatinine 1.30 Est Cr Clr Drug Dosing 90.8 Est GFR ( Amer) 72.2 Est GFR (Non-Af Amer) 62.3 BUN/Creatinine Ratio 29.8 H Glucose 129 H POC Glucose Calcium 8.6 Total Bilirubin 4.3 H Direct Bilirubin 2.4 H AST 121 H ALT 64 Alkaline Phosphatase 183 H Total Protein 6.2 L Albumin 2.7 L Fluid Neutrophils % Fluid Lymphocytes % Fluid Eosinophils % Fluid Basophils % Fluid Meso/Macro/[place] % Peritoneal Color Peritoneal Appearance Peritoneal WBC Peritoneal RBC Peritoneal Other Cells Peritoneal Tot Protein 08/17/20 08/17/20 07:54 11:37 WBC RBC Hgb Hct MCV MCH MCHC RDW Std Deviation RDW Coeff of Kelly Plt Count MPV Immature Gran % (Auto) Neut % (Auto) Lymph % (Auto) [place] % (Auto) Eos % (Auto) Baso % (Auto) Neut # (Auto) Lymph # (Auto) [place] # (Auto) Eos # (Auto) Baso # (Auto) Immature Gran # (Auto) Echinocytes PT INR Sodium Potassium Chloride Carbon Dioxide Anion Gap BUN Creatinine Est Cr Clr Drug Dosing Est GFR ( Amer) Est GFR (Non-Af Amer) BUN/Creatinine Ratio Glucose POC Glucose 224 H 210 H Calcium Total Bilirubin Direct Bilirubin AST ALT Alkaline Phosphatase Total Protein Albumin Fluid Neutrophils % Fluid Lymphocytes % Fluid Eosinophils % Fluid Basophils % Fluid Meso/Macro/[place] % Peritoneal Color Peritoneal Appearance Peritoneal WBC Peritoneal RBC Peritoneal Other Cells Peritoneal Tot Protein
[2020-08-17] MEDS ORDERED: FUROSEMIDE 40 MG TAB PO ONE (13:55)
[2020-08-17] MEDS ORDERED: SPIRONOLACTONE 100 MG TAB PO SCH (14:30)
--- NOTE | 2020-08-17 14:43 | Nephrology Consultation ---
Date of Consultation August 17, 2020 Assessment & Plan (1) CHRISTOPH (acute kidney injury): progressive renal failure since May; creatinine 1.3 in June, 1.6 in July as OP. at 1.6 basically since admission; not oliguric and non inflamed urine sediment; Likley prerenal as his function have improved with albumin. -Unlikley GN or insterstitial nephritis always possible but lower on d ifferential here. -not a dialysis candidate should need arise as DNR/DNI, -daily bmp -hold diuretics as tolerated, this can be resumed at discharged. -use albumin if for fluid resuscitation carefully but for now would observe not resuscitate given CXR findings, VS, comorbidities unless clinical needs dictate resuscitation (2) Bacteremia due to other bacteria: cont broad spectrum abtx and f/u pending cxs ID on board. renally dose Abx (3) Hepatocellular carcinoma: hopice pt; paracentesis dependent (4) Encephalopathy: likely multifactorial from sepsis, pain meds, HE -Resolved with fluid and abx, (5) Chronic hyponatremia: Most likley from volume depletion in the setting of sepsis, altered MS/ presume decreased po w/ more lethargy/pain meds/ aggressive OP diuretics; - corerction on target 130 today -hold diuretics for today unless worsening respiratory status , can be started on discharge. -Would avoid further albumin. -given improvement do not believe he needs further work up such as serum osms, urine osms, rd urine sodium; however if sodium downtrends significantly would need these History of Present Illness Reason for Consultation: Acute kidney injury, hyponatremia Attending Physician: Sulaiman Trevizo MD History of Present Illness 54 y/o M whom I'm asked to see for CHRISTOPH and hyponatremia after he was admitted last evening w/ metabolic encephalopathy due likely to liver disease versus medications. PMH includes liver cirrhosis c/b thrombocytopenia, esophageal varices, paracentesis-dependent ascites and recent dx of hepatocellular CA. He is a hospice patient as of 08/09 after he did not tolerate CTX for liver CA. PMH als o remarkable for DM2 on insulin pump, HTN, asthma, depression, chronic pain. He had had a 6L paracentesis on 08/12; he was on 08/13 or 08/14 started on zyprexa and methadone by hospice for better pain control and had decreased MS after first dose of these, w/ another diminished MS after further dosing w/ these meds Admission work up remarkable for elevated ammonia at 146, unremarkable head CT; very lethargic and minimally interactive pt on RA per admission H&P. His presenting serum sodium was 126, up to 132 this am; presenting sCreat 1.7 and down to 1.6 this am. His blood cultures have come back 11/28 positive for alpha Strep not enterococcus or pneumoniae. He is on daptomycin, cefepime, flagyl currently; he had 2 bags of albumin overnight. His renal function has been worsening since May when HCC diagnosed. His creatinine in June was consistently 1.3; up to 1.6 on several checks as OP in June, with sodium gradually trending down from normal values in early June to 126 on 08/13. On review today, he was alert and oriented, serum creatinine improved to 1.3, sodium 130. He has been mobilizing around with a walker, did not complain any shortness of breath, no nausea , vomiting or abdominal pain. Allergies Allergy/AdvReac Type Severity Reaction Status Date / Time Penicillins Allergy Severe ANAPHYLAXIS Verified 08/15/20 06:11 morphine Allergy Intermediate Severe Verified 08/15/20 06:11 itching/mouth rash adhesive Allergy Mild rips Verified 08/15/20 06:11 skin/bruise skin aripiprazole Allergy Mild "feeling Verified 08/15/20 06:11 irritable" lithium Allergy Mild Anxiety Verified 08/15/20 06:11 meperidine Allergy Mild pruritis/ra Verified 08/15/20 06:11 sh pregabalin Allergy Mild Anxiety Verified 08/15/20 06:11 quetiapine Allergy Mild Drowsy Verified 08/15/20 06:11 Gold Salts AdvReac Mild Blister Verified 08/15/20 06:11 Home Medications Medication Instructions Recorded Confirmed Type Xifaxan 550 mg PO BID 06/20/18 08/15/20 History FreeStyle Adair 14 Day Sensor #7 ea NS 09/05/19 11/04/19 Rx flash glucose scanning reader #1 ea 09/05/19 11/04/19 History insulin aspart U-100 100 unit/mL See Rx Instructions .ROUTE 09/05/19 08/15/20 History subcutaneous solution .COMPLEX ml mupirocin 2 % topical ointment 1 appln TOP TID PRN 09/05/19 08/15/20 History ondansetron 8 mg PO Q8H PRN 09/07/19 08/15/20 History V-GO 20 #90 kit NS 01/21/20 Rx cimetidine [Tagamet HB] 300 mg PO HS 03/24/20 08/15/20 History spironolactone [Aldactone] 200 mg PO QAM 03/24/20 08/15/20 History furosemide See Rx Instructions .ROUTE .COMPLEX 08/15/20 08/15/20 History gabapentin 300 mg PO BID 08/15/20 08/15/20 History lorazepam 0.5 mg PO TID PRN 08/15/20 08/15/20 History nystatin 1 applic TOPICAL DAILY PRN 08/15/20 08/15/20 History omeprazole 40 mg PO BID 08/15/20 08/15/20 History oxycodone 5 mg PO Q6H PRN 08/15/20 08/15/20 History prochlorperazine maleate 10 mg PO Q6H PRN 08/15/20 08/15/20 History silver sulfadiazine 1 applic TOPICAL DAILY PRN 08/15/20 08/15/20 History triamcinolone acetonide 1 applic TOPICAL DAILY PRN 08/15/20 08/15/20 History vitamin E 400 unit PO DAILY 08/15/20 08/15/20 History ceftriaxone 2 g IV DAILY #13 ea 08/17/20 Rx Patient History Medical History (Updated 08/16/20 @ 13:03 by Kristen Vasquez MD) Anxiety Asthma inhaler/nebulizer prn Cardiac murmur as a child Chronic back pain Degenerative disc disease Diabetes mellitus, type 2 Diabetic peripheral neuropathy Esophageal varices hx of banding GERD (gastroesophageal reflux disease) Hearing deficit Hepatocellular carcinoma 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 steatohepatitis) stage 3 Loss of protective sensation of skin of foot Osteoarthritis Prolonged QT interval Sarcoidosis Smoker Spinal stenosis Thrombocytopenia Surgical History History of anesthesia reaction sometimes has difficulty waking up---last EGD took him an hour to wake up History of cardiac cath 2007 @ [facility], no stents History of colonoscopy History of endoscopic sinus surgery History of esophagogastroduodenoscopy (EGD) History of repair of left rotator cuff History of thoracic spinal fusion t10-t12 History of tooth extraction wisdom teeth History of umbilical hernia repair x3 Status post cervical spinal fusion x3 screws, plates in place--normal ROM C3-C7 Status post cholecystectomy Status post right foot surgery complete amputation of great toe and 2nd toe Family History Mother Diabetes Coronary heart disease Father Heart disease Sister Cancer bladder Other No family history of adverse response to anesthesia Social History Smoking Status: Former smoker Cigarettes Per Day: 2; Second Hand Exposure: No; Do You Dip or Chew Tobacco: Yes; Hx Alcohol Use: No Hx Substance Use: No Preferred Language: Belgian Communication Ability: Impaired Nuisance Wildlife Control Operator Required: No Beliefs That Will Affect Care: None marital status: Current Living Situation: Spouse Feels Safe at Home: Yes Assistive Devices: Walker Review of Systems Review of Systems: All systems reviewed & are unremarkable except as noted in HPI & below Physical Exam Physical Exam: General- oriented x 3, not in distress Eyes- (+) icterus Neck- no JVD Lungs- clear breath sounds bilaterally, no rales/wheezes Heart- normal rate, regular rhythm; no murmurs Abdomen- normal bowel sounds, distended, soft, nontender Extremities- Pretibial edema, no calf tenderness Neuro- alert, oriented x 3; no gross focal neurologic deficits Results & Data ([facility]) Vital Signs (Past 12 Hours) Vital Signs Temp Pulse Pulse Resp BP Pulse Ox 08/17/20 12:36 37.0 C 98 H 20 124/63 95 08/17/20 08:32 36.8 C 96 H 18 129/72 99 08/17/20 07:00 89 08/17/20 03:21 36.6 C 96 H 18 134/79 99 Laboratory Results 08/17/20 06:28 08/17/20 06:28
--- NOTE | 2020-08-17 14:58 | Nephrology Consultation ---
Date of Consultation August 17, 2020 History of Present Illness Attending Physician: Sulaiman Trevizo MD Allergies Allergy/AdvReac Type Severity Reaction Status Date / Time Penicillins Allergy Severe ANAPHYLAXIS Verified 08/15/20 06:11 morphine Allergy Intermediate Severe Verified 08/15/20 06:11 itching/mouth rash adhesive Allergy Mild rips Verified 08/15/20 06:11 skin/bruise skin aripiprazole Allergy Mild "feeling Verified 08/15/20 06:11 irritable" lithium Allergy Mild Anxiety Verified 08/15/20 06:11 meperidine Allergy Mild pruritis/ra Verified 08/15/20 06:11 sh pregabalin Allergy Mild Anxiety Verified 08/15/20 06:11 quetiapine Allergy Mild Drowsy Verified 08/15/20 06:11 Gold Salts AdvReac Mild Blister Verified 08/15/20 06:11 Home Medications Medication Instructions Recorded Confirmed Type Xifaxan 550 mg PO BID 06/20/18 08/15/20 History FreeStyle Adair 14 Day Sensor #7 ea NS 09/05/19 11/04/19 Rx flash glucose scanning reader #1 ea 09/05/19 11/04/19 History insulin aspart U-100 100 unit/mL See Rx Instructions .ROUTE 09/05/19 08/15/20 History subcutaneous solution .COMPLEX ml mupirocin 2 % topical ointment 1 appln TOP TID PRN 09/05/19 08/15/20 History ondansetron 8 mg PO Q8H PRN 09/07/19 08/15/20 History V-GO 20 #90 kit NS 01/21/20 Rx cimetidine [Tagamet HB] 300 mg PO HS 03/24/20 08/15/20 History spironolactone [Aldactone] 200 mg PO QAM 03/24/20 08/15/20 History furosemide See Rx Instructions .ROUTE .COMPLEX 08/15/20 08/15/20 History gabapentin 300 mg PO BID 08/15/20 08/15/20 History lorazepam 0.5 mg PO TID PRN 08/15/20 08/15/20 History nystatin 1 applic TOPICAL DAILY PRN 08/15/20 08/15/20 History omeprazole 40 mg PO BID 08/15/20 08/15/20 History oxycodone 5 mg PO Q6H PRN 08/15/20 08/15/20 History prochlorperazine maleate 10 mg PO Q6H PRN 08/15/20 08/15/20 History silver sulfadiazine 1 applic TOPICAL DAILY PRN 08/15/20 08/15/20 History triamcinolone acetonide 1 applic TOPICAL DAILY PRN 08/15/20 08/15/20 History vitamin E 400 unit PO DAILY 08/15/20 08/15/20 History ceftriaxone 2 g IV DAILY #13 ea 08/17/20 Rx Patient History Medical History (Updated 08/16/20 @ 13:03 by Kristen Vasquez MD) Anxiety Asthma inhaler/nebulizer prn Cardiac murmur as a child Chronic back pain Degenerative disc disease Diabetes mellitus, type 2 Diabetic peripheral neuropathy Esophageal varices hx of banding GERD (gastroesophageal reflux disease) Hearing deficit Hepatocellular carcinoma 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 steatohepatitis) stage 3 Loss of protective sensation of skin of foot Osteoarthritis Prolonged QT interval Sarcoidosis Smoker Spinal stenosis Thrombocytopenia Surgical History History of anesthesia reaction sometimes has difficulty waking up---last EGD took him an hour to wake up History of cardiac cath 2007 @ [facility], no stents History of colonoscopy History of endoscopic sinus surgery History of esophagogastroduodenoscopy (EGD) History of repair of left rotator cuff History of thoracic spinal fusion t10-t12 History of tooth extraction wisdom teeth History of umbilical hernia repair x3 Status post cervical spinal fusion x3 screws, plates in place--normal ROM C3-C7 Status post cholecystectomy Status post right foot surgery complete amputation of great toe and 2nd toe Family History Mother Diabetes Coronary heart disease Father Heart disease Sister Cancer bladder Other No family history of adverse response to anesthesia Social History Smoking Status: Former smoker Cigarettes Per Day: 2; Second Hand Exposure: No; Do You Dip or Chew Tobacco: Yes; Hx Alcohol Use: No Hx Substance Use: No Preferred Language: Syriac Communication Ability: Impaired Land Resource Specialist Required: No Beliefs That Will Affect Care: None marital status: Current Living Situation: Spouse Feels Safe at Home: Yes Assistive Devices: Walker Results & Data ([facility]) Vital Signs (Past 12 Hours) Vital Signs Temp Pulse Pulse Resp BP BP Pulse Ox 08/17/20 14:52 37.0 C 98 H 20 124/63 103/65 95 08/17/20 12:36 37.0 C 98 H 20 124/63 95 08/17/20 08:32 36.8 C 96 H 18 129/72 99 08/17/20 07:00 89 08/17/20 03:21 36.6 C 96 H 18 134/79 99
--- NOTE | 2020-08-17 18:27 | Discharge Summary ---
Date of Service August 17, 2020 Admission HPI Per Admitting Provider 54-year-old male with history of liver cirrhosis, thrombocytopenia, esophageal varices, ascites, Recently diagnosed hepatocellular carcinoma, diabetes type 2 on insulin pump, hypertension, asthma, obstructive sleep apnea, chronic pain syndrome, depression Presenting with altered mental status at home starting early this morning. History obtained from patient's Megan, was present at the bedside. Patient was admitted to [facility] last May 2020 for possible SBP. He was then diagnosed to have hepatocellular carcinoma and later on had a trial of chemotherapy but did not tolerate secondary to side effects. Hospice care services started last Sunday as per . Patient had paracentesis done last draining 6 L of fluid. Overall, patient was doing fine recently-tolerating diet well, ambulatory, does have generalized pain which is chronic. Last Sunday, hospice care service recommended patient to be started on Zyprexa and methadone for further pain control. He apparently was noted to be very lethargic after receiving the first dose of Zyprexa and methadone. Yesterday the patient was doing fine during the daytime, but after receiving methadone and Zyprexa at night he started to become lethargic again. Earlier this morning the patient was restless and was given Ativan. Since then patient was noted to be lethargic and was then brought to the ER for evaluation. CT head: No acute process Ammonia level 146 Bilirubin and AST/ALT elevated Hospitalist consulted for admission. On exam the patient was seen sleeping, very lethargic but not in distress. Patient was saturating well on room air. He is arousable with verbal and tactile stimuli, opens his eyes, answers to his name but otherwise confused, drifts back to sleep. No signs of acute respiratory distress, or pain. No other signs or symptoms per patient's . Admission Exam Per Admitting Provider General- oriented x 1, not in distress, breathing with no effort or accessory muscle use Head- atraumatic Eyes- PERRL, EOMI, positive icterus ENT-dry oral mucosa Neck- supple, no JVD, no adenopathy, no thyromegaly; carotids +2/2, no bruits appreciated Lungs- clear to auscultation bilaterally, no rales/wheezes Heart- normal rate, regular rhythm; no murmur, no gallop, no rub appreciated Abdomen- normal bowel sounds, mildly distended, soft, nontender, no masses or hepatosplenomegaly Extremities-mild pretibial edema, no calf tenderness; peripheral pulses intact Neuro-lethargic; no other gross focal neurologic deficits Skin- warm & dry Principal Diagnosis Toxic encephalopathy, multifactorial secondary to polypharmacy, hepatic encephalopathy, bacteremia, possible SBP Discharge Exam General- oriented x 3, not in distress, speaks in sentences with no effort or accessory muscle use Eyes- (+) icterus Neck- no JVD Lungs- clear breath sounds bilaterally, no rales/wheezes Heart- normal rate, regular rhythm; no murmurs Abdomen- normal bowel sounds, nondistended, soft, nontender Extremities- trace pretibial edema, no calf tenderness Neuro- alert, oriented x 3; no gross focal neurologic deficits Skin- warm & dry Discharge Data Allergies Allergy/AdvReac Type Severity Reaction Status Date / Time Penicillins Allergy Severe ANAPHYLAXIS Verified 08/15/20 06:11 morphine Allergy Intermediate Severe Verified 08/15/20 06:11 itching/mouth rash adhesive Allergy Mild rips Verified 08/15/20 06:11 skin/bruise skin aripiprazole Allergy Mild "feeling Verified 08/15/20 06:11 irritable" lithium Allergy Mild Anxiety Verified 08/15/20 06:11 meperidine Allergy Mild pruritis/ra Verified 08/15/20 06:11 sh pregabalin Allergy Mild Anxiety Verified 08/15/20 06:11 quetiapine Allergy Mild Drowsy Verified 08/15/20 06:11 Gold Salts AdvReac Mild Blister Verified 08/15/20 06:11 Consultations 08/15/20 10:06 ED Decision to Admit Stat 08/15/20 14:45 Consult Gastroenterology Routine Consult General Surgery Routine Consult Nephrology Routine 08/16/20 08:25 Consult Infectious Diseases Routine 08/16/20 11:56 Consult General Surgery Routine Ordered Studies 08/15/20 07:03 CT head/brain wo con Stat Motion degraded exam. The study was then repeated which was also motion degraded. No acute intracranial hemorrhage, midline shift, intracranial mass, hydrocephalus, territorial ischemia or abnormal extra-axial collection. The calvarium is intact. The paranasal sinuses, mastoid air cells, and middle ear cavities are clear. IMPRESSION: Motion degraded exam without acute intracranial abnormality identified. 08/16/20 14:00 US paracentesis abd w/image Routine PROCEDURE: The risks, benefits, and alternatives to the procedure were discussed with the patient including the risk of bleeding, infection and injury to adj acent structures. The patient agreed to the procedure and informed written consent was obtained. Following real-time ultrasound localization, the skin of the left lower quadrant was prepped and draped. Following local anesthesia with Xylocaine, the sheath paracentesis needle was inserted and approximately 4 liters of straw-colored fluid was removed by vacuum suction. The patient tolerated the procedure well and no immediate complications were evident. IMPRESSION: Ultrasound-guided paracentesis with removal of 4 liters of ascites. 1 L of ascites was sent to the laboratory for analysis as ordered. Hospital Course (1) Encephalopathy: 54-year-old male with history of liver cirrhosis, thrombocytopenia, esophageal varices, ascites Hepatocellular carcinoma, diabetes type 2, on insulin pump, hypertension, asthma, obstructive sleep apnea, chronic pain syndrome, depression Presenting with altered mental status which started earlier this morning. Multifactorial encephalopathy, secondary to: CT head negative for acute process ABG: No respiratory acidosis Resolved Management of etiologies noted below Polypharmacy stopped methadone and Zyprexa Resume usual oxycodone, gabapentin and Ativan Hepatic encephalopathy Ammonia level 146 Lactulose enema ordered Multiple bowel movements since admission continue Usual p.o. lactulose, rifaximin Alpha strep bacteremia With a fever of 39.3 last night Blood cultures 08/15/2020: Positive for alpha strep bacteremia x2 bottles Repeat blood culture 08/16/2020: Pending Transthoracic echocardiogram ordered: no mention of vegetation [facility] ID consulted: recommend IV Ceftriaxone x 2 more weeks from 08/16/20 Blood culture from 08/16/2020 is positive, may need further work-up for source of infection Weekly CBCs and CMP while on IV antibiotics per PCP Possible SBP On daily ciprofloxacin for SBP prophylaxis Status post paracentesis draining 4 L, WBC 259 given daptomycin + Flagyl fever resolved Lactic acid improving will be discharged on Ceftriaxone 2g IV x 2 weeks Liver cirrhosis with recurrent ascites, thrombocytopenia, esophageal varices Status post paracentesis draining 4 L Discussed with rink rat, given albumin 25% 12.5 g after transfusion Discussed with household refrigeration mechanic Dr. Berg, recommend placement of Pleurx catheter General surgery consulted: Recommending Pleurx catheter to be placed by [facility] radiologist as an outpatient INR 1.7, no bleeding LFTs elevated, monitor-elevated but appears to be stable Monitor platelet level- 45K today, no signs of bleeding Protonix IV twice daily given Acute renal failure, hyponatremia, in the setting of liver cirrhosis Possible underlying hepatorenal syndrome Nephrology service consulted INR remains at 1.6 held Lasix and Aldactone while admitted resume on discharge Diabetes type 2 On insulin pump Pharmacy glycemic control consulted Hypertension Blood pressure improved Asthma Respiratory status stable Chest x-ray showing possible pulmonary edema Covid Rios ID test negative Obstructive sleep apnea ABG no respiratory acidosis Not use BiPAP at home per DVT prophylaxis Anticoagulation contraindicated secondary to thrombocytopenia, history of esophageal varices SCDs contraindicated secondary to bilateral lower extremity edema CODE STATUS DNR per patient's Disposition Patient lives with his at home, hospice services started last Sunday Anticipate discharge to home with continued hospice services upon discharge Plan of care discussed with patient and patient's Megan in detail and at length All questions were answered They are understanding, agreeable, comfortable with plan of care Total Time Total Time Spent Total Time Spent (In Minutes): 60 minutes Discharge Plan Discharge Items Patient Disposition: Home - Home Health Services Reason For Visit: ENCEPHALOPATHY Discharge Diagnosis: Toxic encephalopathy, likely multifactorial secondary to methadone and Zyprexa, bloodstream infection, Hepatic encephalopathy Activity: Resume your previous activity Activity Comment: Resume gradually as tolerated Lifting: Gradually increase as tolerated Non-emergency contact: Primary Care Provider and Med Surg Nurse Call non-emergency contact if: you have any medication questions, your symptoms worsen, your pain is not controlled, your pain is worsening, your pain is unusual for you, your pain is concerning for you and you have a fever Follow-up/Referrals: Lázaro Gonzalez DO [Outside Practitioners] - 08/23/20 12:00 pm Diet: Carb Consistent or DM2 and Low Sodium (2gm) Addtl Attending Provider Instructions: Your new medication is ceftriaxone 2 g IV daily for 13 more days. This is an antibiotic to treat your bloodstream infection. Home health services will be arranged at home to assist with antibiotic administration. You will need blood work including CBC and CMP weekly while on antibiotic treatment Please continue to take adequate fluids and take a probiotic/yogurt daily for at least 1 month. Stop methadone and Zyprexa. Stop Ciprofloxacin for now. Resume after Ceftriaxone course has been completed i n 13 days. Follow-up with primary care physician in 1 week as outlined above. Follow-up with interventional radiologist for Pleurx placement as scheduled. Follow-up with household refrigeration mechanic as scheduled. Please call primary care physician/gastrologist or return to the ER immediately if with worsening of symptoms, Including abdominal distention, leg swelling, shortness of breath, fevers or chills, nausea vomiting, weakness, change in mental status. Pending Studies at Discharge: Yes Studies:: Repeat blood work including CBC and CMP every week per primary care physician. Stand-Alone Forms: My [facility] [employer], Smoking Cessation Medications and DC Order Prescriptions: New ceftriaxone 2 gram recon soln 2 g IV DAILY Qty: 13 RF: 0 Continued (DME) V-GO 20 Device See Rx Instructions .ROUTE .MEDSUPPLY Qty: 90 RF: 3 (DME) FreeStyle Adair 14 Day [place] Misc See Rx Instructions .ROUTE .MEDSUPPLY Qty: 1 RF: 0 mupirocin 2 % ointment 1 appln TOP TID PRN (Reason: Rash) RF: 0 (DME) FreeStyle Adair 14 Day Sensor Kit See Rx Instructions .ROUTE .MEDSUPPLY Qty: 7 RF: 3 Xifaxan 550 mg Tablet 550 mg PO BID RF: 0 Novolog U-100 Insulin aspart 100 unit/mL solution See Rx Instructions .ROUTE .COMPLEX RF: 0 cimetidine [Tagamet HB] 200 mg Tablet 300 mg PO HS RF: 0 spironolactone [Aldactone] 50 mg Tablet 200 mg PO QAM RF: 0 silver sulfadiazine 1 % Cream 1 applic TOPICAL DAILY PRN (Reason: NEEDED) RF: 0 prochlorperazine maleate 10 mg tablet 10 mg PO Q6H PRN (Reason: Nausea) RF: 0 omeprazole 40 mg Capsule,Delayed Release(Dr/Ec) 40 mg PO BID RF: 0 triamcinolone acetonide 0.1 % Cream 1 applic TOPICAL DAILY PRN (Reason: Skin Irritation) RF: 0 lorazepam 0.5 mg Tablet 0.5 mg PO TID PRN (Reason: RESTLESSNESS) RF: 0 nystatin 100,000 unit/gram Cream 1 applic TOPICAL DAILY PRN (Reason: NEEDED) RF: 0 gabapentin 300 mg Capsule 300 mg PO BID RF: 0 vitamin E 400 unit Capsule 400 unit PO DAILY RF: 0 oxycodone 5 mg Tablet 5 mg PO Q6H PRN (Reason: Pain) RF: 0 furosemide 40 mg tablet See Rx Instructions .ROUTE .COMPLEX RF: 0 ondansetron 8 mg tablet,disintegrating 8 mg PO Q8H PRN (Reason: Nausea) RF: 0 Discontinued ciprofloxacin HCl 500 mg tablet 500 mg PO DAILY RF: 0 methadone 5 mg Tablet 5 mg PO DAILY RF: 0 Discharge Orders: Discharge Order (Routine); Ordered 08/17/20 Ordered By: Sulaiman Newsome/Other Patient Handouts: Ceftriaxone injection Admission Data Admit Date/Time: 08/15/20 11:28 Attending Provider: Sulaiman Trevizo Admit Provider: Sulaiman Trevizo Primary Care Provider: Neha Burgos Other Providers: Sulaiman Trevizo ; Clinton Gaming ; Leonel Weldon ; Shirlene Medel ; [facility] ; Shon Dangelo ; Antoinette Rosenberg ; Osvaldo Worthington I. ; Rei Rosales II ; Shakira Espinosa ; Delfino Osuna Other Interventions: Discharge Summary Assessment (RN) Last Done: 08/17/20 14:52
== END 2020-08-17 15:54 | disposition home health service (06) | DRG 371 ==
LOC: ED 05:51 → 2S 11:28

== ENCOUNTER 2020-09-11 09:46 | Inpatient (IN) ==
--- NOTE | 2020-09-11 10:13 | Emergency Department Note ---
Impression & Plan Acute hyponatremia ED Provider Note Provider: Nilay Magdaleno MD DATE OF SERVICE:09/11/2020 CHIEF COMPLAINT: Lab abnormalities HISTORY OF PRESENT ILLNESS: Patient is a 54-year-old gentleman unfortunate past medical history of hepatic cellular carcinoma stage IV with history of liver dysfunction, diabetes, COPD, thrombocytopenia, hepatic encephalopathy in the past with admission in July here at the hospital presenting today referred from outpatient setting secondary to abnormal lab work. Patient states he was informed by his doctor today that he had a low sodium of 117 and was called to present to the emergency room. Patient states he had blood work drawn yesterday. Patient denies feeling weak, dizzy, confused, or having significant nausea or vomiting. Patient states he little bit of abdominal discomfort but is quite manageable and not abnormal for him. Denies any fever. States he still draining some fluid from a Pleurx catheter on the right every day and his breathing is stable. States he is due for paracentesis over the coming week. Denies decreased intake or decreased urination. Patient denies a known history of severe hyponatremia. States has been taking his medications at home. REVIEW OF SYSTEMS: A total of 10 review of systems was obtained and negative except as stated above in the HPI. PAST MEDICAL HISTORY: As noted above MEDICATIONS: Reviewed home medication list SOCIAL HISTORY: Lives at home with PHYSICAL EXAM: GENERAL: alert and oriented in no acute distress on stretcher but appears fatigued and chronically ill Head: normocephalic and atraumatic EYES: No injection or discharge. NECK: Trachea midline. Supple. LUNGS: Airway patent. No retractions. Breath sounds clear anteriorly with a right Pleurx catheter in place. HEART: Regular rate and rhythm. No chest wall tenderness ABDOMEN: Moderately distended but not tender or peritoneal abdomen noted. SKIN: Acyanotic, warm, dry, without rashes EXTREMITIES: 2-3+ lower extremity edema bilaterally NEUROLOGICAL: No focal deficits. No aphasia. No facial droop or slurred speech. EK bpm normal sinus rhythm. No PVC or PAC. No acute ST segment elevation or depression. QTC 450. CONTINUOUS CARDIAC MONITORING: was ordered and showed a heart rate of 90 bpm in normal sinus rhythm Patient's laboratory studies and imaging reviewed. Differential includes Infection, dehydration, metabolic abnormality, hypo/hyperglycemia, electrolyte disturbance, anemia, hypoxia, cardiac sources, intracerebral event, toxicologic, neurologic, as well as other pathologies. IMPRESSION/MEDICAL DECISION MAKING: Patient presents due to critically low sodium in the outpatient setting. Review ed recent admission last month here as well as blood work. Patient had low sodium of 124 discharge at the end of July. Patient referred here for further care but denies significant symptoms on my initial exam. Does appear somewhat chronically ill and fatigued related to his liver and oncological process. Does not have any peritonitis or fevers and I doubt sepsis or systemic infection. Repeat laboratory studies were completed. EKG completed here without significant abnormality. Troponin is not elevated and doubt this is ACS/AK. Repeat labs do show significant sodium of 118 with mild hyperkalemia 5.5. Looks like a bit of an CHRISTOPH with creatinine 1.79 a BUN of 65 today. LFTs mildly elevated but not far from previous. Ammonia is not elevated. Thrombocytopenia appears stable. Slightly worsened anemia. Leukopenia stable. Urine without signs of infection and serum and urine awesome's as well as urine sodium were added. Given a small bolus of lactated Ringer's here and question of some element of hypovolemia is present related to his liver dysfunction hypoalbuminemia. Discussed with the patient. He voiced some disappointment with recommendation for further care in the hospital given his acute hyponatremia but was in agreement after discussion of risks and benefits. H ospitalist contacted. DIAGNOSIS: Hyponatremia DISPOSITION: Hospitalist will evaluate Patient was agreeable with this plan. Past Med/Surg History Medical History (Updated 09/11/20 @ 11:26 by Nilay Magdaleno M.D.) Anxiety Asthma inhaler/nebulizer prn Cardiac murmur as a child Chronic back pain Degenerative disc disease Diabetes mellitus, type 2 Diabetic peripheral neuropathy Esophageal varices hx of banding GERD (gastroesophageal reflux disease) Hearing deficit Hepatocellular carcinoma 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 steatohepatitis) stage 3 Loss of protective sensation of skin of foot Osteoarthritis Prolonged QT interval Sarcoidosis Smoker Spinal stenosis Thrombocytopenia Surgical History History of anesthesia reaction sometimes has difficulty waking up---last EGD took him an hour to wake up History of cardiac cath 2007 @ [facility], no stents History of colonoscopy History of endoscopic sinus surgery History of esophagogastroduodenoscopy (EGD) History of repair of left rotator cuff History of thoracic spinal fusion t10-t12 History of tooth extraction wisdom teeth History of umbilical hernia repair x3 Status post cervical spinal fusion x3 screws, plates in place--normal ROM C3-C7 Status post cholecystectomy Status post right foot surgery complete amputation of great toe and 2nd toe Family History Mother Diabetes Coronary heart disease Father Heart disease Sister Cancer bladder Other No family history of adverse response to anesthesia Social History Smoking Status: Light tobacco smoker Cigarettes Per Day: 2; Second Hand Exposure: No; Hx Alcohol Use: No Hx Substance Use: No Preferred Language: Hebrew Communication Ability: Effective Supervisor Stripping Required: No Beliefs That Will Affect Care: None marital status: Current Living Situation: Spouse Other Information That Helps Us Care for You: No Feels Safe at Home: Yes Assistive Devices: Glasses Allergies Allergies Allergy/AdvReac Type Severity Reaction Status Date / Time Penicillins Allergy Severe ANAPHYLAXIS Verified 09/11/20 11:18 morphine Allergy Intermediate Severe Verified 09/11/20 11:18 itching/mouth rash adhesive Allergy Mild rips Verified 09/11/20 11:18 skin/bruise skin aripiprazole Allergy Mild "feeling Verified 09/11/20 11:18 irritable" lithium Allergy Mild Anxiety Verified 09/11/20 11:18 meperidine Allergy Mild pruritis/ra Verified 09/11/20 11:18 sh pregabalin Allergy Mild Anxiety Verified 09/11/20 11:18 quetiapine Allergy Mild Drowsy Verified 09/11/20 11:18 Gold Salts AdvReac Mild Blister Verified 09/11/20 11:18 Home Meds Home Medications Medication Instructions Recorded Confirmed Xifaxan 550 mg PO BID 06/20/18 09/11/20 flash glucose scanning reader #1 ea 09/05/19 08/26/20 insulin aspart U-100 100 unit/mL See Rx Instructions .ROUTE 09/05/19 09/11/20 subcutaneous solution .COMPLEX ml ondansetron 8 mg PO Q8H PRN 09/07/19 09/11/20 spironolactone [Aldactone] 150 mg PO QAM 03/24/20 09/11/20 gabapentin 300 mg PO TID 08/15/20 09/11/20 lorazepam 0.5 mg PO TID PRN 08/15/20 09/11/20 nystatin 1 applic TOPICAL DAILY PRN 08/15/20 09/11/20 omeprazole 40 mg PO BID 08/15/20 09/11/20 oxycodone 10 mg PO Q6H PRN 08/15/20 09/11/20 prochlorperazine maleate 10 mg PO Q6H PRN 08/15/20 09/11/20 silver sulfadiazine 1 applic TOPICAL DAILY PRN 08/15/20 09/11/20 triamcinolone acetonide 1 applic TOPICAL DAILY PRN 08/15/20 09/11/20 carisoprodol [Soma] 350 mg PO QID PRN 09/11/20 09/11/20 cimetidine 300 mg PO DAILY 09/11/20 09/11/20 ciprofloxacin HCl 500 mg PO DAILY 09/11/20 09/11/20 furosemide 40 mg PO HS 09/11/20 09/11/20 furosemide 80 mg PO DAILY 09/11/20 09/11/20 mirtazapine 30 mg PO HS 09/11/20 09/11/20 trazodone 50 mg PO HS 09/11/20 09/11/20 Previous Rx's Medication Instructions Recorded V-GO 20 #90 kit NS 01/21/20 FreeStyle Adair 14 Day Sensor #7 ea NS 09/01/20 Results & Data (ED) Vital Signs Vital Signs - 24 hr 09/11/20 09:55 09/11/20 09:58 09/11/20 10:46 Temperature 36.6 C Temperature Source Oral Pulse Rate 95 H 96 H 101 H Pulse Rate from SpO2 Sensor 96 H 101 H Respiratory Rate 18 18 15 Blood Pressure 125/70 125/70 119/71 Blood Pressure Mean 88 79 89 Pulse Oximetry 100 100 100 Oxygen Delivery Method Room Air Sepsis Recent Fever Within 48 Hours No Sepsis New/Unexplained Change in Mental Status No Sepsis Action Taken by Nursing No Action Required 09/11/20 10:47 09/11/20 11:00 09/11/20 11:30 Temperature Temperature Source Pulse Rate 95 H 93 H Pulse Rate from SpO2 Sensor 95 H 93 H Respiratory Rate 17 18 Blood Pressure 111/74 129/64 Blood Pressure Mean 92 72 Pulse Oximetry 97 100 100 Oxygen Delivery Method Room Air Sepsis Recent Fever Within 48 Hours Sepsis New/Unexplained Change in Mental Status Sepsis Action Taken by Nursing Laboratory Data Result diagrams: 09/11/20 10:24 09/11/20 10:24 Lab Results 09/11/20 09/11/20 09/11/20 Range/Units 10:24 10:24 10:24 WBC 4.48 L (4.8-10.8) K/uL RBC 2.99 L (4.7-6.1) M/uL Hgb 9.3 L (14.0-18.0) g/dL Hct 26.3 L (42-52) % MCV 88.0 (80-100) fL MCH 31.1 (25-34) pg MCHC 35.4 (32-36) g/dL RDW Std Deviation 63.4 H (36.4-46.3) fL RDW Coeff of Kelly 19.6 H (11.5-14.5) % Plt Count 54 L (130-400) K/uL MPV 8.6 (7.4-10.4) fL Immature Gran % (Auto) 1.1 % Neut % (Auto) 73.9 % Lymph % (Auto) 19.2 % Warren % (Auto) 2.9 % Eos % (Auto) 2.7 % Baso % (Auto) 0.2 % Neut # (Auto) 3.31 (1.4-6.5) K/uL Lymph # (Auto) 0.86 L (1.2-3.4) K/uL Warren # (Auto) 0.13 (0.11-0.59) K/uL Eos # (Auto) 0.12 (0-0.5) K/uL Baso # (Auto) 0.01 (0-0.2) K/uL Immature Gran # (Auto) 0.05 H (0.00-0.02) K/uL PT 12.7 H (9.0-12.0) Seconds INR 1.2 H (0.9-1.1) Sodium 118 L* (136-145) mmol/L Potassium 5.5 H (3.5-5.1) mmol/L Chloride 88 L (98-107) mmol/L Carbon Dioxide 22 (21-32) mmol/L Anion Gap 8.0 (3-11) BUN 65 H (7-18) mg/dl Creatinine 1.79 H (0.6-1.4) mg/dl Est Cr Clr Drug Dosing 70.7 ml/min Est GFR ( Amer) 49.0 Est GFR (Non-Af Amer) 42.3 BUN/Creatinine Ratio 36.0 H (10-20) Glucose 143 H (70-99) mg/dl Osmolality (280-300) mOsm/kg Calcium 8.4 L (8.5-10.1) mg/dl Magnesium 2.3 (1.8-2.4) mg/dl Total Bilirubin 3.9 H (0.2-1) mg/dl AST 144 H (15-37) U/L ALT 83 H (12-78) U/L Alkaline Phosphatase 354 H (45-117) U/L Ammonia (11-32) umol/L Troponin I < 0.015 (0-0.045) ng/ml Total Protein 6.3 L (6.4-8.2) gm/dl Albumin 2.8 L (3.4-5.0) gm/dl Globulin 3.5 (2.5-4.0) gm/dl Albumin/Globulin Ratio 0.8 L (0.9-2) TSH 1.980 (0.300-4.500) uIu/ml Urine Color Urine Appearance (Clear) Urine pH (4.5-7.5) Ur Specific Emerson (1.000-1.030) Urine Protein (Negative) Urine Glucose (UA) (Negative) Urine Ketones (Negative) Urine Blood (Negative) Urine Nitrite (Negative) Urine Bilirubin (Negative) Urine Urobilinogen (Negative) Ur Leukocyte Esterase (Negative) Urine Osmolality (500-800) mOsm/kg Ur Random Sodium mmol/L COVID-19 Eval Order SARS-CoV-2, RNA, NAAT (NEGATIVE) 09/11/20 09/11/20 09/11/20 Range/Units 10:24 10:24 10:44 WBC (4.8-10.8) K/uL RBC (4.7-6.1) M/uL Hgb (14.0-18.0) g/dL Hct (42-52) % MCV (80-100) fL MCH (25-34) pg MCHC (32-36) g/dL RDW Std Deviation (36.4-46.3) fL RDW Coeff of Kelly (11.5-14.5) % Plt Count (130-400) K/uL MPV (7.4-10.4) fL Immature Gran % (Auto) % Neut % (Auto) % Lymph % (Auto) % Warren % (Auto) % Eos % (Auto) % Baso % (Auto) % Neut # (Auto) (1.4-6.5) K/uL Lymph # (Auto) (1.2-3.4) K/uL Warren # (Auto) (0.11-0.59) K/uL Eos # (Auto) (0-0.5) K/uL Baso # (Auto) (0-0.2) K/uL Immature Gran # (Auto) (0.00-0.02) K/uL PT (9.0-12.0) Seconds INR (0.9-1.1) Sodium (136-145) mmol/L Potassium (3.5-5.1) mmol/L Chloride (98-107) mmol/L Carbon Dioxide (21-32) mmol/L Anion Gap (3-11) BUN (7-18) mg/dl Creatinine (0.6-1.4) mg/dl Est Cr Clr Drug Dosing ml/min Est GFR ( Amer) Est GFR (Non-Af Amer) BUN/Creatinine Ratio (10-20) Glucose (70-99) mg/dl Osmolality 271 L (280-300) mOsm/kg Calcium (8.5-10.1) mg/dl Magnesium (1.8-2.4) mg/dl Total Bilirubin (0.2-1) mg/dl AST (15-37) U/L ALT (12-78) U/L Alkaline Phosphatase (45-117) U/L Ammonia 40.0 H (11-32) umol/L Troponin I (0-0.045) ng/ml Total Protein (6.4-8.2) gm/dl Albumin (3.4-5.0) gm/dl Globulin (2.5-4.0) gm/dl Albumin/Globulin Ratio (0.9-2) TSH (0.300-4.500) uIu/ml Urine Color Yellow Urine Appearance Clear (Clear) Urine pH 5.0 (4.5-7.5) Ur Specific Emerson 1.016 (1.000-1.030) Urine Protein Negative (Negative) Urine Glucose (UA) Negative (Negative) Urine Ketones Negative (Negative) Urine Blood Negative (Negative) Urine Nitrite Negative (Negative) Urine Bilirubin Negative (Negative) Urine Urobilinogen Negative (Negative) Ur Leukocyte Esterase Negative (Negative) Urine Osmolality (500-800) mOsm/kg Ur Random Sodium mmol/L COVID-19 Eval Order SARS-CoV-2, RNA, NAAT (NEGATIVE) 09/11/20 09/11/20 09/11/20 Range/Units 10:44 10:44 11:31 WBC (4.8-10.8) K/uL RBC (4.7-6.1) M/uL Hgb (14.0-18.0) g/dL Hct (42-52) % MCV (80-100) fL MCH (25-34) pg MCHC (32-36) g/dL RDW Std Deviation (36.4-46.3) fL RDW Coeff of Kelly (11.5-14.5) % Plt Count (130-400) K/uL MPV (7.4-10.4) fL Immature Gran % (Auto) % Neut % (Auto) % Lymph % (Auto) % Warren % (Auto) % Eos % (Auto) % Baso % (Auto) % Neut # (Auto) (1.4-6.5) K/uL Lymph # (Auto) (1.2-3.4) K/uL Warren # (Auto) (0.11-0.59) K/uL Eos # (Auto) (0-0.5) K/uL Baso # (Auto) (0-0.2) K/uL Immature Gran # (Auto) (0.00-0.02) K/uL PT (9.0-12.0) Seconds INR (0.9-1.1) Sodium (136-145) mmol/L Potassium (3.5-5.1) mmol/L Chloride (98-107) mmol/L Carbon Dioxide (21-32) mmol/L Anion Gap (3-11) BUN (7-18) mg/dl Creatinine (0.6-1.4) mg/dl Est Cr Clr Drug Dosing ml/min Est GFR ( Amer) Est GFR (Non-Af Amer) BUN/Creatinine Ratio (10-20) Glucose (70-99) mg/dl Osmolality (280-300) mOsm/kg Calcium (8.5-10.1) mg/dl Magnesium (1.8-2.4) mg/dl Total Bilirubin (0.2-1) mg/dl AST (15-37) U/L ALT (12-78) U/L Alkaline Phosphatase (45-117) U/L Ammonia (11-32) umol/L Troponin I (0-0.045) ng/ml Total Protein (6.4-8.2) gm/dl Albumin (3.4-5.0) gm/dl Globulin (2.5-4.0) gm/dl Albumin/Globulin Ratio (0.9-2) TSH (0.300-4.500) uIu/ml Urine Color Urine Appearance (Clear) Urine pH (4.5-7.5) Ur Specific Emerson (1.000-1.030) Urine Protein (Negative) Urine Glucose (UA) (Negative) Urine Ketones (Negative) Urine Blood (Negative) Urine Nitrite (Negative) Urine Bilirubin (Negative) Urine Urobilinogen (Negative) Ur Leukocyte Esterase (Negative) Urine Osmolality 331 L (500-800) mOsm/kg Ur Random Sodium 9 mmol/L COVID-19 Eval Order Covid19 [facility] SARS-CoV-2, RNA, NAAT (NEGATIVE) 09/11/20 Range/Units 11:31 WBC (4.8-10.8) K/uL RBC (4.7-6.1) M/uL Hgb (14.0-18.0) g/dL Hct (42-52) % MCV (80-100) fL MCH (25-34) pg MCHC (32-36) g/dL RDW Std Deviation (36.4-46.3) fL RDW Coeff of Kelly (11.5-14.5) % Plt Count (130-400) K/uL MPV (7.4-10.4) fL Immature Gran % (Auto) % Neut % (Auto) % Lymph % (Auto) % Warren % (Auto) % Eos % (Auto) % Baso % (Auto) % Neut # (Auto) (1.4-6.5) K/uL Lymph # (Auto) (1.2-3.4) K/uL Warren # (Auto) (0.11-0.59) K/uL Eos # (Auto) (0-0.5) K/uL Baso # (Auto) (0-0.2) K/uL Immature Gran # (Auto) (0.00-0.02) K/uL PT (9.0-12.0) Seconds INR (0.9-1.1) Sodium (136-145) mmol/L Potassium (3.5-5.1) mmol/L Chloride (98-107) mmol/L Carbon Dioxide (21-32) mmol/L Anion Gap (3-11) BUN (7-18) mg/dl Creatinine (0.6-1.4) mg/dl Est Cr Clr Drug Dosing ml/min Est GFR ( Amer) Est GFR (Non-Af Amer) BUN/Creatinine Ratio (10-20) Glucose (70-99) mg/dl Osmolality (280-300) mOsm/kg Calcium (8.5-10.1) mg/dl Magnesium (1.8-2.4) mg/dl Total Bilirubin (0.2-1) mg/dl AST (15-37) U/L ALT (12-78) U/L Alkaline Phosphatase (45-117) U/L Ammonia (11-32) umol/L Troponin I (0-0.045) ng/ml Total Protein (6.4-8.2) gm/dl Albumin (3.4-5.0) gm/dl Globulin (2.5-4.0) gm/dl Albumin/Globulin Ratio (0.9-2) TSH (0.300-4.500) uIu/ml Urine Color Urine Appearance (Clear) Urine pH (4.5-7.5) Ur Specific Emerson (1.000-1.030) Urine Protein (Negative) Urine Glucose (UA) (Negative) Urine Ketones (Negative) Urine Blood (Negative) Urine Nitrite (Negative) Urine Bilirubin (Negative) Urine Urobilinogen (Negative) Ur Leukocyte Esterase (Negative) Urine Osmolality (500-800) mOsm/kg Ur Random Sodium mmol/L COVID-19 Eval Order SARS-CoV-2, RNA, NAAT NEGATIVE (NEGATIVE) Administered Medications Discontinued Medications Lactated Ringer's (Lr) 250 mls @ 999 mls/hr IV .Q16M ONE Stop: 09/11/20 11:33 Last Infusion: 09/11/20 11:59 Dose: 0 mls/hr Documented by: [id number] Admin: 09/11/20 11:37 Dose: 999 mls/hr Documented by: [id number] Discharge Plan Visit Data Chief Complaint: Abnormal Labs/Diagnostic Testing Stated Complaint: SODIUM LEVELS ARE LOW ED Provider: Nilay Magdaleno Discharge Problem: Acute hyponatremia Patient Disposition: Admitted As Inpatient Discharge Instructions Interventions: ED Discharge Assessment Last Done: 09/11/20 12:26
--- NOTE | 2020-09-11 10:17 | XRay Report ---
XR chest 1V portable CLINICAL HISTORY: weakness COMPARISON STUDY: Chest radiograph August 15, 2020. FINDINGS: Lung volumes are normal. Lungs are clear. There is no pneumothorax or pleural effusion. Car diac size is stable. Mediastinal contours are normal. There is no evidence for pulmonary edema. Incid ental note is made of postoperative findings within the lower cervical spine. There are left axillary surgical clips. IMPRESSION: No acute cardiopulmonary findings. ACT 112: Negative or not required by law. Electronically signed by: Angel Garrett M.D. 09/11/2020 10:16 AM
[2020-09-11 10:33] LABS: Hematocrit (blood only) 26.3 % (42-52); Hemoglobin 9.3 g/dL (14.0-18.0); Mean Corpuscular Hemoglobin 31.1 pg (25-34); Mean Corpuscular Hgb Conc 35.4 g/dL (32-36); RDW Coefficient of Variation 19.6 % (11.5-14.5); RDW Standard Deviation 63.4 fL (36.4-46.3); Red Blood Count 2.99 M/uL (4.7-6.1); White Blood Count 4.48 K/uL (4.8-10.8)
[2020-09-11 10:38] LABS: Mean Platelet Volume 8.6 fL (7.4-10.4); Platelet Count 54 K/uL (130-400)
[2020-09-11 10:42] LABS: INR 1.2 (0.9-1.1); Prothrombin Time 12.7 Seconds (9.0-12.0)
[2020-09-11 10:49] LABS: Basophils # (auto) 0.01 K/uL (0-0.2); Basophils % (auto) 0.2 %; Eosinophils # (auto) 0.12 K/uL (0-0.5); Eosinophils % (auto) 2.7 %; Immature Granulocytes # (auto) 0.05 K/uL (0.00-0.02); Immature Granulocytes % (auto) 1.1 %; Lymphocytes # (auto) 0.86 K/uL (1.2-3.4); Lymphocytes % (auto) 19.2 %; Monocytes # (auto) 0.13 K/uL (0.11-0.59); Monocytes % (auto) 2.9 %; Neutrophils # (auto) 3.31 K/uL (1.4-6.5); Neutrophils % (auto) 73.9 %
[2020-09-11 10:54] LABS: Appearance Urine Clear (Clear); Bilirubin Urine Negative (Negative); Blood Urine Negative (Negative); Color Urine Yellow; Glucose Urine UA Negative (Negative); Ketones Urine Negative (Negative); Leukocyte Esterase Urine Negative (Negative); Nitrite Urine Negative (Negative); Protein Urine Negative (Negative); Specific Gravity Urine 1.016 (1.000-1.030); Urobilinogen Urine Negative (Negative)
[2020-09-11 11:11] LABS: Alanine Aminotransferase 83 U/L (12-78); Albumin Globulin Ratio 0.8 (0.9-2); Albumin Level 2.8 gm/dl (3.4-5.0); Alkaline Phosphatase 354 U/L (45-117); Aspartate Aminotransferase 144 U/L (15-37); Bilirubin,Total 3.9 mg/dl (0.2-1); Blood Urea Nitrogen 65 mg/dl (7-18); Calcium 8.4 mg/dl (8.5-10.1); Carbon Dioxide 22 mmol/L (21-32); Chloride 88 mmol/L (98-107); Creatinine Clr Calc Pharmacy 70.7 ml/min; Est GFR (Non-African American) 42.3; Globulin 3.5 gm/dl (2.5-4.0); Glucose 143 mg/dl (70-99); Magnesium 2.3 mg/dl (1.8-2.4); Potassium 5.5 mmol/L (3.5-5.1); Sodium 118 mmol/L (136-145); Total Protein 6.3 gm/dl (6.4-8.2); Troponin I < 0.015 ng/ml (0-0.045)
[2020-09-11] MEDS ORDERED: LACTATED RINGER'S 250 ML IV ONE (11:18)
[2020-09-11] MEDS ORDERED: ACETAMINOPHEN 325 MG TAB PO PRN (13:24)
[2020-09-11] MEDS ORDERED: INSULIN ASPART PER UNIT SC SCH (13:30)
[2020-09-11] MEDS ORDERED: oxyCODONE HCL IR 5 MG TAB (IMMEDIATE RELEASE) PO PRN (13:48)
[2020-09-11] MEDS ORDERED: INSULIN ASPART 100 UNITS/ML VIAL SC PRN (14:00)
[2020-09-11] MEDS ORDERED: CARBOHYDRATES FOR HYPOGLYCEMIA PO PRN (14:00)
[2020-09-11] MEDS ORDERED: DEXTROSE 50% 50 ML SYRINGE IV PRN (14:00)
[2020-09-11] MEDS ORDERED: GLUCOSE 40% GEL 15 GM TUBE PO PRN (14:00)
[2020-09-11] MEDS ORDERED: GLUCAGON FOR INJ 1 MG VIAL SQ PRN (14:00)
[2020-09-11] MEDS ORDERED: GLUCOSE 10 TABS/TUBE PO PRN (14:00)
[2020-09-11] MEDS: GABAPENTIN 300 MG CAP PO SCH ×2 (14:11→20:44)
[2020-09-11 15:37] LABS: BUN Creatinine Ratio 37.5 (10-20); Calcium 8.2 mg/dl (8.5-10.1); Creatinine Clr Calc Pharmacy 72.3 ml/min; Est GFR (African American) 50.4; Est GFR (Non-African American) 43.5; Potassium 5.6 mmol/L (3.5-5.1)
[2020-09-11] MEDS ORDERED: FUROSEMIDE 40 MG in SYRINGE 0 ML IV ONE (16:41)
[2020-09-11] MEDS ORDERED: CARISOPRODOL 350 MG TABLET PO PRN (16:47)
[2020-09-11] MEDS ORDERED: SODIUM POLYSTYRENE SULFONATE 15G/60ML SUSP PO ONE (16:50)
[2020-09-11] MEDS ORDERED: FUROSEMIDE 40 MG/4 ML VIAL IV ONE (17:00)
--- NOTE | 2020-09-11 17:05 | History & Physical Report ---
Date of Service September 11, 2020 Assessment & Plan (1) Acute hyponatremia: -Admit to [facility] with telemetry -Patient referred to ED by outpatient GI doctor for evaluation of hyponatremia -Na+ 118 -Acute on chronic hyponatremia in the setting of RYDER cirrhosis with ascites, likely hypervolemic hyponatremia -Nephrology consult -Lasix 40 mg IV x1, 1500 cc FR -Serial BMP -Hold home diuretics for now (2) Hyperkalemia: -K+ 5.5 -Kayexalate x1 -Hold spironolactone -No acute EKG changes (3) Ascites: -Has peritoneal Pleurx catheter in place -GI consult for possible large-volume paracentesis (4) Hepatocellular carcinoma: (5) 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): -On hospice -Ascites management as above (6) Thrombocytopenia: -Platelets 54K, at baseline -No signs of bleeding (7) Diabetes mellitus, type II: -On insulin pump, patient to manage --Hgb A1c 5.9 04/2020 (8) DVT prophylaxis: -SCDs due to thrombocytopenia Admission and Anticipated Discharge Date Admission Date: September 11, 2020 History of Present Illness Chief Complaint: Referred for hyponatremia Primary Care Provider: Neha Burgos DO 54-year-old male with PMH DM type II on insulin pump, hepatocellular carcinoma, liver cirrhosis secondary to RYDER, esophageal varices, sarcoidosis, and other problems listed below who presents the ED by referral outpatient GI physician for evaluation of hyponatremia. Patient with history of recurrent ascites, had peritoneal Pleurx catheter placed on 09/07. Patient has been draining 1 L of fluid per day. Yesterday, patient received instructions to increase drainage to 2 L/day. Patient is scheduled for large-volume paracentesis next week. He had preprocedure labs today that showed hyponatremia. Patient was sent to the ED for further evaluation. In the ED, sodium level is on be 118. Patient offers no further complaints. Denies chest pain shortness of breath. No abdominal pain, nausea, vomiting, diarrhea. Denies fevers and chills. No lightheadednes s, dizziness, diaphoresis, syncopal events. Denies urinary symptoms. Patient received 1 L LR in the ED. Allergies Allergy/AdvReac Type Severity Reaction Status Date / Time Penicillins Allergy Severe ANAPHYLAXIS Verified 09/11/20 11:18 morphine Allergy Intermediate Severe Verified 09/11/20 11:18 itching/mouth rash adhesive Allergy Mild rips Verified 09/11/20 11:18 skin/bruise skin aripiprazole Allergy Mild "feeling Verified 09/11/20 11:18 irritable" lithium Allergy Mild Anxiety Verified 09/11/20 11:18 meperidine Allergy Mild pruritis/ra Verified 09/11/20 11:18 sh pregabalin Allergy Mild Anxiety Verified 09/11/20 11:18 quetiapine Allergy Mild Drowsy Verified 09/11/20 11:18 Gold Salts AdvReac Mild Blister Verified 09/11/20 11:18 Home Medications Medication Instructions Recorded Confirmed Type Xifaxan 550 mg PO BID 06/20/18 09/11/20 History flash glucose scanning reader #1 ea 09/05/19 08/26/20 History insulin aspart U-100 100 unit/mL See Rx Instructions .ROUTE 09/05/19 09/11/20 History subcutaneous solution .COMPLEX ml ondansetron 8 mg PO Q8H PRN 09/07/19 09/11/20 History V-GO 20 #90 kit NS 01/21/20 08/26/20 Rx spironolactone [Aldactone] 150 mg PO QAM 03/24/20 09/11/20 History gabapentin 300 mg PO TID 08/15/20 09/11/20 History lorazepam 0.5 mg PO TID PRN 08/15/20 09/11/20 History nystatin 1 applic TOPICAL DAILY PRN 08/15/20 09/11/20 History omeprazole 40 mg PO BID 08/15/20 09/11/20 History oxycodone 10 mg PO Q6H PRN 08/15/20 09/11/20 History prochlorperazine maleate 10 mg PO Q6H PRN 08/15/20 09/11/20 History silver sulfadiazine 1 applic TOPICAL DAILY PRN 08/15/20 09/11/20 History triamcinolone acetonide 1 applic TOPICAL DAILY PRN 08/15/20 09/11/20 History FreeStyle Adair 14 Day Sensor #7 ea NS 09/01/20 Rx carisoprodol [Soma] 350 mg PO QID PRN 09/11/20 09/11/20 History cimetidine 300 mg PO DAILY 09/11/20 09/11/20 History ciprofloxacin HCl 500 mg PO DAILY 09/11/20 09/11/20 History furosemide 40 mg PO HS 09/11/20 09/11/20 History furosemide 80 mg PO DAILY 09/11/20 09/11/20 History lactulose 30 ml PO DAILY 09/11/20 09/11/20 History mirtazapine 30 mg PO HS 09/11/20 09/11/20 History trazodone 50 mg PO HS 09/11/20 09/11/20 History Past Med/Surg History Medical History (Updated 09/11/20 @ 17:12 by HOSSEIN Rucker) Anxiety Asthma inhaler/nebulizer prn Cardiac murmur as a child Chronic back pain Degenerative disc disease Diabetes mellitus, type 2 Diabetic peripheral neuropathy Esophageal varices hx of banding GERD (gastroesophageal reflux disease) Hearing deficit Hepatocellular carcinoma 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) stage 3 Osteoarthritis Prolonged QT interval Sarcoidosis Smoker Spinal stenosis Thrombocytopenia Surgical History History of anesthesia reaction sometimes has difficulty waking up---last EGD took him an hour to wake up History of cardiac cath 2007 @ [facility], no stents History of colonoscopy History of endoscopic sinus surgery History of esophagogastroduodenoscopy (EGD) History of repair of left rotator cuff History of thoracic spinal fusion t10-t12 History of tooth extraction wisdom teeth History of umbilical hernia repair x3 Status post cervical spinal fusion x3 screws, plates in place--normal ROM C3-C7 Status post cholecystectomy Status post right foot surgery complete amputation of great toe and 2nd toe Family History Mother Diabetes Coronary heart disease Father Heart disease Sister Cancer bladder Other No family history of adverse response to anesthesia Social History Smoking Status: Light tobacco smoker Cigarettes Per Day: 2; Second Hand Exposure: No; Hx Alcohol Use: No Hx Substance Use: No Preferred Language: Slovak Communication Ability: Effective Film Mounter Required: No Beliefs That Will Affect Care: None marital status: Current Living Situation: Spouse Other Information That Helps Us Care for You: No Feels Safe at Home: Yes Assistive Devices: Glasses Review of Systems Review of Systems: ROS per HPI, all other systems reviewed and negative Physical Exam Physical Exam: Please refer to Dr. Mccarthy's addendum for physical exam. Results & Data Results & Data ([facility]) Vital Signs (Past 12 Hours) Vital Signs Temp Pulse Pulse Pulse Resp BP BP 09/11/20 15:28 36.6 C 91 H 18 09/11/20 15:00 92 H 09/11/20 13:42 36.3 C L 90 16 109/69 09/11/20 12:00 92 H 15 114/58 L 09/11/20 11:30 93 H 18 129/64 09/11/20 11:00 95 H 17 111/74 09/11/20 10:47 09/11/20 10:46 101 H 15 119/71 09/11/20 09:58 96 H 18 125/70 09/11/20 09:55 36.6 C 95 H 18 125/70 BP Pulse Ox 09/11/20 15:28 105/66 100 09/11/20 15:00 09/11/20 13:42 100 09/11/20 12:00 100 09/11/20 11:30 100 09/11/20 11:00 100 09/11/20 10:47 97 09/11/20 10:46 100 09/11/20 09:58 100 09/11/20 09:55 100 Laboratory Results Short CBC 09/11/20 Range/Units 10:24 WBC 4.48 L (4.8-10.8) K/uL Hgb 9.3 L (14.0-18.0) g/dL Hct 26.3 L (42-52) % Plt Count 54 L (130-400) K/uL BMP 09/11/20 09/11/20 10:24 14:44 Sodium 118 L* 119 L* Potassium 5.5 H 5.6 H Chloride 88 L 88 L Carbon Dioxide 22 23 BUN 65 H 66 H Creatinine 1.79 H 1.75 H Glucose 143 H 122 H Calcium 8.4 L 8.2 L Cardiac Enzymes 09/11/20 Range/Units 10:24 Troponin I < 0.015 (0-0.045) ng/ml Liver Function 09/11/20 Range/Units 10:24 Total Bilirubin 3.9 H (0.2-1) mg/dl AST 144 H (15-37) U/L ALT 83 H (12-78) U/L Alkaline Phosphatase 354 H (45-117) U/L Albumin 2.8 L (3.4-5.0) gm/dl Urine 09/11/20 Range/Units 10:44 Urine Color Yellow Urine Appearance Clear (Clear) Urine pH 5.0 (4.5-7.5) Ur Specific [place] 1.016 (1.000-1.030) Urine Protein Negative (Negative) Urine Glucose (UA) Negative (Negative) Diagnostic Findings CXR IMPRESSION: No acute cardiopulmonary findings. Code Status & VTE Plan Code Status Patient is a DNR as per Dr. Mccarthy's discussion with him. VTE Prophylaxis Plan VTE Prophylaxis will be ordered: Yes Supervising Physician Co-Signing Physician Notes Patient is a 54-year-old male with history of Ryder cirrhosis, HCC, esophageal varices, sarcoidosis, diabetes mellitus, chronic hyponatremia and other medical problems presents with history of abnormal outpatient blood work which showed significant hyponatremia. Patient admits to gaining about 12 pounds in the last 3 days. Patient admits to taking his diuretics regularly at home. Patient was placed on Pleurx catheter for recurrent ascites recently. Please review HPI for complete details of presentation. His sodium levels was noted to be 118, platelet count 54,000, potassium 5.5. EKG was normal. Renal function is at near baseline. Discussed with functional tester typewriters on-call. Patient was previously on hospice service and currently he is planning to get reenrolled. Follows with [facility] oncology as outpatient. He is aware of very poor prognosis. Physical Exam: Vitals signs as noted above General Appearance:Morbidly Obese, no apparent distress, Chronic ill appearing Head: normocephalic, Atraumatic Eyes: normal inspection, EOMI Neck: supple, Trachea midline Respiratory/Chest: Normal breath sounds, CTA, No accessory muscle use Cardiovascular: S1, S2, + murmur Abdomen/GI:Soft, distended, non tender, Bowel sounds present Extremities/Musculoskelatal:normal inspection, 3+ B/L LE edema Neurologic/Psych:AAOX3, grossly no focal neurological deficits Skin: normal color, warm Acute on chronic hyponatremia In setting of hypervolemia Hypoosmolar Hyperkalemia Urine Sodium 9 Given IV Lasix Continue fluid restriction Appreciate nephrology input Monitor sodium levels closely Monitor renal function as well Monitor EKG I personally reviewed the record. Patient is interviewed and examined at bedside. Patient's care is coordinated with Ellen Brice EXECUTIVE ASSISTANT TO PRESIDENT. Please refer to the documentation above for details of patient's presentation and for discussion of other issues.
[2020-09-11] MEDS: NovoLOG INSULIN PUMP SCH ×2 (17:46→20:44)
[2020-09-11] MEDS: traZODone HCL 50 MG TAB PO SCH (20:40)
[2020-09-11] MEDS: MIRTAZAPINE TAB 15 MG TAB PO SCH (20:41)
[2020-09-11] MEDS: PANTOprazole 40 MG TAB PO SCH (20:42)
[2020-09-11] MEDS: rifAXIMin 550 MG TABLET PO SCH (20:44)
[2020-09-11 21:16] LABS: BUN Creatinine Ratio 35.8 (10-20); Creatinine Clr Calc Pharmacy 68.4 ml/min; Est GFR (African American) 47.1; Est GFR (Non-African American) 40.7; Potassium 5.1 mmol/L (3.5-5.1)
[2020-09-11] MEDS: oxyCODONE HCL IR 5 MG TAB (IMMEDIATE RELEASE) PO PRN (21:18)
--- NOTE | 2020-09-11 22:37 | Electrocardiogram Report ---
Test Reason : Blood Pressure : / mmHG Vent. Rate : 094 BPM Atrial Rate : 094 BPM P-R Int : 174 ms QRS Dur : 102 ms QT Int : 360 ms P-R-T Axes : 046 -02 032 degrees QTc Int : 450 ms Normal sinus rhythm Normal ECG When compared with ECG of 15-AUG-2020 06:43, No significant change was found Confirmed by Gerry Kilgroe ([id number]) on 09/11/2020 10:37:15 PM Referred By: Confirmed By:Geryr Kilgore
[2020-09-12] MEDS: ALBUMIN 25% 12.5 GM/50 ML VIAL IV SCH ×2 (01:05→02:05)
[2020-09-12 07:05] LABS: Mean Corpuscular Hemoglobin 30.8 pg (25-34); Mean Corpuscular Hgb Conc 34.6 g/dL (32-36); RDW Coefficient of Variation 19.8 % (11.5-14.5); RDW Standard Deviation 64.9 fL (36.4-46.3); Red Blood Count 2.92 M/uL (4.7-6.1); White Blood Count 3.36 K/uL (4.8-10.8)
[2020-09-12 07:06] LABS: Platelet Count 55 K/uL (130-400)
[2020-09-12 07:32] LABS: Albumin Level 2.9 gm/dl (3.4-5.0); BUN Creatinine Ratio 39.6 (10-20); Calcium 8.5 mg/dl (8.5-10.1); Creatinine Clr Calc Pharmacy 74.5 ml/min; Est GFR (Non-African American) 45.7; Potassium 5.2 mmol/L (3.5-5.1)
[2020-09-12 07:46] LABS: Albumin Globulin Ratio 0.9 (0.9-2); Bilirubin,Total 4.5 mg/dl (0.2-1); Globulin 3.2 gm/dl (2.5-4.0); Total Protein 6.1 gm/dl (6.4-8.2)
[2020-09-12] MEDS: LACTULOSE SYRUP 20 GM/30 ML UDC PO SCH (08:15)
[2020-09-12] MEDS: FUROSEMIDE 80 MG TAB PO SCH (08:16)
[2020-09-12] MEDS: FAMOTIDINE 20 MG TAB PO SCH (08:16)
[2020-09-12] MEDS: GABAPENTIN 300 MG CAP PO SCH ×3 (08:16→21:00)
[2020-09-12] MEDS: rifAXIMin 550 MG TABLET PO SCH ×2 (08:16→21:03)
--- NOTE | 2020-09-12 09:14 | Nephrology Consultation ---
Date of Consultation September 12, 2020 Assessment & Plan (1) Hyponatremia: Acute on chronic, Secondary to Ryder cirrhosis and ascites, hypervolemic hyponatremia Agree with volume expansion with albumin, for at least 3 days. To be used carefully he can become fluid overloaded. -He is presently on 80 mg oral Lasix, rate of rise of sodium is within a safe index, decrease it to 120 mg with 80 in the morning and 40 evening tomorrow. -Continue to withhold spironolactone at the moment, can be started at a lower dose once the potassium is within normal limits. 1.5 L of fluid restriction, -Grams sodium diet (2) Acute kidney failure: Prerenal azotemia secondary to Ryder cirrhosis. Responded well to volume resuscitation. This will fluctuate with her volume status and diuretic use. (3) Hyperkalemia: As above (4) Ascites: Secondary to Ryder cirrhosis. GI on board. Follow peritoneal fluid results for SBP History of Present Illness Reason for Consultation: Acute on chronic hyponatremia Attending Physician: Al Mccarthy MD History of Present Illness 54-year-old by nephrology for hyponatremia Past medical history of type 2 diabetes on insulin pump hepatocellular carcinoma liver cirrhosis secondary to Ryder ascites requiring paracentesis, esophageal varices, sarcoidosis, asthma thrombocytopenia. She was recently discharged in late July when she had presented with metabolic encephalopathy likely liver disease, sepsis, hyponatremia and CHRISTOPH. His functions improved with albumin, diuretic was withheld which was restarted after discharge. She has been on 120 mg of Lasix and 50 mg of spironolactone. He has Pleurx catheter in situ and was draining a liter of ascitic fluid every day and was instructed to increase this to 2 L with a GI physician. Labs on that occasion had shown hyponatremia sodium of 119. She was sent ER for further evaluation, serum creatinine 1.8.,(baseline around 1.4) In the ER he was comfortable no shortness of breath no abdominal pain nausea vomiting fevers or chills. She was given a liter of Ringer lactate in the ER, 40 mg IV Lasix started on albumin, spironolactone was stopped as her potassium was 5.4. Review today he was well in herself with no complaints, no shortness of breath, no abdominal pain, has been passing urine, 1250 mL over last 24 hours, sodium had improved to 121, serum creatinine ,improved to 1.68,) Allergies Allergy/AdvReac Type Severity Reaction Status Date / Time Penicillins Allergy Severe ANAPHYLAXIS Verified 09/11/20 11:18 morphine Allergy Intermediate Severe Verified 09/11/20 11:18 itching/mouth rash adhesive Allergy Mild rips Verified 09/11/20 11:18 skin/bruise skin aripiprazole Allergy Mild "feeling Verified 09/11/20 11:18 irritable" lithium Allergy Mild Anxiety Verified 09/11/20 11:18 meperidine Allergy Mild pruritis/ra Verified 09/11/20 11:18 sh pregabalin Allergy Mild Anxiety Verified 09/11/20 11:18 quetiapine Allergy Mild Drowsy Verified 09/11/20 11:18 Gold Salts AdvReac Mild Blister Verified 09/11/20 11:18 Home Medications Medication Instructions Recorded Confirmed Type Xifaxan 550 mg PO BID 06/20/18 09/11/20 History flash glucose scanning reader #1 ea 09/05/19 08/26/20 History insulin aspart U-100 100 unit/mL See Rx Instructions .ROUTE 09/05/19 09/11/20 History subcutaneous solution .COMPLEX ml ondansetron 8 mg PO Q8H PRN 09/07/19 09/11/20 History V-GO 20 #90 kit NS 01/21/20 08/26/20 Rx spironolactone [Aldactone] 150 mg PO QAM 03/24/20 09/11/20 History gabapentin 300 mg PO TID 08/15/20 09/11/20 History lorazepam 0.5 mg PO TID PRN 08/15/20 09/11/20 History nystatin 1 applic TOPICAL DAILY PRN 08/15/20 09/11/20 History omeprazole 40 mg PO BID 08/15/20 09/11/20 History oxycodone 10 mg PO Q6H PRN 08/15/20 09/11/20 History prochlorperazine maleate 10 mg PO Q6H PRN 08/15/20 09/11/20 History silver sulfadiazine 1 applic TOPICAL DAILY PRN 08/15/20 09/11/20 History triamcinolone acetonide 1 applic TOPICAL DAILY PRN 08/15/20 09/11/20 History FreeStyle Adair 14 Day Sensor #7 ea NS 09/01/20 Rx carisoprodol [Soma] 350 mg PO QID PRN 09/11/20 09/11/20 History cimetidine 300 mg PO DAILY 09/11/20 09/11/20 History ciprofloxacin HCl 500 mg PO DAILY 09/11/20 09/11/20 History furosemide 40 mg PO HS 09/11/20 09/11/20 History furosemide 80 mg PO DAILY 09/11/20 09/11/20 History lactulose 30 ml PO DAILY 09/11/20 09/11/20 History mirtazapine 30 mg PO HS 09/11/20 09/11/20 History trazodone 50 mg PO HS 09/11/20 09/11/20 History Patient History Medical History (Updated 09/12/20 @ 10:12 by Clinton Gaming MD) Anxiety Asthma inhaler/nebulizer prn Cardiac murmur as a child Chronic back pain Degenerative disc disease Diabetes mellitus, type 2 Diabetic peripheral neuropathy Esophageal varices hx of banding GERD (gastroesophageal reflux disease) Hearing deficit Hepatocellular carcinoma Hyponatremia 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) stage 3 Osteoarthritis Prolonged QT interval Sarcoidosis Smoker Spinal stenosis Thrombocytopenia Surgical History History of anesthesia reaction sometimes has difficulty waking up---last EGD took him an hour to wake up History of cardiac cath 2007 @ [facility], no stents History of colonoscopy History of endoscopic sinus surgery History of esophagogastroduodenoscopy (EGD) History of repair of left rotator cuff History of thoracic spinal fusion t10-t12 History of tooth extraction wisdom teeth History of umbilical hernia repair x3 Status post cervical spinal fusion x3 screws, plates in place--normal ROM C3-C7 Status post cholecystectomy Status post right foot surgery complete amputation of great toe and 2nd toe Family History Mother Diabetes Coronary heart disease Father Heart disease Sister Cancer bladder Other No family history of adverse response to anesthesia Social History Smoking Status: Light tobacco smoker Cigarettes Per Day: 2; Second Hand Exposure: No; Hx Alcohol Use: No Hx Substance Use: No Preferred Language: Turkmen Communication Ability: Effective Manager Technical Required: No Beliefs That Will Affect Care: None marital status: Current Living Situation: Spouse Other Information That Helps Us Care for You: No Feels Safe at Home: Yes Assistive Devices: Glasses Review of Systems Review of Systems: All systems reviewed & are unremarkable except as noted in HPI & below Physical Exam Physical Exam: General- oriented x 3, not in distress Eyes- (+) icterus Neck- no JVD Lungs- clear breath sounds bilaterally, no rales/wheezes Heart- normal rate, regular rhythm; no murmurs Abdomen- normal bowel sounds, distended, soft, nontender Extremities- Pretibial edema, no calf tenderness Neuro- alert, oriented x 3; no gross focal neurologic deficits Results & Data ([facility]) Vital Signs (Past 12 Hours) Vital Signs Temp Pulse Pulse Resp BP Pulse Ox 09/12/20 07:24 100 H 09/12/20 07:22 36.4 C L 98 H 18 108/66 100 09/12/20 04:00 36.7 C 94 H 18 104/61 97 09/12/20 02:04 36.7 C 98 H 20 100/64 97 09/11/20 22:00 36.8 C 102 H 18 101/62 97 Laboratory Results 09/12/20 06:15 09/12/20 06:15
[2020-09-12] MEDS: NovoLOG INSULIN PUMP SCH ×4 (09:38→21:02)
--- NOTE | 2020-09-12 09:57 | Gastrointestinal Consultation ---
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 steatohepatitis): (2) Ascites: decompensated cirrhosis and severe hyponatremia Recs: --continue fluid restriction and slow correction of hyponatremia, slowly improving (121 today) --drain ascites fluid as needed --continue rifaximin and lactulose for HE ppx --outpatient treatment of his HCC as per his oncology team --no overt GI bleeding at this time Thank you for allowing me to participate in the care of this patient History of Present Illness Attending Physician: Al Mccarthy MD 54 y/o male with PMhx T2DM on insulin pump, HTN, asthma, depression, NAFLD cirrhosis with ascites, HE, G2 varices, h/o SBP, recently dx'd with stage IV HCC with invasion into portal vein (seen by IR, not candidate for embolization, seen by onc and had one rx of Opdivo), admitted for hyponatremia. Also noted to have worsening ascites as well, denies any hematochezia, melena or abdominal pains at this time. No confusion. Noted to have severe hyponatremia on admission with Na 118. EGD in March showed G2 varices s/p banding and apparent eradication; recommended repeat in 6 mos. Cscopy In April showed rectal varices, portal colopathy Labs reviewed. VSS. Allergies Allergy/AdvReac Type Severity Reaction Status Date / Time Penicillins Allergy Severe ANAPHYLAXIS Verified 09/11/20 11:18 morphine Allergy Intermediate Severe Verified 09/11/20 11:18 itching/mouth rash adhesive Allergy Mild rips Verified 09/11/20 11:18 skin/bruise skin aripiprazole Allergy Mild "feeling Verified 09/11/20 11:18 irritable" lithium Allergy Mild Anxiety Verified 09/11/20 11:18 meperidine Allergy Mild pruritis/ra Verified 09/11/20 11:18 sh pregabalin Allergy Mild Anxiety Verified 09/11/20 11:18 quetiapine Allergy Mild Drowsy Verified 09/11/20 11:18 Gold Salts AdvReac Mild Blister Verified 09/11/20 11:18 Home Medications Medication Instructions Recorded Confirmed Type Xifaxan 550 mg PO BID 06/20/18 09/11/20 History flash glucose scanning reader #1 ea 09/05/19 08/26/20 History insulin aspart U-100 100 unit/mL See Rx Instructions .ROUTE 09/05/19 09/11/20 History subcutaneous solution .COMPLEX ml ondansetron 8 mg PO Q8H PRN 09/07/19 09/11/20 History V-GO 20 #90 kit NS 01/21/20 08/26/20 Rx spironolactone [Aldactone] 150 mg PO QAM 03/24/20 09/11/20 History gabapentin 300 mg PO TID 08/15/20 09/11/20 History lorazepam 0.5 mg PO TID PRN 08/15/20 09/11/20 History nystatin 1 applic TOPICAL DAILY PRN 08/15/20 09/11/20 History omeprazole 40 mg PO BID 08/15/20 09/11/20 History oxycodone 10 mg PO Q6H PRN 08/15/20 09/11/20 History prochlorperazine maleate 10 mg PO Q6H PRN 08/15/20 09/11/20 History silver sulfadiazine 1 applic TOPICAL DAILY PRN 08/15/20 09/11/20 History triamcinolone acetonide 1 applic TOPICAL DAILY PRN 08/15/20 09/11/20 History FreeStyle Adair 14 Day Sensor #7 ea NS 09/01/20 Rx carisoprodol [Soma] 350 mg PO QID PRN 09/11/20 09/11/20 History cimetidine 300 mg PO DAILY 09/11/20 09/11/20 History ciprofloxacin HCl 500 mg PO DAILY 09/11/20 09/11/20 History furosemide 40 mg PO HS 09/11/20 09/11/20 History furosemide 80 mg PO DAILY 09/11/20 09/11/20 History lactulose 30 ml PO DAILY 09/11/20 09/11/20 History mirtazapine 30 mg PO HS 09/11/20 09/11/20 History trazodone 50 mg PO HS 09/11/20 09/11/20 History Patient History Medical History (Updated 09/12/20 @ 10:12 by Clinton Gaming MD) Anxiety Asthma inhaler/nebulizer prn Cardiac murmur as a child Chronic back pain Degenerative disc disease Diabetes mellitus, type 2 Diabetic peripheral neuropathy Esophageal varices hx of banding GERD (gastroesophageal reflux disease) Hearing deficit Hepatocellular carcinoma Hyponatremia 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 steatohepatitis) stage 3 Osteoarthritis Prolonged QT interval Sarcoidosis Smoker Spinal stenosis Thrombocytopenia Surgical History History of anesthesia reaction sometimes has difficulty waking up---last EGD took him an hour to wake up History of cardiac cath 2007 @ [facility], no stents History of colonoscopy History of endoscopic sinus surgery History of esophagogastroduodenoscopy (EGD) History of repair of left rotator cuff History of thoracic spinal fusion t10-t12 History of tooth extraction wisdom teeth History of umbilical hernia repair x3 Status post cervical spinal fusion x3 screws, plates in place--normal ROM C3-C7 Status post cholecystectomy Status post right foot surgery complete amputation of great toe and 2nd toe Family History Mother Diabetes Coronary heart disease Father Heart disease Sister Cancer bladder Other No family history of adverse response to anesthesia Social History Smoking Status: Light tobacco smoker Cigarettes Per Day: 2; Second Hand Exposure: No; Hx Alcohol Use: No Hx Substance Use: No Preferred Language: Romansh Communication Ability: Effective Property Economist Required: No Beliefs That Will Affect Care: None marital status: Current Living Situation: Spouse Other Information That Helps Us Care for You: No Feels Safe at Home: Yes Assistive Devices: Glasses Review of Systems Constitutional: no fever, no chills and no weight loss Eyes: as per Subjective / HPI Ear, Nose, Mouth, Throat: as per Subjective / HPI Respiratory: no dyspnea and no dyspnea on exertion Cardiovascular: no chest pain and no palpitations Gastrointestinal: as per Subjective / HPI Musculoskeletal: no joint pain and no swelling Integumentary: no rash and no lesions Neurologic: no numbness and no paresthesia Psychiatric: no depression and no anxiety Endocrine: no fatigue Hematologic / Lymphatic: no easy bleeding and no easy bruising Physical Exam Constitutional: WD/WN, vitals as above Eyes: EOM intact bilaterally Neck: normal visual inspection Respiratory: normal respiratory effort, lungs clear to auscultation Cardiovascular: RRR, no murmur, no edema Gastrointestinal (Abdomen): Inspection/Auscultation: abdomen normal to inspection; abdomen not distended Percussion/Palpation: abdomen soft; abdomen nontender and no hepatosplenomegaly Musculoskeletal: Extremities: no cyanosis Gait: normal gait Skin: no rashes, warm and dry Neurologic: moves all extremities Psychiatric: A+Ox3, euthymic affect Results & Data ([facility]) Vital Signs (Past 12 Hours) Vital Signs Temp Pulse Pulse Resp BP Pulse Ox 09/12/20 07:24 100 H 09/12/20 07:22 36.4 C L 98 H 18 108/66 100 09/12/20 04:00 36.7 C 94 H 18 104/61 97 09/12/20 02:04 36.7 C 98 H 20 100/64 97 09/11/20 22:00 36.8 C 102 H 18 101/62 97 PG Care Time/CCT Total # of Minutes Spent Total Time Spent with Patient: Total time spent is greater than 50% in coordination of care (as documented) at patient's floor/unit and/or counseling patient: Coding Level of Care Code 82738 Inpt Consult Level 4 Diagnoses 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
[2020-09-12] MEDS: PANTOprazole 40 MG TAB PO SCH ×2 (10:23→21:02)
[2020-09-12] MEDS: CIPROFLOXACIN 500 MG TAB PO SCH (10:23)
[2020-09-12 11:01] LABS: BUN Creatinine Ratio 37.1 (10-20); Calcium 8.4 mg/dl (8.5-10.1); Creatinine Clr Calc Pharmacy 73.7 ml/min; Est GFR (African American) 52.2
[2020-09-12] MEDS: oxyCODONE HCL IR 5 MG TAB (IMMEDIATE RELEASE) PO PRN (12:19)
--- NOTE | 2020-09-12 15:32 | Hospitalist Progress Note ---
Date of Service September 12, 2020 Assessment & Plan (1) Acute hyponatremia: Acute on chronic hyponatremia Hypervolemic hyponatremia in setting of MEJIA Cirrhosis Received IV Lasix, albumin Continue fluid restriction Continue p.o. Lasix Appreciate nephrology input Monitor sodium levels closely Sodium: 118>121 (2) Hyperkalemia: Potassium: 5.6>5.0 Received Kayexalate, lasix Hold spironolactone Low potassium diet Monitor Electrolytes (3) Ascites: Has peritoneal Pleurx catheter in place Drains 2 liters per day as per GI Give Albumin as needed Needs follow up with GI Appreciate GI Input Continue rifaximin, lactulose Continue fluid restriction (4) Hepatocellular carcinoma: (5) 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 steatohepatitis): -On hospice previously -Currently planning to re-enroll with hospice -Ascites management as above -Follows with Oncology as outpatient (6) Thrombocytopenia: Secondary to cirrhosis Monitor platelet levels Currently no acute bleeding issues (7) Diabetes mellitus, type II: On insulin pump, patient to manage Hgb A1c 5.9 04/2020 (8) DVT prophylaxis: SCDs Re: Thrombocytopenia Admission and Anticipated Discharge Date Admission Date: September 11, 2020 Subjective Patient is seen and examined at bedside Prefers to be discharged home Offers no complaints Drained 2 liters of ascitic fluid today Denies chest pain, dyspnea, dizziness, nausea, abd pain Sodium levels improved to 121 today Review of Systems Review of Systems: All systems reviewed & are unremarkable except as noted in HPI & below Physical Exam Physical Exam: Physical Exam: Vitals signs as noted above General Appearance:Morbidly Obese, no apparent distress, Chronic ill appearing Head: normocephalic, Atraumatic Eyes: normal inspection, EOMI Neck: supple, Trachea midline Respiratory/Chest: Normal breath sounds, CTA, No accessory muscle use Cardiovascular: S1, S2, + murmur Abdomen/GI:Soft, distended, non tender, Bowel sounds present Extremities/Musculoskelatal:normal inspection, 3+ B/L LE edema Neurologic/Psych:AAOX3, grossly no focal neurological deficits Skin: normal color, warm Results & Data Results & Data ([facility]) Vital Signs (Past 12 Hours) Vital Signs Temp Pulse Pulse Resp BP Pulse Ox 09/12/20 15:13 36.5 C 92 H 20 100/62 99 09/12/20 11:07 36.9 C 95 H 18 109/70 99 09/12/20 07:24 100 H 09/12/20 07:22 36.4 C L 98 H 18 108/66 100 09/12/20 04:00 36.7 C 94 H 18 104/61 97 Laboratory Results Short CBC 09/12/20 Range/Units 06:15 WBC 3.36 L (4.8-10.8) K/uL Hgb 9.0 L (14.0-18.0) g/dL Hct 26.0 L (42-52) % Plt Count 55 L (130-400) K/uL BMP 09/11/20 09/11/20 09/12/20 14:44 20:43 06:15 Sodium 119 L* 121 L 121 L Potassium 5.6 H 5.1 5.2 H Chloride 88 L 89 L 90 L Carbon Dioxide 23 23 22 BUN 66 H 66 H 67 H Creatinine 1.75 H 1.85 H 1.68 H Glucose 122 H 167 H 111 H Calcium 8.2 L 8.0 L 8.5 09/12/20 10:36 Sodium 121 L Potassium 5.0 Chloride 91 L Carbon Dioxide 21 BUN 63 H Creatinine 1.70 H Glucose 132 H Calcium 8.4 L Liver Function 09/12/20 Range/Units 06:15 Total Bilirubin 4.5 H (0.2-1) mg/dl AST 136 H (15-37) U/L ALT 76 (12-78) U/L Alkaline Phosphatase 325 H (45-117) U/L Albumin 2.9 L (3.4-5.0) gm/dl
[2020-09-12 19:45] LABS: BUN Creatinine Ratio 35.7 (10-20); Calcium 8.3 mg/dl (8.5-10.1); Creatinine Clr Calc Pharmacy 69.2 ml/min; Est GFR (African American) 48.4; Est GFR (Non-African American) 41.8; Potassium 5.1 mmol/L (3.5-5.1)
[2020-09-12] MEDS: traZODone HCL 50 MG TAB PO SCH (21:00)
[2020-09-12] MEDS: MIRTAZAPINE TAB 15 MG TAB PO SCH (21:01)
[2020-09-13 07:48] LABS: Hematocrit (blood only) 24.9 % (42-52); Hemoglobin 8.6 g/dL (14.0-18.0); Mean Corpuscular Hemoglobin 30.9 pg (25-34); Mean Corpuscular Hgb Conc 34.5 g/dL (32-36); Mean Corpuscular Volume 89.6 fL (80-100); RDW Coefficient of Variation 19.7 % (11.5-14.5); RDW Standard Deviation 64.8 fL (36.4-46.3); Red Blood Count 2.78 M/uL (4.7-6.1); White Blood Count 2.52 K/uL (4.8-10.8)
[2020-09-13 08:02] LABS: Mean Platelet Volume 9.1 fL (7.4-10.4); Platelet Count 54 K/uL (130-400)
[2020-09-13 08:18] LABS: BUN Creatinine Ratio 38.7 (10-20); Calcium 8.6 mg/dl (8.5-10.1); Creatinine Clr Calc Pharmacy 72.7 ml/min; Est GFR (African American) 52.2; Magnesium 2.5 mg/dl (1.8-2.4); Potassium 4.9 mmol/L (3.5-5.1)
[2020-09-13] MEDS: PANTOprazole 40 MG TAB PO SCH (08:18)
[2020-09-13] MEDS: GABAPENTIN 300 MG CAP PO SCH ×2 (08:18→13:51)
[2020-09-13] MEDS: FAMOTIDINE 20 MG TAB PO SCH (08:18)
[2020-09-13] MEDS: CIPROFLOXACIN 500 MG TAB PO SCH (08:18)
[2020-09-13] MEDS: FUROSEMIDE 80 MG TAB PO SCH (08:18)
[2020-09-13] MEDS: rifAXIMin 550 MG TABLET PO SCH (08:18)
[2020-09-13] MEDS: LACTULOSE SYRUP 20 GM/30 ML UDC PO SCH (08:18)
[2020-09-13] MEDS: NovoLOG INSULIN PUMP SCH ×2 (08:22→12:15)
--- NOTE | 2020-09-13 09:17 | Gastroenterology Progress Note ---
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 Will try to honor his wishes for discharge as soon as paracentesis/albumin is complete. Present on Admission?: Yes (2) Hyponatremia: Continue slow correction managed by hospitalist. Paracentesis and albumin should also help the hyponatremia. Fluid restriction. Low salt diet. Present on Admission?: Yes (3) Ascites: Large volume paracentesis via pleurex. cath by nursing. 25 G albumin prior and if able to remove more than 5L of fluid then 25G of albumin after as well. Present on Admission?: Yes (4) Hepatocellular carcinoma: No further chem planned per Dr. Berg's recent OP note. Present on Admission?: Yes Admission and Anticipated Discharge Date Admission Date: September 11, 2020 Supervising Physician Co-Signing Physician Notes I performed a history and physical examination of the patient today, including specifically on physical exam - soft abdomen. I have discussed the patient's management with the advanced practitioner. Please refer to the nurse practitioner's note for the documented findings and plan of care. Subjective Mr. Dahl is a 54 yr old male with DM2, NAFLD cirrhosis with ascites, HE, G2 varices, HCC with invasion into the portal vein. Per Dr. Berg's note on 09/10/20, did not tolerate Opdivio, no further chemo planned. Currently enrolled in hospice. Admitted with ascites and hyponatremia. Has pleurex cath in place to drain ascites. Na on arrival 118 on Sep 11, today 123. Pt requesting discharge today. He is awake, alert, oriented, denies SOB or abd pain. Still with large ascites and bilat lower leg 2+ edema. Review of Systems Review of Systems: ROS: Gen: General weakness for months, today at baseline. No fevers, no weight loss Eyes: No eye redness, or pain, no recent vision changes Resp: Denies SOB or cough today Cardio: No palpitations/irregular beats, no chest pain GI: Large ascites. Has pleurex. Denies any abdominal pain. No nausea/vomiting : Denies pain on urination Skin: No jaundice, itching or new rashes Ext: + bilat lower leg edema Physical Exam Constitutional: WD/WN, vitals as above + ill appearing (chronically), + morbidly obese, cooperative and + edematous (bilat lower legs, 2+ pitting edema) Eyes: PERRL, conjunctivae normal, anicteric sclerae ENMT: external ear and nose normal, oropharynx normal Neck: trachea midline, no thyromegaly Respiratory: normal respiratory effort, lungs clear to auscultation Cardiovascular: Rate/Rhythm: regular rate Heart Sounds: no murmur Extremities: + edema (2+ bilat lower legs) Gastrointestinal (Abdomen): Inspection/Auscultation: + abdomen distended (l arge ascites, moderately firm, non tender) Musculoskeletal: no cyanosis or clubbing, extremities motor strength 5/5 Skin: no rashes, warm and dry Neurologic: PERRL, EOMI, accommodation nl, no face palsy, no dysarthria Psychiatric: A+Ox3, euthymic affect Lymphatic: no cervical or axillary lymphadenopathy Results & Data ([facility]) Vital Signs (Past 12 Hours) Vital Signs Temp Pulse Pulse Pulse Resp BP BP 09/13/20 07:43 36.7 C 87 20 110/69 09/13/20 06:58 95 H 09/13/20 03:57 37.0 C 99 H 18 93/48 L 09/12/20 23:00 36.6 C 97 H 18 126/67 Pulse Ox 09/13/20 07:43 99 09/13/20 06:58 09/13/20 03:57 93 09/12/20 23:00 97 Laboratory Results WBC 2, Hb 8.6, Hct 24, Plts 54, Na 123, K 4.9, BUN 66, Cr 1.7. Diagnostic Findings CXR (-) 09/11/20.
[2020-09-13] MEDS ORDERED: ALBUMIN 25% 12.5 GM/50 ML VIAL IV SCH (09:45)
[2020-09-13] MEDS: ALBUMIN 25% 12.5 GM/50 ML VIAL IV SCH ×4 (10:39→14:37)
--- NOTE | 2020-09-13 10:51 | Progress Notes ---
DATE: 09/13/2020 SUBJECTIVE: Overnight, no new issues. He continues to be massively edematous as well as ascites. OBJECTIVE: VITAL SIGNS: Blood pressure is 110/69, pulse rate 87, temperature 36.7, 99% on room air. HEENT: Mucous membrane moist. NECK: Supple. CHEST: Bilateral decreased breath sounds, occasional crackles. CARDIOVASCULAR: S1, S2 regular. ABDOMEN: Soft. Ascites 3+. EXTREMITIES: Shows 4+ edema bilaterally. LABORATORY TESTS: From this morning was reviewed in detail. Sodium is 123 today. BUN 66, creatinine 1.7, potassium is 4.9, magnesium 2.5. ASSESSMENT AND PLAN: A 54-year-old male with advanced liver cirrhosis, admitted with hyponatremia. Hyponatremia: This is hypervolemic hyponatremia secondary to advanced cirrhosis. He still has massive degree of hypervolemia. RECOMMENDATIONS: 1. Increase Lasix to 80 mg twice daily. 2. Continue to hold spironolactone. 3. Even at the time of discharge. Do not restart spironolactone until we see that the sodium and potassium remains somewhat stable as an outpatient. 4. The patient is desperate to go home. He can have abdominal paracentesis today. However, I would not discharge the patient today given the current situation.
--- NOTE | 2020-09-13 14:11 | Hospitalist Progress Note ---
Date of Service September 13, 2020 Assessment & Plan (1) Acute hyponatremia: Acute on chronic hyponatremia Hypervolemic hyponatremia in setting of MEJIA Cirrhosis Received IV Lasix, albumin Continue fluid restriction Continue p.o. Lasix Appreciate nephrology input Monitor sodium levels closely Sodium: 118>121>123 Continue Lasix 80 mg twice daily upon discharge as well (2) Hyperkalemia: Potassium: 5.6>5.0 Received Kayexalate, lasix Held spironolactone during hospitalization Low potassium diet Monitor Electrolytes Plan to discontinue Aldactone upon discharge as well (3) Ascites: Has peritoneal Pleurx catheter in place Drains 2 liters per day as per GI Give Albumin as needed Needs follow up with GI Appreciate GI Input Continue rifaximin, lactulose Continue fluid restriction Plan for large-volume paracentesis today We will give albumin prior to and after paracentesis. (4) Hepatocellular carcinoma: (5) 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 steatohepatitis): -On hospice previously -Currently planning to re-enroll with hospice -Ascites management as above -Follows with Oncology as outpatient (6) Thrombocytopenia: Secondary to cirrhosis Monitor platelet levels Currently no acute bleeding issues (7) Diabetes mellitus, type II: On insulin pump, patient to manage Hgb A1c 5.9 04/2020 (8) DVT prophylaxis: SCDs Re: Thrombocytopenia Admission and Anticipated Discharge Date Admission Date: September 11, 2020 Subjective Patient is seen and examined at bedside Offers no complaints Wager to get discharged Discussed with gastroenterology, nephrology today Plan for large-volume paracentesis today Denies chest pain, dyspnea, dizziness, nausea, abd pain Sodium levels improved to 123 today Review of Systems Review of Systems: All systems reviewed & are unremarkable except as noted in HPI & below Physical Exam Physical Exam: Physical Exam: Vitals signs as noted above General Appearance:Morbidly Obese, no apparent distress, Chronic ill appearing Head: normocephalic, Atraumatic Eyes: normal inspection, EOMI Neck: supple, Trachea midline Respiratory/Chest: Normal breath sounds, CTA, No accessory muscle use Cardiovascular: S1, S2, + murmur Abdomen/GI:Soft, distended, non tender, Bowel sounds present Extremities/Musculoskelatal:normal inspection, 3+ B/L LE edema Neurologic/Psych:AAOX3, grossly no focal neurological deficits Skin: normal color, warm Results & Data Results & Data ([facility]) Vital Signs (Past 12 Hours) Vital Signs Temp Pulse Pulse Resp BP BP Pulse Ox 09/13/20 13:26 94 H 18 92/53 L 99 09/13/20 11:36 36.9 C 65 18 110/68 91 09/13/20 10:37 69 103/63 09/13/20 07:43 36.7 C 87 20 110/69 99 09/13/20 06:58 95 H 09/13/20 03:57 37.0 C 99 H 18 93/48 L 93 Laboratory Results Short CBC 09/13/20 Range/Units 06:55 WBC 2.52 L (4.8-10.8) K/uL Hgb 8.6 L (14.0-18.0) g/dL Hct 24.9 L (42-52) % Plt Count 54 L (130-400) K/uL BMP 09/12/20 09/13/20 19:05 06:55 Sodium 122 L 123 L Potassium 5.1 4.9 Chloride 91 L 92 L Carbon Dioxide 23 21 BUN 65 H 66 H Creatinine 1.81 H 1.70 H Glucose 122 H 137 H Calcium 8.3 L 8.6
--- NOTE | 2020-09-13 15:22 | Discharge Summary ---
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 Patient with history of recurrent ascites, had peritoneal Pleurx catheter placed on 09/07. Patient has been draining 1 L of fluid per day. Yesterday, patient received instructions to increase drainage to 2 L/day. Patient is scheduled for large-volume paracentesis next week. He had preprocedure labs today that showed hyponatremia. Patient was sent to the ED for further evaluation. In the ED, sodium level is on be 118. Patient offers no further complaints. Denies chest pain shortness of breath. No abdominal pain, nausea, vomiting, diarrhea. Denies fevers and chills. No lightheadedness, dizziness, diaphoresis, syncopal events. Denies urinary symptoms. Patient received 1 L LR in the ED. Admission Exam Per Admitting Provider Physical Exam: Vitals signs as noted above General Appearance:Morbidly Obese, no apparent distress, Chronic ill appearing Head: normocephalic, Atraumatic Eyes: normal inspection, EOMI Neck: supple, Trachea midline Respiratory/Chest: Normal breath sounds, CTA, No accessory muscle use Cardiovascular: S1, S2, + murmur Abdomen/GI:Soft, distended, non tender, Bowel sounds present Extremities/Musculoskelatal:normal inspection, 3+ B/L LE edema Neurologic/Psych:AAOX3, grossly no focal neurological deficits Skin: normal color, warm Principal Diagnosis Acute on chronic hyponatremia Hyperkalemia Recurrent Ascites Thrombocytopenia Pancytopenia Discharge Data Allergies Allergy/AdvReac Type Severity Reaction Status Date / Time Penicillins Allergy Severe ANAPHYLAXIS Verified 09/11/20 11:18 morphine Allergy Intermediate Severe Verified 09/11/20 11:18 itching/mouth rash adhesive Allergy Mild rips Verified 09/11/20 11:18 skin/bruise skin aripiprazole Allergy Mild "feeling Verified 09/11/20 11:18 irritable" lithium Allergy Mild Anxiety Verified 09/11/20 11:18 meperidine Allergy Mild pruritis/ra Verified 09/11/20 11:18 sh pregabalin Allergy Mild Anxiety Verified 09/11/20 11:18 quetiapine Allergy Mild Drowsy Verified 09/11/20 11:18 Gold Salts AdvReac Mild Blister Verified 09/11/20 11:18 Consultations 09/11/20 11:31 ED Decision to Admit Stat 09/11/20 13:24 Consult Gastroenterology Routine Consult Nephrology Routine Procedures Performed CXR: No acute cardiopulmonary findings. Hospital Course (1) Acute hyponatremia: Acute on chronic hyponatremia Hypervolemic hyponatremia in setting of MEJIA Cirrhosis Received IV Lasix, albumin Continue fluid restriction Continue p.o. Lasix Appreciate nephrology input Monitor sodium levels closely Sodium: 118>121>123 Continue Lasix 80 mg twice daily upon discharge as well Patient left AGAINST MEDICAL ADVICE despite explaining the risks and complications. (2) Hyperkalemia: Potassium: 5.6>5.0 Received Kayexalate, lasix Held spironolactone during hospitalization Low potassium diet Monitor Electrolytes Plan to discontinue Aldactone upon discharge as well (3) Ascites: Has peritoneal Pleurx catheter in place Drains 2 liters per day as per GI Give Albumin as needed Needs follow up with GI Appreciate GI Input Continue rifaximin, lactulose Continue fluid restriction Plan for large-volume paracentesis today We will give albumin prior to and after paracentesis. (4) Hepatocellular carcinoma: (5) 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 steatohepatitis): -On hospice previously -Currently planning to re-enroll with hospice -Ascites management as above -Follows with Oncology as outpatient (6) Thrombocytopenia: Secondary to cirrhosis Pancytopenia Monitor platelet levels Currently no acute bleeding issues (7) Diabetes mellitus, type II: On insulin pump, patient to manage Hgb A1c 5.9 04/2020 (8) DVT prophylaxis: SCDs Re: Thrombocytopenia DISPOSITION: Patient left AGAINST MEDICAL ADVICE despite explaining the risks and complications. Total Time Total Time Spent Total Time Spent (In Minutes): 45 minutes Total Time Includes: Examination of the Patient, Discharge Planning, Medication Reconciliation, Communication With Other Providers and Other Discharge Plan Discharge Items Patient Disposition: Against Medical Advice Reason For Visit: HYPONATREMIA Activity: Per Instructions section Exercise/Sports: Gradually increase as tolerated Non-emergency contact: Primary Care Provider, Real Estate Paralegal and Food Sampler Follow-up/Referrals: Neha Burgos DO [Primary Care Provider] - Fluids: 1500ml (6 cups) Ambulatory Orders: Basic Metabolic Panel (Routine) Timeframe: 2 Days Location: Determined by Patient Ordered By: Al Bennett Biomedical Engineering Technician Provider Instructions: Follow up with your Primary Care physician in 1 week Follow up with your Food Sampler and Real Estate Paralegal in 2 weeks as advised Get blood test--basic metabolic panel 2 days and follow-up with your help desk support specialist with results. Increase Lasix to 80 mg twice a day as recommended by your help desk support specialist Stop taking spironolactone for now until further recommendations by help desk support specialist. Seek immediate medical attention if your symptoms reoccur or worsen Pending Studies at Discharge: No Stand-Alone Forms: [employer], Smoking Cessation Skilled Items Patient informed of condition?: Yes DNR: Yes Discharge Level of Care: Other Communicable Disease: No Discharge Prognosis: Other Medications and DC Order Prescriptions: Continued (DME) V-GO 20 Device See Rx Instructions .ROUTE .MEDSUPPLY Qty: 90 RF: 3 (DME) FreeStyle Adair 14 Day Sensor Kit See Rx Instructions .ROUTE .MEDSUPPLY Qty: 7 RF: 3 (DME) FreeStyle Adair 14 Day [place] Misc See Rx Instructions .ROUTE .MEDSUPPLY Qty: 1 RF: 0 Xifaxan 550 mg Tablet 550 mg PO BID RF: 0 Novolog U-100 Insulin aspart 100 unit/mL solution See Rx Instructions .ROUTE .COMPLEX RF: 0 silver sulfadiazine 1 % Cream 1 applic TOPICAL DAILY PRN (Reason: NEEDED) RF: 0 prochlorperazine maleate 10 mg tablet 10 mg PO Q6H PRN (Reason: Nausea) RF: 0 omeprazole 40 mg Capsule,Delayed Release(Dr/Ec) 40 mg PO BID RF: 0 triamcinolone acetonide 0.1 % Cream 1 applic TOPICAL DAILY PRN (Reason: Skin Irritation) RF: 0 lorazepam 0.5 mg Tablet 0.5 mg PO TID PRN (Reason: RESTLESSNESS) RF: 0 nystatin 100,000 unit/gram Cream 1 applic TOPICAL DAILY PRN (Reason: NEEDED) RF: 0 gabapentin 300 mg Capsule 300 mg PO TID RF: 0 oxycodone 5 mg Tablet 10 mg PO Q6H PRN (Reason: Pain) RF: 0 ondansetron 8 mg tablet,disintegrating 8 mg PO Q8H PRN (Reason: Nausea) RF: 0 carisoprodol [Soma] 350 mg tablet 350 mg PO QID PRN (Reason: Muscle Spasm) RF: 0 trazodone 50 mg tablet 50 mg PO HS RF: 0 cimetidine 300 mg tablet 300 mg PO DAILY RF: 0 ciprofloxacin HCl 500 mg tablet 500 mg PO DAILY RF: 0 mirtazapine 30 mg tablet 30 mg PO HS RF: 0 lactulose 10 gram/15 mL solution 30 ml PO DAILY RF: 0 Changed furosemide 40 mg tablet 80 mg PO BID Qty: 60 RF: 0 Discontinued spironolactone [Aldactone] 50 mg Tablet 150 mg PO QAM RF: 0 furosemide 40 mg tablet 40 mg PO HS RF: 0 Discharge Orders: Left Against Medical Advice (Routine); Ordered 09/13/20 Ordered By: Al Mccarthy Admission Data Admit Date/Time: 09/11/20 11:48 Attending Provider: Al Mccarthy Admit Provider: Al Mccarthy Primary Care Provider: Neha Burgos Other Providers: Al Mccarthy ; Clinton Gaming ; Moon Earl ; [facility] Other Interventions: Discharge Summary Assessment (RN) Last Done: 09/13/20 15:26
[2020-09-13] MEDS ORDERED: FUROSEMIDE 80 MG TAB PO SCH (17:00)
== END 2020-09-13 16:01 | disposition left against medical advice (07) | DRG 641 ==
LOC: ED 09:46 → 2N 11:48

== ENCOUNTER 2020-09-30 19:25 | Inpatient (IN) ==
[2020-09-30] MEDS ORDERED: CEFEPIME 2,000 MG in SYRINGE 0 ML IV STA (20:02)
[2020-09-30] MEDS ORDERED: metroNIDAZOLE 500 MG/100 ML BAG IV STA (20:03)
--- NOTE | 2020-09-30 20:06 | Emergency Department Note ---
History of Present Illness General Chief complaint: Confusion Stated complaint: CONFUSION, SHAKINESS Time Seen by Provider: 09/30/20 19:37 Source: patient, family (I talked to his on the phone) and other (I talked to Dr. Berg.) Mode of arrival: ambulatory Limitations: no limitations History of Present Illness This patient has a history of end-stage liver disease/cirrhosis and comes in after having shakiness and increasing confusion. He did have albumin yesterday with 6 bottles and his trevor off about 6 L. She said he was more tired today and more confused and so she gave him lactulose x3 and he started getting a joshua le better. He vomited 3 times this morning without any blood or melena. He does tend to have low sodium and kidney problems as well. He has a Pleurx catheter that they used to pull off the fluid but is been leaking around it and Dr. Berg was worried about a possible infection. He has no chest pain or shortness of breath no fever chills no exposure to Covid. Home Medications Medication Instructions Recorded Confirmed Type Xifaxan 550 mg PO BID 06/20/18 09/30/20 History flash glucose scanning reader #1 ea 09/05/19 08/26/20 History insulin aspart U-100 100 unit/mL See Rx Instructions .ROUTE 09/05/19 09/30/20 H istory subcutaneous solution .COMPLEX ml ondansetron 8 mg PO Q8H PRN 09/07/19 09/30/20 History V-GO 20 #90 kit NS 01/21/20 08/26/20 Rx gabapentin 300 mg PO TID 08/15/20 09/30/20 History lorazepam 0.5 mg PO TID PRN 08/15/20 09/30/20 History nystatin 1 applic TOPICAL DAILY PRN 08/15/20 09/30/20 History omeprazole 40 mg PO BID 08/15/20 09/30/20 History prochlorperazine maleate 10 mg PO Q6H PRN 08/15/20 09/30/20 History silver sulfadiazine 1 applic TOPICAL DAILY PRN 08/15/20 09/30/20 History triamcinolone acetonide 1 applic TOPICAL DAILY PRN 08/15/20 09/30/20 History FreeStyle Adair 14 Day Sensor #7 ea NS 09/01/20 Rx carisoprodol [Soma] 350 mg PO QID PRN 09/11/20 09/30/20 History cimetidine 300 mg PO DAILY 09/11/20 09/30/20 History ciprofloxacin HCl 500 mg PO DAILY 09/11/20 09/30/20 History lactulose 30 ml PO DAILY 09/11/20 09/30/20 History mirtazapine 30 mg PO HS 09/11/20 09/30/20 History trazodone 50 mg PO HS 09/11/20 09/30/20 History furosemide 80 mg PO BID #60 tab 09/13/20 09/30/20 Rx oxycodone 10 mg PO Q6H PRN 09/30/20 09/30/20 History Allergies Allergy/AdvReac Type Severity Reaction Status Date / Time Penicillins Allergy Severe ANAPHYLAXIS Verified 09/29/20 08:19 morphine Allergy Intermediate Severe Verified 09/29/20 08:19 itching/mouth rash adhesive Allergy Mild rips Verified 09/29/20 08:19 skin/bruise skin aripiprazole Allergy Mild "feeling Verified 09/29/20 08:19 irritable" lithium Allergy Mild Anxiety Verified 09/29/20 08:19 meperidine Allergy Mild pruritis/ra Verified 09/29/20 08:19 sh pregabalin Allergy Mild Anxiety Verified 09/29/20 08:19 quetiapine Allergy Mild Drowsy Verified 09/29/20 08:19 Gold Salts AdvReac Mild Blister Verified 09/29/20 08:19 Past Med/Surg History Medical History Anxiety Asthma inhaler/nebulizer prn Cardiac murmur as a child Chronic back pain Degenerative disc disease Diabetes mellitus, type 2 Diabetic peripheral neuropathy Esophageal varices hx of banding GERD (gastroesophageal reflux disease) Hearing deficit Hepatocellular carcinoma Hyponatremia 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 steatohepatitis) stage 3 Osteoarthritis Prolonged QT interval Sarcoidosis Smoker Spinal stenosis Thrombocytopenia Surgical History History of anesthesia reaction sometimes has difficulty waking up---last EGD took him an hour to wake up History of cardiac cath 2007 @ [facility], no stents History of colonoscopy History of endoscopic sinus surgery History of esophagogastroduodenoscopy (EGD) History of repair of left rotator cuff History of thoracic spinal fusion t10-t12 History of tooth extraction wisdom teeth History of umbilical hernia repair x3 Status post cervical spinal fusion x3 screws, plates in place--normal ROM C3-C7 Status post cholecystectomy Status post right foot surgery complete amputation of great toe and 2nd toe Family History Mother Diabetes Coronary heart disease Father Heart disease Sister Cancer bladder Other No family history of adverse response to anesthesia Social History Smoking Status: Light tobacco smoker Cigarettes Per Day: 2; Second Hand Exposure: No; Hx Alcohol Use: No Hx Substance Use: No Preferred Language: Tajik Communication Ability: Effective Medication Tech Required: No Beliefs That Will Affect Care: None marital status: Current Living Situation: Spouse Feels Safe at Home: Yes Assistive Devices: Glasses Review of Systems A total of 10 systems reviewed and were otherwise negative Physical Exam Vital Signs Vital Signs - 24 hr 09/30/20 19:27 09/30/20 20:13 09/30/20 20:30 Temperature 36.2 C L Temperature Source Temporal Artery Scan Pulse Rate 124 H 96 H Pulse Rate [Right Finger] Pulse Rate from SpO2 Sensor 96 H Pulse Rhythm [Right Finger] Pulse Strength [Right Finger] Respiratory Rate 20 16 Respiratory Effort / Characteristics SOB on Exertion Respiratory Depth Normal Respiratory Pattern Blood Pressure 108/54 L 94/56 L Blood Pressure [Left Arm] Blood Pressure Mean 72 68 Blood Pressure Mean [Left Arm] Blood Pressure Position [Left Arm] Pulse Oximetry 94 100 Oxygen Delivery Method Room Air Room Air Room Air Sepsis Recent Fever Within 48 Hours No Sepsis New/Unexplained Change in Mental Status N/A Sepsis Action Taken by Nursing No Action Required 09/30/20 20:31 09/30/20 21:16 09/30/20 21:30 Temperature Temperature Source Pulse Rate 95 H 93 H Pulse Rate [Right Finger] 96 H Pulse Rate from SpO2 Sensor 95 H 93 H Pulse Rhythm [Right Finger] Regular Pulse Strength [Right Finger] Normal Respiratory Rate 20 21 16 Respiratory Effort / Characteristics Non-Labored Spontaneous Respiratory Depth Normal Respiratory Pattern Regular Blood Pressure 102/58 L 98/59 L Blood Pressure [Left Arm] 94/56 L Blood Pressure Mean 72 72 Blood Pressure Mean [Left Arm] 68 Blood Pressure Position [Left Arm] Lying Pulse Oximetry 100 100 100 Oxygen Delivery Method Room Air Room Air Room Air Sepsis Recent Fever Within 48 Hours Sepsis New/Unexplained Change in Mental Status Sepsis Action Taken by Nursing 09/30/20 22:00 09/30/20 22:30 Temperature Temperature Source Pulse Rate 93 H 94 H Pulse Rate [Right Finger] Pulse Rate from SpO2 Sensor 93 H 95 H Pulse Rhythm [Right Finger] Pulse Strength [Right Finger] Respiratory Rate 17 17 Respiratory Effort / Characteristics Respiratory Depth Respiratory Pattern Blood Pressure 97/57 L 104/56 L Blood Pressure [Left Arm] Blood Pressure Mean 70 72 Blood Pressure Mean [Left Arm] Blood Pressure Position [Left Arm] Pulse Oximetry 100 100 Oxygen Delivery Method Room Air Room Air Sepsis Recent Fever Within 48 Hours Sepsis New/Unexplained Change in Mental Status Sepsis Action Taken by Nursing General: Well developed well nourished chronically ill-appearing middle-age male who is mild shaky but in no acute distress, breathing comfortably on room air. Normal speech HEENT: Normal cephalic atraumatic. Pupils are equal round and reactive to light. Extraocular movements are intact. Oropharynx is pink with moist mucous membranes. No swelling of the mouth lips or tongue. Neck: Supple with a midline trachea. No meningeal signs or stiffness, no JVD or bruits. No Stridor. Chest: Clear to auscultation bilaterally. No wheezes or rhonchi. No increased work of breathing. Heart: Regular rate and rhythm without murmurs or gallops. Abdomen: Soft but distended without rebound guarding or rigidity. He does have a catheter in the right abdomen which is leaking around the catheter site Extremities: No cyanosis clubbing or edema. No calf tenderness or assymetry Spine/Back. Non tender to palpation. No CVA tenderness Skin: Good turgor without rashes. Neurologic exam: Cranial nerves two through 12 are intact. Motor and sensation are intact and symmetrical throughout. Course Administered Medications Discontinued Medications Cefepime HCl (Cefepime 2,000 Mg/20 Ml Vial) Confirm Administered Dose 2,000 mg .ROUTE .STK-MED ONE Stop: 09/30/20 20:35 Last Admin: 09/30/20 20:40 Dose: 2,000 mg Documented by: [id number] Cefepime HCl 2,000 mg/ Syringe 20 mls @ 5 mls/min IV NOW STA Stop: 09/30/20 20:05 Last Admin: 09/30/20 21:37 Dose: Not Given Documented by: [id number] Metronidazole (Flagyl) 500 mg in 100 mls @ 100 mls/hr IV NOW STA Stop: 09/30/20 21:02 Last Admin: 09/30/20 20:40 Dose: 100 mls/hr Documented by: [id number] Sodium Chloride (Nss 1000ml) 500 mls @ 999 mls/hr IV .Q31M ONE Stop: 09/30/20 21:45 Last Admin: 09/30/20 21:45 Dose: 999 mls/hr Documented by: [id number] Medical Decision Making Laboratory Data Result diagrams: 09/30/20 20:24 09/30/20 20:24 Lab Results 09/30/20 09/30/20 09/30/20 Range/Units 20:24 20:24 20:24 WBC 3.56 L (4.8-10.8) K/uL RBC 2.87 L (4.7-6.1) M/uL Hgb 8.8 L (14.0-18.0) g/dL Hct 25.2 L (42-52) % MCV 87.8 (80-100) fL MCH 30.7 (25-34) pg MCHC 34.9 (32-36) g/dL RDW Std Deviation 62.5 H (36.4-46.3) fL RDW Coeff of Kelly 19.2 H (11.5-14.5) % Plt Count 49 L (130-400) K/uL MPV 8.4 (7.4-10.4) fL Immature Gran % (Auto) 1.4 % Neut % (Auto) 79.0 % Lymph % (Auto) 8.4 % [place] % (Auto) 8.7 % Eos % (Auto) 2.2 % Baso % (Auto) 0.3 % Neut # (Auto) 2.81 (1.4-6.5) K/uL Lymph # (Auto) 0.30 L (1.2-3.4) K/uL [place] # (Auto) 0.31 (0.11-0.59) K/uL Eos # (Auto) 0.08 (0-0.5) K/uL Baso # (Auto) 0.01 (0-0.2) K/uL Immature Gran # (Auto) 0.05 H (0.00-0.02) K/uL Echinocytes 1+ PT 12.7 H (9.0-12.0) Seconds INR 1.3 H (0.9-1.1) APTT 29.0 (21.0-31.0) Seconds PTT Ratio 1.1 Sodium 125 L (136-145) mmol/L Potassium 5.4 H (3.5-5.1) mmol/L Chloride 98 (98-107) mmol/L Carbon Dioxide 15 L (21-32) mmol/L Anion Gap 12.0 H (3-11) BUN 81 H (7-18) mg/dl Creatinine 2.39 H (0.6-1.4) mg/dl Est Cr Clr Drug Dosing Not Reportable Est GFR ( Amer) 34.6 Est GFR (Non-Af Amer) 29.8 BUN/Creatinine Ratio 33.9 H (10-20) Glucose 203 H (70-99) mg/dl Lactate (0.4-2.0) mmol/L Calcium 9.1 (8.5-10.1) mg/dl Magnesium 2.4 (1.8-2.4) mg/dl Total Bilirubin 3.9 H (0.2-1) mg/dl AST 146 H (15-37) U/L ALT 70 (12-78) U/L Alkaline Phosphatase 317 H (45-117) U/L Ammonia (11-32) umol/L Total Protein 6.2 L (6.4-8.2) gm/dl Albumin 3.0 L (3.4-5.0) gm/dl Globulin 3.2 (2.5-4.0) gm/dl Albumin/Globulin Ratio 0.9 (0.9-2) COVID-19 Eval Order SARS-CoV-2, RNA, NAAT (NEGATIVE) 09/30/20 09/30/20 09/30/20 Range/Units 20:24 20:24 21:20 WBC (4.8-10.8) K/uL RBC (4.7-6.1) M/uL Hgb (14.0-18.0) g/dL Hct (42-52) % MCV (80-100) fL MCH (25-34) pg MCHC (32-36) g/dL RDW Std Deviation (36.4-46.3) fL RDW Coeff of Kelly (11.5-14.5) % Plt Count (130-400) K/uL MPV (7.4-10.4) fL Immature Gran % (Auto) % Neut % (Auto) % Lymph % (Auto) % [place] % (Auto) % Eos % (Auto) % Baso % (Auto) % Neut # (Auto) (1.4-6.5) K/uL Lymph # (Auto) (1.2-3.4) K/uL [place] # (Auto) (0.11-0.59) K/uL Eos # (Auto) (0-0.5) K/uL Baso # (Auto) (0-0.2) K/uL Immature Gran # (Auto) (0.00-0.02) K/uL Echinocytes PT (9.0-12.0) Seconds INR (0.9-1.1) APTT (21.0-31.0) Seconds PTT Ratio Sodium (136-145) mmol/L Potassium (3.5-5.1) mmol/L Chloride (98-107) mmol/L Carbon Dioxide (21-32) mmol/L Anion Gap (3-11) BUN (7-18) mg/dl Creatinine (0.6-1.4) mg/dl Est Cr Clr Drug Dosing Est GFR ( Amer) Est GFR (Non-Af Amer) BUN/Creatinine Ratio (10-20) Glucose (70-99) mg/dl Lactate 2.7 H* (0.4-2.0) mmol/L Calcium (8.5-10.1) mg/dl Magnesium (1.8-2.4) mg/dl Total Bilirubin (0.2-1) mg/dl AST (15-37) U/L ALT (12-78) U/L Alkaline Phosphatase (45-117) U/L Ammonia 87.3 H (11-32) umol/L Total Protein (6.4-8.2) gm/dl Albumin (3.4-5.0) gm/dl Globulin (2.5-4.0) gm/dl Albumin/Globulin Ratio (0.9-2) COVID-19 Eval [email or web address] SARS-CoV-2, RNA, NAAT (NEGATIVE) 09/30/20 09/30/20 Range/Units 21:20 22:21 WBC (4.8-10.8) K/uL RBC (4.7-6.1) M/uL Hgb (14.0-18.0) g/dL Hct (42-52) % MCV (80-100) fL MCH (25-34) pg MCHC (32-36) g/dL RDW Std Deviation (36.4-46.3) fL RDW Coeff of Kelly (11.5-14.5) % Plt Count (130-400) K/uL MPV (7.4-10.4) fL Immature Gran % (Auto) % Neut % (Auto) % Lymph % (Auto) % [place] % (Auto) % Eos % (Auto) % Baso % (Auto) % Neut # (Auto) (1.4-6.5) K/uL Lymph # (Auto) (1.2-3.4) K/uL [place] # (Auto) (0.11-0.59) K/uL Eos # (Auto) (0-0.5) K/uL Baso # (Auto) (0-0.2) K/uL Immature Gran # (Auto) (0.00-0.02) K/uL Echinocytes PT (9.0-12.0) Seconds INR (0.9-1.1) APTT (21.0-31.0) Seconds PTT Ratio Sodium (136-145) mmol/L Potassium (3.5-5.1) mmol/L Chloride (98-107) mmol/L Carbon Dioxide (21-32) mmol/L Anion Gap (3-11) BUN (7-18) mg/dl Creatinine (0.6-1.4) mg/dl Est Cr Clr Drug Dosing Est GFR ( Amer) Est GFR (Non-Af Amer) BUN/Creatinine Ratio (10-20) Glucose (70-99) mg/dl Lactate 1.7 (0.4-2.0) mmol/L Calcium (8.5-10.1) mg/dl Magnesium (1.8-2.4) mg/dl Total Bilirubin (0.2-1) mg/dl AST (15-37) U/L ALT (12-78) U/L Alkaline Phosphatase (45-117) U/L Ammonia (11-32) umol/L Total Protein (6.4-8.2) gm/dl Albumin (3.4-5.0) gm/dl Globulin (2.5-4.0) gm/dl Albumin/Globulin Ratio (0.9-2) COVID-19 Eval Order SARS-CoV-2, RNA, NAAT NEGATIVE (NEGATIVE) Imaging Data My Impression: Chest x-rayno acute infiltrate, failure, pneumothorax. Radiologist's Impression: XR chest 1V portable HISTORY: SEPSIS COMPARISON: Chest 09/11/2020. FINDINGS: No pneumothorax or no pleural effusions. There are low lung volumes. There are surgical clips within the left axilla. No focal lung consolidations to suggest pneumonia. No evidence for pulmonary edema. The cardiac silhouette remains borderline enlarged. Cervical and thoracolumbar spinal fusion hardware is again noted. IMPRESSION: No significant change compared to the prior study. No acute process. ECG Data Attestation: I personally reviewed and interpreted this ECG as follows: Indication: + weakness Rate (beats per minute): 97 ECG Intervals/blocks: + Normal QRS, + Normal QT and + Normal ME ECG [place]: + Normal ECG ST segments: + Normal ST segments ECG Findings: no PACs and no PVCs Comparison ECG Date: from (09/11/20) Change: no significant change MDM Narrative This patient comes in with weakness and shakiness he does have end-stage liver disease and is followed by Dr. Berg. He apparently had 6 L of albumin yesterday and his drained it off at home he tends to get weak after that but he is more weak and shaky she gave him 3 dose of lactulose and thinks he is gotten a little bit better. He said no fever chills or fall or trauma. I talked to Dr. Berg at length. The patient has severe progressive disease and does not want to stay in the hospital he is approaching hospice care and the confirms this he is a DNR. Dr. Berg wanted me to give him antibiotics as well as get blood work and peritoneal fluid. We did draw peritoneal fluid off the catheter and sent it to the lab. He has no significant white count. His ammonia was moderately elevated and there could be hepatic encephalopathy component. His potassium is mildly high at 5.4 he is no EKG changes. He does have renal sufficiency insufficiency as well which is slightly worse than before. He has chronic anemia with hemoglobin 8.8. He did receive IV cefepime and IV Flagyl as recommended by her ED pharmacist. His EKG does not suggest acute ischemic changes or ectopy. he will be admitted for IV antibiotics and further treatment and evaluation. I did talk to his at length on the telephone and she agrees with the plan. Continuous cardiac monitoring: Order was placed in the EMR for continuous cardiac monitoring. The patient was noted to be in normal sinus rhythm with a rate of 95. Impression & Plan Weakness, 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 steatohepatitis), Ascites, Encephalopathy, hepatic Discharge Plan Visit Data Chief Complaint: Confusion Stated Complaint: CONFUSION, SHAKINESS ED Provider: Casey Cesar Discharge Problem: Weakness, 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 steatohepatitis), Ascites, Encephalopathy, hepatic Patient Disposition: Admitted As Inpatient Discharge Instructions Interventions: ED Discharge Assessment Last Done: 09/30/20 23:50 Discharge Problem: Ascites Qualifiers: Ascites type: other type Qualified Code(s): R18.8 - Other ascites
--- NOTE | 2020-09-30 20:25 | XRay Report ---
XR chest 1V portable HISTORY: SEPSIS COMPARISON: Chest 09/11/2020. FINDINGS: No pneumothorax or no pleural effusions. There are low lung volumes. There are surgical cli ps within the left axilla. No focal lung consolidations to suggest pneumonia. No evidence for pulmona ry edema. The cardiac silhouette remains borderline enlarged. Cervical and thoracolumbar spinal fusio n hardware is again noted. IMPRESSION: No significant change compared to the prior study. No acute process. ACT 112: Negative or not required by law. Electronically signed by: José Miguel Funk M.D. 09/30/2020 8:24 PM
[2020-09-30] MEDS ORDERED: CEFEPIME 2,000 MG/20 ML VIAL ONE (20:34)
[2020-09-30 20:35] LABS: Hematocrit (blood only) 25.2 % (42-52); Hemoglobin 8.8 g/dL (14.0-18.0); Mean Corpuscular Hemoglobin 30.7 pg (25-34); Mean Corpuscular Hgb Conc 34.9 g/dL (32-36); Mean Corpuscular Volume 87.8 fL (80-100); RDW Coefficient of Variation 19.2 % (11.5-14.5); RDW Standard Deviation 62.5 fL (36.4-46.3); Red Blood Count 2.87 M/uL (4.7-6.1); White Blood Count 3.56 K/uL (4.8-10.8)
[2020-09-30 20:50] LABS: INR 1.3 (0.9-1.1); Partial Thromboplastin Ratio 1.1; Prothrombin Time 12.7 Seconds (9.0-12.0)
[2020-09-30 20:51] LABS: Alanine Aminotransferase 70 U/L (12-78); Aspartate Aminotransferase 146 U/L (15-37); BUN Creatinine Ratio 33.9 (10-20); Blood Urea Nitrogen 81 mg/dl (7-18); Calcium 9.1 mg/dl (8.5-10.1); Carbon Dioxide 15 mmol/L (21-32); Chloride 98 mmol/L (98-107); Est GFR (African American) 34.6; Est GFR (Non-African American) 29.8; Glucose 203 mg/dl (70-99); Magnesium 2.4 mg/dl (1.8-2.4); Potassium 5.4 mmol/L (3.5-5.1); Sodium 125 mmol/L (136-145)
[2020-09-30 20:54] LABS: Albumin Globulin Ratio 0.9 (0.9-2); Alkaline Phosphatase 317 U/L (45-117); Bilirubin,Total 3.9 mg/dl (0.2-1); Globulin 3.2 gm/dl (2.5-4.0); Total Protein 6.2 gm/dl (6.4-8.2)
[2020-09-30 20:55] LABS: Mean Platelet Volume 8.4 fL (7.4-10.4); Platelet Count 49 K/uL (130-400)
[2020-09-30 20:59] LABS: Basophils # (auto) 0.01 K/uL (0-0.2); Basophils % (auto) 0.3 %; Echinocytes 1+; Eosinophils # (auto) 0.08 K/uL (0-0.5); Eosinophils % (auto) 2.2 %; Immature Granulocytes # (auto) 0.05 K/uL (0.00-0.02); Immature Granulocytes % (auto) 1.4 %; Lymphocytes % (auto) 8.4 %; Monocytes # (auto) 0.31 K/uL (0.11-0.59); Monocytes % (auto) 8.7 %; Neutrophils # (auto) 2.81 K/uL (1.4-6.5)
[2020-09-30] MEDS ORDERED: SODIUM CHLORIDE 0.9% 1000ML 500 ML IV ONE (21:15)
[2020-09-30] MEDS ORDERED: PHARMACY GLYCEMIC MGMT CONSULT STA (23:57)
[2020-10-01] MEDS ORDERED: TRIAMCINOLONE ACET 0.1% CR 15 GM TUBE TOP PRN (00:39)
[2020-10-01] MEDS ORDERED: LORazepam 0.5 MG TAB PO PRN (00:39)
[2020-10-01] MEDS ORDERED: D5W AND NSS 1,000 ML IV SCH (00:39)
[2020-10-01] MEDS ORDERED: CARISOPRODOL 350 MG TABLET PO PRN (00:39)
[2020-10-01] MEDS ORDERED: SILVER SULFADIAZINE 1% CR 50 GM JAR TOP PRN (00:39)
[2020-10-01] MEDS ORDERED: PROCHLORPERAZINE MALEATE 10 MG TAB PO PRN (00:39)
[2020-10-01] MEDS ORDERED: NYSTATIN CR 15 GM TUBE EXT PRN (00:39)
[2020-10-01] MEDS ORDERED: NITROGLYCERIN SL 0.4 MG/TAB TAB SL PRN (00:39)
[2020-10-01] MEDS ORDERED: ONDANSETRON INJ 2 MG/ML 2 ML VIAL IV PRN (00:39)
[2020-10-01] MEDS ORDERED: SODIUM POLYSTYRENE SULFONATE 15G/60ML SUSP PO STA ×2 (00:39→01:09)
[2020-10-01] MEDS ORDERED: oxyCODONE HCL IR 5 MG TAB (IMMEDIATE RELEASE) PO PRN (00:39)
[2020-10-01] MEDS ORDERED: SODIUM POLYSTYRENE 15 GM/60 ML 500ML BOTTLE PO STA ×2 (00:52→01:14)
[2020-10-01] MEDS ORDERED: CEFEPIME CONSULT ACTIVE PRN (00:52)
[2020-10-01] MEDS ORDERED: PHARMACY GLYCEMIC MGMT CONSULT PRN (01:09)
[2020-10-01] MEDS ORDERED: DEXTROSE 50% 50 ML SYRINGE IV PRN (01:45)
[2020-10-01] MEDS ORDERED: CARBOHYDRATES FOR HYPOGLYCEMIA PO PRN (01:45)
[2020-10-01] MEDS ORDERED: GLUCOSE 10 TABS/TUBE PO PRN (01:45)
[2020-10-01] MEDS ORDERED: GLUCOSE 40% GEL 15 GM TUBE PO PRN (01:45)
[2020-10-01] MEDS ORDERED: GLUCAGON FOR INJ 1 MG VIAL SQ PRN (01:45)
[2020-10-01] MEDS: LACTULOSE SYRUP 30 GM/45 ML UDP PO SCH ×2 (02:20→08:45)
[2020-10-01] MEDS: rifAXIMin 550 MG TABLET PO SCH ×2 (02:20→08:44)
[2020-10-01] MEDS: INSULIN ASPART 100 UNITS/ML 3 ML PEN SC SCH ×4 (02:21→13:02)
[2020-10-01 02:59] LABS: Appearance Urine Clear (Clear); Bilirubin Urine Negative (Negative); Blood Urine Negative (Negative); Color Urine Yellow; Glucose Urine UA Negative (Negative); Ketones Urine Negative (Negative); Leukocyte Esterase Urine Negative (Negative); Nitrite Urine Negative (Negative); Protein Urine Negative (Negative); Specific Gravity Urine 1.014 (1.000-1.030); Urobilinogen Urine Negative (Negative)
--- NOTE | 2020-10-01 04:50 | History and Physical Report ---
DATE OF ADMISSION: 09/30/2020 CHIEF COMPLAINT: Confusion. 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 The patient has a PleurX catheter for his ascites and 1 liter of fluid was taken out daily but yesterday with albumin infusion he had 6 liters of fluid taken out and as per the , he was mostly lethargic yesterday sleeping and today he woke up, but he was more shaky and seemed confused and episode of vomiting on talking to the GI, they advised to come to the ER. He seemed more tired today. So gave him an extra dose of lactulose today. He also vomited today in the morning. There is a question of some infection. The patient complained of no fever or chills at home. No complaint of any pain. No blood in the stools or black stools. The patient initially when he came in as per nursing staff he was talking and oriented, but now is very much sleepy and difficult to wake him up, but he could tell his name, knows his date of , knows that he is in the hospital, but could not tell today's date, but he goes back to sleep and it is very difficult to wake him up. Denies any chest pain, denies any shortness of breath, denies any belly pain. Denies any cough. We could not get complete review of systems from the patient currently. ALLERGIES: PENICILLIN, MORPHINE, ADHESIVE, ARIPIPRAZOLE, LITHIUM, MEPERIDINE, PREGABALIN, QUETIAPINE, GOLD SALTS PAST MEDICAL HISTORY: As mentioned above. PAST SURGICAL HISTORY: Left axillary lymph node biopsy, colonoscopies, multiple EGDs, EGD with ultrasound-guided FNA to jejunum, EGD with endoscopic ultrasound, incisional hernia repair laparoscopically, neck spine fusion surgery, removal of turbinate bones, cholecystectomy, repair of nasal septum, thoracic spine fusion surgery, umbilical hernia repair. MEDICATIONS: The patient is on lactulose 30 mL p.o. t.i.d., Soma 350 mg p.o. q.i.d. p.r.n., oxycodone 10 mg p.o. q. 6 hours p.r.n., ciprofloxacin 500 mg p.o. daily, Lasix 80 mg p.o. b.i.d., Ativan 0.5 mg p.o. t.i.d. p.r.n., albumin infusion pre and post paracentesis, trazodone 50 mg p.o. at bedtime, rifaximin 550 mg p.o. b.i.d., gabapentin 300 mg p.o. t.i.d., Remeron 30 mg p.o. at bedtime, Zofran 8 mg p.o. t.i.d. p.r.n., Compazine 10 mg p.o. q. 6 hours p.r.n., Cimetidine 300 mg p.o. daily, omeprazole 40 mg p.o. b.i.d., insulin pump, albuterol nebulization p.r.n. FAMILY HISTORY: Significant for sister had bladder cancer, dementia; mother has diabetes and heart disorder, [place] in her 30s; father with respiratory disorder. SOCIAL HISTORY: , lives with . Former smoker, quit in May 2020, smoked average of half pack a day for 32 years. No alcohol use, no drug use. REVIEW OF SYSTEMS: As per HPI. Rest of review of systems negative. PHYSICAL EXAMINATION: GENERAL: The patient is morbidly obese, not in acute distress. Currently drowsy. VITAL SIGNS: Temperature 36.2, pulse 101, respiratory rate in the 20s, blood pressure 114/71, oxygen 100% on room air. HEENT: Pupils equal, round, reactive to light. Oral mucosa dry. NECK: No JVD, no neck masses seen. CARDIOVASCULAR: S1, S2 heard. Regular rate and rhythm, no murmur, no gallop. RESPIRATORY SYSTEM: Normal AP diameter. No accessory muscle use. No wheezing, no crackles. ABDOMEN: Distended. Right-sided pleural catheter site is clean. Distended. CENTRAL NERVOUS SYSTEM: Drowsy but oriented to name and place. Answers simple questions. EXTREMITIES: Bilateral lower extremity chronic edema seen. No erythema seen. LABORATORY DATA: WBC 3.5, hemoglobin 8.8, hematocrit 25.2, platelets 49. PT 12.7, INR 1.3, APTT 29. Sodium 135, potassium 5.4, chloride 98, bicarbonate 15, BUN 81, creatinine 2.39, serum glucose 203, lactate 1.7, calcium 9.1, magnesium 2.4, total bilirubin 3.9, AST 146, ALT 70, alkaline phosphatase 317, ammonia 87. Ascitic fluid analysis pending. SARS-CoV-2 RNA negative. IMAGING DATA: Chest x-ray, no acute process. 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 1. Confusion: Could be from hepatic encephalopathy as ammonia level is elevated at 87, also could be from any infection. Ascitic fluids from PleurX catheter sent for cultures and cell count is pending. Empirically started on cefepime and Flagyl. Gentle fluids for now and closely monitor in the med tele. GI consulted. Further plan of action as per the GI. 2. MEJIA liver cirrhosis, hepatic encephalopathy, ammonia is 88. Will continue with lactulose 30 grams t.i.d. and continue Xifaxan. Follow the repeat labs in a.m. 3. Acute kidney injury on chronic kidney disease stage III, baseline creatinine of 1.5, currently with creatinine of 2.3 and also hyponatremia and hyperkalemia. The patient has chronic hyponatremia. Also his potassium is elevated from time to time, hyponatremia mostly secondary to volume overload, but currently because of acute kidney injury, we will hold his diuretics. Give gentle fluids and stop fluids in a.m. and give a dose of Kayexalate. Follow the repeat labs in a.m. and consult nephrology in the a.m. for further recommendation. 4. Metabolic acidosis . from above? The patient is also getting D5 normal saline. We will follow the repeat labs in the a.m. 5. Diabetes, on insulin pump. We will take off insulin pump and place him on sliding scale and pharmacy consult. Follow the blood sugars. 6. Hepatocellular carcinoma. There is a been discussion plan for hospice . We will await GI input tomorrow. 7. Ascites, status post PleurX catheter. The patient is getting 1 L of fluid every day. As per the yesterday, he had albumin infusion and had 6 liters taken out. Will continue with his lactulose. Continue salt restriction. Getting gentle fluids for acute kidney injury. Diuretics are held. Will monitor for any volume overload. 8. Pancytopenia secondary to cirrhosis. We will monitor in the labs. 9. Deep venous thrombosis prophylaxis, sequential compression devices for now. 10. Disposition: Closely monitor in the med tele. Code status DNR/DNI as per my discussion with the . Social service to help with discharge planning. MIGUEL A
[2020-10-01 05:48] LABS: Hemoglobin 8.3 g/dL (14.0-18.0); Mean Corpuscular Hemoglobin 30.3 pg (25-34); Mean Corpuscular Hgb Conc 34.6 g/dL (32-36); Mean Corpuscular Volume 87.6 fL (80-100); RDW Coefficient of Variation 19.4 % (11.5-14.5); Red Blood Count 2.74 M/uL (4.7-6.1); White Blood Count 3.04 K/uL (4.8-10.8)
[2020-10-01 05:54] LABS: Mean Platelet Volume 8.2 fL (7.4-10.4); Platelet Count 46 K/uL (130-400)
[2020-10-01 06:19] LABS: Basophils # (auto) 0.01 K/uL (0-0.2); Basophils % (auto) 0.3 %; Echinocytes 1+; Eosinophils # (auto) 0.11 K/uL (0-0.5); Eosinophils % (auto) 3.6 %; Immature Granulocytes # (auto) 0.03 K/uL (0.00-0.02); Lymphocytes # (auto) 0.42 K/uL (1.2-3.4); Lymphocytes % (auto) 13.8 %; Monocytes # (auto) 0.39 K/uL (0.11-0.59); Monocytes % (auto) 12.8 %; Neutrophils # (auto) 2.08 K/uL (1.4-6.5); Neutrophils % (auto) 68.5 %
[2020-10-01 06:24] LABS: Bilirubin Direct 2.3 mg/dl (0-0.2); Calcium 8.6 mg/dl (8.5-10.1); Creatinine Clr Calc Pharmacy 57.8 ml/min; Est GFR (African American) 42.1; Est GFR (Non-African American) 36.3; Magnesium 2.7 mg/dl (1.8-2.4); Potassium 5.1 mmol/L (3.5-5.1)
[2020-10-01 06:26] LABS: Total Protein 5.9 gm/dl (6.4-8.2)
[2020-10-01 06:48] LABS: Estimated Average Glucose 120 mg/dl; Hemoglobin A1C 5.8 % (4.5-5.6)
[2020-10-01] MEDS ORDERED: INSULIN ASPART 100 UNITS/ML 3 ML PEN SC SCH (07:30)
[2020-10-01] MEDS ORDERED: metroNIDAZOLE 500 MG/100 ML BAG IV SCH (08:00)
--- NOTE | 2020-10-01 08:36 | Gastrointestinal Consultation ---
Date of Consultation October 01, 2020 Assessment & Plan (1) Encephalopathy, hepatic: 54 year old male w/ stage IV HCC with invasion into portal vein admitted with confusion. Follow fluid studies, if negative d/c If concerning for SBP, treat xifaxan BID Lactulose titrated to BMs Continue para at home per Dr. Berg Thank you for allowing us to participate in the care of this patient. Please call with any acute changes, questions or concerns. Please see addendum below with additional recommendation from my supervising physician. Attg add: I interviewed and examined pt, reviewed chart and labs. Spoke to . Pt at baseline mental status, with marked improvement in tremor. No evidence SBP by labs. Pt wants to go home, and does not want to stay in the hospital. Given the largely palliative goals of his care, it seems reasonable to discharge him today. History of Present Illness Reason for Consultation: hepatic encephalopathy Requesting Physician: Sugar Attending Physician: Last Wooten, History of Present Illness 54 year old male w/ history of T2DM on insulin pump, HTN, asthma, depression, NAFLD cirrhosis with ascites, HE, G2 varices, h/o SBP, stage IV HCC with invasion into portal vein, previously evaluated by IR, not candidate for embolization, received one regimen of Opdivo, w/ pleurex catheter admitted through the ED w/ hepatic encephalopathy. Pt was seen and evaluated, chart reviewed. He is resting on my exam, eating breakfast without concern. No abd pain. No nausea, vomiting. No GERD. Bowels moving, no black or bloody stools. EGD in March showed G2 varices s/p banding and apparent eradication; recommended repeat in 6 mos. Cscopy In April showed rectal varices, portal colopathy Allergies Allergy/AdvReac Type Severity Reaction Status Date / Time Penicillins Allergy Severe ANAPHYLAXIS Verified 09/29/20 08:19 morphine Allergy Intermediate Severe Verified 09/29/20 08:19 itching/mouth rash adhesive Allergy Mild rips Verified 09/29/20 08:19 skin/bruise skin aripiprazole Allergy Mild "feeling Verified 09/29/20 08:19 irritable" lithium Allergy Mild Anxiety Verified 09/29/20 08:19 meperidine Allergy Mild pruritis/ra Verified 09/29/20 08:19 sh pregabalin Allergy Mild Anxiety Verified 09/29/20 08:19 quetiapine Allergy Mild Drowsy Verified 09/29/20 08:19 Gold Salts AdvReac Mild Blister Verified 09/29/20 08:19 Home Medications Medication Instructions Recorded Confirmed Type Xifaxan 550 mg PO BID 06/20/18 09/30/20 History flash glucose scanning reader #1 ea 09/05/19 08/26/20 History insulin aspart U-100 100 unit/mL See Rx Instructions .ROUTE 09/05/19 09/30/20 History subcutaneous solution .COMPLEX ml ondansetron 8 mg PO Q8H PRN 09/07/19 09/30/20 History V-GO 20 #90 kit NS 01/21/20 08/26/20 Rx gabapentin 300 mg PO TID 08/15/20 09/30/20 History lorazepam 0.5 mg PO TID PRN 08/15/20 09/30/20 History nystatin 1 applic TOPICAL DAILY PRN 08/15/20 09/30/20 History omeprazole 40 mg PO BID 08/15/20 09/30/20 History prochlorperazine maleate 10 mg PO Q6H PRN 08/15/20 09/30/20 History silver sulfadiazine 1 applic TOPICAL DAILY PRN 08/15/20 09/30/20 History triamcinolone acetonide 1 applic TOPICAL DAILY PRN 08/15/20 09/30/20 History FreeStyle Adair 14 Day Sensor #7 ea NS 09/01/20 Rx carisoprodol [Soma] 350 mg PO QID PRN 09/11/20 09/30/20 History cimetidine 300 mg PO DAILY 09/11/20 09/30/20 History ciprofloxacin HCl 500 mg PO DAILY 09/11/20 09/30/20 History lactulose 30 ml PO DAILY 09/11/20 09/30/20 History mirtazapine 30 mg PO HS 09/11/20 09/30/20 History trazodone 50 mg PO HS 09/11/20 09/30/20 History furosemide 80 mg PO BID #60 tab 09/13/20 09/30/20 Rx oxycodone 10 mg PO Q6H PRN 09/30/20 09/30/20 History Patient History Medical History Anxiety Asthma inhaler/nebulizer prn Cardiac murmur as a child Chronic back pain Degenerative disc disease Diabetes mellitus, type 2 Diabetic peripheral neuropathy Esophageal varices hx of banding GERD (gastroesophageal reflux disease) Hearing deficit Hepatocellular carcinoma Hyponatremia 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 steatohepatitis) stage 3 Osteoarthritis Prolonged QT interval Sarcoidosis Smoker Spinal stenosis Thrombocytopenia Surgical History History of anesthesia reaction sometimes has difficulty waking up---last EGD took him an hour to wake up History of cardiac cath 2007 @ [facility], no stents History of colonoscopy History of endoscopic sinus surgery History of esophagogastroduodenoscopy (EGD) History of repair of left rotator cuff History of thoracic spinal fusion t10-t12 History of tooth extraction wisdom teeth History of umbilical hernia repair x3 Status post cervical spinal fusion x3 screws, plates in place--normal ROM C3-C7 Status post cholecystectomy Status post right foot surgery complete amputation of great toe and 2nd toe Family History Mother Diabetes Coronary heart disease Father Heart disease Sister Cancer bladder Other No family history of adverse response to anesthesia Social History Smoking Status: Light tobacco smoker Cigarettes Per Day: 2; Second Hand Exposure: No; Hx Alcohol Use: No Hx Substance Use: No Preferred Language: Tajik Communication Ability: Effective Wash Worker Required: No Beliefs That Will Affect Care: None marital status: Current Living Situation: Spouse Feels Safe at Home: Yes Assistive Devices: Glasses Review of Systems Constitutional: no fever, no chills and no fatigue Respiratory: no cough, no dyspnea and no dyspnea on exertion Cardiovascular: no chest pain, no dyspnea and no orthopnea Gastrointestinal: no abdominal pain, no nausea, no coffee ground emesis, no blood in stools and no melena Physical Exam Constitutional: + ill appearing; no acute distress Neck: trachea midline Respiratory: normal respiratory effort, lungs clear to auscultation Gastrointestinal (Abdomen): Percussion/Palpation: abdomen soft and + ascites; abdomen nontender, no guarding, abdomen not rigid and no abdominal mass Skin: no rashes, warm and dry Results & Data ([facility]) Vital Signs (Past 12 Hours) Vital Signs Temp Pulse Pulse Resp BP BP Pulse Ox 10/01/20 07:35 104 H 10/01/20 02:57 36.8 C 97 H 16 109/67 99 10/01/20 02:00 97 H 10/01/20 00:44 37.1 C 109 H 18 111/78 09/30/20 23:40 96 H 21 99 09/30/20 23:31 96 H 22 98 09/30/20 23:30 97 H 20 103/56 L 98 09/30/20 23:20 97 H 20 99 09/30/20 23:10 97 H 21 97 09/30/20 23:00 101 H 30 H 114/71 100 09/30/20 22:30 94 H 17 104/56 L 100 09/30/20 22:00 93 H 17 97/57 L 100 09/30/20 21:30 93 H 16 98/59 L 100 09/30/20 21:16 95 H 21 102/58 L 100 Laboratory Results 10/01/20 10/01/20 10/01/20 Range/Units 05:31 05:31 05:31 WBC 3.04 L (4.8-10.8) K/uL RBC 2.74 L (4.7-6.1) M/uL Hgb 8.3 L (14.0-18.0) g/dL Hct 24.0 L (42-52) % MCV 87.6 (80-100) fL MCH 30.3 (25-34) pg MCHC 34.6 (32-36) g/dL RDW Std Deviation 62.0 H (36.4-46.3) fL RDW Coeff of Kelly 19.4 H (11.5-14.5) % Plt Count 46 L (130-400) K/uL MPV 8.2 (7.4-10.4) fL Immature Gran % (Auto) 1.0 % Neut % (Auto) 68.5 % Lymph % (Auto) 13.8 % [place] % (Auto) 12.8 % Eos % (Auto) 3.6 % Baso % (Auto) 0.3 % Neut # (Auto) 2.08 (1.4-6.5) K/uL Lymph # (Auto) 0.42 L (1.2-3.4) K/uL [place] # (Auto) 0.39 (0.11-0.59) K/uL Eos # (Auto) 0.11 (0-0.5) K/uL Baso # (Auto) 0.01 (0-0.2) K/uL Immature Gran # (Auto) 0.03 H (0.00-0.02) K/uL Echinocytes 1+ PT (9.0-12.0) Seconds INR (0.9-1.1) APTT (21.0-31.0) Seconds PTT Ratio Sodium 129 L (136-145) mmol/L Potassium 5.1 (3.5-5.1) mmol/L Chloride 103 (98-107) mmol/L Carbon Dioxide 17 L (21-32) mmol/L Anion Gap 9.0 (3-11) BUN 81 H (7-18) mg/dl Creatinine 2.03 H D (0.6-1.4) mg/dl Est Cr Clr Drug Dosing 57.8 Est GFR ( Amer) 42.1 Est GFR (Non-Af Amer) 36.3 BUN/Creatinine Ratio 40.0 H (10-20) Glucose 124 H (70-99) mg/dl POC Glucose (70-99) mg/dl Estimat Average Glucose 120 mg/dl Hemoglobin A1c 5.8 H (4.5-5.6) % Lactate (0.4-2.0) mmol/L Calcium 8.6 (8.5-10.1) mg/dl Magnesium 2.7 H (1.8-2.4) mg/dl Total Bilirubin 4.0 H (0.2-1) mg/dl Direct Bilirubin 2.3 H (0-0.2) mg/dl AST 138 H (15-37) U/L ALT 65 (12-78) U/L Alkaline Phosphatase 296 H (45-117) U/L Ammonia (11-32) umol/L Total Protein 5.9 L (6.4-8.2) gm/dl Albumin 3.0 L (3.4-5.0) gm/dl Globulin (2.5-4.0) gm/dl Albumin/Globulin Ratio (0.9-2) Urine Color Urine Appearance (Clear) Urine pH (4.5-7.5) Ur Specific [place] (1.000-1.030) Urine Protein (Negative) Urine Glucose (UA) (Negative) Urine Ketones (Negative) Urine Blood (Negative) Urine Nitrite (Negative) Urine Bilirubin (Negative) Urine Urobilinogen (Negative) Ur Leukocyte Esterase (Negative) Fluid Neutrophils % Fluid Lymphocytes % Fluid Eosinophils % Fluid Mes[place]/Macro/[place] % Fluid Slide Review Peritoneal Color Peritoneal Appearance Peritoneal WBC Peritoneal RBC COVID-19 Eval Order SARS-CoV-2, RNA, NAAT (NEGATIVE) 10/01/20 10/01/20 10/01/20 Range/Units 02:54 02:45 00:58 WBC (4.8-10.8) K/uL RBC (4.7-6.1) M/uL Hgb (14.0-18.0) g/dL Hct (42-52) % MCV (80-100) fL MCH (25-34) pg MCHC (32-36) g/dL RDW Std Deviation (36.4-46.3) fL RDW Coeff of Kelly (11.5-14.5) % Plt Count (130-400) K/uL MPV (7.4-10.4) fL Immature Gran % (Auto) % Neut % (Auto) % Lymph % (Auto) % [place] % (Auto) % Eos % (Auto) % Baso % (Auto) % Neut # (Auto) (1.4-6.5) K/uL Lymph # (Auto) (1.2-3.4) K/uL [place] # (Auto) (0.11-0.59) K/uL Eos # (Auto) (0-0.5) K/uL Baso # (Auto) (0-0.2) K/uL Immature Gran # (Auto) (0.00-0.02) K/uL Echinocytes PT (9.0-12.0) Seconds INR (0.9-1.1) APTT (21.0-31.0) Seconds PTT Ratio Sodium (136-145) mmol/L Potassium (3.5-5.1) mmol/L Chloride (98-107) mmol/L Carbon Dioxide (21-32) mmol/L Anion Gap (3-11) BUN (7-18) mg/dl Creatinine (0.6-1.4) mg/dl Est Cr Clr Drug Dosing Est GFR ( Amer) Est GFR (Non-Af Amer) BUN/Creatinine Ratio (10-20) Glucose (70-99) mg/dl POC Glucose 128 H 197 H (70-99) mg/dl Estimat Average Glucose mg/dl Hemoglobin A1c (4.5-5.6) % Lactate (0.4-2.0) mmol/L Calcium (8.5-10.1) mg/dl Magnesium (1.8-2.4) mg/dl Total Bilirubin (0.2-1) mg/dl Direct Bilirubin (0-0.2) mg/dl AST (15-37) U/L ALT (12-78) U/L Alkaline Phosphatase (45-117) U/L Ammonia (11-32) umol/L Total Protein (6.4-8.2) gm/dl Albumin (3.4-5.0) gm/dl Globulin (2.5-4.0) gm/dl Albumin/Globulin Ratio (0.9-2) Urine Color Yellow Urine Appearance Clear (Clear) Urine pH 5.0 (4.5-7.5) Ur Specific [place] 1.014 (1.000-1.030) Urine Protein Negative (Negative) Urine Glucose (UA) Negative (Negative) Urine Ketones Negative (Negative) Urine Blood Negative (Negative) Urine Nitrite Negative (Negative) Urine Bilirubin Negative (Negative) Urine Urobilinogen Negative (Negative) Ur Leukocyte Esterase Negative (Negative) Fluid Neutrophils % Fluid Lymphocytes % Fluid Eosinophils % Fluid [place]/Macro/[place] % Fluid Slide Review Peritoneal Color Peritoneal Appearance Peritoneal WBC Peritoneal RBC COVID-19 Eval Order SARS-CoV-2, RNA, NAAT (NEGATIVE) 09/30/20 09/30/20 09/30/20 Range/Units 22:21 21:20 21:20 WBC (4.8-10.8) K/uL RBC (4.7-6.1) M/uL Hgb (14.0-18.0) g/dL Hct (42-52) % MCV (80-100) fL MCH (25-34) pg MCHC (32-36) g/dL RDW Std Deviation (36.4-46.3) fL RDW Coeff of Kelly (11.5-14.5) % Plt Count (130-400) K/uL MPV (7.4-10.4) fL Immature Gran % (Auto) % Neut % (Auto) % Lymph % (Auto) % [place] % (Auto) % Eos % (Auto) % Baso % (Auto) % Neut # (Auto) (1.4-6.5) K/uL Lymph # (Auto) (1.2-3.4) K/uL [place] # (Auto) (0.11-0.59) K/uL Eos # (Auto) (0-0.5) K/uL Baso # (Auto) (0-0.2) K/uL Immature Gran # (Auto) (0.00-0.02) K/uL Echinocytes PT (9.0-12.0) Seconds INR (0.9-1.1) APTT (21.0-31.0) Seconds PTT Ratio Sodium (136-145) mmol/L Potassium (3.5-5.1) mmol/L Chloride (98-107) mmol/L Carbon Dioxide (21-32) mmol/L Anion Gap (3-11) BUN (7-18) mg/dl Creatinine (0.6-1.4) mg/dl Est Cr Clr Drug Dosing Est GFR ( Amer) Est GFR (Non-Af Amer) BUN/Creatinine Ratio (10-20) Glucose (70-99) mg/dl POC Glucose (70-99) mg/dl Estimat Average Glucose mg/dl Hemoglobin A1c (4.5-5.6) % Lactate 1.7 (0.4-2.0) mmol/L Calcium (8.5-10.1) mg/dl Magnesium (1.8-2.4) mg/dl Total Bilirubin (0.2-1) mg/dl Direct Bilirubin (0-0.2) mg/dl AST (15-37) U/L ALT (12-78) U/L Alkaline Phosphatase (45-117) U/L Ammonia (11-32) umol/L Total Protein (6.4-8.2) gm/dl Albumin (3.4-5.0) gm/dl Globulin (2.5-4.0) gm/dl Albumin/Globulin Ratio (0.9-2) Urine Color Urine Appearance (Clear) Urine pH (4.5-7.5) Ur Specific [place] (1.000-1.030) Urine Protein (Negative) Urine Glucose (UA) (Negative) Urine Ketones (Negative) Urine Blood (Negative) Urine Nitrite (Negative) Urine Bilirubin (Negative) Urine Urobilinogen (Negative) Ur Leukocyte Esterase (Negative) Fluid Neutrophils % Fluid Lymphocytes % Fluid Eosinophils % Fluid [place]/Macro/[place] % Fluid Slide Review Peritoneal Color Peritoneal Appearance Peritoneal WBC Peritoneal RBC COVID[email or web address]-2, RNA, NAAT NEGATIVE (NEGATIVE) 09/30/20 09/30/20 09/30/20 Range/Units 21:20 20:24 20:24 WBC (4.8-10.8) K/uL RBC (4.7-6.1) M/uL Hgb (14.0-18.0) g/dL Hct (42-52) % MCV (80-100) fL MCH (25-34) pg MCHC (32-36) g/dL RDW Std Deviation (36.4-46.3) fL RDW Coeff of Kelly (11.5-14.5) % Plt Count (130-400) K/uL MPV (7.4-10.4) fL Immature Gran % (Auto) % Neut % (Auto) % Lymph % (Auto) % [place] % (Auto) % Eos % (Auto) % Baso % (Auto) % Neut # (Auto) (1.4-6.5) K/uL Lymph # (Auto) (1.2-3.4) K/uL [place] # (Auto) (0.11-0.59) K/uL Eos # (Auto) (0-0.5) K/uL Baso # (Auto) (0-0.2) K/uL Immature Gran # (Auto) (0.00-0.02) K/uL Echinocytes PT (9.0-12.0) Seconds INR (0.9-1.1) APTT (21.0-31.0) Seconds PTT Ratio Sodium (136-145) mmol/L Potassium (3.5-5.1) mmol/L Chloride (98-107) mmol/L Carbon Dioxide (21-32) mmol/L Anion Gap (3-11) BUN (7-18) mg/dl Creatinine (0.6-1.4) mg/dl Est Cr Clr Drug Dosing Est GFR ( Amer) Est GFR (Non-Af Amer) BUN/Creatinine Ratio (10-20) Glucose (70-99) mg/dl POC Glucose (70-99) mg/dl Estimat Average Glucose mg/dl Hemoglobin A1c (4.5-5.6) % Lactate 2.7 H* (0.4-2.0) mmol/L Calcium (8.5-10.1) mg/dl Magnesium (1.8-2.4) mg/dl Total Bilirubin (0.2-1) mg/dl Direct Bilirubin (0-0.2) mg/dl AST (15-37) U/L ALT (12-78) U/L Alkaline Phosphatase (45-117) U/L Ammonia 87.3 H (11-32) umol/L Total Protein (6.4-8.2) gm/dl Albumin (3.4-5.0) gm/dl Globulin (2.5-4.0) gm/dl Albumin/Globulin Ratio (0.9-2) Urine Color Urine Appearance (Clear) Urine pH (4.5-7.5) Ur Specific [place] (1.000-1.030) Urine Protein (Negative) Urine Glucose (UA) (Negative) Urine Ketones (Negative) Urine Blood (Negative) Urine Nitrite (Negative) Urine Bilirubin (Negative) Urine Urobilinogen (Negative) Ur Leukocyte Esterase (Negative) Fluid Neutrophils % Pending Fluid Lymphocytes % Pending Fluid Eosinophils % Pending Fluid Meso/Macro/[place] % Pending Fluid Slide Review Pending Peritoneal Color Pending Peritoneal Appearance Pending Peritoneal WBC Pending Peritoneal RBC Pending COVID-19 Eval Order SARS-CoV-2, RNA, NAAT (NEGATIVE) 09/30/20 09/30/20 09/30/20 Range/Units 20:24 20:24 20:24 WBC 3.56 L (4.8-10.8) K/uL RBC 2.87 L (4.7-6.1) M/uL Hgb 8.8 L (14.0-18.0) g/dL Hct 25.2 L (42-52) % MCV 87.8 (80-100) fL MCH 30.7 (25-34) pg MCHC 34.9 (32-36) g/dL RDW Std Deviation 62.5 H (36.4-46.3) fL RDW Coeff of Kelly 19.2 H (11.5-14.5) % Plt Count 49 L (130-400) K/uL MPV 8.4 (7.4-10.4) fL Immature Gran % (Auto) 1.4 % Neut % (Auto) 79.0 % Lymph % (Auto) 8.4 % [place] % (Auto) 8.7 % Eos % (Auto) 2.2 % Baso % (Auto) 0.3 % Neut # (Auto) 2.81 (1.4-6.5) K/uL Lymph # (Auto) 0.30 L (1.2-3.4) K/uL [place] # (Auto) 0.31 (0.11-0.59) K/uL Eos # (Auto) 0.08 (0-0.5) K/uL Baso # (Auto) 0.01 (0-0.2) K/uL Immature Gran # (Auto) 0.05 H (0.00-0.02) K/uL Echinocytes 1+ PT 12.7 H (9.0-12.0) Seconds INR 1.3 H (0.9-1.1) APTT 29.0 (21.0-31.0) Seconds PTT Ratio 1.1 Sodium 125 L (136-145) mmol/L Potassium 5.4 H (3.5-5.1) mmol/L Chloride 98 (98-107) mmol/L Carbon Dioxide 15 L (21-32) mmol/L Anion Gap 12.0 H (3-11) BUN 81 H (7-18) mg/dl Creatinine 2.39 H (0.6-1.4) mg/dl Est Cr Clr Drug Dosing Not Reportable Est GFR ( Amer) 34.6 Est GFR (Non-Af Amer) 29.8 BUN/Creatinine Ratio 33.9 H (10-20) Glucose 203 H (70-99) mg/dl POC Glucose (70-99) mg/dl Estimat Average Glucose mg/dl Hemoglobin A1c (4.5-5.6) % Lactate (0.4-2.0) mmol/L Calcium 9.1 (8.5-10.1) mg/dl Magnesium 2.4 (1.8-2.4) mg/dl Total Bilirubin 3.9 H (0.2-1) mg/dl Direct Bilirubin (0-0.2) mg/dl AST 146 H (15-37) U/L ALT 70 (12-78) U/L Alkaline Phosphatase 317 H (45-117) U/L Ammonia (11-32) umol/L Total Protein 6.2 L (6.4-8.2) gm/dl Albumin 3.0 L (3.4-5.0) gm/dl Globulin 3.2 (2.5-4.0) gm/dl Albumin/Globulin Ratio 0.9 (0.9-2) Urine Color Urine Appearance (Clear) Urine pH (4.5-7.5) Ur Specific [place] (1.000-1.030) Urine Protein (Negative) Urine Glucose (UA) (Negative) Urine Ketones (Negative) Urine Blood (Negative) Urine Nitrite (Negative) Urine Bilirubin (Negative) Urine Urobilinogen (Negative) Ur Leukocyte Esterase (Negative) Fluid Neutrophils % Fluid Lymphocytes % Fluid Eosinophils % Fluid [place] % Fluid Slide Review Peritoneal Color Peritoneal Appearance Peritoneal WBC Peritoneal RBC COVID-19 Eval Order SARS-CoV-2, RNA, NAAT (NEGATIVE)
--- NOTE | 2020-10-01 08:38 | Pharmacy Report ---
Pharmacy Glycemic Short Note 2 - Date of Service October 01, 2020 - Glycemic Short BSG Results (Last 24 hours): 09/30/20 10/01/20 10/01/20 20:24 00:58 02:54 Glucose 203 H POC Glucose 197 H 128 H 10/01/20 05:31 Glucose 124 H POC Glucose OUTPATIENT ANTIDIABETIC REGIMEN: * V-GO Pump: * Basal - 20 units per day * Correctional/Prandial - 8 to 14 units with meals * A1c = 5.8% (10/01/20) RISK FACTORS FOR INSULIN RESISTANCE: * Infection - Cefepime + Metronidazole * IV Fluids - D5 + NS at 50 mL/hr * Diet - Clear Liquid ASSESSMENT: * 54 yo M with past medical history significant for Type 2 Diabetes Mellitus on insulin pump, 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 HbA1c demonstrates excellent outpatient control of T2DM on V-GO pump. Patient is known to pharmacy glycemic management service from previous admissions. * Insulin pump removed at some point overnight - will utilize SQ basal bolus insulin for now * BSGs this morning were 197 and 128 mg/dL * Novolog parameters determined from previous admission data. PLAN FOR INPATIENT GLYCEMIC CONTROL: * V-GO insulin pump removed * Basal insulin * Lantus 15-20 units SQ HS (20 units if BSG > 120 mg/dL) * Bolus insulin * NovoLog per scale ACHS or Q6hrs while NPO * Goal Range: Low 110 mg/dL - High 140 mg/dL * Correction Factor: 20 mg/dL/unit * Nutritional / Prandial insulin per carb ratio of 1 unit per 6 grams CHO consumed PLAN FOR DISCHARGE: * HbA1c is 5.8% which is at goal for this patient based on his age and comorbidities. * Recommend continuing home regimen upon discharge as long as patient is not experiencing hypoglycemia.
[2020-10-01] MEDS: GABAPENTIN 300 MG CAP PO SCH ×2 (08:44→13:43)
[2020-10-01] MEDS ORDERED: CEFEPIME 2,000 MG in SYRINGE 0 ML IV SCH (09:00)
[2020-10-01] MEDS ORDERED: FAMOTIDINE 20 MG TAB PO SCH (09:00)
[2020-10-01] MEDS ORDERED: FUROSEMIDE 80 MG TAB PO SCH (09:00)
[2020-10-01] MEDS ORDERED: PANTOprazole 40 MG TAB PO SCH (09:00)
[2020-10-01] MEDS: ALBUMIN 25% 12.5 GM/50 ML VIAL IV SCH ×3 (09:25→10:27)
--- NOTE | 2020-10-01 09:32 | Hospitalist Progress Note ---
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 1. Confusion: Delirium sec to hepatic encephalopathy as ammonia level is elevated at 87, also could be from any infection. Ascitic fluids from PleurX catheter sent for cultures and cell count is pending. Empirically started on cefepime and Flagyl. Gentle fluids for now and closely monitor in the med tele. GI consulted. Further plan of action as per the GI. 2. MEJIA liver cirrhosis, hepatic encephalopathy, ammonia is 88. Will continue with lactulose 30 grams t.i.d. and continue Xifaxan. Follow the repeat labs in a.m. 3. Acute kidney injury on chronic kidney disease stage III, baseline creatinine of 1.5, currently with creatinine of 2.3 and also hyponatremia and hyperkalemia. The patient has chronic hyponatremia. Also his potassium is elevated from time to time, hyponatremia mostly secondary to volume overload, but currently because of acute kidney injury, we will hold his diuretics. Give gentle fluids and stop fluids in a.m. and give a dose of Kayexalate. Follow the repeat labs in a.m. and consult nephrology in the a.m. for further recommendation. 4. Metabolic acidosis . from above? The patient is also getting D5 normal saline. We will follow the repeat labs in the a.m. 5. Diabetes, on insulin pump. We will take off insulin pump and place him on sliding scale and pharmacy consult. Follow the blood sugars. 6. Hepatocellular carcinoma. There is a been discussion plan for hospice . We will await GI input tomorrow. 7. Ascites, status post PleurX catheter. The patient is getting 1 L of fluid every day. As per the yesterday, he had albumin infusion and had 6 liters taken out. Will continue with his lactulose. Continue salt restriction. Getting gentle fluids for acute kidney injury. Diuretics are held. Will monitor for any volume overload. 8. Pancytopenia secondary to cirrhosis. We will monitor in the labs. 9. Deep venous thrombosis prophylaxis, sequential compression devices for now. 10. Disposition: Closely monitor in the Goalbook tele. Code status DNR/DNI. Social service to help with discharge planning. Labs checked ROS-No Headache, No Visual Changes, No Nausea, No Vomiting, No Fever, No Chills, No Neck Pain or Stiffness, No Chest Pain, No Palpitations, No SOB, No TANG, No Cough, No Sputum, No Wheezing, No Abdominal Pain, No Diarrhea, No Hematemesis, No Hemoptysis, No Unexpected Weight Loss, No Flank pain, No Melena, No Hematochezia, No Frequency, No Urgency, No Burning, No Hematuria, No Rashes, No Diaphoresis. Appetite is Normal Physical Exam Gen-Weak, NAD, Afebrile, obese, Poor dentition Head-NCAT, EOMI, PERRLA, Anicteric Sclera, No Posterior Pharyngeal Erythema Neck-Supple, No JVD, No Thyromegaly, No Masses, No LAD, No Bruits Lungs-Clear to Auscultation Bilaterally, No Rales, No Rhonchi, No Wheezing, No Crepitus Chest-No S4, +S1, +S2, No S3, No Murmurs, No Rubs, No Gallops, No Ectopy Abdomen-Soft, Bowel Sounds Present, Non Tender, Distended, Obese, No Hepatomegaly, No Splenomegaly, No Palpable Masses, No Rebound, No Rigidity, No Guarding Musculoskeletal-Full Range of Motion Bilaterally, No CVAT Extremities-No Cyanosis, No Clubbing, 3+ Edema Nuero-Cranial Nerves II-XII grossly intact, Motor WNL, DTRs WNL, Strength WNL, Non Focal Psych-Somnolent Admission and Anticipated Discharge Date Admission Date: September 30, 2020 Results & Data Results & Data ([facility]) Vital Signs (Past 12 Hours) Vital Signs Temp Pulse Pulse Resp BP BP Pulse Ox 10/01/20 08:58 36.8 C 108 H 18 100/72 96 10/01/20 07:35 104 H 10/01/20 02:57 36.8 C 97 H 16 109/67 99 10/01/20 02:00 97 H 10/01/20 00:44 37.1 C 109 H 18 111/78 09/30/20 23:40 96 H 21 99 09/30/20 23:31 96 H 22 98 09/30/20 23:30 97 H 20 103/56 L 98 09/30/20 23:20 97 H 20 99 09/30/20 23:10 97 H 21 97 09/30/20 23:00 101 H 30 H 114/71 100 09/30/20 22:30 94 H 17 104/56 L 100 09/30/20 22:00 93 H 17 97/57 L 100 09/30/20 21:30 93 H 16 98/59 L 100
[2020-10-01 10:16] LABS: Lymphocytes, Fluid 78 %; Mono,Macrophage,Mesothelial 15 %; Neutrophils, Fluid 7 %
[2020-10-01 10:17] LABS: Appearance Peritoneal Fluid HAZY; Color Peritoneal Fluid PALE YELLOW; RBC Peritoneal Fluid (A) 4000 /uL; WBC Peritoneal Fluid (A) 259 /ul (0-300)
--- NOTE | 2020-10-01 10:34 | Consultation Report ---
DATE OF CONSULTATION: 10/01/2020 REASON FOR CONSULT: Acute renal failure in a patient with advanced liver cirrhosis. HISTORY OF PRESENT ILLNESS: The patient is a 54-year-old male with advanced decompensated liver cirrhosis who presented to the hospital yesterday because of increasing confusion and shakiness. This was noted by his who brought him to the hospital in the private car. The patient has ascites drainage catheter and he does home abdominal paracentesis about once a week. Yesterday, patient was very lethargic and pretty much sleeping all day. There was also an episode of vomiting. The patient was instructed to come to the Emergency Department by Gastroenterology Department. In the Emergency Department, he was found to have acute renal failure as well as possible suspicion for infection. Overnight, the patient got antibiotics, 1 dose of Lasix as well as IV fluid. Creatinine on admission was 2.39. This morning is 2.03. The patient does have abnormal kidney function, but it does fluctuate as expected in a patient with advanced liver cirrhosis. On 09/16/2020, he had a creatinine of 2.24, but mostly creatinine seems to be in the mid to high 1s. Confusion seems to have got significantly better as I was able to have accurate and detailed conversation with the patient just now. 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 MEDICATIONS: At home was reviewed in detail and includes lactulose, oxycodone, Lasix 80 twice daily, Remeron, Zofran, Compazine, cimetidine, omeprazole, rifaximin, gabapentin. ALLERGIES: List was reviewed in detail. FAMILY HISTORY: Significant for bladder cancer, dementia in sister. Mother has diabetes. No renal disease or dialysis. SOCIAL HISTORY: The patient is and lives with his in his home. Former smoker, quit in 05/2020. No alcohol use, no drug use. REVIEW OF SYSTEMS: As per HPI. The patient does not remember the details of what happened yesterday. At this time, he feels he is baseline. He denies any nausea, vomiting, chest pain, shortness of breath, orthopnea. He has chronic lower extremity edema which according to him is at stable baseline level. PHYSICAL EXAMINATION: GENERAL: The patient is obese. He is not in any respiratory distress. At this point of time, he appears to be awake, alert and fully oriented and was able to give me a detailed account of his overall medical problem. VITAL SIGNS: Blood pressure 100/70, pulse rate 108, temperature 36.8, 96% on room air. HEENT: Mucous membrane is moist. NECK: Supple. No jugular venous distention. CHEST: Bilateral decreased breath sounds, occasional crackles. CARDIOVASCULAR: S1, S2 regular. ABDOMEN: Distended with ascites 2+ and has a drainage catheter in the right lower quadrant. EXTREMITIES: Shows 2+ edema. LABORATORY TESTS: Creatinine was 2.39 on admission, this morning is 2.03. Sodium 129, potassium 5.1, CO2 of 17, BUN 81, creatinine 2.03, magnesium 2.7, albumin 3. Hemoglobin is 8.3, platelet count is 46. Microbiology tests are pending at this time. ASSESSMENT AND PLAN: A 54-year-old male with known advanced decompensated liver cirrhosis, admitted with confusion, likely encephalopathy from his underlying liver disease versus sepsis. I was consulted for acute renal failure. Acute renal failure. The acute component is pretty mild. It appears he has a creatinine of 1.7-1.9 range at baseline. On admission, he had a creatinine of 2.39 and it is already down to 2 this morning. I do not feel we need to do a very detailed workup at this time. He is making urine. I will check urine sodium and urine creatinine to have a better idea about the etiology of acute renal failure. The differential diagnoses are simple prerenal versus acute tubular necrosis versus hepatorenal. However, given that the creatinine has improved from yesterday, it appears to be encouraging sign. I do not believe he needs IV fluid at this time and can be stopped. He already received the morning dose of Lasix. At this point, I will hold the Lasix. However, he would most likely need to be started on Lasix again tomorrow, which we can do after reviewing the labs in the morning.
[2020-10-01] MEDS ORDERED: LACTULOSE SYRUP 30 GM/45 ML UDP PO SCH (13:00)
--- NOTE | 2020-10-01 13:23 | Electrocardiogram Report ---
Test Reason : Blood Pressure : / mmHG Vent. Rate : 097 BPM Atrial Rate : 097 BPM P-R Int : 178 ms QRS Dur : 090 ms QT Int : 370 ms P-R-T Axes : 060 005 044 degrees QTc Int : 469 ms Normal sinus rhythm Normal ECG When compared with ECG of 11-SEP-2020 10:16, No significant change was found Confirmed by Joby Mcfarland ([id number]) on 10/01/2020 1:22:57 PM Referred By: REFERRED SELF Confirmed By:Joby Mcfarland
--- NOTE | 2020-10-01 15:29 | Discharge Summary ---
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 The patient has a PleurX catheter for his ascites and 1 liter of fluid was taken out daily but yesterday with albumin infusion he had 6 liters of fluid taken out and as per the , he was mostly lethargic yesterday sleeping and today he woke up, but he was more shaky and seemed confused and episode of vomiting on talking to the GI, they advised to come to the ER. He seemed more tired today. So gave him an extra dose of lactulose today. He also vomited today in the morning. There is a question of some infection. The patient complained of no fever or chills at home. No complaint of any pain. No blood in the stools or black stools. The patient initially when he came in as per nursing staff he was talking and oriented, but now is very much sleepy and difficult to wake him up, but he could tell his name, knows his date of , knows that he is in the hospital, but could not tell today's date, but he goes back to sleep and it is very difficult to wake him up. Denies any chest pain, denies any shortness of breath, denies any belly pain. Denies any cough. We could not get complete review of systems from the patient currently. Admission Exam Per Admitting Provider PHYSICAL EXAMINATION: GENERAL: The patient is morbidly obese, not in acute distress. Currently drowsy. VITAL SIGNS: Temperature 36.2, pulse 101, respiratory rate in the 20s, blood pressure 114/71, oxygen 100% on room air. HEENT: Pupils equal, round, reactive to light. Oral mucosa dry. NECK: No JVD, no neck masses seen. CARDIOVASCULAR: S1, S2 heard. Regular rate and rhythm, no murmur, no gallop. RESPIRATORY SYSTEM: Normal AP diameter. No accessory muscle use. No wheezing, no crackles. ABDOMEN: Distended. Right-sided pleural catheter site is clean. Distended. CENTRAL NERVOUS SYSTEM: Drowsy but oriented to name and place. Answers simple questions. EXTREMITIES: Bilateral lower extremity chronic edema seen. No erythema seen. Principal Diagnosis 1. Confusion: Delirium sec to hepatic encephalopathy 2. MEJIA liver cirrhosis, hepatic encephalopathy 3. Acute kidney injury on chronic kidney disease stage III 4. Metabolic acidosis 5. Diabetes 6. Hepatocellular carcinoma. 7. Ascites 8. Pancytopenia secondary to cirrhosis. Discharge Exam See below Discharge Data Allergies Allergy/AdvReac Type Severity Reaction Status Date / Time Penicillins Allergy Severe ANAPHYLAXIS Verified 09/29/20 08:19 morphine Allergy Intermediate Severe Verified 09/29/20 08:19 itching/mouth rash adhesive Allergy Mild rips Verified 09/29/20 08:19 skin/bruise skin aripiprazole Allergy Mild "feeling Verified 09/29/20 08:19 irritable" lithium Allergy Mild Anxiety Verified 09/29/20 08:19 meperidine Allergy Mild pruritis/ra Verified 09/29/20 08:19 sh pregabalin Allergy Mild Anxiety Verified 09/29/20 08:19 quetiapine Allergy Mild Drowsy Verified 09/29/20 08:19 Gold Salts AdvReac Mild Blister Verified 09/29/20 08:19 Consultations 09/30/20 21:15 ED Decision to Admit Stat 10/01/20 00:39 Consult Case Management - Discharge Planning Routine 10/01/20 08:00 Consult Gastroenterology Routine Consult Nephrology Routine Current Diagnoses Hepatic failure, unspecified without coma (09/30/20) Allergies Penicillins Allergy (Severe, Verified 09/29/20 08:19) ANAPHYLAXIS morphine Allergy (Intermediate, Verified 09/29/20 08:19) Severe itching/mouth rash adhesive Allergy (Mild, Verified 09/29/20 08:19) rips skin/bruise skin aripiprazole Allergy (Mild, Verified 09/29/20 08:19) "feeling irritable" lithium Allergy (Mild, Verified 09/29/20 08:19) Anxiety meperidine Allergy (Mild, Verified 09/29/20 08:19) pruritis/rash pregabalin Allergy (Mild, Verified 09/29/20 08:19) Anxiety quetiapine Allergy (Mild, Verified 09/29/20 08:19) Drowsy Gold Salts Adverse Reaction (Mild, Verified 09/29/20 08:19) Blister Height/Weight/Isolation Height 6 ft 1 in Weight 123.1 kg Chemistry 09/30/20 10/01/20 20:24 05:31 Sodium 125 L 129 L Potassium 5.4 H 5.1 Chloride 98 103 Carbon Dioxide 15 L 17 L Anion Gap 12.0 H 9.0 BUN 81 H 81 H Creatinine 2.39 H 2.03 H D Glucose 203 H 124 H Urinalysis 10/01/20 02:45 Urine Color Yellow Urine Appearance Clear Urine pH 5.0 Ur Specific [place] 1.014 Urine Protein Negative Urine Glucose (UA) Negative Urine Ketones Negative Urine Blood Negative Urine Nitrite Negative Urine Bilirubin Negative Microbiology 09/30/20 21:20 Peritoneal Fluid Gram Stain - Final 09/30/20 21:20 Peritoneal Fluid Aerobic and Anaerobic Culture - Preliminary Pin-point growth present, reincubating. 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 1. Confusion: Delirium sec to hepatic encephalopathy as ammonia level is elevated at 87, also could be from any infection. Ascitic fluids from PleurX catheter sent for cultures and cell count is pending. Empirically started on cefepime and Flagyl. Gentle fluids for now and closely monitor in the HTP tele. GI consulted. Further plan of action as per the GI. 2. MEJIA liver cirrhosis, hepatic encephalopathy, ammonia is 88. Will continue with lactulose 30 grams t.i.d. and continue Xifaxan. Follow the repeat labs in a.m. 3. Acute kidney injury on chronic kidney disease stage III, baseline creatinine of 1.5, currently with creatinine of 2.3 and also hyponatremia and hyperkalemia. The patient has chronic hyponatremia. Also his potassium is elevated from time to time, hyponatremia mostly secondary to volume overload, but currently because of acute kidney injury, we will hold his diuretics. Give gentle fluids and stop fluids in a.m. and give a dose of Kayexalate. Follow the repeat labs in a.m. and consult nephrology in the a.m. for further recommendation. 4. Metabolic acidosis . from above? The patient is also getting D5 normal saline. We will follow the repeat labs in the a.m. 5. Diabetes, on insulin pump. We will take off insulin pump and place him on sliding scale and pharmacy consult. Follow the blood sugars. 6. Hepatocellular carcinoma. There is a been discussion plan for hospice . We will await GI input tomorrow. 7. Ascites, status post PleurX catheter. The patient is getting 1 L of fluid every day. As per the yesterday, he had albumin infusion and had 6 liters taken out. Will continue with his lactulose. Continue salt restriction. Getting gentle fluids for acute kidney injury. Diuretics are held. Will monitor for any volume overload. 8. Pancytopenia secondary to cirrhosis. We will monitor in the labs. 9. Deep venous thrombosis prophylaxis, sequential compression devices for now. 10. Disposition: Closely monitor in the med tele. Code status DNR/DNI. Left AMA ROS-No Headache, No Visual Changes, No Nausea, No Vomiting, No Fever, No Chills, No Neck Pain or Stiffness, No Chest Pain, No Palpitations, No SOB, No TANG, No Cough, No Sputum, No Wheezing, No Abdominal Pain, No Diarrhea, No Hematemesis, No Hemoptysis, No Unexpected Weight Loss, No Flank pain, No Melena, No Hematochezia, No Frequency, No Urgency, No Burning, No Hematuria, No Rashes, No Diaphoresis. Appetite is Normal Physical Exam Gen-Weak, NAD, Afebrile, obese, Poor dentition Head-NCAT, EOMI, PERRLA, Anicteric Sclera, No Posterior Pharyngeal Erythema Neck-Supple, No JVD, No Thyromegaly, No Masses, No LAD, No Bruits Lungs-Clear to Auscultation Bilaterally, No Rales, No Rhonchi, No Wheezing, No Crepitus Chest-No S4, +S1, +S2, No S3, No Murmurs, No Rubs, No Gallops, No Ectopy Abdomen-Soft, Bowel Sounds Present, Non Tender, Distended, Obese, No Hepatomegaly, No Splenomegaly, No Palpable Masses, No Rebound, No Rigidity, No Guarding Musculoskeletal-Full Range of Motion Bilaterally, No CVAT Extremities-No Cyanosis, No Clubbing, 3+ Edema Nuero-Cranial Nerves II-XII grossly intact, Motor WNL, DTRs WNL, Strength WNL, Non Focal Psych-Somnolent Total Time Total Time Spent Total Time Spent (In Minutes): 45 min Total Time Includes: Examination of the Patient, Discharge Planning, Medication Reconciliation and Communication With Other Providers Discharge Plan Discharge Items Patient Disposition: Against Medical Advice Reason For Visit: CONFUSION Condition on Discharge: Fair Activity: Resume your previous activity Lifting: Gradually increase as tolerated Bathing: No limitations Sexual Activity: When tolerated Exercise/Sports: None Weightbearing: Full weightbearing Non-emergency contact: Primary Care Provider and Electrical Worker Follow-up/Referrals: Neha Burgos DO [Primary Care Provider] - Diet Comment: As tolerated Pending Studies at Discharge: No Stand-Alone Forms: [employer], Smoking Cessation Skilled Items Patient informed of condition?: Yes DNR: Yes Discharge Level of Care: Other Communicable Disease: No Discharge Prognosis: Deteriorating Medications and DC Order Prescriptions: Continued (DME) V-GO 20 Device See Rx Instructions .ROUTE .MEDSUPPLY Qty: 90 RF: 3 (DME) FreeStyle Adair 14 Day Sensor Kit See Rx Instructions .ROUTE .MEDSUPPLY Qty: 7 RF: 3 (DME) FreeStyle Adair 14 Day [place] Misc See Rx Instructions .ROUTE .MEDSUPPLY Qty: 1 RF: 0 Xifaxan 550 mg Tablet 550 mg PO BID RF: 0 Novolog U-100 Insulin aspart 100 unit/mL solution See Rx Instructions .ROUTE .COMPLEX RF: 0 silver sulfadiazine 1 % Cream 1 applic TOPICAL DAILY PRN (Reason: NEEDED) RF: 0 prochlorperazine maleate 10 mg tablet 10 mg PO Q6H PRN (Reason: Nausea And Vomiting) RF: 0 omeprazole 40 mg Capsule,Delayed Release(Dr/Ec) 40 mg PO BID RF: 0 triamcinolone acetonide 0.1 % Cream 1 applic TOPICAL DAILY PRN (Reason: Skin Irritation) RF: 0 lorazepam 0.5 mg Tablet 0.5 mg PO TID PRN (Reason: Anxiety) RF: 0 nystatin 100,000 unit/gram Cream 1 applic TOPICAL DAILY PRN (Reason: Rash) RF: 0 gabapentin 300 mg Capsule 300 mg PO TID RF: 0 oxycodone 10 mg tablet 10 mg PO Q6H PRN (Reason: Pain) RF: 0 ondansetron 8 mg tablet,disintegrating 8 mg PO Q8H PRN (Reason: Nausea) RF: 0 carisoprodol [Soma] 350 mg tablet 350 mg PO QID PRN (Reason: Muscle Spasm) RF: 0 trazodone 50 mg tablet 50 mg PO HS RF: 0 cimetidine 300 mg tablet 300 mg PO DAILY RF: 0 ciprofloxacin HCl 500 mg tablet 500 mg PO DAILY RF: 0 mirtazapine 30 mg tablet 30 mg PO HS RF: 0 lactulose 10 gram/15 mL solution 30 ml PO DAILY RF: 0 furosemide 40 mg tablet 80 mg PO BID Qty: 60 RF: 0 Admission Data Admit Date/Time: 09/30/20 23:00 Attending Provider: Last Wooten Admit Provider: Aaron Salvador Primary Care Provider: Neha Burgos Other Providers: Aaron Salvador ; Mandy Berg ; Shirlene Medel ; [facility]
[2020-10-01] MEDS ORDERED: INSULIN GLARGINE SOLOSTAR 100 UNITS/ML 3 ML PEN SC SCH (21:00)
[2020-10-01] MEDS ORDERED: traZODone HCL 50 MG TAB PO SCH (21:00)
[2020-10-01] MEDS ORDERED: MIRTAZAPINE TAB 15 MG TAB PO SCH (21:00)
== END 2020-10-01 16:00 | disposition left against medical advice (07) | DRG 442 ==
LOC: ED 19:25 → SUATTDRO 23:00 → 2N 23:00
DX: C22.0 Liver cell carcinoma; K74.69 Other cirrhosis of liver; Z96.41 Presence of insulin pump (external) (internal); F32.9 Major depressive disorder, single episode, unspecified; N18.30 Chronic kidney disease, stage 3 unspecified; F17.210 Nicotine dependence, cigarettes, uncomplicated; K72.90 Hepatic failure, unspecified without coma; E87.2 Acidosis; D61.818 Other pancytopenia; K75.81 Nonalcoholic steatohepatitis (NASH); N17.9 Acute kidney failure, unspecified; Z66 Do not resuscitate; E11.22 Type 2 diabetes mellitus with diabetic chronic kidney disease; E87.1 Hypo-osmolality and hyponatremia; Z79.4 Long term (current) use of insulin; Z79.899 Other long term (current) drug therapy; E87.5 Hyperkalemia; K21.9 Gastro-esophageal reflux disease without esophagitis; R18.8 Other ascites